=== PATIENT | female | born 1960 | race Two or more races ===

== ENCOUNTER 2021-04-27 10:39 | Outpatient (REF) | payer OTHER, SELFPAY ==
[2021-04-27 13:55] LABS: Hematocrit 42.3 % (37-47); Mean Corpuscular HGB Conc 33.1 g/dl (31.0-35.0); Mean Corpuscular Hemoglobin 29.6 pg (27.0-33.0); Mean Corpuscular Volume 89.4 fL (80-98); Mean Platelet Volume 11.3 fL (9.4-12.3); Platelet Count 246 X10*3/uL (160-400); Red Blood Count 4.73 X10*6/uL (4.20-5.50); Red Cell Distribution Width 12.2 % (11.0-16.0); White Blood Count 6.4 X10*3/uL (4.8-10.8)
[2021-04-27 14:07] LABS: Appearance Urine CLEAR; Color Urine YELLOW; Glucose Urine UA NEG (NEG); Leukocyte Esterase Urine TRACE (NEG); Nitrite Urine NEG (NEG); Urine Blood NEG (NEG); Urine Ketones NEG (NEG); Urine Protein NEG (NEG-TRACE)
[2021-04-27 14:49] LABS: TSH reflex Free T4 1.35 uIU/mL (0.32-4.0); Vitamin D 25-OH Total 77.5 ng/mL (>30)
[2021-04-27 14:53] LABS: RBC Urine 0 /HPF (0); Squamous Epithelial Cell Urine 1+ /LPF; WBC Urine 0-2 /HPF (0-4)
[2021-04-27 14:55] LABS: Alanine Aminotransferase 32 U/L (0-31); Albumin Level 4.2 g/dL (3.5-5.0); Alkaline Phosphatase 61 U/L (39-117); Anion Gap 14 (12-20); Aspartate Amino Transferase 29 U/L (5-31); Bilirubin Total 0.6 mg/dL (0.0-1.0); Blood Urea Nitrogen 11 mg/dL (9-16); Calcium 9.2 mg/dL (8.4-10.2); Carbon Dioxide 25 mmol/L (22-29); Chloride 107 mmol/L (96-108); Cholesterol 223 mg/dL; Estimated Glomerular Filt Rate > 60; Glucose Fasting 88 mg/dL (60-99); HDL Cholesterol 63 mg/dL; LDL Cholesterol Calculated 136 mg/dl; Potassium 4.6 mmol/L (3.3-5.1); Sodium 141 mmol/L (135-145); Total Protein 6.7 g/dL (6.5-8.0); Triglycerides 122 mg/dL
== END 2021-04-27 10:40 | disposition home or self-care (01) ==
LOC: HO.HMGCLDS 10:39
PROVIDERS: PCP Internal Medicine; Visit Provider Internal Medicine
DX: Z00.00 Encounter for general adult medical examination without abnormal findings (principal)
CPT/HCPCS: 36415; 80053; 80061; 81001; 82306; 84443; 85027

== ENCOUNTER 2022-04-19 09:09 | Outpatient (REF) | payer OTHER, SELFPAY ==
[2022-04-19 11:11] LABS: MANUAL DIFF FLAG NO
[2022-04-19 11:33] LABS: Basophils Absolute Auto 0.1 X10*3/uL (0.0-0.2); Basophils Percent Auto 1.2 % (0-2); Eosinophils Absolute Auto 0.3 X10*3/uL (0.0-0.4); Eosinophils Percent Auto 5.1 % (0-4); Hemoglobin 13.8 g/dl (12.0-16.0); Imm Gran Abs Auto 0.01 X10*3/uL (0.00-0.03); Imm Gran Pct Auto 0.2 % (0.0-0.4); Lymphocytes Absolute Auto 1.9 X10*3/uL (1.2-4.9); Lymphocytes Percent Auto 33.5 % (20-40); Mean Corpuscular HGB Conc 32.9 g/dl (31.0-35.0); Mean Corpuscular Hemoglobin 29.4 pg (27.0-33.0); Mean Corpuscular Volume 89.6 fL (80.0-98.0); Mean Platelet Volume 11.1 fL (9.4-12.3); Monocytes Absolute Auto 0.6 X10*3/uL (0.1-1.2); Monocytes Percent Auto 9.9 % (2-11); Neutrophils Absolute Auto 2.8 x10*3/uL (2.0-8.3); Neutrophils Percent Auto 50.1 % (45-73); Platelet Count 242 X10*3/uL (160-400); Red Blood Count 4.69 X10*6/uL (4.20-5.50); Red Cell Distribution Width 13.2 % (11.0-16.0); White Blood Count 5.7 X10*3/uL (4.8-10.8)
[2022-04-19 11:33] LABS: Appearance Urine Clear; Color Urine Yellow; Glucose Urine UA Negative (Negative); Leukocyte Esterase Urine Moderate (2+) (Negative); Nitrite Urine Negative (Negative); PH 5.5 (5.0-9.0); Urine Blood Negative (Negative); Urine Ketones Negative (Negative); Urine Protein Negative (Neg-Trace)
[2022-04-19 11:41] LABS: Bacteria Urine None Seen (None Seen); Hyaline Casts Urine 0-2 /LPF (0-2); RBC Urine 0-2 /HPF (0-2); Squamous Epithelial Cell Urine 0-2 /HPF (0-2)
[2022-04-19 11:43] LABS: UACC Culture Trigger YES
[2022-04-19 11:52] LABS: Alanine Aminotransferase 20 U/L (0-31); Alkaline Phosphatase 60 U/L (39-117); Anion Gap 12 (12-20); Aspartate Amino Transferase 19 U/L (5-31); Bilirubin Total 0.6 mg/dL (0.0-1.0); Blood Urea Nitrogen 13 mg/dL (9-16); Calcium 8.7 mg/dL (8.4-10.2); Carbon Dioxide 26 mmol/L (22-29); Chloride 105 mmol/L (96-108); Cholesterol 205 mg/dL; Estimated Glomerular Filt Rate > 60; Glucose Fasting 97 mg/dL (60-99); HDL Cholesterol 64 mg/dL; LDL Cholesterol Calculated 123 mg/dl; Sodium 139 mmol/L (135-145); Total Protein 6.8 g/dL (6.5-8.0); Triglycerides 90 mg/dL
[2022-04-19 12:16] LABS: Vitamin D 25-OH Total 43.9 ng/mL (>30)
== END 2022-04-19 09:10 | disposition home or self-care (01) ==
LOC: HO.HMGCLDS 09:09
PROVIDERS: PCP Internal Medicine; Visit Provider Internal Medicine
DX: Z00.00 Encounter for general adult medical examination without abnormal findings (principal); E55.9 Vitamin D deficiency, unspecified
CPT/HCPCS: 36415; 80053; 80061; 81001; 82306; 84443; 85025; 87086

== ENCOUNTER 2022-04-23 09:17 | Outpatient (REF) | payer OTHER, SELFPAY ==
[2022-04-23 11:33] LABS: Appearance Urine Clear; Color Urine Yellow; Glucose Urine UA Negative (Negative); Leukocyte Esterase Urine Small (1+) (Negative); Nitrite Urine Negative (Negative); PH 5.5 (5.0-9.0); UMIC TRIGGER UA YES; Urine Blood Negative (Negative); Urine Ketones Negative (Negative); Urine Protein Negative (Neg-Trace)
[2022-04-23 11:47] LABS: Bacteria Urine None Seen (None Seen); Hyaline Casts Urine 0-2 /LPF (0-2); RBC Urine 0-2 /HPF (0-2); Squamous Epithelial Cell Urine 0-2 /HPF (0-2); WBC Urine 0-5 /HPF (0-5)
== END 2022-04-23 09:18 | disposition home or self-care (01) ==
LOC: HO.HMGCLDS 09:17
PROVIDERS: PCP Internal Medicine; Visit Provider Internal Medicine
DX: Z00.00 Encounter for general adult medical examination without abnormal findings (principal); R82.71 Bacteriuria
CPT/HCPCS: 81001; 87086

== ENCOUNTER 2023-03-25 08:37 | Outpatient (AMB) | payer OTHER, SELFPAY ==
--- NOTE | 2023-03-25 08:59 | A.OFFPC_ITS ---
Vital Signs 03/25/23 09:00 Height 5 ft 7 in Weight 156 lb BMI 24.4 BP 120/74 Blood Pressure Location Lt brachial Position Sitting Pulse 71 Pulse Source Pulse Oximeter Pulse Oximetry (%) 97 Oxygen Delivery Method Room Air Intake Visit Reasons: Right shoulder pain Intake Note: Pt is here today for a sick visit. Pt c/o R shoulder pain down goes down her arm for last 2 months.Pt also c/o pain in her joints and bones. Pt also c/o cramps in her lower legs. Allergies Penicillins Allergy (Severe, Verified 03/25/23 09:03) trouble breathing latex Allergy (Verified 03/25/23 09:03) rash Medication List - Last Reconciled 03/25/23 by Ayla García MD cholecalciferol (vitamin D3) 50 mcg PO DAILY clobetasol 0.05% 1 appl topical BID clotrimazole-betamethasone 1-0.05 % 1 appl topical BID mecobalamin (vitamin B12) 1,000 mcg PO DAILY xhtcdgoo-vqz-ptre-FA-vit K-lut 8 mg iron-400 mcg-50 mcg (Multivitamin Women 50 Plus) 1 tab PO DAILY pyridoxine (vitamin B6) 100 mg PO QID sumatriptan succinate 50 mg PO Q2H Tobacco use date assessed: 03/25/23 Dental Screening Dental Screen Date: 03/25/23 Did you have a dental visit in the last 12 months?: Yes Did you have a dental problem in the last 6 months where you did not have access to dental care?: No Was dental information given to patient?: Patient has dentist HPI Right shoulder pain HPI Details Pt c/o R shoulder pain for 2 months worse when reaching overhead, Pt denies injury. 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 Patient denies weakness or numbness in the right upper extremity [facility] Medical History (Updated 03/25/23 @ 09:27 by Ayla García MD) Annual physical exam Mammogram normal Normal colonoscopy Normal Pap smear Varicose veins of both lower extremities Surgical History History of carpal tunnel surgery of left wrist History of carpal tunnel surgery of right wrist S/P foot surgery, right Status post cervical polyp removal Family History Father Heart problem Mother Hypertension Stroke Social History Housing: House Patient Tobacco Use Status: Never used Tobacco e-Cigarette/Vaping Use: Never Used Current occupational status: employed Cognitive needs: No Hearing needs: No Vision needs: Yes Questionnaire PHQ-9 Over the last 2 weeks, how often have you been bothered by any of the following problems? 1. Little interest or pleasure in doing things: not at all 2. Feeling down, depressed, or hopeless: not at all 3. Trouble falling or staying asleep, or sleeping too much: not at all 4. Feeling tired or having little energy: not at all 5. Poor appetite or overeating: not at all 6. Feeling bad about yourself - or that you are a failure or have let yourself or your family down: not at all 7. Trouble concentrating on things, such as reading the newspaper or watching television: not at all 8. Moving or speaking so slowly that other people could have noticed. Or the opposite - being so fidgety or restless that you have been moving around a lot more than usual: not at all 9. Thoughts that you would be better off or of hurting yourself in some way: not at all Total score: 0 Depression Screening Interpretation: Negative Source: Developed by Drs. Valdemar Cagle, Yanira Lewis, Dav Graham and colleagues, with an educational celina from [employer]. Thrive Questionnaire Date Thrive assessed: 03/25/23 I am a: Patient What is your living situation today?: I have a steady place to live Within the past 12 months, did the food you bought not last and you didn't have the money to get more?: Never true Within the past 12 months, did you worry whether your food would run out before you got money to buy more?: Never true Do you have trouble paying for medicines?: No Do you have trouble getting transportation to medical appointments?: No Do you have trouble paying your heating and electricity bill?: No Do you have trouble taking care of your child, family member or friend?: No Do you have trouble with day-to-day activities such as bathing, preparing meals, shopping, managing finances, etc.?: No Are you currently unemployed and looking for a job?: No Are you interested in more education?: No Please select the resources that you would like help with: None Currently or been in a relationship where the following occur: no concerns reported AUDIT C Alcohol Use Questionnaire (AUDIT-C) 1. How often do you have a drink containing alcohol?: Never 3. How often do you have six or more drinks on one occasion?: Never Total Score: 0 HINA-7 AMB Questionnaire HINA-7 Date HINA - 7 assessed: 03/25/23 Feeling nervous, anxious, or on edge: 0 = Not at all Not being able to stop or control worryin = Not at all Worrying too much about different things: 0 = Not at all Trouble relaxin = Not at all Being so restless that it is hard to sit still: 0 = Not at all Becoming easily annoyed or irritable: 0 = Not at all Feeling afraid as if something awful might happen: 0 = Not at all Total HINA-7 score (0-4 normal; 5-9 mild; 10-14 moderate; 15-21 severe): 0 Source: Developed by Drs. Valdemar Cagle, Yanira Lewis, Dav Graham and colleagues, with an educational celina from [employer]. Review of Systems Const All systems reviewed & are unremarkable except as noted in HPI and below Reports no additional complaints Eyes Reports no additional complaints ENT Reports no additional complaints Card Reports no additional complaints Resp Reports no additional complaints GI Reports no additional complaints Reports no additional complaints Physical exam (Primary Care) Vital Signs: Last Vital Signs Pulse 71 03/25/23 09:00 BP 120/74 03/25/23 09:00 Pulse Ox 97 03/25/23 09:00 Oxygen Delivery Method Room Air 03/25/23 09:00 BMI result Body Mass Index 24.4 Tobacco/Smoking Status: Tobacco use Status Tobacco use date assessed 03/25/23 03/25/23 09:06 Patient Tobacco Use Status Never used Tobacco 03/25/23 09:06 e-Cigarette/Vaping Use Never Used 03/25/23 09:06 PHQ-9: PHQ-9 Score PHQ-9: Total score 0 03/25/23 09:22 Depression Screening Interpretation: Negative Thrive Assessment: Date of Thrive Assessment Date Thrive assessed 03/25/23 03/25/23 09:06 Currently or been in a relationship where the following occur: no concerns reported Const General: no acute distress HENMT Head: Yes normal to inspection Resp Effort & Inspection: normal respiratory effort Auscultation: clear to auscultation bilaterally Cardio Rhythm: regular rhythm Heart sounds: S1 normal heart sound present and S2 normal heart sound present Extrem Other: There is anterior aspect of the right shoulder and supraspinatus reproducible tenderness and significantly decreased range of motion Assessment and Plan Assessment & Plan (1) Shoulder pain, right: Code(s): M25.511 - Pain in right shoulder Plan: Check x-ray ,treat with meloxicam for 10 days and refer for physical therapy (2) Annual physical exam: Code(s): Z00.00 - Encounter for general adult medical examination without abnormal findings Plan: For general arthralgia and joint stiffness rheumatoid factor will be checked (3) Vitamin D deficiency: Code(s): E55.9 - Vitamin D deficiency, unspecified Plan: Continue vitamin-D supplement Orders: Orders XR shoulder RT min 2V Today M25.511 - Pain in right shoulder Comprehensive [place]. Panel Fast Today E55.9 - Vitamin D deficiency, unspecified, Z00.00 - Encounter for general adult medical examination without abnormal findings Complete Blood Count Auto Diff Today E55.9 - Vitamin D deficiency, unspecified, Z00.00 - Encounter for general adult medical examination without abnormal findings Lipid Panel Today E55.9 - Vitamin D deficiency, unspecified, Z00.00 - Encounter for general adult medical examination without abnormal findings TSH reflex Free T4 Today E55.9 - Vitamin D deficiency, unspecified, Z00.00 - Encounter for general adult medical examination without abnormal findings Vitamin D 25-OH Total Today E55.9 - Vitamin D deficiency, unspecified, Z00.00 - Encounter for general adult medical examination without abnormal findings Erythrocyte Sedimentation Rate Today E55.9 - Vitamin D deficiency, unspecified, Z00.00 - Encounter for general adult medical examination without abnormal find ings Rheumatoid Factor Today E55.9 - Vitamin D deficiency, unspecified, Z00.00 - Encounter for general adult medical examination without abnormal findings Cyclic Citrullinated Peptide Today E55.9 - Vitamin D deficiency, unspecified, Z00.00 - Encounter for general adult medical examination without abnormal findings PT Evaluation and Treatment Today M25.511 - Pain in right shoulder Medications: New meloxicam 15 mg PO DAILY 10 tabs 0RF Coding Level of Care Code Est Pt Level 3 (41056) Diagnoses Shoulder pain, right M25.511 Annual physical exam Z00.00 Vitamin D deficiency E55.9
[2023-03-25 09:00] VITALS: BP 120/74; PULSE 71; O2SAT 97; BMI 24.4
== END 2023-03-25 15:27 | disposition home or self-care (01) ==
PROVIDERS: PCP Internal Medicine; Visit Provider Internal Medicine
DX: M25.511 Pain in right shoulder (principal); Z00.00 Encounter for general adult medical examination without abnormal findings; E55.9 Vitamin D deficiency, unspecified
CPT/HCPCS: 99213

== ENCOUNTER 2023-03-25 09:36 | Outpatient (REF) | payer OTHER, SELFPAY ==
[2023-03-25 11:14] LABS: MANUAL DIFF FLAG NO
[2023-03-25 11:39] LABS: Basophils Absolute Auto 0.1 X10*3/uL (0.0-0.2); Basophils Percent Auto 1.5 % (0-2); Eosinophils Absolute Auto 0.3 X10*3/uL (0.0-0.4); Eosinophils Percent Auto 4.8 % (0-4); Hematocrit 42.3 % (37.0-47.0); Hemoglobin 14.1 g/dl (12.0-16.0); Imm Gran Abs Auto 0.01 X10*3/uL (0.00-0.03); Imm Gran Pct Auto 0.2 % (0.0-0.4); Lymphocytes Absolute Auto 1.4 X10*3/uL (1.2-4.9); Lymphocytes Percent Auto 26.9 % (20-40); Mean Corpuscular HGB Conc 33.3 g/dl (31.0-35.0); Mean Corpuscular Hemoglobin 30.1 pg (27.0-33.0); Mean Corpuscular Volume 90.4 fL (80.0-98.0); Mean Platelet Volume 11.1 fL (9.4-12.3); Monocytes Absolute Auto 0.5 X10*3/uL (0.1-1.2); Monocytes Percent Auto 9.4 % (2-11); Neutrophils Percent Auto 57.2 % (45-73); Platelet Count 259 X10*3/uL (160-400); Red Blood Count 4.68 X10*6/uL (4.20-5.50); Red Cell Distribution Width 12.5 % (11.0-16.0); White Blood Count 5.2 X10*3/uL (4.8-10.8)
[2023-03-25 12:19] LABS: Rheumatoid Factor < 13.0 IU/mL (<15.0)
[2023-03-25 12:26] LABS: Alanine Aminotransferase 19 U/L (0-31); Albumin Level 4.2 g/dL (3.5-5.0); Alkaline Phosphatase 57 U/L (39-117); Anion Gap 12 (12-20); Aspartate Amino Transferase 20 U/L (5-31); Bilirubin Total 0.7 mg/dL (0.0-1.0); Blood Urea Nitrogen 15 mg/dL (9-16); Calcium 9.4 mg/dL (8.4-10.2); Carbon Dioxide 28 mmol/L (22-29); Chloride 106 mmol/L (96-108); Cholesterol 201 mg/dL; Estimated Glomerular Filt Rate > 60; Glucose Fasting 89 mg/dL (60-99); HDL Cholesterol 65 mg/dL; LDL Cholesterol Calculated 117 mg/dl; Potassium 4.3 mmol/L (3.3-5.1); Sodium 142 mmol/L (135-145); TSH reflex Free T4 1.51 uIU/mL (0.32-4.0); Total Protein 7.2 g/dL (6.5-8.0); Triglycerides 96 mg/dL; Vitamin D 25-OH Total 53.6 ng/mL (>30)
[2023-03-25 15:48] LABS: Erythrocyte Sedimentation Rate 5 MM/HR (0-20)
[2023-03-28 16:59] LABS: Cyclic Citrullinated Peptide <16 UNITS
== END 2023-03-25 09:37 | disposition home or self-care (01) ==
LOC: HO.HMGCLDS 09:36
PROVIDERS: PCP Internal Medicine; Visit Provider Internal Medicine
DX: Z00.00 Encounter for general adult medical examination without abnormal findings (principal); E55.9 Vitamin D deficiency, unspecified
CPT/HCPCS: 36415; 80053; 80061; 82306; 84443; 85025; 85652; 86200; 86431

== ENCOUNTER 2023-03-31 11:28 | Outpatient (REF) | payer OTHER, SELFPAY ==
--- NOTE | ~2023-03-31 | XR_ITS ---
EXAMINATION: XR SHOULDER, RIGHT CLINICAL INFORMATION: Right shoulder pain COMPARISON: None available. TECHNIQUE: AP external rotation, Grashey, scapular Y, and axillary views of the right shoulder. FINDINGS: Advanced degenerative changes with hypertrophic change and joint space narrowing in the acromioclavicular joint. Glenohumeral alignment is preserved. No abnormal soft tissue calcifications identified adjacent to the humeral head. Focal exostosis along the lateral midportion of the scapula not well characterized. XR/XR shoulder RT min 2V IMPRESSION: 1. Advanced degenerative changes in the acromioclavicular joint. 2. Focal exostosis versus periosteal reaction along the lateral midportion of the scapula not well characterized. CT scan or MRI recommended for further evaluation.
== END 2023-03-31 11:29 | disposition home or self-care (01) ==
LOC: HO.HMGCX 11:28
PROVIDERS: PCP Internal Medicine; Visit Provider Internal Medicine
DX: M25.511 Pain in right shoulder (principal)
CPT/HCPCS: 73030

== ENCOUNTER 2023-05-02 09:12 | Outpatient (REF) | payer OTHER, SELFPAY ==
--- NOTE | ~2023-05-02 | MR_ITS ---
EXAMINATION: MR SHOULDER WITHOUT CONTRAST, RIGHT CLINICAL INFORMATION: Shoulder pain COMPARISON: X-ray 03/31/2023 TECHNIQUE: MRI of the shoulder without contrast was performed on a high-field scanner. FINDINGS: Motion artifact degrading images, limiting evaluation. ROTATOR CUFF: Mild supraspinatus tendinosis. Supraspinatus tear anteriorly measuring 1.5 x 1.5 cm (AP x ML), with the tear having high-grade and possible full-thickness components. This appears to involve both the bursal and articular aspect of the tendon. Infraspinatus, teres minor is intact. Mild subscapularis tendinosis, mild articular surface fraying. No muscle atrophy or fatty infiltration. BICEPS: Question mild biceps tendinosis. Tendon appears intact. CORACOACROMIAL ARCH: The undersurface of the acromion is mildly curved with no subacromial spur. Moderate acromioclavicular arthritis. Small fluid in the subacromial subdeltoid space. LABRUM/CAPSULE: Evaluation limited by motion artifact. Superior labral degeneration with possible fraying/tear. No displaced labral tears otherwise seen. Intact inferior capsule. GLENOHUMERAL JOINT/MARROW: Greater tuberosity degenerative/reactive edema. No fracture. Small effusion. MR/MR shoulder RT wo con IMPRESSION: Motion artifact degrading images, limiting evaluation. 1. Mild supraspinatus tendinosis. 1.5 x 1.5 cm tear anteriorly, with high-grade and possible full-thickness components. 2. Mild subscapularis tendinosis, mild articular surface fraying. 3. Question mild biceps tendinosis. 4. Superior labral degeneration with possible fraying/tear. 5. Moderate acromioclavicular arthritis. Mild subacromial subdeltoid bursitis. 6. Small glenohumeral joint effusion.
== END 2023-05-02 09:13 | disposition home or self-care (01) ==
LOC: HO.MRI 09:12
PROVIDERS: PCP Internal Medicine; Visit Provider Internal Medicine
DX: M25.511 Pain in right shoulder (principal); M12.811 Other specific arthropathies, not elsewhere classified, right shoulder
CPT/HCPCS: 73221

== ENCOUNTER 2023-06-16 10:57 | Outpatient (AMB) | payer OTHER, SELFPAY ==
--- NOTE | 2023-06-16 11:18 | A.OFFVIS_ITS ---
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 Patient reports constant pain that has been present for about 7 months. Denies injury. States pain radiates into her bicep area. Limited ROM. No strength with lifting items. Patient was seen by PCP who ordered MRI and referred to orthopedics. Finds little to no relief with ibuprofen and Tylenol. 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 She states he has constant pain and limited ROM in her shoulder which radiates into her bicep region. She c/o no strength with lifting items and she is unable to reach back or raise her hand above her chest. She was seen by her PCP who ordered MRI and was referred to our office. She finds minimal relief with Tylenol and ibuprofen. [facility] Medical History (Updated 04/13/23 @ 15:06 by Ayla García MD) Normal colonoscopy Mammogram normal Normal Pap smear Annual physical exam Varicose veins of both lower extremities Surgical History Status post cervical polyp removal S/P foot surgery, right History of carpal tunnel surgery of right wrist History of carpal tunnel surgery of left wrist Family History Father Heart problem Mother Hypertension Stroke Social History Housing: House Patient Tobacco Use Status: Never used Tobacco e-Cigarette/Vaping Use: Never Used Current occupational status: employed Cognitive needs: No Hearing needs: No Vision needs: Yes Review of Systems Const All systems reviewed & are unremarkable except as noted in HPI and below Physical Exam Vital Signs: BMI result Body Mass Index 24.4 Const General: cooperative, healthy appearing, comfortable, no acute distress, well developed and alert Orientation/consciousness: patient oriented x3 HEENT Head: Yes normal to inspection, Yes normocephalic and Yes atraumatic Eyes General: appearance normal, both eyes and all related structures Resp Effort & Inspection: normal respiratory effort and able to speak in complete sen tences Cardio Rate: regular rate Peripheral pulses: Peripheral pulses 2+ throughout GI Palpation (GI): Soft to palpation Skin Lesions: no lesions Rashes: no rashes Neuro General: patient oriented x3 Extrem Other: Right shoulder normal to inspection. Tenderness over the bicipital groove and along the deltoid region of the shoulder. Forward flexion to 175, external rotation to 90, internal rotation to S1. 5/5 RTC strength. Negative Matt and cross body abduction. NVI. Results Reviewed Results Reviewed: MRI 05/02/23 IMPRESSION: Motion artifact degrading images, limiting evaluation. 1. Mild supraspinatus tendinosis. 1.5 x 1.5 cm tear anteriorly, with high-grade and possible full-thickness components. 2. Mild subscapularis tendinosis, mild articular surface fraying. 3. Question mild biceps tendinosis. 4. Superior labral degeneration with possible fraying/tear. 5. Moderate acromioclavicular arthritis. Mild subacromial subdeltoid bursitis. 6. Small glenohumeral joint effusion. Assessment & Plan Assessment & Plan (1) Rotator cuff arthropathy of right shoulder: Code(s): M12.811 - Other specific arthropathies, not elsewhere classified, right shoulder Plan We discussed options which include PT, NSAIDs and injections. The patient will defer on the injection today and proceed with PT and NSAIDs. I recommend no lifting overhead and no pushing, pulling or carrying more than 10 lbs at work. She will return in [address] Patterson to discuss further treatment options if she continues to have pain and limitations. Orders: Orders PT Evaluation and Treatment Today M12.811 - Other specific arthropathies, not elsewhere classified, right shoulder Patient Instructions: Scribed for Canelo Mcmahon PA-C, by Ryan Dawkins medical assistant dermatology, on 06/16/2023 at 11:00 AM EST. ICanelo PA-C, have personally reviewed and agree with the information entered by the scribe. Coding Level of Care Code New Pt Level 3 (48686) Diagnoses Rotator cuff arthropathy of right shoulder M12.811
[2023-06-16 11:24] VITALS: BMI 24.4
== END 2023-06-16 12:02 | disposition home or self-care (01) ==
PROVIDERS: PCP Internal Medicine; Visit Provider Physician Assistant
DX: M12.811 Other specific arthropathies, not elsewhere classified, right shoulder (principal)
CPT/HCPCS: 99203

== ENCOUNTER → 2023-06-16 10:57 | Outpatient (BNVA) | payer OTHER, SELFPAY | PROVIDERS: PCP Internal Medicine; Visit Provider Physician Assistant ==

== ENCOUNTER 2023-07-27 11:00 | Outpatient (RCR) | payer OTHER, SELFPAY ==
--- NOTE | 2023-06-24 11:54 | MHC.PT.EP ---
[facility] [place] Office [place] Office [place] Office [address] Pari Jung [address] [facility] [phone] F: [phone] F: [phone] F: [phone] F: [phone] Physical Therapy Plan of Care Date of Evaluation: 06/24/23 Date of Surgery: Diagnosis: This is a 62 yo female presenting to skilled PT with a script for rotator cuff arthropathy of R shoulder. Assessment: This is a 62 yo female presenting to skilled PT with a script for rotator cuff arthropathy of R shoulder. Patient reports constant pain that has been present for about 7 months. Denies injury but does report that some time ago she had attempted to start exercising (Pilates at home) and pain did start to get worse. She reports limited ROM and strength since then. States pain is located at the anterior and superior shoulder joint, UT and radiates into her bicep. Patient was seen by PCP who ordered MRI and referred to orthopedics. She finds little relief with ibuprofen and Tylenol. Per ortho note she will return in [address] Patterson to discuss further treatment options if she continues to have pain and limitations. Return visit booked for 07/28/23. Assessment reveals pain that ranges from up to a 7/10 at the worst. Patient demos decreased R shoulder and cervical ROM, strength of B shoulder's, TTP at bicep insertion and ACJ and impaired posture with forward head and rounded shoulders with compensatory posture holding arm adducted and IR'd. Based on functional limitations, impaired QOL and pain tolerance patient is a good candidate for skilled PT 2x/wk for 4wks. 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 Manual therapy to restore motion and function. Therapeutic exercise to improve strength and flexibility. Neuromuscular re-education for posture and balance. Therapeutic activities to return to functional activities of daily living. Electronically signed by: Мария Denney PT Please sign and return to therapist. Thank you for your referral.
--- NOTE | 2023-08-04 08:49 | MHC.PT.DC ---
[facility] [place] Office [place] Office [place] Office [address] Pari Jung [address] [phone] F: [phone] F: [phone] F: [phone] F: [phone] Physical Therapy Discharge Report Diagnosis: This is a 62 yo female presenting to skilled PT with a script for rotator cuff arthropathy of R shoulder. Date of Surgery: Date of Evaluation: 06/24/23 Date of Discharge: 08/04/23 Treatments to Date: 10 Cancellations to Date: 0 No Shows to Date: 0 Discharge Status: Improved Function Independent with HEP Recommend MD Follow-up Discharge Summary: Patient has plateaued in progress. She will be seeing ortho to discuss her options for injection vs surgery. Her ROM is better but her pain is still consistent. Educated her on HEP and DC as well as POC following this. She has improved since eval but not enough to continue PT and would benefit from follow up with referring MD. DC to HEP and recommend MD follow-up. Electronically signed by: Мария Denney PT Please sign and return to therapist. Thank you for your referral.
== END 2023-08-04 08:49 | disposition home or self-care (01) ==
LOC: HO.PTCHIC 11:00
PROVIDERS: PCP Internal Medicine; Visit Provider Physician Assistant
DX: M12.811 Other specific arthropathies, not elsewhere classified, right shoulder (principal)
CPT/HCPCS: 97110; 97140; 97162

== ENCOUNTER 2023-07-28 09:35 | Outpatient (AMB) | payer OTHER, SELFPAY ==
--- NOTE | 2023-07-28 09:37 | A.OFFVIS_ITS ---
Intake Vital Signs 07/28/23 09:50 Height 5 ft 7 in Weight 156 lb BMI 24.4 Intake Visit Reasons: OV-Rt shldr s/p PT Intake Note: Alexandrea Castaneda a 62 year old South Sudanese speaking female presents today for a follow up of right shoulder. Patient reports PT helped improve her ROM however she continues to have pain that is now wq\radiating into her neck. She would like to discuss surgery vs cortisone injection. Allergies Penicillins Allergy (Severe, Verified 07/28/23 09:49) trouble breathing latex Allergy (Verified 07/28/23 09:49) rash HPI OV-Rt shldr s/p PT HPI Details Alexandrea is a 62 year old South Sudanese speaking woman who presents for an MRI review of her right shoulder pain. She continues to complain of pain with daily activity, worse with overhead activity and at night. She says PT helped improve her ROM, but she says her pain is now worsening and radiating into her neck. She denies any prior injections and would like to discuss treatment options. She finds some relief from NSAIDs. [facility] Medical History (Updated 07/28/23 @ 11:07 by Emanuel Patterson MD) Normal colonoscopy Mammogram normal Normal Pap smear Annual physical exam Varicose veins of both lower extremities Surgical History Status post cervical polyp removal S/P foot surgery, right History of carpal tunnel surgery of right wrist History of carpal tunnel surgery of left wrist Family History Father Heart problem Mother Hypertension Stroke Social History Housing: House Patient Tobacco Use Status: Never used Tobacco e-Cigarette/Vaping Use: Never Used Current occupational status: employed Cognitive needs: No Hearing needs: No Vision needs: Yes Review of Systems Const All systems reviewed & are unremarkable except as noted in HPI and below Physical Exam Vital Signs: BMI result Body Mass Index 24.4 Const General: no acute distress, alert and awake Orientation/consciousness: patient oriented x3 HEENT Head: Yes normocephalic and Yes atraumatic Eyes EOM: EOMs intact bilaterally Resp Effort & Inspection: normal respiratory effort and able to speak in complete sentences Cardio Jugular venous distension: no JVD Skin General skin exam: turgor normal Rashes: no rashes Neuro General: patient oriented x3 Extrem Other: 30/90/130-/L5 4+5 EC neg lad neg hb mild pain with H/N neg lift off Psych Appearance: grossly normal Affect: normal affect Attitude: cooperative Results Reviewed Results Reviewed: I personally reviewed relevant MR images IMPRESSION: Motion artifact degrading images, limiting evaluation. 1. Mild supraspinatus tendinosis. 1.5 x 1.5 cm tear anteriorly, with high-grade and possible full-thickness components. 2. Mild subscapularis tendinosis, mild articular surface fraying. 3. Question mild biceps tendinosis. 4. Superior labral degeneration with possible fraying/tear. 5. Moderate acromioclavicular arthritis. Mild subacromial subdeltoid bursitis. 6. Small glenohumeral joint effusion. Assessment & Plan Assessment & Plan (1) Rotator cuff tear, right: Code(s): M75.101 - Unspecified rotator cuff tear or rupture of right shoulder, not specified as traumatic Plan: High grade partial tear right supraspiantus PT helpful with ROM but not with pain Weakn on testing MRI reviewed and I recommend surgical fixation. She is active and healthy. She would prefer to wait until Spring. I will see her back in 3 months. I discussed the risks benefits and alternatives of rotator cuff repair. Plan Scribed for Emanuel Patterson MD by Sonido Hernandez, medical donation professional, on [ ] at [ ], EST. Coding Level of Care Code Est Pt Level 4 (76229) Diagnoses Rotator cuff tear, right M75.101
[2023-07-28 09:50] VITALS: BMI 24.4
== END 2023-07-28 10:39 | disposition home or self-care (01) ==
PROVIDERS: PCP Internal Medicine; Visit Provider Orthopaedic Surgery
DX: M75.101 Unspecified rotator cuff tear or rupture of right shoulder, not specified as traumatic (principal)
CPT/HCPCS: 99214

== ENCOUNTER → 2023-07-28 09:35 | Outpatient (BNVA) | payer OTHER, SELFPAY | PROVIDERS: PCP Internal Medicine; Visit Provider Physician Assistant ==

== ENCOUNTER 2023-08-19 11:49 | Outpatient (AMB) | payer OTHER, SELFPAY ==
[2023-08-19 12:16] VITALS: BP 120/74; PULSE 74; O2SAT 97; BMI 24.1
--- NOTE | 2023-08-19 12:16 | A.OFFPC_ITS ---
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 Recreation Required: No Accompanied by: Self / Same As Patient Allergies Penicillins Allergy (Severe, Verified 08/19/23 12:16) trouble breathing latex Allergy (Verified 08/19/23 12:16) rash Medication List - Last Reconciled 08/19/23 by Ayla García MD cholecalciferol (vitamin D3) 50 mcg PO DAILY clobetasol 0.05% 1 appl topical BID clotrimazole-betamethasone 1-0.05 % 1 appl topical BID mecobalamin (vitamin B12) 1,000 mcg PO DAILY mqqlhxdb-bud-dvat-FA-vit K-lut 8 mg iron-400 mcg-50 mcg (Multivitamin Women 50 Plus) 1 tab PO DAILY pyridoxine (vitamin B6) 100 mg PO QID sumatriptan succinate 50 mg PO Q2H Tobacco use date assessed: 08/19/23 Dental Screening Dental Screen Date: 08/19/23 Did you have a dental visit in the last 12 months?: Yes Did you have a dental problem in the last 6 months where you did not have access to dental care?: No Was dental information given to patient?: Patient has dentist HPI Annual PE HPI Details Pt presents for PE. Patient complains of chronic postnasal drip and intermittent cough worse at night after laying down. Patient denies sputum production pleurisy PND orthopnea fever chills or night sweats, She would like to have a referral to vascular surgeon to discuss her venous insufficiency. Patient complains of bilateral leg heaviness worse at the end of the day. She had multiple interventions in the past without significant improvement. Patient will have right shoulder supraspinatus tear surgery in the spring. [facility] Medical History (Updated 08/19/23 @ 15:18 by Ayla García MD) Normal colonoscopy Mammogram normal Normal Pap smear Annual physical exam Varicose veins of both lower extremities Surgical History Status post cervical polyp removal S/P foot surgery, right History of carpal tunnel surgery of right wrist History of carpal tunnel surgery of left wrist Family History Father Heart problem Mother Hypertension Stroke Social History Housing: House Patient Tobacco Use Status: Never used Tobacco e-Cigarette/Vaping Use: Never Used Current occupational status: employed Cognitive needs: No Hearing needs: No Vision needs: Yes Questionnaire PHQ-9 Over the last 2 weeks, how often have you been bothered by any of the following problems? 1. Little interest or pleasure in doing things: not at all 2. Feeling down, depressed, or hopeless: not at all 3. Trouble falling or staying asleep, or sleeping too much: not at all 4. Feeling tired or having little energy: not at all 5. Poor appetite or overeating: not at all 6. Feeling bad about yourself - or that you are a failure or have let yourself or your family down: not at all 7. Trouble concentrating on things, such as reading the newspaper or watching television: not at all 8. Moving or speaking so slowly that other people could have noticed. Or the opp osite - being so fidgety or restless that you have been moving around a lot more than usual: not at all 9. Thoughts that you would be better off or of hurting yourself in some way: not at all Total score: 0 Depression Screening Interpretation: Negative Depression Screening Done: Yes 15710 - PHQ-9 Billing: Yes Source: Developed by Drs. Valdemar Cagle, Yanira Lewis, Dav Graham and colleagues, with an educational celina from [employer]. Thrive Questionnaire Date Thrive assessed: 08/19/23 I am a: Patient What is your living situation today?: I have a steady place to live Within the past 12 months, did the food you bought not last and you didn't have the money to get more?: Never true Within the past 12 months, did you worry whether your food would run out before you got money to buy more?: Never true Do you have trouble paying for medicines?: No Do you have trouble getting transportation to medical appointments?: No Do you have trouble paying your heating and electricity bill?: No Do you have trouble taking care of your child, family member or friend?: No Do you have trouble with day-to-day activities such as bathing, preparing meals, shopping, managing finances, etc.?: No Are you currently unemployed and looking for a job?: No Are you interested in more education?: No Please select the resources that you would like help with: None Currently or been in a relationship where the following occur: no concerns reported AUDIT C Alcohol Use Questionnaire (AUDIT-C) 1. How often do you have a drink containing alcohol?: Never 3. How often do you have six or more drinks on one occasion?: Never Total Score: 0 Score Reviewed/Action Taken: Yes HINA-7 AMB Questionnaire HINA-7 Date HINA - 7 assessed: 08/19/23 Feeling nervous, anxious, or on edge: 0 = Not at all Not being able to stop or control worryin = Not at all Worrying too much about different things: 0 = Not at all Trouble relaxin = Not at all Being so restless that it is hard to sit still: 0 = Not at all Becoming easily annoyed or irritable: 0 = Not at all Feeling afraid as if something awful might happen: 0 = Not at all Total HINA-7 score (0-4 normal; 5-9 mild; 10-14 moderate; 15-21 severe): 0 Source: Developed by Drs. Valdemar Cagle, Yanira Lewis, Dav Graham and colleagues, with an educational celina from [employer]. HINA-7 Assessment Billing HINA-7 Assessment Tool: HINA-7 Assessment 67255 Review of Systems Const All systems reviewed & are unremarkable except as noted in HPI and below Reports no additional complaints Eyes Reports no additional complaints ENT Reports no additional complaints Card Reports no additional complaints Resp Reports no additional complaints GI Reports no additional complaints Physical exam (Primary Care) Vital Signs: Last Vital Signs Pulse 74 08/19/23 12:16 BP 120/74 08/19/23 12:16 Pulse Ox 97 08/19/23 12:16 Oxygen Delivery Method Room Air 08/19/23 12:16 BMI result Body Mass Index 24.1 Tobacco/Smoking Status: Tobacco use Status Tobacco use date assessed 08/19/23 08/19/23 12:17 Patient Tobacco Use Status Never used Tobacco 08/19/23 12:17 e-Cigarette/Vaping Use Never Used 08/19/23 12:17 PHQ-9: PHQ-9 Score PHQ-9: Total score 0 08/19/23 13:03 Depression Screening Interpretation: Negative Thrive Assessment: Date of Thrive Assessment Date Thrive assessed 08/19/23 08/19/23 12:21 Currently or been in a relationship where the following occur: no concerns reported Const General: no acute distress HENMT Head: Yes normal to inspection Ears: hearing grossly normal bilaterally General nose exam: Normal external nose present Face and sinus: Yes normal facial exam Mouth: Normal oral and palatal mucosa present Throat: Yes posterior oropharynx normal Eyes General: appearance normal, both eyes and all related structures Neck Neck: Yes no lymphadenopathy and Yes supple Resp Effort & Inspection: normal respiratory effort Auscultation: clear to auscultation bilaterally Cardio Rhythm: regular rhythm Heart sounds: S1 normal heart sound present and S2 normal heart sound present GI Inspection: Yes normal to inspection Palpation (GI): Soft to palpation Percussion: Yes normal to percussion Auscultation: normal bowel sounds Assessment and Plan Assessment & Plan (1) Chronic cough: Code(s): R05.3 - Chronic cough Plan: Patient was advised to use Flonase nasal spray and PFTs will be obtained to rule out asthma (2) Mammogram normal: Comment: 2020 (3) Varicose veins of both lower extremities: Comment: [facility]icose [facility] Vascular Code(s): I83.93 - Asymptomatic varicose veins of bilateral lower extremities Plan: Referred to vascular surgeon (4) Annual physical exam: Code(s): Z00.00 - Encounter for general adult medical examination without abnormal findings Plan: Well-balanced diet regular physical activity discussed with the patient (5) Normal colonoscopy: Comment: at 52, Cologuard sent 04/29 (6) Tear of supraspinatus tendon: Comment: MR 04/30, f/u [facility] ortho Dr. Patterson Code(s): M75.100 - Unspecified rotator cuff tear or rupture of unspecified shoulder, not specified as traumatic Orders: Orders PFT pulmonary function test Today R05.3 - Chronic cough Referrals Vascular Surgery Referral I83.93 - Asymptomatic varicose veins of bilateral lower extremities Medications: Refilled clobetasol 0.05% 1 appl topical BID 30 grams 2RF clotrimazole-betamethasone 1-0.05 % 1 appl topical BID 45 grams 1RF sumatriptan succinate 50 mg PO Q2H 9 tabs 6RF for migraine Coding Level of Care Code Est Pt Prev Care 40-64y(40032) Diagnoses Chronic cough R05.3 Mammogram normal Varicose veins of both lower extremities I83.93 Annual physical exam Z00.00 Normal colonoscopy Tear of supraspinatus tendon M75.100 Additional Codes HINA-7 Assessment Billing - HINA-7 Assessment Tool: HINA-7 Assessment [id number] ([id number])
== END 2023-08-19 13:22 | disposition home or self-care (01) ==
PROVIDERS: PCP Internal Medicine; Visit Provider Internal Medicine
DX: R05.3 Chronic cough (principal); I83.93 Asymptomatic varicose veins of bilateral lower extremities; Z00.00 Encounter for general adult medical examination without abnormal findings; M75.100 Unspecified rotator cuff tear or rupture of unspecified shoulder, not specified as traumatic
CPT/HCPCS: 99396

== ENCOUNTER 2023-10-04 11:09 | Outpatient (AMB) | payer OTHER, SELFPAY ==
[2023-10-04 11:16] VITALS: BMI 24.1
--- NOTE | 2023-10-04 11:16 | A.OFFVIS_ITS ---
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 Had microphlebectomy Left LE and Right LE ?Ablation and 24+ yrs ago in [place]. Pt had has issues w/ VV for over 25 yrs. Has itching, burning, aching, swelling, worse at night. Issues have been chronic, even with previous venous interventions, has not gotten better. 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 Complaints include pain over varicosities, swelling of lower extremities, cramping, fatigue, and heaviness of the lower extremities. 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 It is noted more so in right leg. Patient notes prior bilateral venous ablation is by Dr. Granados nearly 10-12 years ago. In addition had microphlebectomy by Dr. Brian Callejas at [facility] 4-5 years ago. Patient denies any history of DVT/ PE. Patient denies any history of phlebitis. Trial of compression includes - [id number] They now present for vascular evaluation regarding their varicose veins. [facility] Medical History Normal colonoscopy Mammogram normal Normal Pap smear Annual physical exam Varicose veins of both lower extremities Surgical History Status post cervical polyp removal S/P foot surgery, right History of carpal tunnel surgery of right wrist History of carpal tunnel surgery of left wrist Family History Father Heart problem Mother Hypertension Stroke Social History Housing: House Patient Tobacco Use Status: Never used Tobacco e-Cigarette/Vaping Use: Never Used Current occupational status: employed Cognitive needs: No Hearing needs: No Vision needs: Yes Review of Systems Const Reports as per HPI ENT Reports no additional complaints Card Denies chest pain, Denies chest pain at rest and Denies chest pain with activity Resp Denies chest congestion and Denies cough GI Reports no additional complaints Musc Details: pain over varicosities, aching of lower extremities, swelling, cramping, heaviness and tiredness, itching Denies abnormal gait Skin/Breast Reports pruritus and Denies wounds Neuro Reports no additional complaints and Denies abnormal gait Psych Denies no additional complaints Physical Exam Vital Signs: BMI result Body Mass Index 24.1 Const General: cooperative, healthy appearing and comfortable Orientation/consciousness: oriented to person, oriented to place and oriented to time Neck Carotids: no bruits Chest Chest palpation & inspection: normal inspection of the chest and normal palpation of entire chest wall Resp Effort & Inspection: normal respiratory effort and able to speak in complete sentences Cardio Rate: regular rate Heart sounds: S1 normal heart sound present and S2 normal heart sound present Peripheral pulses: Peripheral pulses 2+ throughout GI Inspection: Yes normal to inspection Skin Other: +2 edema, large rope-like varicosities greater than 4 mm CEAP Classification C4 - skin color changes Ep - Etiology Primary As - superficial veins P - reflux General skin exam: dry skin Neuro General: oriented to person, oriented to place and oriented to time Extrem Right lower extremity: full ROM, normal capillary refill and edema Left lower extremity: full ROM, normal capillary refill and edema Psych Mental Status: mental status grossly normal Assessment & Plan Assessment & Plan (1) Varicose veins of left lower extremity with inflammation: Code(s): I83.12 - Varicose veins of left lower extremity with inflammation Plan: In short, the patient has evidence of venous insufficiency. I have discussed the pathophysiology with the patient. In addition I have provided informational material regarding venous disease to the patient. We have discussed conservative measures including compression, elevation, and exercise. I have also provided a handout regarding appropriate use of compression stockings and where to purchase good compression stockings as well. I have taken the liberty of ordering venous insufficiency testing with the patient. They will follow up with me after testing. The patient had an opportunity to ask questions regarding the treatment plan. All questions were answered. Imaging studies, laboratory studies and physical exam results were discussed and reviewed in detail. No major barriers to understanding were identified. The patient expressed understanding and agreement with the above treatment plan. The patient is aware they should contact our office by phone for worsening of the current condition or the appearance of new symptoms. Thank you for allowing me to participate in the vascular care of this patient. If you have any questions or concerns regarding the treatment for the above condition please do not hesitate to contact me. The office telephone contact is [phone]. This note is constructed using voice recognition software. While every effort has been made to ensure accuracy, nut and bolt assembler errors may have been included. Thank you for allowing me to participate in the care of your patient. Yours sincerely, Jose Meza MD, FACS, R.P.V.I. Orders: Orders US venous insuf bilat 1 Week I83.12 - Varicose veins of left lower extremity with inflammation Coding Level of Care Code New Pt Level 4 (40268) Diagnoses Varicose veins of left lower extremity with inflammation I83.12
== END 2023-10-04 11:42 | disposition home or self-care (01) ==
PROVIDERS: PCP Internal Medicine; Visit Provider Surgery Vascular Surgery
DX: I83.12 Varicose veins of left lower extremity with inflammation (principal)
CPT/HCPCS: 99203

== ENCOUNTER → 2023-10-04 11:09 | Outpatient (BNVA) | payer OTHER, SELFPAY | PROVIDERS: PCP Internal Medicine; Visit Provider Surgery Vascular Surgery ==

== ENCOUNTER 2023-10-20 10:08 | Outpatient (REF) | payer OTHER, SELFPAY ==
--- NOTE | ~2023-10-20 | US_ITS ---
EXAMINATION: US LOWER EXTREMITY VENOUS (REFLUX EXAM), BILATERAL CLINICAL INFORMATION: Chronic venous insufficiency with lower extremity varicose veins with inflammation. History of left lower extremity venous stripping/phlebectomy. A questionable right lower extremity ablation COMPARISON: None. TECHNIQUE: Color flow triplex imaging and compression Doppler was performed to evaluate both the deep and the superficial systems bilaterally. To evaluate the superficial system, the examination was performed in the upright position. Color-flow Doppler ultrasound and compression ultrasound were utilized. In addition, maneuvers were utilized to demonstrate reflux. FINDINGS: 1. DEEP VENOUS ULTRASOUND OF THE RIGHT LOWER EXTREMITY: Common Femoral Vein: Compressible, normal respiratory variation and augmented flow. Femoral Vein: Compressible, normal color flow and augmentation. Popliteal Vein: Compressible, normal augmentation. Deep Reflux: There is no evidence of reflux in the deep system in either the common femoral vein, superficial femoral or the popliteal vein. There is no evidence of a Penn's cyst. 2. SUPERFICIAL ULTRASOUND WITH DOPPLER OF RIGHT LOWER EXTREMITY: GREAT SAPHENOUS VEIN: Saphenofemoral Junction: 0.6 cm; Reflux: 0 ms Proximal Thigh: 0.3 cm; Reflux: 0 ms Mid Thigh: Not visualized cm; Reflux: 0 ms Distal Thigh: 0.3 cm; Reflux: 0 ms At Knee: 0.2 cm; Reflux: 2160 ms Proximal Calf: 0.2 cm; Reflux: 2204 ms Mid Calf: 0.2 cm; Reflux: 2940 ms Distal Calf: 0.2 cm; Reflux: 0 ms DUPLICATED MEDIAL GREAT SAPHENOUS VEIN: Diameter: None imaged Reflux: NA DUPLICATED LATERAL GREAT SAPHENOUS VEIN: Diameter: 0.4 cm Reflux: 2740 ms SMALL SAPHENOUS VEIN: Saphenopopliteal Junction: 0.3 cm; Reflux: 0 ms Mid: 0.1 cm; Reflux: 0 ms Distal: Not visualized VEIN OF GIACOMINI: Size: NA Reflux: NA PERFORATORS: Location: None imaged Size: NA Reflux: NA VARICOSITIES: Location: Proximal right thigh off the lateral duplicated great saphenous vein and proximal/mid calf off the residual great saphenous vein Size: Ranging from 0.3 to 0.7 cm Reflux: 2544 ms 3. DEEP VENOUS ULTRASOUND OF THE LEFT LOWER EXTREMITY: Common Femoral Vein: Compressible, normal respiratory variation and augmented flow. Femoral Vein: Compressible, normal color flow and augmentation. Popliteal Vein: Compressible, normal augmentation. Deep Reflux: There is no evidence of reflux in the deep system in either the common femoral vein, superficial femoral or the popliteal vein. There is no evidence of a Penn's cyst. 4. SUPERFICIAL ULTRASOUND WITH DOPPLER OF LEFT LOWER EXTREMITY: GREAT SAPHENOUS VEIN: Saphenofemoral Junction: 0.7 cm; Reflux: 0 ms Proximal Thigh: Not visualized cm; Reflux: 0 ms Mid Thigh: Not visualized cm; Reflux: 0 ms Distal Thigh: Not visualized cm; Reflux: 0 ms At Knee: Not visualized cm; Reflux: 0 ms Proximal Calf: 0.1 cm; Reflux: 0 ms Mid Calf: 0.2 cm; Reflux: 0 ms Distal Calf: 0.2 cm; Reflux: 0 ms DUPLICATED MEDIAL GREAT SAPHENOUS VEIN: Diameter: None imaged Reflux: NA DUPLICATED LATERAL GREAT SAPHENOUS VEIN: Diameter: None imaged. Reflux: NA SMALL SAPHENOUS VEIN: Saphenopopliteal Junction: Not visualized Proximal: Not visualized Distal: Not visualized VEIN OF GIACOMINI: Size: NA Reflux: NA PERFORATORS: Location: None imaged Size: NA Reflux: NA VARICOSITIES: Location: None Imaged Size: NA Reflux: NA US/US venous insuf bilat IMPRESSION: Right: Segments of the right great saphenous and small saphenous vein are not visualized. There is a segmental reflux in the residual great saphenous vein in the right calf as described above. 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 No significant varicose veins.
== END 2023-10-20 10:09 | disposition home or self-care (01) ==
LOC: HO.US 10:08
PROVIDERS: PCP Internal Medicine; Visit Provider Surgery Vascular Surgery
DX: I83.12 Varicose veins of left lower extremity with inflammation (principal)
CPT/HCPCS: 93970

== ENCOUNTER 2023-10-27 09:54 | Outpatient (AMB) | payer OTHER, SELFPAY ==
--- NOTE | 2023-10-27 10:23 | MHC.OFFVIS ---
Intake Vital Signs 10/27/23 10:39 Height 5 ft 7 in Weight 154 lb BMI 24.1 Intake Visit Reasons: OV - Right RTC Tear - Discuss Surgery Intake Note: Alexandrea Castaneda a 62 year old Guyanese speaking female presents today for a follow up of right RTC Tear (High grade partial tear right supraspinatus). Patient complains of pain, she has done PT which has improved her ROM but has not helped her pain. She was last seen with Canelo Mcmahon who recommended surgical intervention. 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 She has pain with reaching and lifting and cannot comfortably do her job. She was seen several months ago and surgery was discussed but she did not have sufficient time off or work for adequate recovery. She continues to have difficulty with activity and pain. [facility] Medical History Normal colonoscopy Mammogram normal Normal Pap smear Annual physical exam Varicose veins of both lower extremities Surgical History Status post cervical polyp removal S/P foot surgery, right History of carpal tunnel surgery of right wrist History of carpal tunnel surgery of left wrist Family History Father Heart problem Mother Hypertension Stroke Social History Housing: House Patient Tobacco Use Status: Never used Tobacco e-Cigarette/Vaping Use: Never Used Current occupational status: employed Cognitive needs: No Hearing needs: No Vision needs: Yes Physical Exam Vital Signs: BMI result Body Mass Index 24.1 Const General: cooperative, healthy appearing, no acute distress and well groomed Orientation/consciousness: oriented to person and oriented to place HEENT Head: Yes normal to inspection, Yes normocephalic and Yes atraumatic Eyes General: appearance normal, both eyes and all related structures Alignment and Position: alignment normal Conjunctivae: conjunctivae normal EOM: EOMs intact bilaterally Neck Neck: Yes normal visual inspection and Yes trachea midline Resp Other: No rerpiratory distress Effort & Inspection: normal respiratory effort and able to speak in complete sentences GI Other: No abdominal distension Back/Spine/Pelvis Cervical Spine: normal cervical lordosis and cervical ROM normal Skin General skin exam: no rashes or lesions noted Neuro General: oriented to person, oriented to place and gait normal Extrem Other: 4/5 empty can + hawkin's and Neer 45/90/130/L1 Results Reviewed Results Reviewed: I personally reviewed the MR images. 1.5 x 1.5 cm tear anteriorly, with high-grade and possible full-thickness components. 2. Mild subscapularis tendinosis, mild articular surface fraying. 3. Question mild biceps tendinosis. 4. Superior labral degeneration with possible fraying/tear. 5. Moderate acromioclavicular arthritis. Mild subacromial subdeltoid bursitis. 6. Small glenohumeral joint effusion. Assessment & Plan Assessment & Plan (1) Tear of supraspinatus tendon: Comment: MR 04/30, f/[place] [facility] [place]. [place] Code(s): M75.100 - Unspecified rotator cuff tear or rupture of unspecified shoulder, not specified as traumatic Plan: This is A active 62-year-old woman with a full-thickness rotator cuff tear on the right. I discussed the treatment options with her and I recommend surgery. I explained the surgery to her. I reviewed the risks, benefits and alternatives including, but not limited to, stiffness, infection, pain, delayed recovery, incomplete symptom resolution, medical complications associated with surgery. She expressed understanding and we will proceed forward accordingly. Coding Level of Care Code Est Pt Level 4 (08504) Diagnoses Tear of supraspinatus tendon M75.100
[2023-10-27 10:39] VITALS: BMI 24.1
== END 2023-10-27 11:11 | disposition home or self-care (01) ==
PROVIDERS: PCP Internal Medicine; Visit Provider Orthopaedic Surgery
DX: M75.101 Unspecified rotator cuff tear or rupture of right shoulder, not specified as traumatic (principal)
CPT/HCPCS: 99214

== ENCOUNTER → 2023-10-27 09:54 | Outpatient (BNVA) | payer OTHER, SELFPAY | PROVIDERS: PCP Internal Medicine; Visit Provider Orthopaedic Surgery ==

== ENCOUNTER 2023-11-29 09:02 | Outpatient (AMB) | payer OTHER, SELFPAY ==
--- NOTE | 2023-11-29 09:05 | A.OFFVIS_ITS ---
Vital Signs 11/29/23 09:09 Height 5 ft 7 in Weight 153 lb BMI 24.0 Intake Visit Reasons: follow up 10/20/2023 Intake Note: Patient presents for follow up. done on 10/20/23. Patient states she is experiencing itching and pain in both legs but it is worse in her right leg. Accompanied by: Self / Same As Patient Allergies Penicillins Allergy (Severe, Verified 11/29/23 09:08) trouble breathing latex Allergy (Verified 11/29/23 09:08) rash HPI HPI follow up 10/20/2023: Details: Very pleasant 62-year-old female presents for evaluation regarding right lower extremity swelling and discomfort. She has had previous left lower extremity ablation and treatment in [place] many years prior. She now presents to us for follow-up with noninvasive venous testing. Her veins do continue to be a source of pain and discomfort for her. She had did have a trial of compression which did provide her minimal relief PFS Medical History Normal colonoscopy Mammogram normal Normal Pap smear Annual physical exam Varicose veins of both lower extremities Surgical History Status post cervical polyp removal S/P foot surgery, right History of carpal tunnel surgery of right wrist History of carpal tunnel surgery of left wrist Family History Father Heart problem Mother Hypertension Stroke Social History Housing: House Patient Tobacco Use Status: Never used Tobacco e-Cigarette/Vaping Use: Never Used Current occupational status: employed Cognitive needs: No Hearing needs: No Vision needs: Yes Review of Systems Const Reports as per HPI ENT Reports no additional complaints Card Denies chest pain, Denies chest pain at rest and Denies chest pain with activity Resp Denies chest congestion and Denies cough GI Reports no additional complaints Musc Details: pain over varicosities, aching of lower extremities, swelling, cramping, heaviness and tiredness, itching Denies abnormal gait Skin/Breast Reports pruritus and Denies wounds Neuro Reports no additional complaints and Denies abnormal gait Psych Denies no additional complaints Physical Exam Vital Signs: BMI result Body Mass Index 24.0 Const General: cooperative, healthy appearing and comfortable Orientation/consciousness: oriented to person, oriented to place and oriented to time Neck Carotids: no bruits Chest Chest palpation & inspection: normal inspection of the chest and normal palpation of entire chest wall Resp Effort & Inspection: normal respiratory effort and able to speak in complete sentences Cardio Rate: regular rate Heart sounds: S1 normal heart sound present and S2 normal heart sound present Peripheral pulses: Peripheral pulses 2+ throughout GI Inspection: Yes normal to inspection Skin Other: +2 edema, large rope-like varicosities greater than 4 mm right calf CEAP Classification C4 - skin color changes Ep - Etiology Primary As - superficial veins P - reflux General skin exam: dry skin Neuro General: oriented to person, oriented to place and oriented to time Extrem Right lower extremity: full ROM, normal capillary refill and edema Left lower extremity: full ROM, normal capillary refill and edema Psych Mental Status: mental status grossly normal Results Reviewed Results Reviewed: Brief summary of venous insufficiency testing is as follows: right great saphenous vein: Positive right small saphenous vein: negative right accessory vein: none present left great saphenous vein: Ablated left small saphenous vein: negative left accessory vein: none present Please note there is no evidence of any venous aneurysms or significant tortuosity Assessment & Plan Assessment & Plan (1) Varicose veins of right lower extremity with inflammation: Code(s): I83.11 - Varicose veins of right lower extremity with inflammation Category: Medical Plan: This patient has varicose veins with inflammation. They continue to be a source of discomfort for the patient. The patient has tried conservative treatment with compression, leg elevation and exercise program for over 3 months time. They have been compliant with all treatment. This has provided minimal relief for the patient. I do not anticipate this course of treatment will alter the underlying etiology. The patient has been scheduled for lower extremity venous treatment inclusive of --- right great saphenous vein Cyanoacralate ablation. Risks, benefits, and complications of this procedure has been discussed in detail with the patient including but not limited to bleeding, inf ection, and the development of a DVT. The patient has demonstrated a clear understanding and has consented. We will schedule the patient as soon as possible. Thank you for allowing us to participate in this patient's care. If there are any questions or concerns please do not hesitate to contact us.
[2023-11-29 09:09] VITALS: BMI 24.0
== END 2023-11-29 09:55 | disposition home or self-care (01) ==
PROVIDERS: PCP Internal Medicine; Visit Provider Surgery Vascular Surgery
DX: I83.11 Varicose veins of right lower extremity with inflammation (principal)
CPT/HCPCS: 99214

== ENCOUNTER → 2023-11-29 09:02 | Outpatient (BNVA) | payer OTHER, SELFPAY | PROVIDERS: PCP Internal Medicine; Visit Provider Surgery Vascular Surgery ==

== ENCOUNTER 2023-12-08 10:27 | Outpatient (AMB) | payer OTHER, SELFPAY ==
--- NOTE | 2023-12-08 10:31 | A.OFFVIS_ITS ---
Vital Signs 12/08/23 10:32 Height 5 ft 7 in Weight 153 lb BMI 24.0 Handedness Right Intake Visit Reasons: Preop RT RTC repair 12/14/23 [place] Intake Note: Alexandrea Castaneda is a 62 year old female who presents today for her pre op appointment for her right RTC repair 12/14/23 [place]. Allergies Penicillins Allergy (Severe, Verified 12/08/23 10:33) trouble breathing latex Allergy (Verified 12/08/23 10:33) rash HPI HPI Preop RT RTC repair 12/14/23 NE: Details: 62-year-old female who presents in the office today for her preoperative history and physical exam prior to a right shoulder rotator cuff repair to be performed on 12/14/[address] Emanuel Patterson. Patient has an allergy history, as follows: -Penicillin; trouble breathing -Latex; rash Patient is currently taking, as follows: -Cholecalciferol 50 mcg PO daily -Clobetasol 0.05% topical BID -Clotrimazole-betamethasone 1-0.05% topical BID -Mecobalamin 1,000 mcg PO daily -Ubqqzsce-tmu-qmwd-FA-vit K-lut 8 mg iron-400 mcg-50 mcg 1 tab PO daily -Sumatriptan succinate 50 mg PO Q2H Patient has a medical history, as follows: - Varicose veins of bilateral lower extremity with inflammation -Bacteriuria -Vitamin D deficiency Patient has a surgical history, as follows: -Hx of cervical polyp removal -Hx of foot surgery, right 08/2016 -Hx of carpal tunnel surgery of right wrist, 04/2020 -Hx of carpal tunnel surgery of left wrist, 11/26/20 [facility] Medical History Normal colonoscopy Mammogram normal Normal Pap smear Annual physical exam Varicose veins of both lower extremities Surgical History Status post cervical polyp removal S/P foot surgery, right History of carpal tunnel surgery of right wrist History of carpal tunnel surgery of left wrist Family History Father Heart problem Mother Hypertension Stroke Social History (Updated 12/08/23 @ 10:35 by Jodie Lan) Housing: House Patient Tobacco Use Status: Never used Tobacco e-Cigarette/Vaping Use: Never Used Current occupational status: employed 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 Cognitive needs: No Hearing needs: No Vision needs: Yes Review of Systems Const All systems reviewed & are unremarkable except as noted in HPI and below Physical Exam Vital Signs: BMI result Body Mass Index 24.0 Const General: cooperative, healthy appearing, comfortable, no acute distress, well developed, alert and awake Orientation/consciousness: patient oriented x3 HEENT Head: Yes normal to inspection, Yes normocephalic and Yes atraumatic Eyes General: appearance normal, both eyes and all related structures Alignment and Position: alignment normal Conjunctivae: conjunctivae normal EOM: EOMs intact bilaterally Neck Neck: Yes normal visual inspection and Yes no lymphadenopathy Resp Other: No rerpiratory distress Effort & Inspection: normal respiratory effort and able to speak in complete sentences Cardio Rate: regular rate Peripheral pulses: Peripheral pulses 2+ throughout GI Other: No abdominal distension Inspection: Yes normal to inspection Palpation (GI): Soft to palpation Back/Spine/Pelvis Cervical Spine: normal cervical lordosis and cervical ROM normal Skin General skin exam: no rashes or lesions noted Neuro General: patient oriented x3 Extrem Other: 4/5 empty can + hawkin's and Neer 45/90/130/L1 Psych Mental Status: mental status grossly normal Assessment & Plan Assessment & Plan (1) Tear of supraspinatus tendon: Comment: MR 04/30, f/u [facility] orth[place] Dr. Patterson Code(s): M75.100 - Unspecified rotator cuff tear or rupture of unspecified shoulder, not specified as traumatic Category: Medical Qualifiers: Laterality: right Qualified Code(s): M75.101 - Unspecified rotator cuff tear or rupture of right shoulder, not specified as traumatic Plan Ms. Brasher is a 62-year-old female who presents in the office today for her preoperative history and physical exam prior to a right shoulder rotator cuff repair to be performed on 12/14/[address] Emanuel Patterson. Patient has an allergy history, as follows: -Penicillin; trouble breathing -Latex; rash Patient is currently taking, as follows: -Cholecalciferol 50 mcg PO daily -Clobetasol 0.05% topical BID -Clotrimazole-betamethasone 1-0.05% topical BID -Mecobalamin 1,000 mcg PO daily -Szylhqlp-ngy-stxi-FA-vit K-lut 8 mg iron-400 mcg-50 mcg 1 tab PO daily -Sumatriptan succinate 50 mg PO Q2H Patient has a medical history, as follows: - Varicose veins of bilateral lower extremity with inflammation -Bacteriuria -Vitamin D deficiency Patient has a surgical history, as follows: -Hx of cervical polyp removal -Hx of foot surgery, right 08/2016 -Hx of carpal tunnel surgery of right wrist, 04/2020 -Hx of carpal tunnel surgery of left wrist, 11/26/20 I discussed in detail the procedure and what to expect pre and post operatively. We discussed the risks, benefits and alternatives to the surgery and the rehabilitation course. The risks include infection, bleeding, nerve injury, ongoing pain, swelling, and stiffness, perioperative risk of injury to bones and soft tissues, and blood clots. I have answered all questions and with their understanding they have consented to move forward with a right shoulder rotator cuff repair to be performed on 12/14/[address] Emanuel Patterson. Post operative medications were sent to the pharmacy, Oxycodone-acetaminophen 5- 325 mg (Percocet) PO Q4-6H PRN, quantity 42 tabs for 7 days and Morphine ER 15 mg (MS Contin) PO Q12H PRN, quantity 6 tabs for 3 days, while in the office today. The patient was instructed that she should obtain the prescription prior to surgery but should not consume until after the procedure; as these should only be taken for post operative pain management. Should the patient take these medications before surgery, a refill will not be sent to the pharmacy until their scheduled refill date. Follow-up will be at the post operative appointment on 12/22/2023, or sooner if needed. Patient was fitted for a sling in the office today. Medications: New oxycodone-acetaminophen 5-325 mg (Percocet) Partial Fill upon patient request. 1 tab PO Q4-6H PRN 42 tabs 0RF pain 7 days morphine ER (MS Contin) Partial Fill upon patient request. 15 mg PO Q12H 6 tabs 0RF severe pain 3 days Patient Instructions: Scribed by Ada Zaldivar medical referral coordinator, for Lucia Brown PA-C on 12/08/2023 at 10:40 am, EST. Coding Level of Care Code Global (20107) Diagnoses Tear of right supraspinatus tendon M75.101 Laterality: right
[2023-12-08 10:32] VITALS: BMI 24.0
== END 2023-12-08 11:15 | disposition home or self-care (01) ==
PROVIDERS: PCP Internal Medicine; Visit Provider Physician Assistant
DX: M75.101 Unspecified rotator cuff tear or rupture of right shoulder, not specified as traumatic (principal)
CPT/HCPCS: 99024

== ENCOUNTER → 2023-12-08 10:27 | Outpatient (BNVA) | payer OTHER, SELFPAY | PROVIDERS: PCP Internal Medicine; Visit Provider Physician Assistant ==

== ENCOUNTER 2023-12-14 12:16 | Day surgery (SDC) | payer OTHER, SELFPAY ==
[2023-12-12 07:57] VITALS: BMI 24.0
--- NOTE | 2023-12-12 14:21 | P.CONAN_ITS ---
Documented by User: Calista Carrera NP 12/12/23 14:25 HPI - Anesthesia Eval Consult details Narrative: 62yo F for Right Shoulder Rotator Cuff Repair PMFSH Active Problems Active Problems: All Active Problems Varicose veins of right lower extremity with inflammation (Acute) Varicose veins of left lower extremity with inflammation (Acute) Tear of supraspinatus tendon (Acute) Chronic cough (Acute) Shoulder pain, right (Acute) Bacteriuria (Acute) Vitamin D deficiency (Acute) Normal colonoscopy (Acute) Mammogram normal (Acute) Normal Pap smear (Acute) Annual physical exam (Acute) Varicose veins of both lower extremities (Acute) Past Medical History Medical History Normal colonoscopy Mammogram normal Normal Pap smear Annual physical exam Varicose veins of both lower extremities Family History Family History Father Heart problem Mother Hypertension Stroke Surgical History Surgical History Status post cervical polyp removal S/P foot surgery, right History of carpal tunnel surgery of right wrist History of carpal tunnel surgery of left wrist Social History Social History (Updated 12/08/23 @ 10:35 by Jodie Lan) Housing: House Patient Tobacco Use Status: Never used Tobacco e-Cigarette/Vaping Use: Never Used Use of substances other than those prescribed or required for medical reasons: No Are you DNR?: No Advance Directives: No Advance Directives Information Provided: Yes Current occupational status: employed 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 Cognitive needs: No Hearing needs: No Vision needs: Yes Meds Allergies Allergy/AdvReac Type Severity Reaction Status Date / Time Penicillins Allergy Severe trouble Verified 12/08/23 10:33 breathing latex Allergy rash Verified 12/08/23 10:33 Home Medications ?Medication ?Instructions ?Recorded ?Confirmed ?Last Taken ?Type [id number]-koav-rqgw 8 mg-folic 400 1 tab PO DAILY 04/27/21 08/19/23 Unknown History mcg-K 50 mcg-lutein 300 mcg tablet (Multivitamin Women 50 Plus) cholecalciferol (vitamin D3) 125 50 mcg PO DAILY 04/29/22 08/19/23 Unknown History mcg (5,000 unit) capsule mecobalamin (vitamin B12) 1,000 1,000 mcg PO DAILY 04/29/22 08/19/23 Unknown History mcg lozenges Exam Height,Weight and Vital Signs: Height 5 ft 7 in Weight 69.4 kg Assessment and Plan Assessment Anesthesia Assessment: Chart Reviewed Documented by User: Alanis Coombs MD 12/14/23 13:08 [facility] Past Medical History Medical History Normal colonoscopy Mammogram normal Normal Pap smear Annual physical exam Varicose veins of both lower extremities Family History Family History Father Heart problem Mother Hypertension Stroke Family history of problems with anesthesia: No Surgical History Surgical History Status post cervical polyp removal S/P foot surgery, right History of carpal tunnel surgery of right wrist History of carpal tunnel surgery of left wrist History of Problems with Anesthesia: No Social History Social History (Updated 12/08/23 @ 10:35 by Jodie Lan) Housing: House Patient Tobacco Use Status: Never used Tobacco e-Cigarette/Vaping Use: Never Used Use of substances other than those prescribed or required for medical reasons: No Are you DNR?: No Advance Directives: No Advance Directives Information Provided: Yes Current occupational status: employed 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 Cognitive needs: No Hearing needs: No Vision needs: Yes Meds Allergies Allergy/AdvReac Type Severity Reaction Status Date / Time Penicillins Allergy Severe trouble Verified 12/08/23 10:33 breathing latex Allergy rash Verified 12/08/23 10:33 Home Medications ?Medication ?Instructions ?Recorded ?Confirmed ?Last Taken ?Type sqsznzpn-sgsm-dhyd 8 mg-folic 400 1 tab PO DAILY 04/27/21 08/19/23 Unknown History mcg-K 50 mcg-lutein 300 mcg tablet (Multivitamin Women 50 Plus) cholecalciferol (vitamin D3) 125 50 mcg PO DAILY 04/29/22 08/19/23 Unknown History mcg (5,000 unit) capsule mecobalamin (vitamin B12) 1,000 1,000 mcg PO DAILY 04/29/22 08/19/23 Unknown History mcg lozenges Exam Airway Mallampati Class: II TM Dist: >3cm Neck ROM: Full Partial: Upper Heart: rrr Lungs: cta Assessment and Plan Assessment Anesthesia Assessment: Anesthesia Plan Discussed Final Anesthetic Review Family History of Problems with Anesthesia: No History of Problems with Anesthesia: No NPO: Yes ASA Class: II Final Preanesthetic Review: No Changes in Pt Med Stat, Meds/Allgs Chart Reviewed and Consent Obtained/Reviewed Patient Risk: Low Procedure Risk: Intermediate Anesthetic Plan Anesthetic Plan: GA Disposition: Standard PACU
[2023-12-14] VITALS (7 sets, daily range): BP systolic 141–150; BP diastolic 74–86; PULSE 57–75; RESP 14–18; TEMP 36.2–36.8; O2SAT 96–100; BMI 24.2
--- NOTE | 2023-12-14 12:49 | MHC.SHP ---
Pre-Procedural Eval Section A - 24 Hr Update-Section A only Date of Service: 12/14/23 The patient is an INPATIENT: No Changes since office visit: No Cold of Flu in the past 2 weeks, No New Medical Problems, No Changes in Medication and No Patient answered all questions The patient has been examined within 24 hours of the surgical procedure. The History & Physical has been completed within 30 days and I have reviewed it.: Yes Section B - Complete if H&P > 30 days Chief Complaint: Strain of muscle(s) and tendon(s) of the rotator c Allergies: Allergies Allergy/AdvReac Type Severity Reaction Status Date / Time Penicillins Allergy Severe trouble Verified 12/08/23 10:33 breathing latex Allergy rash Verified 12/08/23 10:33 Plan I have reviewed the history and physical and performed a pertinent physical examination on my patient. No changes have occurred unless specified. Time Spent With Patient Time: Total time managing care of this patient today ____ minutes.
[2023-12-14] MEDS: Lactated Ringers 1,000 ML 100 ML IVCONT (13:26)
--- NOTE | 2023-12-14 15:10 | P.BOP_ITS ---
Brief Operative Note Date of Service: 12/14/23 Pre-op diagnosis: Right RTC tear Post-op diagnosis: other (right RTC tear and SLAP tear) Procedure: Repair subscapularis Repair supraspinatus Biceps tenotomy Circumferential labral debridement Implants: Abdi and Nephew knotless Helacoil 5.0 x 3 Abdi and Nephew double loaded Helcoil x 2 Surgeon: Emanuel Patterson MD Anesthesia: GETA and regional Was an Machinist First Class used for this Procedure?: Yes Machinist First Class: Lucia Brown Estimated blood loss (mL): 25 IV fluids (mL): 1,000 Pathology: none sent Condition: stable Disposition: PACU
--- NOTE | 2023-12-22 07:28 | P.OP_ITS ---
Operative Note Operative Note Date of Service: 12/14/23 Narrative: Date of Service: 12/14/23 Pre-op diagnosis: Right RTC tear Post-op diagnosis: other (right RTC tear and SLAP tear) Procedure: Repair subscapularis Repair supraspinatus Biceps tenotomy Circumferential labral debridement Implants: Abdi and Nephew knotless Helacoil 5.0 x 3 Abdi and Nephew double loaded Helacoil x 2 Surgeon: Emanuel Patterson MD Anesthesia: GETA and regional Was an Netbackup Engineer used for this Procedure?: Yes Netbackup Engineer: Lucia Brown Estimated blood loss (mL): 25 IV fluids (mL): 1,000 Pathology: none sent Condition: stable Disposition: PACU Procedure in detail: Patient was brought to the operating room and placed the the beach chair position. All bony prominences were well padded and the limb was prepped and draped in standard sterile fashion. A time out was called to identify proper site, proper procedure and proper surgeon. IV antibiotics per weight were administered. I began by making a posterolateral stab incision with a 15 blade. A blunt trochar was placed into the glenohumeral joint and I insufflated the joint with saline and a 30 degree arthroscope was placed. I established an outside- in anterior portal just distal to the biceps tendon. I then began my inspection of the glenohumeral joint. There was a large degenerative SLAP tear at the biceps anchor ( Type 2). There were minimal cartilage changes at the inferior glenoid without humeral head changes. The biceps was tenotomized. There was a full thickness undersurface RTC tear. The subscapularis had a high grade tear of the superior 50% of the tendon. intact. I released the subscapularis superiorly and posteriorly and it was mobile. A looped suture and a suture tape were placed through the leading edge and the insertion site was debrided down to bleeding bone. A knotless Helacoil was inserted and the subscapularis repaired anatomically. I debrided the loose cartilage of the glenoid and the degenerative labral tearing. I then removed the trochar and entered the subacromial space. A direct lateral portal was then established and I performed a bursectomy. The cuff was then examined. There was a full thickness tear of the supra and infraspinatus with mild retraction. The tear was mobile. I placed two medial row double loaded anchors after using a tap just adjacent to the articular cartilage and then brought the suture limbs ( 8) through the medial cuff. I then debrided the bare area down to bleeding bone and, using a cross bridge configuration, brought 4 limbs to each of two lateral 5.0 anchors. This re-approximated the cuff anatomy anatomically. A 5mm subacromial decompression was performed with an oval ha. Once I was satisfied with the repair final images were captured and I removed all instrumentation. Portals were closed with nylon. Patient was placed in an abduction sling, extubated and brought to the recovery room in stable condition. There were no known complications.
== END 2023-12-14 16:59 | disposition home or self-care (01) ==
LOC: HO.SSS 12:17
PROVIDERS: PCP Internal Medicine; Visit Provider Orthopaedic Surgery
PROC: (CPT 29827; principal; 2023-12-14 14:00)
DX: M75.101 Unspecified rotator cuff tear or rupture of right shoulder, not specified as traumatic (principal); S43.431A Superior glenoid labrum lesion of right shoulder, initial encounter; X58.XXXA Exposure to other specified factors, initial encounter; Y93.9 Activity, unspecified; Y92.9 Unspecified place or not applicable; Y99.8 Other external cause status; E55.9 Vitamin D deficiency, unspecified; Z79.899 Other long term (current) drug therapy; Z88.0 Allergy status to penicillin; Z91.041 Radiographic dye allergy status; Z98.890 Other specified postprocedural states
CPT/HCPCS: 29827; 29826; 29822; C1713; J0131; J0171; J0736; J2250; J2371; J2704; J2795; J3010

== ENCOUNTER → 2023-12-14 12:16 | Outpatient (BNV) | payer OTHER, SELFPAY | PROVIDERS: PCP Internal Medicine; Visit Provider Orthopaedic Surgery | DX: S43.431A Superior glenoid labrum lesion of right shoulder, initial encounter (principal); M75.121 Complete rotator cuff tear or rupture of right shoulder, not specified as traumatic | CPT/HCPCS: 29823; 29827 ==

== ENCOUNTER 2023-12-22 13:16 | Outpatient (AMB) | payer OTHER, SELFPAY ==
--- NOTE | 2023-12-22 13:17 | A.OFFVIS_ITS ---
Intake Visit Reasons: PO RT RTC repair 12/14/23 NE Intake Note: Alexandrea Castaneda is a 62 year old right hand female who presents today for a post op appointment s/p RT RTC repair 12/14/23 NE. Patient reports she is doing well, however she feels some discomfort on the lateral aspect of the shoulder. She finds the exercises help for her shoulder. Allergies Penicillins Allergy (Severe, Verified 12/22/23 13:17) trouble breathing latex Allergy (Verified 12/22/23 13:17) rash HPI HPI PO RT RTC repair 12/14/23 NE: Details: 62-year-old right hand dominant female who presents in the office today 8 days status post right rotator cuff repair with subscapularis repair, supraspinatus repair, biceps tenotomy, and circumferential labral debridement, which was performed on 12/14/[address] Patterson. While in the office today the patient reports she is doing well. However, she reports some discomfort along the lateral aspect of the right shoulder. She also reports she is doing the home exercises. 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 Cognitive needs: No Hearing needs: No Vision needs: Yes Review of Systems Const All systems reviewed & are unremarkable except as noted in HPI and below Physical Exam Const General: cooperative and no acute distress Orientation/consciousness: patient oriented x3 and Other orientation findings (oriented) Resp Effort & Inspection: normal respiratory effort and able to speak in complete sentences Cardio Rate: regular rate Peripheral pulses: Peripheral pulses 2+ throughout GI Palpation (GI): Soft to palpation Skin General skin exam: no rashes or lesions noted Lesions: no lesions Rashes: no rashes Neuro General: patient oriented x3 Extrem Other: Right shoulder: Incision site is clean, dry, and intact. Sutures intact. No surrounding erythema or drainage. No signs of infection. Forward flexion and abduction to 45 degrees. External rotation to neutral. NVI. Assessment & Plan Assessment & Plan (1) Status post right rotator cuff repair: Code(s): Z98.890 - Other specified postprocedural states Category: Surgical Plan Ms. Brasher is a 62-year-old right hand dominant female who presents in the office today 8 days status post right rotator cuff repair with subscapularis repair, supraspinatus repair, biceps tenotomy, and circumferential labral debridement, which was performed on 12/14/[address] Patterson. While in the office today the patient reports she is doing well. However, she reports some discomfort along the lateral aspect of the right shoulder. She also reports she is doing her home exercises. She is no longer taking any narcotic medication. Using Tylenol and ibu profen for pain. Sutures were removed and steri-stripes were applied. Patient will be referred to outpatient physical therapy. She will remain in the sling for 6 weeks post op. Follow up will be in [address] Patterson, or sooner if needed. Orders: Orders PT Evaluation and Treatment 12/22/23 Z98.890 - Other specified postprocedural states Patient Instructions: Scribed by mehdi Pedroza Rai scribe, for Lucia Brown PA-C on 12/22/2023 at 01:30 p.m. EST. Correction made by mehdi Patiño, on 12/22/23 at 4:56 pm. Coding Level of Care Code Global (25333) Diagnoses Status post right rotator cuff repair Z98.890
== END 2023-12-22 14:02 | disposition home or self-care (01) ==
PROVIDERS: PCP Internal Medicine; Visit Provider Physician Assistant
DX: Z98.890 Other specified postprocedural states (principal)
CPT/HCPCS: 99024

== ENCOUNTER → 2023-12-22 13:16 | Outpatient (BNVA) | payer OTHER, SELFPAY | PROVIDERS: PCP Internal Medicine; Visit Provider Physician Assistant ==

== ENCOUNTER 2024-01-04 11:14 | Outpatient (AMB) | payer OTHER, SELFPAY ==
--- NOTE | 2024-01-04 11:48 | A.OFFVIS_ITS ---
Intake Visit Reasons: Same day visit- rule out infection Intake Note: Alexandrea Castaneda is a 62 year old right hand female who presents today for a post operative wound check s/p RT RTC repair 12/14/23 NE. Patient reports a red lump that has a yellow discharge. Allergies Penicillins Allergy (Severe, Verified 01/04/24 11:49) trouble breathing latex Allergy (Verified 01/04/24 11:49) rash HPI HPI Same day visit- rule out infection: Details: 63-year-old right hand dominant female who returns to the office today for post- op wound check s/p right RTC repair, 12/14/[address] Patterson. She reports she has a red lump on her shoulder that has a yellow discharge. She has no other concerns. 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 No active pus or drainage. Assessment & Plan Assessment & Plan (1) Status post right rotator cuff repair: Code(s): Z98.890 - Other specified postprocedural states Category: Surgical Plan I did prescribe her a course of antibiotics which was sent to her pharmacy. I did clean and dry the area by 2x2 gauze and cloth to keep it covered. I would like to see her back in 1 week, sooner if needed. Medications: New sulfamethoxazole-trimethoprim 800-160 mg (Bactrim DS) 1 tab PO BID 20 tabs 0RF suture abscess 10 days Patient Instructions: Scribed for Canelo Mcmahon PA-C, by Ryan Dawkins medical office coordinator, on 01/04/2024 at 11:30 AM EST.? I, Canelo Mcmahon PA-C, have personally reviewed and agree with the information entered by the scribe. Coding Level of Care Code Global (61071) Diagnoses Status post right rotator cuff repair Z98.890
== END 2024-01-04 11:53 | disposition home or self-care (01) ==
PROVIDERS: PCP Internal Medicine; Visit Provider Physician Assistant
DX: Z98.890 Other specified postprocedural states (principal)
CPT/HCPCS: 99024

== ENCOUNTER → 2024-01-04 11:14 | Outpatient (BNVA) | payer OTHER, SELFPAY | PROVIDERS: PCP Internal Medicine; Visit Provider Physician Assistant ==

== ENCOUNTER 2024-01-13 13:25 | Outpatient (AMB) | payer OTHER, SELFPAY ==
--- NOTE | 2024-01-13 13:15 | MHC.OFFVIS ---
Intake Visit Reasons: P/O wound check s/p RT RTC repair 12/14/23 NE. Intake Note: Alexandrea Castaneda is a 62 year old right hand female who presents today for a post operative wound check s/p RT RTC repair 12/14/23 NE. Pt states she is still taking her antibiotics and states the discharge from her wound is less than it was in the beginning. Allergies Penicillins Allergy (Severe, Verified 01/13/24 13:27) trouble breathing latex Allergy (Verified 01/13/24 13:27) rash HPI HPI P/O wound check s/p RT RTC repair 12/14/23 NE.: Details: 63-year-old right hand dominant female who returns to the office today for post-op wound check s/p right RTC repair, 12/14/[address] Patterson. She states she has improvement in her wound discharge and is doing well overall. She continues to take antibiotics as instructed with benefits. She has no other concerns today. 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 There is some serous drainage. No purulence. No significant erythema. NVI. Assessment & Plan Assessment & Plan (1) Status post right rotator cuff repair: Code(s): Z98.890 - Other specified postprocedural states Category: Surgical Plan I used a suture kit to superficially debride the portal site. There was a piece of adipose tissue that was in portal site which was expressed. The area was cleaned and dressed with a bandage. She will finish with her course of antibiotics tomorrow and continue monitoring symptoms till she sees me back next week for a wound check, sooner if needed. Patient Instructions: Scribed for Canelo Mcmahon PA-C, by Ryan Dawkins medical billing representative, on 01/13/2024 at 1:30 PM EST.? I, Canelo Mcmahon PA-C, have personally reviewed and agree with the information entered by the scribe. Coding Level of Care Code Global (75495) Diagnoses Status post right rotator cuff repair Z98.890
== END 2024-01-13 13:51 | disposition home or self-care (01) ==
PROVIDERS: PCP Internal Medicine; Visit Provider Physician Assistant
DX: Z98.890 Other specified postprocedural states (principal)
CPT/HCPCS: 99024

== ENCOUNTER → 2024-01-13 13:25 | Outpatient (BNVA) | payer OTHER, SELFPAY | PROVIDERS: PCP Internal Medicine; Visit Provider Physician Assistant ==

== ENCOUNTER 2024-01-19 10:32 | Outpatient (AMB) | payer OTHER, SELFPAY ==
--- NOTE | 2024-01-19 10:39 | A.OFFVIS_ITS ---
Intake Visit Reasons: PO RT RTC repair 12/14/23 NE Intake Note: Alexandrea Stallings a 63 year old female who presents today for a post operative visit of right RTC repair 12/14/23 NE. Patient reports that she continues to have a lot of yellow discharge. She has completed antibiotics as prescribed. States soreness with working with PT. She would like to discuss her work status, possible extension as she does not feel she is going to be ready to return by the end of February. Allergies Penicillins Allergy (Severe, Verified 01/20/24 12:28) trouble breathing latex Allergy (Verified 01/20/24 12:28) rash HPI HPI PO RT RTC repair 12/14/23 NE: Details: 63-year-old female who returns to the office today for post-op right RTC repair, 12/14/[address] Patterson. She continues to have a lot of yellow discharge from her incision. She has completed her antibiotics regimen as instructed. She also experiences soreness with working on physical therapy. 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 There is some serous drainage. No purulence. No significant erythema. NVI. Assessment & Plan Assessment & Plan (1) Status post right rotator cuff repair: Code(s): Z98.890 - Other specified postprocedural states Category: Surgical Plan Dr. Patterson was available to see the patient with me today. We performed wet to dry dressing on her right shoulder. She will see me back tomorrow morning and I will change the dressing and perform another wet to dry dressing and instruct on how to do so to her family over the weekend. She is content with this plan and will see me back tomorrow. Patient Instructions: Scribed for Canelo Mcmahon PA-C, by Ryan Dawkins medical administrative assistant, on 01/19/2024 at 10:45 AM EST.? I, Canelo Mcmahon PA-C, have personally reviewed and agree with the information entered by the scribe. Coding Level of Care Code Global (86366) Diagnoses Status post right rotator cuff repair Z98.890
== END 2024-01-19 16:15 | disposition home or self-care (01) ==
PROVIDERS: PCP Internal Medicine; Visit Provider Physician Assistant
DX: Z98.890 Other specified postprocedural states (principal)
CPT/HCPCS: 99024

== ENCOUNTER → 2024-01-19 10:32 | Outpatient (BNVA) | payer OTHER, SELFPAY | PROVIDERS: PCP Internal Medicine; Visit Provider Physician Assistant ==

== ENCOUNTER 2024-01-20 08:19 | Outpatient (AMB) | payer OTHER, SELFPAY ==
--- NOTE | 2024-01-20 08:26 | A.OFFVIS_ITS ---
Intake Visit Reasons: PO- wound check RT RTC repair, 12/14/23 NE Intake Note: Alexandrea is a 63 year old right hand dominant female who presents today for a post operative wound check and dressing change visit s/p Right RTC repair, 12/14/23 NE. Patient reports her wound continued to drain during the night causing her pillow to become wet and her dressings to fall. Allergies Penicillins Allergy (Severe, Verified 01/20/24 08:28) trouble breathing latex Allergy (Verified 01/20/24 08:28) rash Medication List - Last Reconciled 01/20/24 by Canelo Mcmahon PA-C cholecalciferol (vitamin D3) 50 mcg PO DAILY clobetasol 0.05% 1 appl topical BID clotrimazole-betamethasone 1-0.05 % 1 appl topical BID mecobalamin (vitamin B12) 1,000 mcg PO DAILY cattryfw-dkx-zpsm-FA-vit K-lut 8 mg iron-400 mcg-50 mcg (Multivitamin Women 50 Plus) 1 tab PO DAILY sumatriptan succinate 50 mg PO Q2H HPI HPI PO- wound check RT RTC repair, 12/14/23 NE: Details: 63-year-old right hand dominant female who returns to the office today for post- op wound check s/p right RTC repair, 12/14/[address] Patterson. She continues to have drainage from the wound at night causing her pillow to become wet and dressing to fall. 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 There is some serous drainage. No purulence. No significant erythema. NVI. Assessment & Plan Assessment & Plan (1) Status post right rotator cuff repair: Code(s): Z98.890 - Other specified postprocedural states Category: Surgical Plan I did teach her how to perform wet to dry dressing changes and she will do this twice a day as she has significant amount of drainage. I would like to see her back on Tuesday for another wound check. Patient Instructions: Scribed for Canelo Mcmahon PA-C, by Ryan Dawkins medical records specialist, on 01/20/2024 at 8:30 AM EST.? I, Canelo Mcmahon PA-C, have personally reviewed and agree with the information entered by the scribe. Coding Level of Care Code Global (65565) Diagnoses Status post right rotator cuff repair Z98.890
== END 2024-01-20 08:40 | disposition home or self-care (01) ==
PROVIDERS: PCP Internal Medicine; Visit Provider Physician Assistant
DX: Z98.890 Other specified postprocedural states (principal)
CPT/HCPCS: 99024

== ENCOUNTER → 2024-01-20 08:19 | Outpatient (BNVA) | payer OTHER, SELFPAY | PROVIDERS: PCP Internal Medicine; Visit Provider Physician Assistant | DX: I83.11 Varicose veins of right lower extremity with inflammation (principal); Z47.89 Encounter for other orthopedic aftercare | CPT/HCPCS: 36475 ==

== ENCOUNTER 2024-01-20 09:22 | Outpatient (AMB) | payer OTHER, SELFPAY ==
--- NOTE | 2024-01-20 12:27 | A.OFFVIS_ITS ---
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 Accompanied by: Self / Same As Patient Allergies Penicillins Allergy (Severe, Verified 01/20/24 12:28) trouble breathing latex Allergy (Verified 01/20/24 12:) rash [facility] Medical History Normal colonoscopy Mammogram normal Normal Pap smear Annual physical exam Varicose veins of both lower extremities Surgical History Status post cervical polyp removal S/P foot surgery, right History of carpal tunnel surgery of right wrist History of carpal tunnel surgery of left wrist Family History Father Heart problem Mother Hypertension Stroke Social History Housing: House Patient Tobacco Use Status: Never used Tobacco e-Cigarette/Vaping Use: Never Used Current occupational status: employed 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 Anesthesia: Local infiltration 5 cc, Tumescent 200 cc. Estimated Blood Loss: Minimal Specimen: Varicose veins The patient was transferred to the procedure suite and the insufficient saphenous vein was mapped by ultrasound and diagrammed on the overlying skin. The depth and diameter of the vein(s) to be treated was documented. The varicose tributary veins and suitable access sites were identified and mapped as well. The patient was then positioned supine on the procedure table. The affected limb was prepped and draped in the usual sterile fashion. The RF catheter was placed on the sterile field, flushed and wiped down, prepared, and connected by a sterile cable. The patient was placed in reverse- Trendelenburg position and local anesthesia was instilled in the skin overlying the access site. A skin incision was made overlying the identified and mapped great saphenous vein entry site. The vein was accessed using ultrasound guidance and the Seldinger technique, a guide wire was introduced through the needle, which was then exchanged over the guide wire for a 7F sheath, which was secured in place. The guide wire was removed and the sheath was flushed. The RF catheter was placed into the vein through the sheath and preferentially, imaging was used to place the catheter tip as far proximal as it would go. This was a treatment of the below-knee great saphenous vein which had excessive reflux. After the RF catheter position was verified by ultrasound, tumescent anesthesia was infiltrated, under ultrasound guidance, precisely into the perivenous compartment along the entire length of vein until a halo of fluid was noted around the vein. After RF catheter position was again confirmed with ultrasound imaging, and under direct external compression along the length of the heating element, RF energy was applied. The vein was segmentally ablated by heating a 3 cm segment and then indexing the catheter forward by 2.5 cm until the treatment length is completed. Device temperature was maintained at 120 plus or minus 5 degrees C with an initial power level of 40W dropping to below 20W for each treatment. Total vein length treated 6 cm Total cycles of RF 4. Repeat ultrasound of the saphenous vein was performed, confirming successful treatment. The catheter and sheath were withdrawn and hemostasis established with direct pressure. After assuring hemostasis, the skin incision over the saphenous vein was closed with a bandage and a compression wrap, and/ or graduated compression stocking was applied from the level of the foot to the most proximal level of the thigh. 53147 - Endovenous RF, 1st Vein All charges added?: Procedure code (CPT) selection complete Assessment & Plan Assessment & Plan (1) Varicose veins of right lower extremity with inflammation: Comment: 01/20/2024 - right great Radiofrequency ablation Code(s): I83.11 - Varicose veins of right lower extremity with inflammation Category: Medical Plan: See op note Coding Level of Care Code Procedure Only Diagnoses Varicose veins of right lower extremity with inflammation I83.11 CPT Codes Details - Vascular 1: 89829 - Endovenous RF, 1st Vein ([id number])
== END 2024-01-20 12:23 | disposition home or self-care (01) ==
PROVIDERS: PCP Internal Medicine; Visit Provider Surgery Vascular Surgery
DX: I83.11 Varicose veins of right lower extremity with inflammation (principal)
CPT/HCPCS: 36475

== ENCOUNTER 2024-01-23 09:15 | Outpatient (AMB) | payer OTHER, SELFPAY ==
--- NOTE | 2024-01-23 09:17 | MHC.OFFVIS ---
Intake Visit Reasons: PO- wound check RT RTC repair, 12/14/23 NE Intake Note: Alexandrea is a 63 year old right hand dominant female who presents today with her spouse for a post operative wound check and dressing change visit s/p Right RTC repair, 12/14/23 NE. Patient reports she continues to have drainage from her wound. States instructed to do dressing changes twice a day however due to the amount of drainage she has been having more dressing changes are needed. Allergies Penicillins Allergy (Severe, Verified 01/23/24 09:25) trouble breathing latex Allergy (Verified 01/23/24 09:25) rash Medication List - Last Reconciled 01/23/24 by Canelo Mcmahon PA-C cholecalciferol (vitamin D3) 50 mcg PO DAILY clobetasol 0.05% 1 appl topical BID clotrimazole-betamethasone 1-0.05 % 1 appl topical BID mecobalamin (vitamin B12) 1,000 mcg PO DAILY yshnzmuj-jex-etem-FA-vit K-lut 8 mg iron-400 mcg-50 mcg (Multivitamin Women 50 Plus) 1 tab PO DAILY sumatriptan succinate 50 mg PO Q2H HPI HPI PO- wound check RT RTC repair, 12/14/23 NE: Details: 63-year-old right hand dominant female who returns to the office today with her spouse for post-op wound check s/p right RTC repair, 12/14/[address] Patterson. She continues to have drainage from her wound. She reports she has been doing more dressing changes as instructed due to the amount of drainage she is having from the wound. She is doing well otherwise and has no other concerns today. 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 There is some serous drainage. No purulence. No significant erythema. NVI. Assessment & Plan Assessment & Plan (1) Status post right rotator cuff repair: Code(s): Z98.890 - Other specified postprocedural states Category: Surgical Plan Wet to dry dressing changes were performed in the office today. The portal site is improved as compared to the last visit. I reassured the patient that this is a normal part of the healing and she should continue with the wet to dry dressing changes. She will see me back on Tuesday morning for another wound check, sooner if needed. Patient Instructions: Scribed for Canelo Mcmahon PA-C, by Ryan Dawkins medical superintendent, on 01/23/2024 at 9:30 AM EST.? I, Canelo Mcmahon PA-C, have personally reviewed and agree with the information entered by the scribe. Coding Level of Care Code Global (73190) Diagnoses Status post right rotator cuff repair Z98.890
== END 2024-01-23 10:39 | disposition home or self-care (01) ==
PROVIDERS: PCP Internal Medicine; Visit Provider Physician Assistant
DX: Z98.890 Other specified postprocedural states (principal)
CPT/HCPCS: 99024

== ENCOUNTER 2024-01-23 14:18 | Outpatient (REF) | payer OTHER, SELFPAY ==
--- NOTE | ~2024-01-23 | US_ITS ---
EXAMINATION: US VENOUS ULTRASOUND WITH DOPPLER LOWER EXTREMITY, RIGHT CLINICAL INFORMATION: Pain in right leg Right lower extremity status post right greater saphenous vein RFA 01/20/2024 COMPARISON: Ultrasound lower extremity venous (reflux exam), bilateral 10/24/2023 TECHNIQUE: Ultrasound of the deep veins is performed from the hip to the calf with compression sonography and color and pulse Doppler assessment. Spectral analysis with color-flow imaging is performed. FINDINGS: There is normal venous compression and respiratory variation and augmented flow. The visualized common femoral vein, superficial femoral vein, profunda femoral vein, popliteal vein, and posterior tibial and peroneal veins no evidence of deep venous thrombosis. The contralateral common femoral vein demonstrates normal respiratory variation. There has been prior RF ablation of the greater saphenous vein. The greater saphenous vein is seen for 2.3 cm from the SFJ and then is closed. There is no extension into the SFJ/SPJ. US/US venous duplex LE RT IMPRESSION: No DVT demonstrated in the right lower extremity. The greater saphenous vein is seen for 2.3 cm from the SFJ and then is closed.
== END 2024-01-23 14:19 | disposition home or self-care (01) ==
LOC: HO.HMGCX 14:18
PROVIDERS: PCP Internal Medicine; Visit Provider Surgery Vascular Surgery
DX: M79.604 Pain in right leg (principal)
CPT/HCPCS: 93971

== ENCOUNTER 2024-01-26 10:00 | Outpatient (RCR) | payer OTHER, SELFPAY ==
--- NOTE | 2024-01-04 10:54 | MHC.PT.EP ---
[facility] [place] [facility] [place] Office [place] Office [address] Pari Jnug [address] [phone] F: [phone] F: [phone] F: [phone] F: [phone] Physical Therapy Plan of Care Date of Evaluation: 01/04/24 Date of Surgery: 12/14/2023 Diagnosis: This is a 63 yo female presenting s/p R RTC repair. Assessment: This is a 63 yo female presenting s/p R RTC repair. Patient is status post right rotator cuff repair with subscapularis repair, supraspinatus repair, biceps tenotomy, and circumferential labral debridement, which was performed on 12/14/[address] Patterson. She was last seen on 12/22/23 and note states Sutures were removed and steri-stripes were applied. Patient will be referred to outpatient physical therapy. She will remain in the sling for 6 weeks post op. Follow up will be in [address] Patterson, or sooner if needed. She is here today reporting open sore where suture was. She is concerned about this but otherwise doing well. Pain is located ACJ and is sharp in nature. She has no pain at rest but has occasional numbness and tingling in the fingers at night. She is wearing the sling but without the abduction pillow due to skin irritation in the axillary region. This patient had PT at this facility prior to the surgery that relieved some symptoms but ultimately she underwent surgery due to functional limitations and ongoing pain. Assessment reveals pain that ranges from up to a 8/10 at the worst. Patient demos decreased R shoulder and cervical ROM, strength of B shoulder's, TTP at bicep insertion, ACJ and incisions and impaired posture with forward head and rounded shoulders all expected s/p RTC repair. Based on functional limitations, impaired QOL and pain tolerance patient is a good candidate for skilled PT 2x/wk for 8wks. I tiger texted Dahiana Cote [place] [facility] [place] about my concerns for infection and patient went to see them after this evaluation for assessment. Frequency and Duration: The patient will be seen 2x/wk for 8wks Short Term Goals: (In 2 weeks) Demo I with HEP Improve shoulder PROM by at least 20 degs Progress per protocol in chart Demo proper scapular recruitment with appropriate shoulder strengthening exercises Long-Term Goals: (in 8 wks) Improve shoulder nonpainful AROM to almost near equal B Demo at least 4/5 grade improvement in MMT for shoulder Improve SPADI by at least 10 points Improve overall functional QOL by at least 75% Treatment Plan: Modalities to reduce pain, spasms and effusion. Manual therapy to restore motion and function. Therapeutic exercise to improve strength and flexibility. Neuromuscular re-education for posture and balance. Therapeutic activities to return to functional activities of daily living. Electronically signed by: Мария Denney PT Please sign and return to therapist. Thank you for your referral.
--- NOTE | 2024-02-06 08:58 | MHC.PT.DC ---
[facility] [place] [facility] [place] [facility] [place] [facility] [address] Pari Jung [address] [phone] F: [phone] F: [phone] F: [phone] F: [phone] Physical Therapy Discharge Report Diagnosis: This is a 63 yo female presenting s/p R RTC repair. Date of Surgery: 12/14/2023 Date of Evaluation: 01/04/24 Date of Discharge: 02/06/24 Treatments to Date: 7 Cancellations to Date: 0 No Shows to Date: 0 Discharge Status: Physician Discontinued Tx Discharge Summary: Patient undergoing new surgery for her shoulder. Due to this change in status patient's chart was closed and we will re-eval when medically ready. Electronically signed by: Мария Denney PT Please sign and return to therapist. Thank you for your referral.
== END 2024-02-06 08:58 | disposition home or self-care (01) ==
LOC: HO.PTCHIC 10:00
PROVIDERS: PCP Internal Medicine; Visit Provider Physician Assistant
DX: Z47.89 Encounter for other orthopedic aftercare (principal)
CPT/HCPCS: 97110; 97140; 97162

== ENCOUNTER 2024-01-27 08:31 | Outpatient (AMB) | payer OTHER, SELFPAY ==
[2024-01-27 09:07] VITALS: BMI 23.5
--- NOTE | 2024-01-27 09:07 | A.OFFVIS_ITS ---
Vital Signs 01/27/24 09:07 Height 5 ft 7 in Weight 150 lb BMI 23.5 Intake Visit Reasons: PO-wound check RT RTC repair, 12/14/23 NE Intake Note: Alexandrea is a 63 year old female who presents today for a post operative wound check Right RTC repair, 12/14/23 NE. Patient reports she has continued to do dressing changes at home. Allergies Penicillins Allergy (Severe, Verified 02/02/24 09:58) trouble breathing latex Allergy (Verified 02/02/24 09:58) rash HPI HPI PO-wound check RT RTC repair, 12/14/23 NE: Details: 63-year-old female who returns to the office today for post-op right RTC repair, 12/14/[address] Patterson. She continues to perform dressing changes at home as instructed. 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 There is some serous drainage. No purulence. No significant erythema. NVI. Assessment & Plan Assessment & Plan (1) Status post right rotator cuff repair: Code(s): Z98.890 - Other specified postprocedural states Category: Surgical Plan I discussed the extent of the injury to the patient and options available which include surgical intervention. I explained the procedure in detail along with the length of recovery and rehab course. I explained the risk, benefits and alternatives. Risk including, but not limited to infection, blood clots, bleeding, ongoing pain and stiffness. I answered all their questions and with their understanding they have consented to move forward with right shoulder arthroscopic lavage with Dr. Patterson. The patient will be booked accordingly. Patient Instructions: Scribed for Canelo Mcmahon PA-C, by Ryan Dawkins medical donation professional, on 01/27/2024 at 8:45 AM EST.? I, Canelo Mcmahon PA-C, have personally reviewed and agree with the information entered by the scribe. Coding Level of Care Code Global (57731) Diagnoses Status post right rotator cuff repair Z98.890
== END 2024-01-27 10:43 | disposition home or self-care (01) ==
PROVIDERS: PCP Internal Medicine; Visit Provider Physician Assistant
DX: Z98.890 Other specified postprocedural states (principal)
CPT/HCPCS: 99024

== ENCOUNTER → 2024-01-27 08:31 | Outpatient (BNVA) | payer OTHER, SELFPAY | PROVIDERS: PCP Internal Medicine; Visit Provider Physician Assistant ==

== ENCOUNTER 2024-02-01 06:58 | Day surgery (SDC) | payer OTHER, SELFPAY ==
--- NOTE | 2024-01-30 14:56 | P.CONAN_ITS ---
Documented by User: Calista Carrera NP 01/30/24 14:58 HPI - Anesthesia Eval Consult details Narrative: 63yo F for Right Shoulder Arthroscopic Lavage s/p rotator cuff 12/2023 with GA-ETT 7 PMFSH Active Problems Active Problems: All Active Problems Status post right rotator cuff repair (Acute) Varicose veins of right lower extremity with inflammation (Acute) Varicose veins of left lower extremity with inflammation (Acute) Tear of supraspinatus tendon (Acute) Chronic cough (Acute) Shoulder pain, right (Acute) Bacteriuria (Acute) Vitamin D deficiency (Acute) Normal colonoscopy (Acute) Mammogram normal (Acute) Normal Pap smear (Acute) Annual physical exam (Acute) Varicose veins of both lower extremities (Acute) Past Medical History Medical History Normal colonoscopy Mammogram normal Normal Pap smear Annual physical exam Varicose veins of both lower extremities Family History Family History Father Heart problem Mother Hypertension Stroke Family history of problems with anesthesia: No Surgical History Surgical History Status post cervical polyp removal S/P foot surgery, right History of carpal tunnel surgery of right wrist History of carpal tunnel surgery of left wrist History of Problems with Anesthesia: No Social History Social History Housing: House Patient Tobacco Use Status: Never used Tobacco e-Cigarette/Vaping Use: Never Used Have you been hit, kicked, punched, or otherwise hurt by someone within the past year? 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 Cognitive needs: No Hearing needs: No Vision needs: Yes Meds Allergies Allergy/AdvReac Type Severity Reaction Status Date / Time Penicillins Allergy Severe trouble Verified 01/27/24 09:08 breathing latex Allergy rash Verified 01/27/24 09:08 Home Medications ?Medication ?Instructions ?Recorded ?Confirmed ?Last Taken ?Type cfwktfgt-hjdp-tiye 8 mg-folic 400 1 tab PO DAILY 04/27/21 01/23/24 Unknown History mcg-K 50 mcg-lutein 300 mcg tablet (Multivitamin Women 50 Plus) cholecalciferol (vitamin D3) 125 50 mcg PO DAILY 04/29/22 01/23/24 Unknown History mcg (5,000 unit) capsule mecobalamin (vitamin B12) 1,000 1,000 mcg PO DAILY 04/29/22 01/23/24 Unknown History mcg lozenges Assessment and Plan Assessment Anesthesia Assessment: Chart Reviewed Final Anesthetic Review Family History of Problems with Anesthesia: No History of Problems with Anesthesia: No Documented by User: Scarlett De Leon MD 02/01/24 08:26 [facility] Past Medical History Medical History Normal colonoscopy Mammogram normal Normal Pap smear Annual physical exam Varicose veins of both lower extremities Family History Family History Father Heart problem Mother Hypertension Stroke Surgical History Surgical History Status post cervical polyp removal S/P foot surgery, right History of carpal tunnel surgery of right wrist History of carpal tunnel surgery of left wrist Social History Social History Housing: House Patient Tobacco Use Status: Never used Tobacco e-Cigarette/Vaping Use: Never Used Have you been hit, kicked, punched, or otherwise hurt by someone within the past year? 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 Cognitive needs: No Hearing needs: No Vision needs: Yes Meds Allergies Allergy/AdvReac Type Severity Reaction Status Date / Time Penicillins Allergy Severe trouble Verified 01/27/24 09:08 breathing latex Allergy rash Verified 01/27/24 09:08 Home Medications ?Medication ?Instructions ?Recorded ?Confirmed ?Last Taken ?Type aqboofqf-hyhn-fabz 8 mg-folic 400 1 tab PO DAILY 04/27/21 01/23/24 Unknown History mcg-K 50 mcg-lutein 300 mcg tablet (Multivitamin Women 50 Plus) cholecalciferol (vitamin D3) 125 50 mcg PO DAILY 04/29/22 01/23/24 Unknown History mcg (5,000 unit) capsule mecobalamin (vitamin B12) 1,000 1,000 mcg PO DAILY 04/29/22 01/23/24 Unknown History mcg lozenges Exam Airway Mallampati Class: II TM Dist: >3cm Neck ROM: Full Heart: rrr Lungs: cta Assessment and Plan Assessment Anesthesia Assessment: Anesthesia Plan Discussed Final Anesthetic Review NPO: Yes ASA Class: II Final Preanesthetic Review: No Changes in Pt Med Stat, Meds/Allgs Chart Reviewed, Consent Obtained/Reviewed and Anes Risks/Benef Reviewed Patient Risk: Low Procedure Risk: Intermediate Anesthetic Plan Anesthetic Plan: GA and Regional Block Disposition: Standard PACU
[2024-02-01] VITALS (7 sets, daily range): BP systolic 112–145; BP diastolic 69–79; PULSE 82–88; RESP 16–18; TEMP 36.4–37.4; O2SAT 91–94; BMI 23.5
--- NOTE | 2024-02-01 07:20 | MHC.SHP ---
Pre-Procedural Eval Section A - 24 Hr Update-Section A only Date of Service: 02/01/24 The patient is an INPATIENT: No Changes since office visit: No Cold of Flu in the past 2 weeks, No New Medical Problems, No Changes in Medication and No Patient answered all questions The patient has been examined within 24 hours of the surgical procedure. The History & Physical has been completed within 30 days and I have reviewed it.: Yes Section B - Complete if H&P > 30 days Chief Complaint: Other specified postprocedural states Allergies: Allergies Allergy/AdvReac Type Severity Reaction Status Date / Time Penicillins Allergy Severe trouble Verified 01/27/24 09:08 breathing latex Allergy rash Verified 01/27/24 09:08 Plan I have reviewed the history and physical and performed a pertinent physical examination on my patient. No changes have occurred unless specified. Time Spent With Patient Time: Total time managing care of this patient today ____ minutes.
[2024-02-01] MEDS: Lactated Ringers 1,000 ML 100 ML IVCONT (07:44)
--- NOTE | 2024-02-01 11:11 | PM.OP ---
Brief Operative Note Date of Service: 02/01/24 Pre-op diagnosis: right shoulder wound dehiscence Post-op diagnosis: other (Infected RTC) Procedure: Arthroscopic debridement right shoulder infection Implants: none Surgeon: Emanuel Patterson MD Anesthesia: GETA and regional Was an Technical Solution Architect used for this Procedure?: No Estimated blood loss (mL): 50 IV fluids (mL): 100 Pathology: other Condition: stable Disposition: PACU
--- NOTE | 2024-02-28 11:34 | W.PM.OPN ---
Operative Note Operative Note Date of Service: 02/01/24 Narrative: Date of Service: 02/01/24 Pre-op diagnosis: right shoulder wound dehiscence Post-op diagnosis: other (Infected RTC) Procedure: Arthroscopic debridement right shoulder infection Implants: none Surgeon: Emanuel Patterson MD Anesthesia: GETA and regional Was an Customer Solutions Architect used for this Procedure?: No Estimated blood loss (mL): 50 IV fluids (mL): 100 Pathology: other Condition: stable Disposition: PACU Procedure in detail: Patient was brought to the operating room and placed the the beach chair position. All bony prominences were well padded and the limb was prepped and draped in standard sterile fashion. A time out was called to identify proper site, proper procedure and proper surgeon. IV antibiotics per weight were administered. I began by examining the lateral portal. There was fatty tissue with clear discharge. I removed this tissue and there was a sinus tract ( or at least incvoluted tissue that had invaginatyed into the wound) and a sample was sent to micro. I then made a posterolateral stab incision with a 15 blade. A blunt trochar was placed into the subacromial space. I insufflated the joint with saline and a 30 degree arthroscope was placed via the lateral portal. There was fibrous and irregualr appearing tissue in continuity with the lateral portal. I removed this with a shaver. The orthopaedic anchors were intact but there was one suture that was loose and the tendon had cut out. I removed all excess foreign material. There was a partial thickness RTC tear present. I irrigated copiously and then removed all instrumentation. The portals were closed with nylon. Patient was placed in an abduction sling, extubated and brought to the recovery room in stable condition. There were no known complications.
== END 2024-02-01 12:55 | disposition home or self-care (01) ==
LOC: HO.SSS 06:59
PROVIDERS: PCP Internal Medicine; Visit Provider Orthopaedic Surgery
PROC: (CPT 29805; principal; 2024-02-01 09:30)
DX: T81.30XA Disruption of wound, unspecified, initial encounter (principal); T81.49XA Infection following a procedure, other surgical site, initial encounter; M00.011 Staphylococcal arthritis, right shoulder; B95.61 Methicillin susceptible Staphylococcus aureus infection as the cause of diseases classified elsewhere; M96.89 Other intraoperative and postprocedural complications and disorders of the musculoskeletal system; Y83.8 Other surgical procedures as the cause of abnormal reaction of the patient, or of later complication, without mention of misadventure at the time of the procedure; Y79.3 Surgical instruments, materials and orthopedic devices (including sutures) associated with adverse incidents; Y92.9 Unspecified place or not applicable; Z98.890 Other specified postprocedural states; Z79.899 Other long term (current) drug therapy; Z88.0 Allergy status to penicillin; Z91.040 Latex allergy status
CPT/HCPCS: 29822; 87070; 87073; 87077; 87186; 87205; J0131; J0171; J0665; J0736; J1100; J2250; J2405; J2704; J3010

== ENCOUNTER → 2024-02-01 06:58 | Outpatient (BNV) | payer OTHER, SELFPAY | PROVIDERS: PCP Internal Medicine; Visit Provider Orthopaedic Surgery | DX: M71.111 Other infective bursitis, right shoulder (principal) | CPT/HCPCS: 29822 ==

== ENCOUNTER 2024-02-02 09:50 | Outpatient (AMB) | payer OTHER, SELFPAY ==
--- NOTE | 2024-02-02 09:53 | MHC.OFFVIS ---
Intake Visit Reasons: 2 week follow up Right GSV Venaseal 01/20/24 Intake Note: 2 week follow up Right GSV Venaseal 01/20/24, pt states leg feels great. Also of note, pt had Right shoulder surgery revision yesterday for infected rotator cuff surgery 7 weeks. Pt states Left LE was previously done in [place] and did not have as good of results on Left LE, still has large VV on Left LE and spider veins Accompanied by: Self / Same As Patient Allergies Penicillins Allergy (Severe, Verified 02/02/24 09:58) trouble breathing latex Allergy (Verified 02/02/24 09:58) rash HPI HPI 2 week follow up Right GSV Venaseal 01/20/24: Details: Very pleasant 63-year-old female presents for follow-up regarding evaluation right lower extremity swelling. She had previous history of leg ablation is in [place] many years prior. She now presents for follow-up after right great saphenous vein Cyanoacralate ablation. She does feel improvement after the procedure.. Of note she has been using compression and has felt relief with that. 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 Cognitive needs: No Hearing needs: No Vision needs: Yes Review of Systems Const All systems reviewed & are unremarkable except as noted in HPI and below Reports no additional complaints ENT Reports Normal hearing present Card Denies chest pain, Denies chest pain at rest, Denies chest pain with activity and Denies pedal edema Resp Denies cough GI Denies abdominal pain Musc Denies abnormal gait, Denies muscle cramps and Denies radiating pain into limb Skin/Breast Denies skin ulcer and Denies wounds Neuro Reports Normal hearing present and Denies abnormal gait Psych Reports no additional complaints Physical Exam Const General: cooperative, healthy appearing and comfortable Orientation/consciousness: oriented to person, oriented to place and oriented to time HEENT Head: Yes normal to inspection Neck Neck: Yes normal visual inspection Carotids: no bruits Chest Chest palpation & inspection: normal inspection of the chest Resp Effort & Inspection: normal respiratory effort and able to speak in complete sentences Auscultation: clear to auscultation bilaterally, no crackles, no rales, no rhonchi and no wheezes Cardio Rate: regular rate Rhythm: regular rhythm Heart sounds: S1 normal heart sound present and S2 normal heart sound present Bruits: no carotid bruits Peripheral pulses: Peripheral pulses 2+ throughout GI Inspection: Yes normal to inspection Skin Wounds: no wounds Hair: normal Neuro General: oriented to person, oriented to place and oriented to time Cranial nerves: Yes CN's II-XII intact bilaterally and Yes Normal hearing present Cognition (Neuro): normal cognition Motor exam (neuro): 5/5 motor strength present throughout Extrem Other: venous exam: No significant superficial varicosities or spider telangiectasias, minimal edema General: No clubbing, No cyanosis and No edema Psych Appearance: grossly normal Mental Status: mental status grossly normal Speech and movement: Normal speech and movement present Results Reviewed Results Reviewed: Brief summary of venous insufficiency testing is as follows: right great saphenous vein: negative right small saphenous vein: negative right accessory vein: none present left great saphenous vein: negative left small saphenous vein: Ablated left accessory vein: none present Please note there is no evidence of any venous aneurysms or significant tortuosity Assessment & Plan Assessment & Plan (1) Varicose veins of right lower extremity with inflammation: Comment: 01/20/2024 - right great Radiofrequency ablation Code(s): I83.11 - Varicose veins of right lower extremity with inflammation Category: Medical Plan: The patient has done extremely well with all venous treatments. Patient's may often experience postprocedure phlebitic episodes and I have discussed with the patient use of warm compresses and NSAIDS if tolerated for pain discomfort. In addition, I have discussed continued conservative measures including use of compression, leg elevation, and exercise. The patient was also given an information sheet regarding appropriate use of compression stockings and future purchases. Thank you for allowing us to care for your patient with venous disease. Coding Level of Care Code Est Pt Level 3 (37811) Diagnoses Varicose veins of right lower extremity with inflammation I83.11
== END 2024-02-02 10:15 | disposition home or self-care (01) ==
PROVIDERS: PCP Internal Medicine; Visit Provider Surgery Vascular Surgery
DX: I83.11 Varicose veins of right lower extremity with inflammation (principal)
CPT/HCPCS: 99213

== ENCOUNTER → 2024-02-02 09:50 | Outpatient (BNVA) | payer OTHER, SELFPAY | PROVIDERS: PCP Internal Medicine; Visit Provider Surgery Vascular Surgery ==

== ENCOUNTER 2024-02-08 10:18 | Outpatient (AMB) | payer OTHER, SELFPAY ==
--- NOTE | 2024-02-08 10:32 | A.OFFVIS_ITS ---
Intake Visit Reasons: PO-Rt Shld Lavage 02/01/24 NE Intake Note: Alexandrea is a 63 year old female who presents today for a post operative right RTC repair on 12/14/23 s/p arthroscopic debridement right shoulder infection on 02/01/24 with NE. Patient reports that she finished her antibiotics on Tuesday and removed her bandage on Tuesday. Allergies Penicillins Allergy (Severe, Verified 02/02/24 09:58) trouble breathing latex Allergy (Verified 02/02/24 09:58) rash Medication List - Last Reconciled 02/08/24 by Canelo Mcmahon PA-C cholecalciferol (vitamin D3) 50 mcg PO DAILY clobetasol 0.05% 1 appl topical BID clotrimazole-betamethasone 1-0.05 % 1 appl topical BID doxycycline hyclate 100 mg PO BID 10 days hydrocodone-acetaminophen 5-325 mg 1 tab PO Q8H PRN 5 days mecobalamin (vitamin B12) 1,000 mcg PO DAILY mpovpyyo-qyl-bmkj-FA-vit K-lut 8 mg iron-400 mcg-50 mcg (Multivitamin Women 50 Plus) 1 tab PO DAILY sumatriptan succinate 50 mg PO Q2H HPI HPI PO-Rt Shld Lavage 02/01/24 NE: Details: 63-year-old female who returns to the office today for post-op right RTC repair on 12/14/23 s/p arthroscopic debridement right shoulder infection, 02/01/[address] Patterson. She reports she finished her antibiotics on Tuesday and removed her bandage on Tuesday. She has no concerns today. 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 No redness or drainage. Assessment & Plan Assessment & Plan (1) Status post right rotator cuff repair: Code(s): Z98.890 - Other specified postprocedural states Category: Surgical (2) Seroma of skin or subcutaneous tissue after non-dermatologic procedure: Code(s): L76.34 - Postprocedural seroma of skin and subcutaneous tissue following other procedure Category: Medical Plan Posterior portal site suture was removed and lateral suture site suture will remain intact. She will see me back on Tuesday to ensure proper healing given her history of wound breakdown with previous surgery. 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 She is content with this plan and will see me back as planned. Patient Instructions: Scribed for Canelo Mcmahon PA-C, by Ryan Dawkins medical advisor, on 02/08/2024 at 10:30 AM EST.? I, Canelo Mcmahon PA-C, have personally reviewed and agree with the information entered by the scribe. Coding Level of Care Code Global (51269) Diagnoses Status post right rotator cuff repair Z98.890 Seroma of skin or subcutaneous tissue after non-dermatologic procedure L76.34
== END 2024-02-08 13:13 | disposition home or self-care (01) ==
PROVIDERS: PCP Internal Medicine; Visit Provider Physician Assistant
DX: Z98.890 Other specified postprocedural states (principal); L76.34 Postprocedural seroma of skin and subcutaneous tissue following other procedure
CPT/HCPCS: 99024

== ENCOUNTER → 2024-02-08 10:18 | Outpatient (BNVA) | payer OTHER, SELFPAY | PROVIDERS: PCP Internal Medicine; Visit Provider Physician Assistant ==

== ENCOUNTER 2024-02-13 10:00 | Outpatient (AMB) | payer OTHER, SELFPAY ==
--- NOTE | 2024-02-13 10:21 | A.OFFVIS_ITS ---
Intake Visit Reasons: PO-Rt Shld Lavage 02/01/24 NE Intake Note: Alexandrea Castaneda is a 63 year old female who presents to the office today for a post op right shoulder lavage 02/01/24. Pt states she is feeling well and states the pain isnt as bad. Allergies Penicillins Allergy (Severe, Verified 02/13/24 10:22) trouble breathing latex Allergy (Verified 02/13/24 10:22) rash Medication List - Last Reconciled 02/13/24 by Canelo Mcmahon PA-C cholecalciferol (vitamin D3) 50 mcg PO DAILY clobetasol 0.05% 1 appl topical BID clotrimazole-betamethasone 1-0.05 % 1 appl topical BID mecobalamin (vitamin B12) 1,000 mcg PO DAILY stiwnhqw-fsj-whzi-FA-vit K-lut 8 mg iron-400 mcg-50 mcg (Multivitamin Women 50 Plus) 1 tab PO DAILY sumatriptan succinate 50 mg PO Q2H HPI HPI PO-Rt Shld Lavage 02/01/24 NE: Details: 63-year-old female who returns to the office today for post-op right shoulder lavage, 02/01/[address] Patterson. She states she has improvement in her pain and is doing well overall. She has no concerns today. 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 No redness or significant tenderness. Assessment & Plan Assessment & Plan (1) Status post right rotator cuff repair: Code(s): Z98.890 - Other specified postprocedural states Category: Surgical (2) Seroma of skin or subcutaneous tissue after non-dermatologic procedure: Code(s): L76.34 - Postprocedural seroma of skin and subcutaneous tissue following other procedure Category: Medical Plan Sutures removed today, steri strips applied. She will continue working on physical therapy and remain out of work until her next routine postop appointment in [address] Patterson, sooner if needed. Patient Instructions: Scribed for Canelo Mcmahon PA-C, by Ryan Dawkins biomedical photographer, on 02/13/2024 at 10:15 AM EST.? I, Canelo Mcmahon PA-C, have personally reviewed and agree with the information entered by the scribe. Coding Level of Care Code Global (74773) Diagnoses Status post right rotator cuff repair Z98.890 Seroma of skin or subcutaneous tissue after non-dermatologic procedure L76.34
== END 2024-02-13 10:52 | disposition home or self-care (01) ==
PROVIDERS: PCP Internal Medicine; Visit Provider Physician Assistant
DX: Z98.890 Other specified postprocedural states (principal); L76.34 Postprocedural seroma of skin and subcutaneous tissue following other procedure
CPT/HCPCS: 99024

== ENCOUNTER → 2024-02-13 10:00 | Outpatient (BNVA) | payer OTHER, SELFPAY | PROVIDERS: PCP Internal Medicine; Visit Provider Physician Assistant ==

== ENCOUNTER 2024-03-05 08:16 | Outpatient (AMB) | payer OTHER, SELFPAY ==
--- NOTE | 2024-03-05 08:28 | MHC.OFFVIS ---
Vital Signs 03/05/24 08:37 Height 5 ft 7 in Weight 150 lb BMI 23.5 Intake Visit Reasons: PO-3wk f/u Rt rtc repair 12/11 NE Intake Note: Tonya is a 63 year old female who presents post operatively S/P Right RTC repair 12/14/23 & Arthroscopic debridement of right shoulder 01/30/24. Patient reports that she is having continued pain, she was comfortable while she was in her sling but once the sling was discontinued she had some increased pain with ROM. She is working with physical therapy. Continues to be out of work. Allergies Penicillins Allergy (Severe, Verified 03/05/24 08:38) trouble breathing latex Allergy (Verified 03/05/24 08:38) rash HPI HPI PO-3wk f/u Rt rtc repair 12/11 NE: Details: Tonya is a 63 year old female who presents post operatively S/P Right RTC repair 12/14/23 & Arthroscopic debridement of right shoulder 01/30/24. Patient reports that she is having continued pain, she was comfortable while she was in her sling but once the sling was discontinued she had some increased pain with ROM. She is working with physical therapy. Continues to be out of work. 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 PT and no work. Avoid lifting.f/u 1 month Orders: Orders PT Evaluation and Treatment Today Z98.890 - Other specified postprocedural states Coding Level of Care Code Global (54989) Diagnoses Status post right rotator cuff repair Z98.890
[2024-03-05 08:37] VITALS: BMI 23.5
== END 2024-03-05 09:00 | disposition home or self-care (01) ==
PROVIDERS: PCP Internal Medicine; Visit Provider Orthopaedic Surgery
DX: Z98.890 Other specified postprocedural states (principal)
CPT/HCPCS: 99024

== ENCOUNTER → 2024-03-05 08:16 | Outpatient (BNVA) | payer OTHER, SELFPAY | PROVIDERS: PCP Internal Medicine; Visit Provider Orthopaedic Surgery ==

== ENCOUNTER 2024-03-12 10:10 | Outpatient (AMB) | payer OTHER, SELFPAY ==
--- NOTE | 2024-03-12 10:13 | A.OFFVIS_ITS ---
Intake Visit Reasons: PO-Rt Shld Lavage 02/01/24 NE Intake Note: Tonya is a 63 year old female who presents post operatively S/P Right RTC repair 12/14/23 & Arthroscopic debridement of right shoulder 01/30/24. Patient reports just about 2 days ago she started to have a fever and she noticed some redness/warmth on her shoulder and a lump near her neck. She mentioned that she went to PT they wanted her to get her shoulder looked. Allergies Penicillins Allergy (Severe, Verified 03/12/24 10:27) trouble breathing latex Allergy (Verified 03/12/24 10:27) rash Medication List - Last Reconciled 03/12/24 by Canelo Mcmahon PA-C cholecalciferol (vitamin D3) 50 mcg PO DAILY clobetasol 0.05% 1 appl topical BID clotrimazole-betamethasone 1-0.05 % 1 appl topical BID mecobalamin (vitamin B12) 1,000 mcg PO DAILY sivndwsq-yju-wglf-FA-vit K-lut 8 mg iron-400 mcg-50 mcg (Multivitamin Women 50 Plus) 1 tab PO DAILY sumatriptan succinate 50 mg PO Q2H HPI HPI PO-Rt Shld Lavage 02/01/24 NE: Details: 63-year-old female who returns to the office today for post-op right RTC repair, 12/14/23 and right shoulder lavage, 01/30/[address] Patterson. She reports just about 2 days ago she started to have fever as well as redness and warmth on her shoulder and lump near her neck. She was seen at physical therapy who suggested she returns to our office for reevaluation. She states she has pain and swelling in her shoulder. She is travelling to [place] in a few days and her daughter would like to know if she is fit for the travel. 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 She has diffused erythema with tenderness over the proximal humerus and swelling which extends into the subclavian area with palpable lymph node. NVI. Assessment & Plan Assessment & Plan (1) Status post right rotator cuff repair: Code(s): Z98.890 - Other specified postprocedural states Category: Surgical (2) Seroma of skin or subcutaneous tissue after non-dermatologic procedure: Code(s): L76.34 - Postprocedural seroma of skin and subcutaneous tissue following other procedure Category: Medical Plan Case was discussed with Dr. Patterson. We will proceed with right shoulder arthroscopic irrigation and debridement under general anesthesia right shoulder, followed by placment of a picc line by interventional radiology. She is on the schedule to get a picc line placed following surgery which she is content with and would sign prior to the surgery in the short stay unit. I discussed all of this with the patient and her daughter Nancy at length today about her right shoulder. We discussed risks, benefits, and alternatives, risks including but not limited to ongoing infection, pain, or tissue damage. I explained that antibiotics would likely continue for 6 weeks depending on the symptoms. She does have an upcoming trip to [place] which she will postpone. I also provided a letter today restricting travelling under further notice. She will see us back for her routine post-op appointment. All questions were answe red today. Patient Instructions: Scribed for Canelo Mcmahon PA-C, by Ryan Dawkins chief medical technologist, on 03/12/2024 at 10:30 AM EST.? I, Canelo Mcmahon PA-C, have personally reviewed and agree with the information entered by the scribe. Coding Level of Care Code Est Pt Level 4 (34336) Diagnoses Status post right rotator cuff repair Z98.890 Seroma of skin or subcutaneous tissue after non-dermatologic procedure L76.34
== END 2024-03-12 10:52 | disposition home or self-care (01) ==
LOC: HO.HOS 10:10
PROVIDERS: PCP Internal Medicine; Visit Provider Physician Assistant
DX: L76.34 Postprocedural seroma of skin and subcutaneous tissue following other procedure (principal); M71.111 Other infective bursitis, right shoulder
CPT/HCPCS: 99214

== ENCOUNTER → 2024-03-12 10:10 | Outpatient (BNVA) | payer OTHER, SELFPAY | PROVIDERS: PCP Internal Medicine; Visit Provider Physician Assistant ==

== ENCOUNTER 2024-03-14 06:30 | Day surgery (SDC) | payer OTHER, SELFPAY ==
--- NOTE | 2024-03-13 10:14 | HO.ANESPROP2 ---
HPI - Anesthesia Eval Consult details Narrative: 63yo F for Right I&D of Shoulder s/p Right Shoulder Arthroscopic Lavage 01/2024 with GA-ETT 7 s/p Right rotator cuff 12/2023 PMFSH Active Problems Active Problems: All Active Problems Seroma of skin or subcutaneous tissue after non-dermatologic procedure (Acute) Status post right rotator cuff repair (Acute) Varicose veins of right lower extremity with inflammation (Acute) Varicose veins of left lower extremity with inflammation (Acute) Tear of supraspinatus tendon (Acute) Chronic cough (Acute) Shoulder pain, right (Acute) Bacteriuria (Acute) Vitamin D deficiency (Acute) Normal colonoscopy (Acute) Mammogram normal (Acute) Normal Pap smear (Acute) Annual physical exam (Acute) Varicose veins of both lower extremities (Acute) Past Medical History Medical History Normal colonoscopy Mammogram normal Normal Pap smear Annual physical exam Varicose veins of both lower extremities Family History Family History Father Heart problem Mother Hypertension Stroke Family history of problems with anesthesia: No Surgical History Surgical History Status post cervical polyp removal S/P foot surgery, right History of carpal tunnel surgery of right wrist History of carpal tunnel surgery of left wrist History of Problems with Anesthesia: No Social History Social History Housing: House Patient Tobacco Use Status: Never used Tobacco e-Cigarette/Vaping Use: Never Used Current occupational status: employed 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 Cognitive needs: No Hearing needs: No Vision needs: Yes Meds Allergies Allergy/AdvReac Type Severity Reaction Status Date / Time Penicillins Allergy Severe trouble Verified 03/16/24 12:35 breathing latex Allergy rash Verified 03/16/24 12:35 Home Medications ?Medication ?Instructions ?Recorded ?Confirmed ?Last Taken ?Type myvgwfph-fygo-wjrv 8 mg-folic 400 1 tab PO DAILY 04/27/21 03/14/24 Unknown History mcg-K 50 mcg-lutein 300 mcg tablet (Multivitamin Women 50 Plus) cholecalciferol (vitamin D3) 125 50 mcg PO DAILY 04/29/22 03/14/24 Unknown History mcg (5,000 unit) capsule mecobalamin (vitamin B12) 1,000 1,000 mcg PO DAILY 04/29/22 03/14/24 Unknown History mcg lozenges ibuprofen 600 mg tablet 600 mg 03/14/24 Unknown History Assessment and Plan Assessment Anesthesia Assessment: Chart Reviewed Final Anesthetic Review Family History of Problems with Anesthesia: No History of Problems with Anesthesia: No
[2024-03-14] VITALS (8 sets, daily range): BP systolic 113–147; BP diastolic 67–88; PULSE 71–76; RESP 16–23; TEMP 36.5–37.2; O2SAT 93–97; BMI 23.5
[2024-03-14] MEDS: Lactated Ringers 1,000 ML 100 ML IVCONT (07:04)
[2024-03-14] MEDS: vancomycin HCL 1,000 MG in 0.9 % Sodium Chloride 250 ML 270 MG IV (07:16)
--- NOTE | 2024-03-14 07:34 | MHC.SHP ---
Pre-Procedural Eval Section A - 24 Hr Update-Section A only Date of Service: 03/14/24 The patient is an INPATIENT: No Changes since office visit: No Cold of Flu in the past 2 weeks, No New Medical Problems, No Changes in Medication and No Patient answered all questions The patient has been examined within 24 hours of the surgical procedure. The History & Physical has been completed within 30 days and I have reviewed it.: Yes Section B - Complete if H&P > 30 days Chief Complaint: Other specified postprocedural states Allergies: Allergies Allergy/AdvReac Type Severity Reaction Status Date / Time Penicillins Allergy Severe trouble Verified 03/12/24 10:27 breathing latex Allergy rash Verified 03/12/24 10:27 Plan I have reviewed the history and physical and performed a pertinent physical examination on my patient. No changes have occurred unless specified. Time Spent With Patient Time: Total time managing care of this patient today ____ minutes.
--- NOTE | 2024-03-14 08:17 | PC.NURSE ---
At 815am time out completed prior to block. Pt tolerated block well/at rest.
--- NOTE | 2024-03-14 10:29 | P.BOP_ITS ---
Brief Operative Note Date of Service: 03/14/24 Pre-op diagnosis: Post operative infection s/p RTC repair, right shoulder Post-op diagnosis: same Procedure: Arthroscopic lavage and synovectomy right shoulder Implants: none Surgeon: Emanuel Patterson MD Anesthesia: GETA and regional Was an Air Moving Technician used for this Procedure?: No Air Moving Technician: Lucia Brown Estimated blood loss (mL): 20 IV fluids (mL): 750 Pathology: other Condition: stable Disposition: PACU Assessment and Plan (No Qualifiers) Assessment and Plan (1) Seroma of skin or subcutaneous tissue after non-dermatologic procedure: Status: Acute (2) Status post right rotator cuff repair: Status: Acute Plan: IV abx for 6 weeks Labs today and Qweek
--- NOTE | 2024-03-14 10:49 | P.OP_ITS ---
Operative Note Operative Note Date of Service: 03/14/24 Narrative: Date of Service: 03/14/24 Pre-op diagnosis: Post operative infection s/p RTC repair, right shoulder Post-op diagnosis: same Procedure: Arthroscopic lavage and synovectomy right shoulder Implants: none Surgeon: Emanuel Patterson MD Anesthesia: GETA and regional Was an Diesel Mechanic Construction used for this Procedure?: No Diesel Mechanic Construction: Lucia Brown Estimated blood loss (mL): 20 IV fluids (mL): 750 Pathology: other Condition: stable Disposition: PACU Procedure in detail: Patient was brought to the operating room and placed the the beach chair position. All bony prominences were well padded and the limb was prepped and draped in standard sterile fashion. A time out was called to identify proper site, proper procedure and proper surgeon. IV antibiotics per weight were administered. I began by making a stab incision with a 15 blade through the lateral portal. There was immediate expression of necrotic tissue without obvious purulence. This was cultured. I then made a stab incision through the posterolateral portal and. A blunt trochar was placed into the subacromial space I insufflated with saline and a 30 degree arthroscope was placed. There was fibrous bleeding tissue. I debrided all excess tissue with both a shaver and the cautery wand. The cuff was examined. I had previously removed all foreign materials associated with prior RTC repair. There was no retraction and there was a layer of fibrous tissue overlying the tear of the anterior portion of the supraspinatus. I lavaged and once I was satisfied with the debridement I removed the trochar and entered the glenohumeral space. The cartilage surfaces were nl and there was no evidence of infection. I did debride the posterior and anterior synovium which was irritated. I lavaged extensively. I then removed all instrumentation and closed the posterolateral and lateral portal. Once I was satisfied with the repair final images were captured and I removed all instrumentation. Portals were closed with nylon. I did make a small modified lateral portal and placed a SHANIQUA drain in the subacromial space. This was sutured in. Patient was placed in an abduction sling, extubated and brought to the recovery room in stable condition. There were no known complications. SHANIQUA drain to be removed in clinic in 48 hours.
[2024-03-14 11:11] LABS: MANUAL DIFF FLAG NO
[2024-03-14 11:17] LABS: Basophils Percent Auto 0.7 % (0-2); Eosinophils Absolute Auto 0.1 X10*3/uL (0.0-0.4); Hematocrit 35.4 % (37.0-47.0); Hemoglobin 11.7 g/dl (12.0-16.0); Imm Gran Abs Auto 0.02 X10*3/uL (0.00-0.03); Imm Gran Pct Auto 0.4 % (0.0-0.4); Lymphocytes Absolute Auto 0.9 X10*3/uL (1.2-4.9); Mean Corpuscular HGB Conc 33.1 g/dl (31.0-35.0); Mean Corpuscular Hemoglobin 29.5 pg (27.0-33.0); Mean Corpuscular Volume 89.4 fL (80.0-98.0); Mean Platelet Volume 9.7 fL (9.4-12.3); Monocytes Absolute Auto 0.6 X10*3/uL (0.1-1.2); Monocytes Percent Auto 11.4 % (2-11); Neutrophils Absolute Auto 3.8 x10*3/uL (2.0-8.3); Neutrophils Percent Auto 69.5 % (45-73); Platelet Count 245 X10*3/uL (160-400); Red Blood Count 3.96 X10*6/uL (4.20-5.50); Red Cell Distribution Width 13.3 % (11.0-16.0); White Blood Count 5.4 X10*3/uL (4.8-10.8)
[2024-03-14 11:28] LABS: Alanine Aminotransferase 52 U/L (0-31); Albumin Level 3.4 g/dL (3.5-5.0); Alkaline Phosphatase 128 U/L (39-117); Anion Gap 10 (12-20); Aspartate Amino Transferase 28 U/L (5-31); Bilirubin Total 0.4 mg/dL (0.0-1.0); Blood Urea Nitrogen 9 mg/dL (9-16); Calcium 8.8 mg/dL (8.4-10.2); Carbon Dioxide 25 mmol/L (22-29); Chloride 108 mmol/L (96-108); Creatinine Clr Calc Pharmacy 84.8; Estimated Glomerular Filt Rate > 60; Glucose Random 108 mg/dL (60-115); Potassium 4.2 mmol/L (3.3-5.1); Sodium 139 mmol/L (135-145); Total Protein 6.2 g/dL (6.5-8.0)
--- NOTE | 2024-03-14 14:53 | P.PICC_ITS ---
PICC Line Insertion NPICC Diagnosis: R shoulder infection Indication: 6wks ABT Pertinent Labs: reviewed Technique: Following informed consent including risks, benefits and alternatives and using sterile technique including cap and mask, sterile gown, glove and drape, the left arm was prepped and draped in the usual sterile fashion of full barrier technique with [facility]. Following completion of [place] Protocol the skin and soft tissues were anesthetized with 1% Lidocaine plain. Using ultrasound guidance, left brachial vein access was obtained. Over an 0.018 wire through peel-away sheath, a 4FR single lumen PASV PICC line was positioned. Catheter length is 40cm internal length, 0cm external length, for a total trimmed length of 40cm. The procedure was performed in rm 272. Tip verification was performed by Aashish Abdi with Suman 3CG. Tip located in SVC. Ultrasound was used to document vein patency and for needle entry. A formal ultrasound picture and cardiac rhythm strip was recorded. [employer]ascular [employer] Parts Clerk has released the line for use and it is currently dressed with a StatLock, Tegaderm, and CHG disc. Verification has been performed for blood return and line patency. Arm Circumference: 30cm Equipment: [id number] SOLO Catheter Type: 4 fr single lumen PASV catheter Lot #: [id number]
== END 2024-03-14 13:31 | disposition home or self-care (01) ==
PROVIDERS: Physician Assistant; PCP Internal Medicine; Visit Provider Orthopaedic Surgery
PROC: (CPT 29826; principal; 2024-03-14 08:40)
DX: L76.34 Postprocedural seroma of skin and subcutaneous tissue following other procedure (principal); M00.011 Staphylococcal arthritis, right shoulder; B95.61 Methicillin susceptible Staphylococcus aureus infection as the cause of diseases classified elsewhere; Z98.890 Other specified postprocedural states; Z88.0 Allergy status to penicillin; Z91.040 Latex allergy status
CPT/HCPCS: 29822; 36415; 36573; 80053; 85025; 87070; 87073; 87077; 87186; 87205; C1751; J0131; J0171; J0665; J1100; J2250; J2405; J2704; J2795; J3010; J3370

== ENCOUNTER → 2024-03-14 06:30 | Outpatient (BNV) | payer OTHER, SELFPAY | PROVIDERS: PCP Internal Medicine; Visit Provider Orthopaedic Surgery | DX: M67.811 Other specified disorders of synovium, right shoulder (principal) | CPT/HCPCS: 29821 ==

== ENCOUNTER 2024-03-16 12:22 | Outpatient (AMB) | payer OTHER, SELFPAY ==
--- NOTE | 2024-03-16 12:31 | MHC.OFFVIS ---
Intake Visit Reasons: PO RT shoulder acromioplasty 03/14/24 NE Intake Note: Alexandrea is 63 year old right hand dominant female who presents today for a post op appointment s/p RT shoulder acromioplasty 03/14/24 NE. Patient reports she is doing okay but she has some discomfort. Allergies Penicillins Allergy (Severe, Verified 03/16/24 12:35) trouble breathing latex Allergy (Verified 03/16/24 12:35) rash HPI HPI PO RT shoulder acromioplasty 03/14/24 NE: Details: 63-year-old right hand dominant female who presents in the office today 2 days status post right shoulder arthroscopic lavage and synovectomy, which was performed on 03/14/[address] Patterson. Post operatively the patient had a PICC line placed. ? While in the office today, the patient reports she is doing okay with mild discomfort. ? 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 SHANIQUA drain is intact.?Sutures are intact. SHANIQUA drain has a small amount of serosanguineous fluid. No purulent discharge was collected in the bulb. NVI.? Assessment & Plan Assessment & Plan (1) Status post right rotator cuff repair: Code(s): Z98.890 - Other specified postprocedural states Category: Surgical (2) Seroma of skin or subcutaneous tissue after non-dermatologic procedure: Code(s): L76.34 - Postprocedural seroma of skin and subcutaneous tissue following other procedure Category: Medical Plan Ms. Brasher is a 63-year-old right hand dominant female who presents in the office today 2 days status post right shoulder arthroscopic lavage and synovectomy, which was performed on 03/14/[address] Patterson. Post operatively the patient had a PICC line placed. ? While in the office today, the patient reports she is doing okay with mild discomfort.? ? The SHANIQUA drain was removed while in the office today. She has her PICC line in place and she will be going to the infusion center after today's appointment for her antibiotics. She will then begin home infusions. The cultures of the left shoulder came back as staphylococcus aureus. A refill of hydrocodone-acetaminophen 5-325 mg PO Q4-6H PRN for pain was sent to the pharmacy. She was taking oxycodone but feels the Vicodin works better for her pain.?She will follow-up at her next scheduled appointment with anticipation of suture removal. Follow-up will be on 03/22/24, or sooner if needed. Medications: New hydrocodone-acetaminophen 5-325 mg Partial Fill upon patient request. 1 tab PO Q4-6H PRN 42 tabs 0RF pain 7 days Patient Instructions: Scribed by Ada Zaldivar medical administrative assistant, for Lucia Brown PA-C on 03/16/2024 at 12:38 pm, EST.? Coding Level of Care Code Global (97440) Diagnoses Status post right rotator cuff repair Z98.890 Seroma of skin or subcutaneous tissue after non-dermatologic procedure L76.34
== END 2024-03-16 13:07 | disposition home or self-care (01) ==
PROVIDERS: PCP Internal Medicine; Visit Provider Physician Assistant
DX: Z98.890 Other specified postprocedural states (principal); L76.34 Postprocedural seroma of skin and subcutaneous tissue following other procedure
CPT/HCPCS: 99024

== ENCOUNTER → 2024-03-16 12:22 | Outpatient (BNVA) | payer OTHER, SELFPAY | PROVIDERS: PCP Internal Medicine; Visit Provider Physician Assistant ==

== ENCOUNTER 2024-03-22 14:42 | Outpatient (AMB) | payer OTHER, SELFPAY ==
--- NOTE | 2024-03-22 14:44 | MHC.OFFVIS ---
Intake Visit Reasons: PO RT shoulder acromioplasty 03/14/24 NE Intake Note: Alexandrea is a 63 year old right hand dominant male who presents today with her daughter in law for a post op appointment s/p RT shoulder acromioplasty 03/14/24 NE. Patient reports she is still having pain in her shoulder. Her pain is a 6/7 out of 10 on the pain scale from last night and today. Patient mentions having a lot of pain in her underarm, she noticed a lump when she was trying to locate where was her pain from today. Allergies Penicillins Allergy (Severe, Verified 03/16/24 12:35) trouble breathing latex Allergy (Verified 03/16/24 12:35) rash HPI HPI PO RT shoulder acromioplasty 03/14/24 NE: Details: 63-year-old right hand dominant female who presents in the office today 8 days status post right shoulder arthroscopic lavage and synovectomy, which was performed on 03/14/[address] Patterson.? ? While in the office today, the patient reports she is still having pain in the right shoulder, and she rates her pain a 6-7/10. She states is has maintained this rate of pain since last night. He also reports increased pain in her underarm and has noticed a lump when she pinpoints her pain today. ? 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 Sutures are intact. No active drainage. FF and ABD 45 degrees. NVI. Assessment & Plan Assessment & Plan (1) Status post right rotator cuff repair: Code(s): Z98.890 - Other specified postprocedural states Category: Surgical (2) Seroma of skin or subcutaneous tissue after non-dermatologic procedure: Code(s): L76.34 - Postprocedural seroma of skin and subcutaneous tissue following other procedure Category: Medical Plan Ms. Brasher is a 63-year-old right hand dominant female who presents in the office today 8 days status post right shoulder arthroscopic lavage and synovectomy, which was performed on 03/14/[address] Patterson.? ? While in the office today, the patient reports she is still having pain in the right shoulder, and she rates her pain a 6-7/10. She states is has maintained this rate of pain since last night. He also reports increased pain in her underarm and has noticed a lump when she pinpoints her pain today.? ? Dr. Patterson was available to review the case with me but unable to see the patient; and a collaborative treatment plan was made. Sutures were removed and steri-stripes were applied. The patient will continue IV antibiotics via a picc line. We discussed that she should refrain from physical therapy until the infection is cleared. The patient asked about intermittent leave for her to bring her to her appointments. I have instructed her to bring the paperwork to the office and we can aid in helping her to fill this out. She will follow-up at her regularly scheduled appointment with Dr. Patterson on 04/02, or sooner if needed. ? ? Patient Instructions: Scribed by Ada Zaldivar clinical medical transcriptionist, for Lucia Brown PA-C on 03/22/2024 at 2:47 pm, EST.? Coding Level of Care Code Global (23063) Diagnoses Status post right rotator cuff repair Z98.890 Seroma of skin or subcutaneous tissue after non-dermatologic procedure L76.34
== END 2024-03-22 15:12 | disposition home or self-care (01) ==
PROVIDERS: PCP Internal Medicine; Visit Provider Physician Assistant
DX: Z98.890 Other specified postprocedural states (principal); L76.34 Postprocedural seroma of skin and subcutaneous tissue following other procedure
CPT/HCPCS: 99024

== ENCOUNTER → 2024-03-23 10:25 | Outpatient (BNV) | payer OTHER, SELFPAY | PROVIDERS: PCP Internal Medicine; Visit Provider Physician Assistant Surgical | DX: M00.011 Staphylococcal arthritis, right shoulder (principal); B95.61 Methicillin susceptible Staphylococcus aureus infection as the cause of diseases classified elsewhere | CPT/HCPCS: 36573 ==

== ENCOUNTER 2024-03-23 10:26 | Outpatient (REF) | payer OTHER, SELFPAY ==
--- NOTE | ~2024-03-23 | IR_ITS ---
CLINICAL HISTORY: Right shoulder infection. Recently placed left arm PICC has retracted back to the left innominate vein. Patient is also experiencing paresthesias in her left arm. Patient presents for placement of a new PICC for IV antibiotics. PROCEDURES: 1. Real-time ultrasound-guided access into the left basilic vein after documentation of selected vessel patency, and permanent imaging storing in the patient record. 2. Placement of a 5 fr 41 cm, single lumen power PICC CLINICIANS: Galdino Izaguirre PA-C MEDICATIONS: -Lidocaine 1% 10 mL SQ. -Antibiotics: None. Complications: None. Estimated blood loss: <5 ml Specimens: None. Contrast: None. Fluoroscopy time: 1.2 minutes Procedure note: The procedure, risks, benefits, and alternatives were carefully explained to the patient and written informed consent was obtained. The patient was placed supine on the fluoroscopy table. A timeout was performed. The left arm was prepped and draped in usual sterile fashion. Using ultrasound and fluoroscopic guidance, venous access was achieved into the basilic vein with a micropuncture set. A peel-away sheath was advanced over the wire. The 0.018 inch wire was advanced into the right atrium. A 5 fr, 41 cm, single lumen power PICC was advanced over the wire, with its tip in the right atrium. The wire was removed. The catheter was tested and secured with a 3-0 nylon suture. A permanent ultrasound image and chest fluoroscopic image was saved to PACS. The previously placed left brachial vein PICC was removed. Dry structures was applied to the left arm. There were no immediate complications. FINDINGS: 1. Patent left basilic vein 2. Placement of a 5 fr 41 cm, single lumen power PICC IR/IR cvc insert peripheral IMPRESSION: Placement of a 5 fr 41 cm, single lumen power PICC left basilic vein. Removal of the existing left brachial vein PICC PLAN: -The catheter may be used immediately. This procedure was performed by Galdino Izaguirre PA-C, and directly supervised by Dr. Flores
== END 2024-03-23 10:27 | disposition home or self-care (01) ==
LOC: HO.RADIR 10:26
PROVIDERS: PCP Internal Medicine; Visit Provider Physician Assistant
DX: L76.34 Postprocedural seroma of skin and subcutaneous tissue following other procedure (principal); Y83.9 Surgical procedure, unspecified as the cause of abnormal reaction of the patient, or of later complication, without mention of misadventure at the time of the procedure; Y92.9 Unspecified place or not applicable
CPT/HCPCS: 36573; C1751

== ENCOUNTER 2024-04-02 08:16 | Outpatient (AMB) | payer OTHER, SELFPAY ==
--- NOTE | 2024-04-02 08:17 | A.OFFVIS_ITS ---
Vital Signs 04/02/24 08:19 Height 5 ft 7 in Weight 149 lb BMI 23.3 Intake Visit Reasons: OV-4WK f/u Rt rtc repair 12/11 NE Intake Note: Alexandrea is a 63 year old right hand dominant female who presents today with her daughter in law for a post op appointment s/p RT shoulder acromioplasty 03/14/24 NE. Patient reports that she is having pain all the time, which she is managing with Hydrocodone. She has some numbness and tingling from the elbow to the shoulder. She does have continued redness at the anterior incision site, which is itchy and warm to the touch. She continues with the IV ABX Allergies Penicillins Allergy (Severe, Verified 04/09/24 10:15) trouble breathing latex Allergy (Verified 04/09/24 10:15) rash HPI HPI OV-4WK f/u Rt rtc repair 12/11 NE: Details: on iv abx. She is concerned about warmth and erythema. 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 mild underlying erythema. Moderate swelling. no pain with passive ROM Assessment & Plan Assessment & Plan (1) Seroma of skin or subcutaneous tissue after non-dermatologic procedure: Code(s): L76.34 - Postprocedural seroma of skin and subcutaneous tissue following other procedure Category: Medical Plan: Continue IV antibiotics. Follow up 1 week Coding Level of Care Code Global (37926) Diagnoses Seroma of skin or subcutaneous tissue after non-dermatologic procedure L76.34
[2024-04-02 08:19] VITALS: BMI 23.3
== END 2024-04-02 08:49 | disposition home or self-care (01) ==
PROVIDERS: PCP Internal Medicine; Visit Provider Orthopaedic Surgery
DX: L76.34 Postprocedural seroma of skin and subcutaneous tissue following other procedure (principal)
CPT/HCPCS: 99024

== ENCOUNTER → 2024-04-02 08:16 | Outpatient (BNVA) | payer OTHER, SELFPAY | PROVIDERS: PCP Internal Medicine; Visit Provider Orthopaedic Surgery ==

== ENCOUNTER 2024-04-13 11:22 | Outpatient (AMB) | payer OTHER, SELFPAY ==
--- NOTE | 2024-04-13 11:25 | MHC.OFFVIS ---
Intake Visit Reasons: OV-1WK f/u Rt rtc repair 12/11 NE Intake Note: Alexandrea is a 63 year old right hand dominant female who presents today with her daughter in law for a post op appointment s/p RT shoulder acromioplasty 03/14/24 NE. 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 She is worried about returning to work in her pain. She is on IV daptomycin. Her cultures grew out staph aureus. She has been having shoulder pain not at rest but with overhead activity and some swelling. She has a rotator cuff tear and has had several surgeries to debride the wound. 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 There is mild erythema and swelling of the right shoulder but the only pain is with active abduction. Assessment & Plan Assessment & Plan (1) Seroma of skin or subcutaneous tissue after non-dermatologic procedure: Code(s): L76.34 - Postprocedural seroma of skin and subcutaneous tissue following other procedure Category: Medical Plan: This is a 63-year-old woman who at infected rotator cuff repair requiring subsequent arthroscopic debridement. The latest cultures demonstrated staph aureus and she was started on IV antibiotics for 6 weeks. She has been doing okay on the IV antibiotics but does have some persistent swelling and pain. She does not have pain at rest and on exam there is mild swelling only. We had a long discussion regarding the details of her treatment. I do think she should finish her IV pain medication and we will be able to get a better sense of if it has been helpful. All 3 are so arthroscopic surgeries were unimpressive and there was no evidence of joint involvement. I ordered some labs for her and would like to see her back in 1 week. I also think she should resume physical therapy with a focus on scapular stabilization. (2) Status post right rotator cuff repair: Code(s): Z98.890 - Other specified postprocedural states Category: Surgical Plan: PT Orders: Orders Comprehensive Met. Panel Today L76.34 - Postprocedural seroma of skin and subcutaneous tissue following other procedure Complete Blood Count Auto Diff Today L76.34 - Postprocedural seroma of skin and subcutaneous tissue following other procedure PT Evaluation and Treatment Today L76.34 - Postprocedural seroma of skin and subcutaneous tissue following other procedure, Z98.890 - Other specified postprocedural states Coding Level of Care Code Global (53844) Diagnoses Seroma of skin or subcutaneous tissue after non-dermatologic procedure L76.34 Status post right rotator cuff repair Z98.890
== END 2024-04-13 12:35 | disposition home or self-care (01) ==
PROVIDERS: PCP Internal Medicine; Visit Provider Orthopaedic Surgery
DX: L76.34 Postprocedural seroma of skin and subcutaneous tissue following other procedure (principal); Z98.890 Other specified postprocedural states
CPT/HCPCS: 99024

== ENCOUNTER → 2024-04-13 11:22 | Outpatient (BNVA) | payer OTHER, SELFPAY | PROVIDERS: PCP Internal Medicine; Visit Provider Orthopaedic Surgery ==

== ENCOUNTER 2024-04-18 11:03 | Outpatient (REF) | payer OTHER, SELFPAY ==
[2024-04-18 11:26] LABS: MANUAL DIFF FLAG NO
[2024-04-18 11:57] LABS: Basophils Absolute Auto 0.1 X10*3/uL (0.0-0.2); Basophils Percent Auto 0.8 % (0-2); Eosinophils Absolute Auto 0.2 X10*3/uL (0.0-0.4); Eosinophils Percent Auto 2.7 % (0-4); Hematocrit 40.5 % (37.0-47.0); Hemoglobin 13.4 g/dl (12.0-16.0); Imm Gran Abs Auto 0.02 X10*3/uL (0.00-0.03); Imm Gran Pct Auto 0.2 % (0.0-0.4); Lymphocytes Absolute Auto 1.5 X10*3/uL (1.2-4.9); Lymphocytes Percent Auto 18.1 % (20-40); Mean Corpuscular HGB Conc 33.1 g/dl (31.0-35.0); Mean Corpuscular Hemoglobin 29.1 pg (27.0-33.0); Mean Corpuscular Volume 87.9 fL (80.0-98.0); Mean Platelet Volume 10.5 fL (9.4-12.3); Monocytes Absolute Auto 0.6 X10*3/uL (0.1-1.2); Monocytes Percent Auto 7.5 % (2-11); Neutrophils Absolute Auto 5.9 x10*3/uL (2.0-8.3); Neutrophils Percent Auto 70.7 % (45-73); Platelet Count 266 X10*3/uL (160-400); Red Blood Count 4.61 X10*6/uL (4.20-5.50); Red Cell Distribution Width 13.2 % (11.0-16.0); White Blood Count 8.4 X10*3/uL (4.8-10.8)
[2024-04-18 12:38] LABS: Alanine Aminotransferase 38 U/L (0-31); Alkaline Phosphatase 111 U/L (39-117); Anion Gap 12 (12-20); Aspartate Amino Transferase 30 U/L (5-31); Bilirubin Total 0.3 mg/dL (0.0-1.0); Blood Urea Nitrogen 11 mg/dL (9-16); Calcium 9.6 mg/dL (8.4-10.2); Carbon Dioxide 26 mmol/L (22-29); Chloride 107 mmol/L (96-108); Estimated Glomerular Filt Rate > 60; Glucose Random 87 mg/dL (60-115); Sodium 140 mmol/L (135-145); Total Protein 7.5 g/dL (6.5-8.0)
== END 2024-04-18 11:04 | disposition home or self-care (01) ==
LOC: HO.LAB 11:03
PROVIDERS: PCP Internal Medicine; Visit Provider Orthopaedic Surgery
DX: L76.34 Postprocedural seroma of skin and subcutaneous tissue following other procedure (principal)
CPT/HCPCS: 36415; 80053; 85025

== ENCOUNTER 2024-04-19 08:41 | Outpatient (AMB) | payer OTHER, SELFPAY ==
--- NOTE | 2024-04-19 08:43 | MHC.OFFVIS ---
Intake Visit Reasons: OV-1WK f/u Rt rtc repair 12/11 NE Intake Note: Alexandrea is a 63 year old right hand dominant female who presents today with her daughter in law for a post op appointment s/p RT shoulder acromioplasty 03/14/24 NE. Today is to review labs that were drawn. Batter Out Required: Yes Batter Out Name: [id number] Allergies Penicillins Allergy (Severe, Verified 04/19/24 08:49) trouble breathing latex Allergy (Verified 04/19/24 08:49) rash HPI HPI OV-1WK f/u Rt rtc repair 12/11 NE: Details: Alexandrea is a 63 year old right hand dominant female who presents today with her daughter in law for a post op appointment s/p RT shoulder acromioplasty 03/14/24 NE. Today is to review labs that were drawn. 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 Portals are closed and there is no drainage. She has full motion with mild discomfort in the mid arc of abduction. Results Reviewed Results Reviewed: Labs appear normal with liver enzymes resolving. Assessment & Plan Assessment & Plan (1) Seroma of skin or subcutaneous tissue after non-dermatologic procedure: Code(s): L76.34 - Postprocedural seroma of skin and subcutaneous tissue following other procedure Category: Medical Plan: Continue antibiotics and will follow up in 1 wk Coding Level of Care Code Global (53864) Diagnoses Seroma of skin or subcutaneous tissue after non-dermatologic procedure L76.34
== END 2024-04-19 09:02 | disposition home or self-care (01) ==
PROVIDERS: PCP Internal Medicine; Visit Provider Orthopaedic Surgery
DX: L76.34 Postprocedural seroma of skin and subcutaneous tissue following other procedure (principal)
CPT/HCPCS: 99024

== ENCOUNTER → 2024-04-19 08:41 | Outpatient (BNVA) | payer OTHER, SELFPAY | PROVIDERS: PCP Internal Medicine; Visit Provider Orthopaedic Surgery ==

== ENCOUNTER 2024-04-25 13:00 | Outpatient (RCR) | payer OTHER, SELFPAY ==
[2024-03-15 11:14] VITALS: BP 122/68; PULSE 72; RESP 14; TEMP 37.2; O2SAT 96
[2024-03-15] MEDS: 0.9 % Sodium Chloride Flush 10 ML SYRINGE 5 ML IVFLUSH ×2 (12:02→12:35)
[2024-03-16 13:54] VITALS: BP 150/88; PULSE 76; RESP 18; TEMP 37.1; O2SAT 98
[2024-03-16] MEDS: 0.9 % Sodium Chloride Flush 10 ML SYRINGE 5 ML IVFLUSH ×2 (14:05→14:42)
--- NOTE | 2024-03-16 14:35 | HO.INF ---
MARCELINAA IN TO TEACH PATIENT AT HOME INFUSION. PATIENT DECLINED TO LEARN INFUSION. STATED SHE AGREED YESTERDAY BUT HAS CHANGED HER MIND TODAY. SHE HAS NO ONE TO HELP HER AT HOME AND WANTS TO CONTINUE TREATMENT HERE AT [facility]. DR. LERMA OFFICE CALLED MESSAGE LEFT. CALL PLACED TO - SPOKE WITH HIM REGARDING SITUATION. INFORMED HIM KRISHNA WILL GO TO HER HOME TUESDAY AND TUESDAY. SHE WILL NEED NEW ORDERS FOR TUESDAY TO INCLUDE PICC LINE ORDERS. MD STATES HE WILL WRITE ALL ORDERS ON TUESDAY MORNING. [facility]NA AWARE, PATIENT AWARE.
[2024-03-19 14:15] VITALS: BP 139/83; PULSE 69; RESP 14; TEMP 36.7; O2SAT 94
[2024-03-19] MEDS: 0.9 % Sodium Chloride Flush 10 ML SYRINGE 5 ML IVFLUSH (16:10)
[2024-03-20 09:05] VITALS: BP 126/75; PULSE 86; RESP 16; TEMP 36.5; O2SAT 94
[2024-03-20] MEDS: 0.9 % Sodium Chloride Flush 10 ML SYRINGE 5 ML IVFLUSH (10:40)
[2024-03-21 09:00] VITALS: BP 126/79; PULSE 81; RESP 16; TEMP 36.7; O2SAT 95
[2024-03-21] MEDS: 0.9 % Sodium Chloride Flush 10 ML SYRINGE 5 ML IVFLUSH ×2 (09:14→09:52)
--- NOTE | 2024-03-21 10:43 | HO.INF ---
during patients PICC line dressisng change the PICC line slipped out to 32cm. IR RN notified and assessed. PICc line sstill flushes without difficulty and blood return noted. IR Rn to notify MD to confirm we can now use site as a Midline
[2024-03-22 13:54] VITALS: BP 153/87; PULSE 73; RESP 16; TEMP 37.3; O2SAT 98
[2024-03-22] MEDS: 0.9 % Sodium Chloride Flush 10 ML SYRINGE 5 ML IVFLUSH (14:33)
[2024-03-23 12:15] VITALS: BP 125/77; PULSE 65; RESP 18; TEMP 36.4
[2024-03-23] MEDS: 0.9 % Sodium Chloride Flush 10 ML SYRINGE 5 ML IVFLUSH (12:55)
[2024-03-24 10:08] VITALS: BP 118/72; PULSE 88; RESP 18; TEMP 37.4; O2SAT 95
[2024-03-24] MEDS: 0.9 % Sodium Chloride Flush 10 ML SYRINGE 5 ML IVFLUSH ×2 (10:31→11:14)
[2024-03-25 09:55] VITALS: BP 129/83; PULSE 80; RESP 18; TEMP 37.2; O2SAT 97
[2024-03-26 10:19] VITALS: BP 142/80; PULSE 79; RESP 14; O2SAT 95
[2024-03-26] MEDS: 0.9 % Sodium Chloride Flush 10 ML SYRINGE 5 ML IVFLUSH (11:33)
[2024-03-27 09:00] VITALS: BP 147/87; PULSE 82; RESP 18; TEMP 36.7; O2SAT 96
[2024-03-27] MEDS: 0.9 % Sodium Chloride Flush 10 ML SYRINGE 5 ML IVFLUSH ×2 (09:22→09:44)
[2024-03-28 10:25] VITALS: BP 130/79; PULSE 90; RESP 14; TEMP 37.2; O2SAT 96
[2024-03-28] MEDS: 0.9 % Sodium Chloride Flush 10 ML SYRINGE 5 ML IVFLUSH (11:05)
[2024-03-29 09:57] VITALS: BP 112/73; PULSE 83; RESP 18; TEMP 36.6; O2SAT 96
[2024-03-29] MEDS: 0.9 % Sodium Chloride Flush 10 ML SYRINGE 5 ML IVFLUSH ×2 (10:13→10:51)
[2024-03-30 11:44] VITALS: BP 112/67; PULSE 84; RESP 18; TEMP 36.6; O2SAT 96
[2024-03-30] MEDS: 0.9 % Sodium Chloride Flush 10 ML SYRINGE 5 ML IVFLUSH ×2 (11:55→12:30)
[2024-03-31 10:01] VITALS: BP 123/74; PULSE 74; RESP 15; TEMP 36.5; O2SAT 93
[2024-03-31 10:46] VITALS: BMI 23.5
[2024-04-01 10:00] VITALS: BP 128/71; PULSE 90; RESP 16; TEMP 36.2; O2SAT 95; BMI 23.3
[2024-04-01] MEDS: 0.9 % Sodium Chloride Flush 10 ML SYRINGE 5 ML IVFLUSH ×2 (10:00→10:44)
[2024-04-01 10:42] VITALS: BP 123/73; PULSE 73; RESP 16; O2SAT 95
[2024-04-02 09:29] VITALS: BP 137/91; PULSE 71; RESP 18; TEMP 36.7; O2SAT 94
[2024-04-02] MEDS: 0.9 % Sodium Chloride Flush 10 ML SYRINGE 5 ML IVFLUSH ×2 (09:38→10:08)
[2024-04-03 09:56] VITALS: BP 139/70; PULSE 71; RESP 16; TEMP 36.9; O2SAT 97
[2024-04-03] MEDS: 0.9 % Sodium Chloride Flush 10 ML SYRINGE 5 ML IVFLUSH (10:39)
[2024-04-04 09:54] VITALS: BP 119/71; PULSE 72; RESP 18; TEMP 36.7; O2SAT 96
[2024-04-04] MEDS: 0.9 % Sodium Chloride Flush 10 ML SYRINGE 5 ML IVFLUSH ×2 (10:02→10:39)
[2024-04-05 10:03] VITALS: BP 123/68; PULSE 81; RESP 18; TEMP 37.1; O2SAT 97
[2024-04-05] MEDS: 0.9 % Sodium Chloride Flush 10 ML SYRINGE 5 ML IVFLUSH ×2 (10:11→10:49)
[2024-04-06 09:02] VITALS: BP 128/79; PULSE 78; RESP 18; TEMP 36.2
[2024-04-07 10:05] VITALS: BP 115/67; PULSE 70; RESP 20; TEMP 36.4; O2SAT 97
[2024-04-07] MEDS: 0.9 % Sodium Chloride Flush 10 ML SYRINGE 5 ML IVFLUSH (10:40)
--- NOTE | 2024-04-07 10:41 | PC.NURSE ---
Pt discharged p infusion completed
[2024-04-08 09:59] VITALS: BP 120/72; PULSE 92; RESP 16; TEMP 36.3; O2SAT 97
[2024-04-09 10:01] VITALS: BP 118/77; PULSE 76; RESP 16; TEMP 36.4; O2SAT 98
[2024-04-09 10:37] VITALS: BP 118/77; PULSE 77; RESP 16; O2SAT 97
[2024-04-10 09:48] VITALS: BP 113/71; PULSE 78; RESP 16; TEMP 36.9; O2SAT 95
[2024-04-10] MEDS: 0.9 % Sodium Chloride Flush 10 ML SYRINGE 5 ML IVFLUSH (10:27)
[2024-04-11 12:28] VITALS: BP 108/76; PULSE 67; RESP 18; TEMP 36.9; O2SAT 98
[2024-04-11] MEDS: 0.9 % Sodium Chloride Flush 10 ML SYRINGE 5 ML IVFLUSH (12:33)
[2024-04-12 10:02] VITALS: BP 134/71; PULSE 65; RESP 16; TEMP 36.6; O2SAT 98
[2024-04-13 13:02] VITALS: BP 145/83; PULSE 71; RESP 16; TEMP 36.6; O2SAT 96
--- NOTE | 2024-04-13 13:56 | HO.INF ---
lue picc dressing change in sterile fashion. no noted redness/bruising/etc. around insertion site. picc patent and flushing easily. blood rtn visualized. new clave applied with curos cap.
[2024-04-14 10:00] VITALS: BP 129/71; PULSE 77; RESP 16; TEMP 36.6; O2SAT 97
[2024-04-14] MEDS: 0.9 % Sodium Chloride Flush 10 ML SYRINGE 5 ML IVFLUSH (10:47)
[2024-04-15 10:09] VITALS: BMI 23.2
[2024-04-15 10:10] VITALS: BP 140/76; PULSE 77; RESP 16; TEMP 36.2; O2SAT 95
[2024-04-15] MEDS: 0.9 % Sodium Chloride Flush 10 ML SYRINGE 5 ML IVFLUSH (10:32)
[2024-04-16 09:01] VITALS: BP 134/73; PULSE 77; RESP 16; TEMP 36.8; O2SAT 97
[2024-04-16] MEDS: 0.9 % Sodium Chloride Flush 10 ML SYRINGE 5 ML IVFLUSH ×2 (09:06→09:43)
[2024-04-17 10:10] VITALS: BP 109/65; PULSE 78; RESP 14; TEMP 36.6; O2SAT 95
[2024-04-17] MEDS: 0.9 % Sodium Chloride Flush 10 ML SYRINGE 5 ML IVFLUSH (10:51)
[2024-04-18 11:51] VITALS: BP 115/73; PULSE 67; RESP 16; TEMP 37; O2SAT 96
[2024-04-18] MEDS: 0.9 % Sodium Chloride Flush 10 ML SYRINGE 5 ML IVFLUSH ×2 (11:55→12:29)
[2024-04-19 07:37] VITALS: BP 127/75; PULSE 75; RESP 16; TEMP 36.9; O2SAT 97
[2024-04-19] MEDS: 0.9 % Sodium Chloride Flush 10 ML SYRINGE 5 ML IVFLUSH (07:41)
[2024-04-20 09:02] VITALS: BP 108/68; PULSE 91; RESP 16; TEMP 36.8; O2SAT 97
[2024-04-20] MEDS: 0.9 % Sodium Chloride Flush 10 ML SYRINGE 5 ML IVFLUSH (09:06)
--- NOTE | 2024-04-20 09:50 | HO.INF ---
lue picc line dressing done in sterile fashion w/ biopatch and tegaderm. picc line patent, easily flushes and blood rtn visualized. no noted problem around insertion site. pt denies complaints. clave changed and capped w/ curos cap.
[2024-04-21 09:59] VITALS: BP 128/78; PULSE 92; RESP 15; TEMP 36.6; O2SAT 96; BMI 23.2
[2024-04-21] MEDS: 0.9 % Sodium Chloride Flush 10 ML SYRINGE 5 ML IVFLUSH ×2 (10:10→10:42)
[2024-04-22 09:57] VITALS: BP 140/75; PULSE 87; RESP 16; TEMP 36.5; O2SAT 98
[2024-04-22] MEDS: 0.9 % Sodium Chloride Flush 10 ML SYRINGE 5 ML IVFLUSH ×2 (09:57→10:29)
[2024-04-22 10:00] VITALS: BMI 23.1
[2024-04-22 10:30] VITALS: BP 124/73; PULSE 74; RESP 16; TEMP 36; O2SAT 97
[2024-04-23 08:31] VITALS: BP 119/73; PULSE 84; RESP 18; TEMP 37.1; O2SAT 96
[2024-04-23] MEDS: 0.9 % Sodium Chloride Flush 10 ML SYRINGE 5 ML IVFLUSH (08:34)
[2024-04-23 09:15] VITALS: RESP 20
[2024-04-24 12:52] VITALS: BP 109/64; PULSE 79; RESP 16; TEMP 37.1; O2SAT 95
[2024-04-24] MEDS: 0.9 % Sodium Chloride Flush 10 ML SYRINGE 5 ML IVFLUSH ×2 (12:57→13:40)
--- NOTE | ~2024-04-25 | XR_ITS ---
EXAMINATION: XR CHEST CLINICAL INFORMATION: Check PICC placement. COMPARISON: None available. TECHNIQUE: Frontal view of the chest was obtained. FINDINGS: The lungs are well-inflated. There is no gross pneumothorax. Surgical anchors overlie the right humeral head. Heart size is normal. S-shaped thoracolumbar scoliosis. No pleural effusion. PICC line overlies the left subclavian region with tip terminating at the level of the left brachiocephalic/SVC junction. XR/XR chest 1V IMPRESSION: PICC line overlies the left subclavian region with tip terminating at the level of the left brachiocephalic/SVC junction. Electronically signed by: Michelle Viera MD 04/18/2024 01:40 PM EDT
[2024-04-25 13:02] VITALS: BP 109/64; PULSE 86; RESP 16; TEMP 36.9; O2SAT 95
[2024-04-25] MEDS: 0.9 % Sodium Chloride Flush 10 ML SYRINGE 5 ML IVFLUSH (13:06)
== END 2024-04-25 15:00 | disposition home or self-care (01) ==
LOC: HO.INF 13:00
PROVIDERS: Visit Provider Orthopaedic Surgery
DX: L08.9 Local infection of the skin and subcutaneous tissue, unspecified (principal)
CPT/HCPCS: 71045; 96365; 96523; J0878

== ENCOUNTER 2024-04-26 09:40 | Outpatient (AMB) | payer OTHER, SELFPAY ==
--- NOTE | 2024-04-26 09:51 | MHC.OFFVIS ---
Vital Signs 04/26/24 09:53 Height 5 ft 7 in Weight 148 lb BMI 23.2 Intake Visit Reasons: PO - f/u Rt rtc repair 12/11 NE Intake Note: Alexandrea is a 63 year old right hand dominant female who presents today for a post op appointment s/p RT shoulder acromioplasty 03/14/24 NE Patient reports that she recieved her last dose of anx yesterday but she still has picc line intact as they did not have orders to remove. She reports her pain is a 4 out of 10. She comes with a list of questions for the provider today in regards to travel to [place] as well as COVID vaccine. Imcu Specialist Required: Yes Imcu Specialist Language: Malay Imcu Specialist Name: [phone] [phone] Allergies Penicillins Allergy (Severe, Verified 04/19/24 08:49) trouble breathing latex Allergy (Verified 04/19/24 08:49) rash HPI HPI PO - f/u Rt rtc repair 12/11 NE: Details: Alexandrea is a 63 year old right hand dominant female who presents today for a post op appointment s/p RT shoulder acromioplasty 03/14/24 NE Patient reports that she recieved her last dose of abx yesterday but she still has picc line intact as they did not have orders to remove. She reports her pain is a 4 out of 10. She comes with a list of questions for the provider today. She actually states that she is doing better over the last 2 weeks. She is modifying her lifting activities and has been doing physical therapy. 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 There is mild erythema and swelling of the right shoulder but the only pain is with active abduction. Assessment & Plan Assessment & Plan (1) Seroma of skin or subcutaneous tissue after non-dermatologic procedure: Code(s): L76.34 - Postprocedural seroma of skin and subcutaneous tissue following other procedure Category: Medical Plan: This is a 63-year-old woman who had a infection after rotator cuff repair this required removal of hardware as well as debridement and IV antibiotics. She has been improving. There is still some atypical erythema over the right shoulder with mild swelling and no pain. The wounds are clean and healed. She has finished her IV antibiotic course and I recommend p.o. Bactrim. I did discuss this with our infectious disease doctor and think this is reasonable for 1 month. She will see me back in 2 weeks. Orders: Orders IR cvc remove any age Today L76.34 - Postprocedural seroma of skin and subcutaneous tissue following other procedure Medications: New sulfamethoxazole-trimethoprim 800-160 mg (Bactrim DS) 1 tab PO BID 56 tabs 0RF 4 weeks Coding Level of Care Code Global (64882) Diagnoses Seroma of skin or subcutaneous tissue after non-dermatologic procedure L76.34
[2024-04-26 09:53] VITALS: BMI 23.2
== END 2024-04-26 10:24 | disposition home or self-care (01) ==
PROVIDERS: PCP Internal Medicine; Visit Provider Orthopaedic Surgery
DX: L76.34 Postprocedural seroma of skin and subcutaneous tissue following other procedure (principal)
CPT/HCPCS: 99024

== ENCOUNTER → 2024-04-26 09:40 | Outpatient (BNVA) | payer OTHER, SELFPAY | PROVIDERS: PCP Internal Medicine; Visit Provider Orthopaedic Surgery ==

== ENCOUNTER 2024-04-26 10:52 | Outpatient (REF) | payer OTHER, SELFPAY | END 2024-04-26 10:53 | disposition home or self-care (01) | LOC: HO.RADIR 10:52 | PROVIDERS: PCP Internal Medicine; Visit Provider Orthopaedic Surgery | DX: Z13.89 Encounter for screening for other disorder (principal) ==

== ENCOUNTER 2024-05-11 12:01 | Outpatient (AMB) | payer OTHER, SELFPAY ==
--- NOTE | 2024-05-11 12:17 | A.OFFVIS_ITS ---
Vital Signs 05/11/24 12:18 Height 5 ft 7 in Weight 158 lb BMI 24.7 Intake Visit Reasons: PO - 2 WK f/u Rt rtc repair 12/11 NE Intake Note: Alexandrea is a 63 year old right hand dominant female who presents today for a post operative appointment s/p Right shoulder acromioplasty 03/14/24. She is done with IV ABx, At her last visit she was given a 1 months rx of Bactrim. Medical Laboratory Manager Name: [id number] Allergies Penicillins Allergy (Severe, Verified 04/19/24 08:49) trouble breathing latex Allergy (Verified 04/19/24 08:49) rash HPI HPI PO - 2 WK f/u Rt rtc repair 12/11 NE: Details: Here today for follow up. She feels well she doing her physical therapy she has no complaints. She does have some mild swelling over the right shoulder. She has been taking antibiotics and is going to pull and for some dental work. 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 Swelling has been improving. She has good motion up to 90 degrees of abduction. At that point she has weakness with combined overhead abduction. Full forward flexion. External rotation 45 degrees. Assessment & Plan Assessment & Plan (1) Seroma of skin or subcutaneous tissue after non-dermatologic procedure: Code(s): L76.34 - Postprocedural seroma of skin and subcutaneous tissue following other procedure Category: Medical Plan: Status post infected rotator cuff repair in which foreign material was removed and she has been on IV and p.o. antibiotics. Everything seems to be healing but she has not stopped p.o. antibiotics yet. I recommend she continue to take these for 1 more week. That will be a month of p.o. antibiotics after 6 weeks of IV antibiotics. She will see me in approximately 3 weeks. (2) Status post right rotator cuff repair: Code(s): Z98.890 - Other specified postprocedural states Category: Surgical Plan: She is doing physical therapy. I recommend range of motion without lifting and abduction. Coding Level of Care Code Global (39970) Diagnoses Seroma of skin or subcutaneous tissue after non-dermatologic procedure L76.34 Status post right rotator cuff repair Z98.890
[2024-05-11 12:18] VITALS: BMI 24.7
== END 2024-05-11 12:53 | disposition home or self-care (01) ==
PROVIDERS: PCP Internal Medicine; Visit Provider Orthopaedic Surgery
DX: L76.34 Postprocedural seroma of skin and subcutaneous tissue following other procedure (principal); Z98.890 Other specified postprocedural states
CPT/HCPCS: 99024

== ENCOUNTER → 2024-05-11 12:01 | Outpatient (BNVA) | payer OTHER, SELFPAY | PROVIDERS: PCP Internal Medicine; Visit Provider Orthopaedic Surgery ==

== ENCOUNTER 2024-05-18 10:00 | Outpatient (RCR) | payer OTHER, SELFPAY ==
--- NOTE | 2024-03-12 09:51 | MHC.PT.EP ---
[facility] [place] Office [place] Office [place] Office [address] Pari Jung [address] [phone] F: [phone] F: [phone] F: [phone] F: [phone] Physical Therapy Plan of Care Date of Evaluation: 03/12/24 Date of Surgery: 12/22/23 and 02/01/24 Diagnosis: This is a 63 yo female presenting s/p R RTC repair 12/22/23 and then an arthroscopic debridement of the right shoulder infection on 02/01/24. Assessment: This is a 63 yo female presenting s/p R RTC repair 12/22/23 and then an arthroscopic debridement of the right shoulder infection on 02/01/24. Patient is status post right rotator cuff repair with subscapularis repair, supraspinatus repair, biceps tenotomy, and circumferential labral debridement, which was performed on 12/14/[address] Patterson. Patient came to 8 visits of PT however her initial suture wound from surgery never improved. She had to undergo an arthroscopic debridement of the right shoulder infection on 02/01/24. Post op note: I began by examining the lateral portal. There was fatty tissue with clear discharge. I removed this tissue and there was a sinus tract ( or at least incvoluted tissue that had invaginatyed into the wound) and a sample was sent to micro. I then made a posterolateral stab incision with a 15 blade. A blunt trochar was placed into the subacromial space. I insufflated the joint with saline and a 30 degree arthroscope was placed via the lateral portal. There was fibrous and irregualr appearing tissue in continuity with the lateral portal. I removed this with a shaver. The orthopaedic anchors were intact but there was one suture that was loose and the tendon had cut out. I removed all excess foreign material. There was a partial thickness RTC tear present. I irrigated copiously and then removed all instrumentation. The portals were closed with nylon. Patient was placed in an abduction sling, extubated and brought to the recovery room in stable condition. There were no known complications. She is returning to PT now and reports that she continues to have pain. She is concerned about the redness, warmth and new neck pain. She also reports that she had a fever 2 days ago and had to stay in bed yesterday as well as she did not feel well. She feels like her fever may have been from her shoulder. She continues to have pain (sharp and achy) at the GHJ in general and now in the upper trap as well (sharp, tender and pulling). She has increased pain when she attempts to move the arm. She wants to return to work however is unsure as she needs to be able to lift overhead and work a machine. Assessment reveals pain that ranges from up to a 8/10 at the worst. Patient demos decreased R shoulder and cervical ROM, strength of R shoulder and scapular stabilizers, TTP at GHJ, ACJ and UT as well as anterior incisions and impaired posture with forward head and rounded shoulders. Based on functional limitations, impaired QOL and pain tolerance patient is a good candidate for skilled PT 2x/wk for 6 wks. Frequency and Duration: The patient will be seen 2x/wk for 6wks Short Term Goals: (In 2 weeks) Demo I with HEP Improve shoulder AROM by at least 20 degs in all directions Demo proper scapular recruitment with appropriate shoulder strengthening exercises [facility] Goals: (in 6 wks) Improve shoulder nonpainful AROM to WFL Demo at least 4/5 grade improvement in MMT for shoulder Improve SPADI by at least 10 points Improve overall functional QOL by at least 75% Patient will return to work when medically ready Treatment Plan: Modalities to reduce pain, spasms and effusion. Manual therapy to restore motion and function. Therapeutic exercise to improve strength and flexibility. Neuromuscular re-education for posture and balance. Therapeutic activities to return to functional activities of daily living. Electronically signed by: Мария Denney PT Please sign and return to therapist. Thank you for your referral.
--- NOTE | 2024-06-19 08:40 | MHC.PT.DC ---
[facility] [place] Office [place] Office [place] [facility] [address] Pari Jung [address] [phone] F: [phone] F: [phone] F: [phone] F: [phone] Physical Therapy Discharge Report Diagnosis: This is a 63 yo female presenting s/p R RTC repair 12/22/23 and then an arthroscopic debridement of the right shoulder infection on 02/01/24. Date of Surgery: 12/22/23, 02/01/24, 03/14/24 Date of Evaluation: 03/12/24 Date of Discharge: 06/19/24 Treatments to Date: 9 Cancellations to Date: 0 No Shows to Date: 0 Discharge Status: Achieved Goals Improved Function Independent with HEP Patient Elected to Stop Discharge Summary: 05/18: Pt has come to 9 visits of PT. She has improved her pain, ROM and strength. She continues to get soreness but attributes this to how bad her infection was. She is going to [place] for vacation and will check back in the ortho when she gets back. I will put her on a PT hold and if she needs to return she may. She has a good HEP to continue on her own while away. Chart was DC'd after 30 days. Electronically signed by: Мария Denney PT Please sign and return to therapist. Thank you for your referral.
== END 2024-06-19 08:48 | disposition home or self-care (01) ==
LOC: HO.PTCHIC 10:00
PROVIDERS: PCP Internal Medicine; Visit Provider Physician Assistant
DX: Z98.890 Other specified postprocedural states (principal)
CPT/HCPCS: 97110; 97162; 97164

== ENCOUNTER 2024-06-11 09:02 | Outpatient (AMB) | payer OTHER, SELFPAY ==
[2024-06-11 09:04] VITALS: BMI 24.7
--- NOTE | 2024-06-11 09:04 | MHC.OFFVIS ---
Vital Signs 06/11/24 09:04 Height 5 ft 7 in Weight 158 lb BMI 24.7 Intake Visit Reasons: OV - Right RTC Repair 12/12/2023 NE Intake Note: Alexandrea is a 63 year old right hand dominant female who presents today for a post operative appointment s/p Right shoulder acromioplasty 03/14/24. Patient reports that she is doing better, but still not 100%. She has some sharp pain that is felt with lateral raising. 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 Allergies Penicillins Allergy (Severe, Verified 06/11/24 09:11) trouble breathing latex Allergy (Verified 06/11/24 09:11) rash HPI HPI OV - Right RTC Repair 12/12/2023 NE: Details: Alexandrea is a 63 year old right hand dominant female who presents today for a post operative appointment s/p Right shoulder acromioplasty 03/14/24. Patient reports that she is doing better, but still not 100%. She has some sharp pain that is felt with lateral raising. 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 [facility] Medical History Normal colonoscopy Mammogram normal Normal Pap smear Annual physical exam Varicose veins of both lower extremities Surgical History (Updated 06/11/24 @ 09:12 by Dana Arora CMA) Status post left rotator cuff repair (03/21/24) Status post cervical polyp removal S/P foot surgery, right History of carpal tunnel surgery of right wrist History of carpal tunnel surgery of left wrist Family History Father Heart problem Mother Hypertension Stroke Social History Housing: House Patient Tobacco Use Status: Never used Tobacco e-Cigarette/Vaping Use: Never Used Current occupational status: employed 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 There is some mild scapular recruitment with terminal abduction and 4/5 empty can. Assessment & Plan Assessment & Plan (1) Status post right rotator cuff repair: Code(s): Z98.890 - Other specified postprocedural states Category: Surgical Plan: Status post rotator cuff repair that was complicated by infection with dysfunctional rotator cuff now. She may return to work however without restrictions for a maximum of 6 hours per day. Continue her home exercise strengthening. We reviewed the pathophysiology of her condition and I will see her back in 3 months' time. Plan Return to work on regular duty, maximum of 6 hours a day. Follow up 3 months Coding Level of Care Code Est Pt Level 3 (20475) Diagnoses Status post right rotator cuff repair Z98.890
== END 2024-06-11 09:19 | disposition home or self-care (01) ==
LOC: HO.HOS 09:03
PROVIDERS: PCP Internal Medicine; Visit Provider Orthopaedic Surgery
DX: M67.811 Other specified disorders of synovium, right shoulder (principal)
CPT/HCPCS: 99024

== ENCOUNTER → 2024-06-11 09:02 | Outpatient (BNVA) | payer OTHER, SELFPAY | PROVIDERS: PCP Internal Medicine; Visit Provider Orthopaedic Surgery ==

== ENCOUNTER 2024-07-26 10:16 | Outpatient (AMB) | payer OTHER, SELFPAY ==
--- NOTE | 2024-07-26 10:47 | A.OFFVIS_ITS ---
Intake Visit Reasons: OV- Right shoulder acromioplasty 03/14/24 Intake Note: Alexandrea is a 63 year old right hand dominant female who presents today for a post operative appointment s/p Right shoulder acromioplasty 03/14/24. At her last visit she was given a note to return to work: 6 hours max a day. Patient reports that she has had increased redness of swelling and redness of the right Shoulder. Geography Head Required: Yes Geography Head Name: [id number] Allergies Penicillins Allergy (Severe, Verified 06/11/24 09:11) trouble breathing latex Allergy (Verified 06/11/24 09:11) rash HPI HPI OV- Right shoulder acromioplasty 03/14/24: Details: Alexandrea Stallings returns today with persistent right shoulder pain. She stopped antibiotics several months ago and was doing well until last week when she started having pain and swelling again. She does not feel that she is able to comfortably work. She is concerned about the redness over her right shoulder. [facility] Medical History Normal colonoscopy Mammogram normal Normal Pap smear Annual physical exam Varicose veins of both lower extremities Surgical History (Updated 06/11/24 @ 09:12 by Dana Arora CMA) Status post left rotator cuff repair (03/21/24) Status post cervical polyp removal S/P foot surgery, right History of carpal tunnel surgery of right wrist History of carpal tunnel surgery of left wrist Family History Father Heart problem Mother Hypertension Stroke Social History Housing: House Patient Tobacco Use Status: Never used Tobacco e-Cigarette/Vaping Use: Never Used Current occupational status: employed 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 Skin clean dry and intact. No pain with passive range of motion but active abduction she has 4- out of 5 strength. Office Procedures Joint Inj/Aspir; Non-Pain Clin Joint Injection/Drain Details: Aspirated right shoulder subacromial space. Site was prepped using aseptic technique. Patient tolerated the procedure well. Approach Used: posterolateral Shoulders, Hips, Knees, Shoulder Injection Large joint : Right Shoulder Coding Procedure code (CPT) selection complete Assessment & Plan Assessment & Plan (1) Seroma of skin or subcutaneous tissue after non-dermatologic procedure: Code(s): L76.34 - Postprocedural seroma of skin and subcutaneous tissue following other procedure Category: Medical Plan: Alexandrea Castaneda is a 63-year-old woman who had a rotator cuff repair approximately 6 months ago which was complicated by infection. She underwent subsequent arthroscopic lavage and removal of foreign material and IV antibiotics and she was doing well until last week when she started having pain again. I aspirated approximately 10 mL of normal-appearing serosanguinous . This was sent to a lab. I will contact her when the results are in. Orders: Orders Synovial Fld Cult + Gram stain 07/26/24 L76.34 - Postprocedural seroma of skin and subcutaneous tissue following other procedure Medications: New ibuprofen 800 mg PO TID PRN 90 tabs 1RF pain Coding Level of Care Code Est Pt Level 3 (76678) Diagnoses Seroma of skin or subcutaneous tissue after non-dermatologic procedure L76.34 CPT Codes Shoulders, Hips, Knees, - Shoulder Injection Large joint : Right Shoulder ([id number])
== END 2024-07-26 11:26 | disposition home or self-care (01) ==
PROVIDERS: PCP Internal Medicine; Visit Provider Orthopaedic Surgery
DX: M25.461 Effusion, right knee (principal)
CPT/HCPCS: 20610; 99213

== ENCOUNTER 2024-07-26 10:16 | Outpatient (REF) | payer OTHER, SELFPAY | END 2024-07-26 10:17 | disposition home or self-care (01) | LOC: HO.LNP 10:16 | PROVIDERS: PCP Internal Medicine; Visit Provider Orthopaedic Surgery | DX: L76.34 Postprocedural seroma of skin and subcutaneous tissue following other procedure (principal); M25.511 Pain in right shoulder | CPT/HCPCS: 20610; 87070; 87073; 87077; 87186; 87205; J0665; J2003 ==

== ENCOUNTER 2024-07-30 10:19 | Outpatient (AMB) | payer OTHER, SELFPAY ==
--- NOTE | 2024-07-30 10:24 | A.OFFVIS_ITS ---
Intake Visit Reasons: OV - Right shoulder 03/14/24 - Results Intake Note: Alexandrea is a 63 year old right hand dominant female who presents today for a follow up of her Right Shoulder /Acromioplasty 03/14/24. On 07/26/24 the right shoulder was aspirated and joint fluid was sent to the lab. Specimen tested positive for Staph. Building Services Technician Required: Yes Building Services Technician Name: [id number] Allergies Penicillins Allergy (Severe, Verified 06/11/24 09:11) trouble breathing latex Allergy (Verified 06/11/24 09:11) rash HPI HPI OV - Right shoulder 03/14/24 - Results: Details: Alexandrea is a 63 year old right hand dominant female who presents today for a follow up of her Right Shoulder /Acromioplasty 03/14/24. On 07/26/24 the right shoulder was aspirated and joint fluid was sent to the lab. Specimen tested positive for Staph. PFSH Medical History Normal colonoscopy Mammogram normal Normal Pap smear Annual physical exam Varicose veins of both lower extremities Surgical History (Updated 06/11/24 @ 09:12 by Dana Arora CMA) Status post left rotator cuff repair (03/21/24) Status post cervical polyp removal S/P foot surgery, right History of carpal tunnel surgery of right wrist History of carpal tunnel surgery of left wrist Family History Father Heart problem Mother Hypertension Stroke Social History Housing: House Patient Tobacco Use Status: Never used Tobacco e-Cigarette/Vaping Use: Never Used Current occupational status: employed 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 Results Reviewed Results Reviewed: Organism 1 Staphylococcus aureus Quantity 1+ 07/29/24 STAPH AUREUS REPORTED TO JASSI TOUSSAINT VIA SECURE MESSAGE AT 0842 BY RANDOLPH. S aureus M.I.C. RX --------- --- Clindamycin <=0.25 S Erythromycin <=0.25 S Levofloxacin 0.25 S Oxacillin 0.5 S Penicillin-G >=0.5 R Tetracycline >=16 R Trimethoprim/Sulfamethoxazole <=10 S Assessment & Plan Assessment & Plan (1) Seroma of skin or subcutaneous tissue after non-dermatologic procedure: Code(s): L76.34 - Postprocedural seroma of skin and subcutaneous tissue following other procedure Category: Medical Plan: Persistent infection refractory to treatment. I recommend repeat arhtroscopi lavage for possibility of retained foreign material. She does NOT want to do this prior to holiday. A note was written for work and I prescribed Linezolid as per my conversation with ID. I will see her in 7-10 days and try to get her into OR as soon as she allows (2) Status post right rotator cuff repair: Code(s): Z98.890 - Other specified postprocedural states Category: Surgical Plan: Medications: New linezolid 600 mg PO BID 14 days 28 tabs 0RF Discontinued sumatriptan succinate Discontinued Reason: Doctor's Order 50 mg PO Q2H 9 tabs 6RF for migraine Coding Level of Care Code Est Pt Level 4 (97554) Diagnoses Seroma of skin or subcutaneous tissue after non-dermatologic procedure L76.34 Status post right rotator cuff repair Z98.890
== END 2024-07-30 12:41 | disposition home or self-care (01) ==
PROVIDERS: PCP Internal Medicine; Visit Provider Orthopaedic Surgery
DX: L76.34 Postprocedural seroma of skin and subcutaneous tissue following other procedure (principal); Z98.890 Other specified postprocedural states
CPT/HCPCS: 99214

== ENCOUNTER 2024-08-16 10:50 | Outpatient (AMB) | payer BC, SELFPAY ==
--- NOTE | 2024-08-16 10:52 | MHC.OFFVIS ---
Intake Visit Reasons: OV- Right RTC Repair 12/12/2023 NE Intake Note: Alexandrea is a 63 year old right hand dominant female who presents today for a follow up of her Right Shoulder /Acromioplasty 03/14/24. On 07/26/24 the right shoulder was aspirated and joint fluid was sent to the lab. Specimen tested positive for Staph. At her last visit arthroscopy was previously discussed with patient but she did not want to proceed with Surgical intervention prior to holidays. She was given a prescription for Linezolid that was refilled and put in contact with Infectious Disease- booked with ID for 08/20/24. Since last appointment patient has called office with frustration that she does not know the plan going forward. Life Sciences Manager Required: Yes Life Sciences Manager Name: Melissa Lott [id number] Allergies Penicillins Allergy (Severe, Verified 06/11/24 09:11) trouble breathing latex Allergy (Verified 06/11/24 09:11) rash HPI HPI OV- Right RTC Repair 12/12/2023 NE: Details: Alexandrea is a 63 year old right hand dominant female who presents today for a follow up of her Right Shoulder /Acromioplasty 03/14/24. On 07/26/24 the right shoulder was aspirated and joint fluid was sent to the lab. Specimen tested positive for Staph. At her last visit arthroscopy was previously discussed with patient but she did not want to proceed with Surgical intervention prior to holidays. She was given a prescription for Linezolid that was refilled and put in contact with Infectious Disease- booked with ID for 08/20/24. She has stopped working. [facility] Medical History Normal colonoscopy Mammogram normal Normal Pap smear Annual physical exam Varicose veins of both lower extremities Surgical History (Updated 06/11/24 @ 09:12 by Dana Arora CMA) Status post left rotator cuff repair (03/21/24) Status post cervical polyp removal S/P foot surgery, right History of carpal tunnel surgery of right wrist History of carpal tunnel surgery of left wrist Family History Father Heart problem Mother Hypertension Stroke Social History (Reviewed 06/11/24 @ 09:11 by Dana Arora [facility] House Patient Tobacco Use Status: Never used Tobacco e-Cigarette/Vaping Use: Never Used Current occupational status: employed 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 There is no pain. Assessment & Plan Assessment & Plan (1) Seroma of skin or subcutaneous tissue after non-dermatologic procedure: Code(s): L76.34 - Postprocedural seroma of skin and subcutaneous tissue following other procedure Category: Medical Plan: This is a 63-year-old woman who has a chronic infection status post rotator cuff repair. I have debrided this and tried to remove all foreign material from the shoulder and we thought we had eradicated the infection but it re-occurred. She is back on p.o. antibiotics (linezolid). I recommend arthroscopic debridement and hopefully we will be able to find any residual debris from the prior rotator cuff repair. She also has a rotator cuff tear which was not repairable. I have discussed with her the surgery. I discussed the risks, benefits and alternatives including to, but not limited to, the risk of persistent infection, worsening weakness and pain. I do believe that she will be unable to return to her prior work type in that she was doing overhead lifting. A note was written to that effect for her. Coding Level of Care Code Est Pt Level 4 (95365) Diagnoses Seroma of skin or subcutaneous tissue after non-dermatologic procedure L76.34
== END 2024-08-16 11:36 | disposition home or self-care (01) ==
PROVIDERS: PCP Internal Medicine; Visit Provider Orthopaedic Surgery
DX: L76.34 Postprocedural seroma of skin and subcutaneous tissue following other procedure (principal)
CPT/HCPCS: 99214

== ENCOUNTER 2024-08-20 14:02 | Outpatient (AMB) | payer OTHER, SELFPAY ==
--- NOTE | 2024-08-20 14:21 | MHC.OFFVIS ---
Vital Signs 08/20/24 14:29 Height 5 ft 7 in Weight 155 lb BMI 24.3 Pulse 88 Pulse Oximetry (%) 97 Oxygen Delivery Method Room Air Intake Visit Reasons: reff Yesenia/Postprocedural seroma of skin Allergies Penicillins Allergy (Severe, Verified 08/20/24 14:30) trouble breathing latex Allergy (Verified 08/20/24 14:30) rash HPI HPI reff Yesenia/Postprocedural seroma of skin: Details: She has right rotator cuff injury and repair. She has MSSA growing 07/26. She still has pain to area. SHe has been on Bactrim. 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 [facility] History Normal colonoscopy Mammogram normal Normal Pap smear Annual physical exam Varicose veins of both lower extremities Surgical History Status post left rotator cuff repair (03/21/24) Status post cervical polyp removal S/P foot surgery, right History of carpal tunnel surgery of right wrist History of carpal tunnel surgery of left wrist Family History Father Heart problem Mother Hypertension Stroke Social History Housing: House Patient Tobacco Use Status: Never used Tobacco e-Cigarette/Vaping Use: Never Used Current occupational status: employed 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 Cognitive needs: No Hearing needs: No Vision needs: Yes Review of Systems Const All systems reviewed & are unremarkable except as noted in HPI and below Physical Exam Vital Signs: Last Vital Signs Pulse 88 08/20/24 14:29 Pulse Ox 97 08/20/24 14:29 Oxygen Delivery Method Room Air 08/20/24 14:29 BMI result Body Mass Index 24.3 Const General: cooperative HEENT Head: Yes normal to inspection Face and sinus: Yes normal facial exam Mouth: Normal oral and palatal mucosa present Teeth and gingiva: dentition normal Eyes General: appearance normal, both eyes and all related structures Pupils: Equal, round and reactive pupils present Resp Effort & Inspection: normal respiratory effort Cardio Rate: regular rate Rhythm: regular rhythm GI Palpation (GI): Soft to palpation and nontender General: Yes no CVA tenderness Back/Spine/Pelvis Back: no CVA tenderness Skin General skin exam: no rashes or lesions noted Neuro General: moves all extremities Cranial nerves: Yes Equal, round and reactive pupils present Extrem General: Yes normal to inspection Psych Appearance: grossly normal Assessment & Plan Assessment & Plan (1) Seroma of skin or subcutaneous tissue after non-dermatologic procedure: Code(s): L76.34 - Postprocedural seroma of skin and subcutaneous tissue following other procedure Category: Medical (2) Status post right rotator cuff repair: Comment: MSSA Code(s): Z98.890 - Other specified postprocedural states Category: Surgical Plan Further washout area per Orthopedics. Possible IV treatment after this for 3-6 weeks if purulence Coding Level of Care Code New Pt Level 3 (57100) Diagnoses Seroma of skin or subcutaneous tissue after non-dermatologic procedure L76.34 Status post right rotator cuff repair Z98.890
[2024-08-20 14:29] VITALS: PULSE 88; O2SAT 97; BMI 24.3
== END 2024-08-20 15:09 | disposition home or self-care (01) ==
PROVIDERS: PCP Internal Medicine; Visit Provider Internal Medicine
DX: L76.34 Postprocedural seroma of skin and subcutaneous tissue following other procedure (principal); Z98.890 Other specified postprocedural states
CPT/HCPCS: 99203

== ENCOUNTER → 2024-08-27 12:51 | Day surgery (SDC) | payer BC, SELFPAY ==
--- NOTE | 2024-08-23 10:14 | P.CONAN_ITS ---
HPI - Anesthesia Eval Consult details Narrative: 63yo F for Right Shoulder Arthroscopy Debridement s/p Right I&D of Shoulder 03/2024 with ETT 7 s/p Right Shoulder Arthroscopic Lavage 01/2024 with GA-ETT 7 s/p Right rotator cuff 12/2023 PMFSH Active Problems Active Problems: All Active Problems Seroma of skin or subcutaneous tissue after non-dermatologic procedure (Acute) Status post right rotator cuff repair (Acute) Varicose veins of right lower extremity with inflammation (Acute) Varicose veins of left lower extremity with inflammation (Acute) Tear of supraspinatus tendon (Acute) Chronic cough (Acute) Shoulder pain, right (Acute) Bacteriuria (Acute) Vitamin D deficiency (Acute) Normal colonoscopy (Acute) Mammogram normal (Acute) Normal Pap smear (Acute) Annual physical exam (Acute) Varicose veins of both lower extremities (Acute) Past Medical History Medical History Normal colonoscopy Mammogram normal Normal Pap smear Annual physical exam Varicose veins of both lower extremities Family History Family History Father Heart problem Mother Hypertension Stroke Family history of problems with anesthesia: No Surgical History Surgical History (Updated 06/11/24 @ 09:12 by Dana Arora CMA) Status post left rotator cuff repair (03/21/24) Status post cervical polyp removal S/P foot surgery, right History of carpal tunnel surgery of right wrist History of carpal tunnel surgery of left wrist History of Problems with Anesthesia: No Social History Social History Housing: House Patient Tobacco Use Status: Never used Tobacco e-Cigarette/Vaping Use: Never Used Current occupational status: employed 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 Cognitive needs: No Hearing needs: No Vision needs: Yes Meds Allergies Allergy/AdvReac Type Severity Reaction Status Date / Time Penicillins Allergy Severe trouble Verified 08/20/24 14:30 breathing latex Allergy rash Verified 08/20/24 14:30 Home Medications ?Medication ?Instructions ?Recorded ?Confirmed ?Last Taken ?Type szhrnkte-vxfq-cjod 8 mg-folic 400 1 tab PO DAILY 04/27/21 03/14/24 Unknown History mcg-K 50 mcg-lutein 300 mcg tablet (Multivitamin Women 50 Plus) cholecalciferol (vitamin D3) 125 50 mcg PO DAILY 04/29/22 03/14/24 Unknown History mcg (5,000 unit) capsule mecobalamin (vitamin B12) 1,000 1,000 mcg PO DAILY 04/29/22 03/14/24 Unknown History mcg lozenges ibuprofen 600 mg tablet 600 mg 03/14/24 Unknown History Exam Pertinent Lab Results Pertinent Lab Results: Laboratory Tests 04/18/24 11:20 WBC 8.4 Hgb 13.4 Hct 40.5 Plt Count 266 Sodium 140 Potassium 5.0 Chloride 107 Carbon Dioxide 26 BUN 11 Creatinine 0.72 Assessment and Plan Assessment Anesthesia Assessment: Chart Reviewed Final Anesthetic Review Family History of Problems with Anesthesia: No History of Problems with Anesthesia: No
== END ==
LOC: HO.SSS 12:52
PROVIDERS: PCP Internal Medicine; Visit Provider Orthopaedic Surgery
DX: L76.34 Postprocedural seroma of skin and subcutaneous tissue following other procedure (principal); Z53.9 Procedure and treatment not carried out, unspecified reason
CPT/HCPCS: J1100; J2003; J2250; J2405; J2704; J3010

== ENCOUNTER 2024-08-29 13:49 | Day surgery (SDC) | payer OTHER, SELFPAY ==
[2024-08-29] VITALS (7 sets, daily range): BP systolic 131–156; BP diastolic 68–89; PULSE 64–81; RESP 15–16; TEMP 36.3–36.8; O2SAT 95–98; BMI 23.9
[2024-08-29] MEDS: Lactated Ringers 1,000 ML 100 ML IVCONT (14:28)
--- NOTE | 2024-08-29 15:03 | MHC.SHP ---
Pre-Procedural Eval Section A - 24 Hr Update-Section A only Date of Service: 08/29/24 The patient is an INPATIENT: No Changes since office visit: No Cold of Flu in the past 2 weeks, No New Medical Problems, No Changes in Medication and No Patient answered all questions The patient has been examined within 24 hours of the surgical procedure. The History & Physical has been completed within 30 days and I have reviewed it.: Yes Section B - Complete if H&P > 30 days Chief Complaint: Postprocedural seroma of skin and subcutaneous Allergies: Allergies Allergy/AdvReac Type Severity Reaction Status Date / Time Penicillins Allergy Severe trouble Verified 08/29/24 14:06 breathing latex Allergy rash Verified 08/29/24 14:06 Plan I have reviewed the history and physical and performed a pertinent physical examination on my patient. No changes have occurred unless specified. Time Spent With Patient Time: Total time managing care of this patient today ____ minutes.
--- NOTE | 2024-08-29 15:18 | P.CONAN_ITS ---
PMFSH Active Problems Active Problems: All Active Problems Seroma of skin or subcutaneous tissue after non-dermatologic procedure (Acute) Status post right rotator cuff repair (Acute) Varicose veins of right lower extremity with inflammation (Acute) Varicose veins of left lower extremity with inflammation (Acute) Tear of supraspinatus tendon (Acute) Chronic cough (Acute) Shoulder pain, right (Acute) Bacteriuria (Acute) Vitamin D deficiency (Acute) Normal colonoscopy (Acute) Mammogram normal (Acute) Normal Pap smear (Acute) Annual physical exam (Acute) Varicose veins of both lower extremities (Acute) Past Medical History Medical History Normal colonoscopy Mammogram normal Normal Pap smear Annual physical exam Varicose veins of both lower extremities Family History Family History Father Heart problem Mother Hypertension Stroke Family history of problems with anesthesia: No Surgical History Surgical History Status post left rotator cuff repair (03/21/24) Status post cervical polyp removal S/P foot surgery, right History of carpal tunnel surgery of right wrist History of carpal tunnel surgery of left wrist History of Problems with Anesthesia: No Social History Social History Housing: House Patient Tobacco Use Status: Never used Tobacco e-Cigarette/Vaping Use: Never Used Use of substances other than those prescribed or required for medical reasons: No Are you DNR?: No Advance Directives: No Advance Directives Information Provided: Yes Current occupational status: employed 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 Cognitive needs: No Hearing needs: No Vision needs: Yes Meds Allergies Allergy/AdvReac Type Severity Reaction Status Date / Time Penicillins Allergy Severe trouble Verified 08/29/24 14:06 breathing latex Allergy rash Verified 08/29/24 14:06 Active Medications: Current Medications Lactated Ringer's (Lr) 1,000 mls @ 100 mls/hr IVCONT .Q10H GINI Last Admin: 08/29/24 14:28 Dose: 100 mls/hr Home Medications ?Medication ?Instructions ?Recorded ?Confirmed ?Last Taken ?Type huvvmpck-elqj-qbux 8 mg-folic 400 1 tab PO DAILY 04/27/21 03/14/24 Unknown History mcg-K 50 mcg-lutein 300 mcg tablet (Multivitamin Women 50 Plus) cholecalciferol (vitamin D3) 125 50 mcg PO DAILY 04/29/22 03/14/24 Unknown History mcg (5,000 unit) capsule mecobalamin (vitamin B12) 1,000 1,000 mcg PO DAILY 04/29/22 03/14/24 Unknown History mcg lozenges ibuprofen 600 mg tablet 600 mg 03/14/24 Unknown History Exam Height,Weight and Vital Signs: Height 5 ft 6 in Weight 67.132 kg Last Vital Signs Temp 97.6 F 08/29/24 14:13 Pulse 70 08/29/24 14:13 Resp 15 08/29/24 14:13 BP 131/68 08/29/24 14:13 Pulse Ox 95 08/29/24 14:13 O2 Del Method Room Air 08/29/24 14:13 Airway Mallampati Class: II TM Dist: >3cm Neck ROM: Full Heart: rrr Lungs: cta Assessment and Plan Assessment Anesthesia Assessment: Anesthesia Plan Discussed and Chart Reviewed Final Anesthetic Review Family History of Problems with Anesthesia: No History of Problems with Anesthesia: No NPO: Yes ASA Class: II Final Preanesthetic Review: No Changes in Pt Med Stat, Meds/Allgs Chart Reviewed and Consent Obtained/Reviewed Patient Risk: Intermediate Procedure Risk: Intermediate Anesthetic Plan Anesthetic Plan: GA Disposition: Standard PACU
--- OUTSIDE RECORDS SUMMARY | 2024-08-29 15:59 | XMS_ITS | Clinical Summary ---
Author Organization [facility] [address] [place] [address] Address [address] [place], [place] Phone Care Team Providers Care Bankruptcy Attorney Name Role Phone Ayla García MD Primary Care Provider [phone] Encounters Date Type Department Care Team Description 08/07/2024 11:01 AM EST - 08/07/2024 11:59 PM EST Hospital Encounter Radiology Department - [address] [phone] Encounter for screening mammogram for breast cancer Discharge Disposition: Home or Self Care from Last 3 Months Surgical History Surgery Date Site/Laterality Comments TONSILLECTOMY PROCEDURE: HISTORICAL TONSILLECTOMY OVARIAN CYST REMOVAL PROCEDURE: KS OVARIAN CYSTECTOMY UNI/BI; COMMENT: 15 yrs ago, ruptured ovarian cyst OTHER SURGICAL HISTORY 05/07/2009 Bilateral PROCEDURE: ---- OTHER ----; COMMENT: endovenous laser ablation legs COLPOSCOPY 08/20/2011 PROCEDURE: KS COLPOSCOPY ENTIRE VAGINA W/CERVIX IF PRESENT COLONOSCOPY 09/04/2012 PROCEDURE: HISTORICAL COLONOSCOPY OTHER SURGICAL HISTORY 06/09/2013 PROCEDURE: MAMMOGRAM OTHER SURGICAL HISTORY 08/12/2016 Right PROCEDURE: KS OSTEOT W/WO LNGTH SHRT/CORRJ METAR XCP 1ST EA; COMMENT: Dr Nina, 2nd 3rd toes FOOT SURGERY 08/12/2016 PROCEDURE: HISTORICAL FOOT SURGERY BREAST BIOPSY PROCEDURE: BX BREAST; PERC NEEDLE CORE W/IMAG GUID; COMMENT: PT DOESN'T REMEMBER WHICH BREAST..MANY YRS AGO-BENIGN Medical History Medical History Date Comments Thumb pain DX:Thumb pain Abnormal Pap smear of cervix 12/26/2014 DX: Abnormal Pap smear of cervix; COMMENT: ASC-US / HPV 2011 Vitamin D deficiency 12/26/2014 DX:Vitamin D deficiency Ovarian cyst DX:Ovarian cyst Migraine DX:Migraine History of other specified c onditions presenting hazards to health DX:History of other speci fied conditions presenting hazards to health History of hepatitis as a child DX:History of hepatitis as a child CTS (carpal tunnel syndrome) 2017 DX: CTS (carpal tunnel syndrome) Family History Medical History Relation Name Comments Coronary artery disease Father smok ing and alcohol Hypertension Mother Strabismus Other son - corrected by surgery Blindness Neg Hx Breast cancer Neg Hx Cataracts Neg Hx Colon cancer Neg Hx Glaucoma Neg Hx Macular degeneration Neg Hx Ovarian cancer Neg Hx Uterine cancer Neg Hx Relation Name Status Comments Father Mother Other Social History Tobacco Use Types Packs/Day Years Used Date Smoking Tobacco: Never Smokeless Tobacco: Never Alcohol Use Standard Drinks/Week Comments No 0 (1 standard drink = 0.6 oz pur e alcohol) Sex and Gender Information Value Date Recorded Sex Assigned at Not on file Gender Identity Not on file Sexual Orientation Not on file Job Start Date Occupation Industry Not on file Not on file Not on file Obstetrics History Para Term AB IAB SAB Ectopic Multiple Livin g Live Births 2 2 2 2 Date Outcome GA Total Labor Labor/2nd/3rd Weight Sex Type Anes PTL Christine A1 A5 Name Clin Term Term Last Filed Vital Signs Vital Sign Reading Time Taken Comments Blood Pressure 112/78 09/20/2022 10:56 AM EST L Arm Pulse 80 09/20/2022 10:56 AM EST Temperature - - Respiratory Rate - - Oxygen Saturation - - Inhaled Oxygen Concentration - - Weight 68.9 kg (152 lb) 09/20/2022 10:56 AM EST Height 170.2 cm (5' 7 ) 09/20/2022 10:56 AM EST Body Mass Index 23.81 09/20/2022 10:56 AM EST Plan of Treatment Upcoming Encounters Date Type Department Care Team (Late st Contact Info) Description 09/26/2024 10:55 AM EST Appointment Radiology Department [address] [phone] Health Maintenance Due Date Last Done Comments Cervical Cancer Screening: Pap Smear 02/15/2022 02/15/2019 Colorectal Cancer Screening: Colonoscopy 07/17/2022 Depression Screening 07/17/2022 HIV Screening 07/17/2022 Hepatitis C Screening 07/17/2022 Social Influencers of Health Screening 07/17/2022 DTaP,Tdap,and Td Vaccines (2 - Td or Tdap) 07/12/2026 07/12/2016 Breast Cancer Screening 08/07/2026 08/07/20 24, 03/24/2023, 03/19/2022, Additional history exists RSV Immunization Patients 60+ Years Old (1 - 1-dose 75+ series) 12/31/2035 Pneumococcal Vaccine: Pediatrics (0 to 5 Years) and At-Risk Patients (6 to 64 Years) Aged Out 05/03/2020 No longer eligible based on patient's age to complete this topic Zoster Vaccines Completed 12/15/2020, 05/03/2020 COVID-19 Vaccine Completed 04/28/2024, , 05/15/2022, Additional history exists Influenza Vaccine Completed 05/12/2024, , 04/29/2022, Additional history exists HIB Vaccines Aged Out No longer eligi ble based on patient's age to complete this topic HPV Vaccines Aged Out No longer eligi ble based on patient's age to complete this topic Hepatitis A Vaccines Aged Out No long er eligible based on patient's age to complete this topic Hepatitis B Vaccines Aged Out No long er eligible based on patient's age to complete this topic IPV Vaccines Aged Out No longer eligi ble based on patient's age to complete this topic MMR Vaccines Aged Out No longer eligi ble based on patient's age to complete this topic Meningococcal ACWY Vaccine Aged Out N o longer eligible based on patient's age to complete this topic RSV Immunization Patients Under 20 months Aged Out No longer eligible based on patient's age to complete this topic Varicella Vaccines Aged Out No longer eligible based on patient's age to complete this topic Procedures Procedure Name Priority Date/Time Associated Diagnosis Comments MG MAMMO DIGITAL SCREENING W MITUL BILAT Routine 08/07/2024 11:14 AM EST Encounter for screening mammogram for breast cancer PAP SMEAR Routine 02/15/2019 from Last 3 Months or Most Recently Relevant to Health Maintenance Results * (ABNORMAL) MG Mammo Digital Screening w Mitul bilat (08/07/2024 11:14 AM EST) Anatomical Region Laterality Modality Breast Bilateral Mammography 08/09/2024 8:51 AM EST Impressions 08/09/2024 8:56 AM EST Enlarging right axillary lymph nodes. ??Further evaluation with ultrasound is suggested. ??The patient will be contacted by the radiology department to arrange for the additional imaging. BI-RADS CATEGORY: 0 - INCOMPLETE - NEED ADDITIONAL IMAGING EVALUATION RECOMMENDATION: Ultrasound is recommended for the Right Breast. Mammo Location: [facility], [address] [place] [address], [id number], . -------- FINAL REPORT -------- Dictated By: Gladis Queen Dictated Date: 08/09/2024 08:51 ET Assigned Physician: Gladis Queen Reviewed and Electronically Signed By: Gladis Queen Signed Date: 08/09/2024 08:56 ET Workstation ID: [id number] Transcribed By: Self Edit Transcribed Date: 08/09/2024 08:51 ET Narrative 08/09/2024 8:56 AM EST CLINICAL: 63 years old, Female, routine annual exam. COMPARISON: Mammograms dating back to 03/10/2020 with most recent of 03/24/2023. ?? TECHNIQUE: Bilateral MLO and CC views were obtained digitally with 3-D mammogram (digital breast tomosynthesis). Computer-aided detection was utilized in evaluation of this exam (CAD). FINDINGS: There is no evidence of suspicious mass or architectural distortion. ??There are benign microcystic calcifications scattered in both breasts, unchanged. ??No worrisome calcifications are evident. ??There are prominent right axillary lymph nodes, and these have increased in size since the previous study. BREAST DENSITY: B - There are scattered areas of fibroglandular density. Procedure Note Gladis Queen MD - 08/09/2024 CLINICAL: 63 years old, Female, routine annual exam. COMPARISON: Mammograms dating back to 03/10/2020 with most recent of03/24/2023. TECHNIQUE: Bilateral MLO and CC views were obtained digitally with 3-Dmammogram (digital breast tomosynthesis). Computer-aided detection wasutilized in evaluation of this exam (CAD). FINDINGS: There is no evidence of suspicious mass or architectural distortion.There are benign microcystic calcifications scattered in both breasts,unchanged. No worrisome calcifications are evident. There are prominentright axillary lymph nodes, and these have increased in size since theprevious study. BREAST DENSITY: B - There are scattered areas of fibroglandular density. IMPRESSION: Enlarging right axillary lymph nodes. Further evaluation with ultrasoundis suggested. The patient will be contacted by the radiology departmentto arrange for the additional imaging. BI-RADS CATEGORY: 0 - INCOMPLETE - NEED ADDITIONAL IMAGING EVALUATION RECOMMENDATION: Ultrasound is recommended for the Right Breast. Mammo Location: [facility], [address] [place] [address], [address], . -------- FINAL REPORT -------- Dictated By: Gladis Queen Dictated Date: 08/09/2024 08:51 ET Assigned Physician: Gladis Queen Reviewed and Electronically Signed By: Gladis Queen Signed Date: 08/09/2024 08:56 ET Workstation ID: [id number] Transcribed By: Self Edit Transcribed Date: 08/09/2024 08:51 ET Ayla García MD IMG BI PROCEDURES * Pap smear (02/15/2019) 02/15/2019 Narrative HISTORICAL TESTING LAB RESULTING AGENCY - 02/21/2019 9:00 AM EDT [id number] THINPREP PAP, IMAGED: NEGATIVE FOR SQUAMOUS INTRAEPITHELIAL LESION AND MALIGNANCY . ATROPHY. KAYLAN HERRERA , DINA(ASCP) (CASE ELECTRONICALLY SIGNED 02 19 2019) RESULT OF APTIMA HIGH RISK HPV ASSAY: HIGH RISK HPV: ??NEGATIVE (SEROTYPES 16,18,31,33,35,39,45,51,52,56,58,59,66,68) COMPLETED ON 2019-02-19 ADEQUACY: SATISFACTORY ENDOCERVICAL/TRANSFORMATION ZONE COMPONENT PRESENT. SOURCE: THINPREP PAP HPV ANY DX: ??REFLEX 16 AND 18, CERVICAL, IMAGED CLINICAL INFORMATION: HPV ANY DIAGNOSIS. MENOPAUSE, PAP HX NEG, LP 01/04/14 NEG [Z12.4, Z01.419] Alanis Mata DO LAB CYTOLOGY [facility] HISTORICAL TESTING LAB RESULTING AGENCY from Last 3 Months or Most Recently Relevant to Health Maintenance Care Teams Bankruptcy Attorney Relationship Specialty Start Date End Date Ayla García MD [address] [place] [phone] PCP - General Internal Medicine 09/19/12
--- OUTSIDE RECORDS SUMMARY | 2024-08-29 15:59 | XMS_ITS | Encounter Summary ---
Author Organization [facility] Address [address] [place] [address] Care Team Providers Care Communications Tower Technician Name Role Phone Ayla García MD Primary Care Provider Reason for Visit * Imaging (Routine) - Closed Specialty Diagnoses / Procedures Referred By Vladimir t Referred To Contact Radiology Diagnoses Encounter for screening mammogram for breast cancer Procedures MG Mammo Digital Screening w Mitul bilat MG Mammo Digital Screening w Mitul bilat Ayla García MD [address] [facility] [place] [phone] [facility] Referral ID Status Reason Start Date Expiration Date Visits Re quested Visits Authorized [id number] Closed 05/24/2024 05/24/2025 1 1 Encounter Details Date Type Department Care Team (Latest Contact Info) Description 08/07/2024 11:01 AM EST - 08/07/2024 11:59 PM EST Hospital Encounter Radiology Department - [address] [phone] Encounter for screening mammogram for breast cancer Discharge Disposition: Home or Self Care Social History Tobacco Use Types Packs/Day Years [...] file Not on file Not on file documented as of this encounter Discharge Disposition Disposition Code Departure Means Destination Home or Self Care documented in this encounter Plan of Treatment Upcoming Encounters Date Type Department Care Team ([facility] st Contact Info) Description 09/26/2024 10:55 AM EST Appointment Radiology Department - [address] [phone] documented as of this encounter Procedures Procedure Name Priority Date/Time Associated Diagnosis Comments MG MAMMO DIGITAL SCREENING W MITUL BILAT Routine 08/07/2024 11:14 AM EST Encounter for screening mammogram for breast cancer documented in this encounter Results * (ABNORMAL) MG Mammo Digital Screening [...] recommended for the Right Breast. Mammo Location: [facility], [address] [place] [address], [address], . -------- FINAL REPORT -------- Dictated By: Gladis Queen Dictated Date: 08/09/2024 08:51 ET Assigned Physician: Gladis Queen Reviewed and Electronically Signed By: Gladis Queen Signed Date: 08/09/2024 08:56 ET Workstation ID: [id number] Transcribed By: Self Edit Transcribed Date: 08/09/2024 [...] recommended for the Right Breast. Mammo Location: [facility], [address] [place] [address], [address], . -------- FINAL REPORT -------- Dictated By: Gladis Queen Dictated Date: 08/09/2024 08:51 ET Assigned Physician: Gladis Queen Reviewed and Electronically Signed By: Gladis Queen Signed Date: 08/09/2024 08:56 ET Workstation ID: [id number] Transcribed By: Self Edit Transcribed Date: 08/09/2024 08:51 ET Ayla García MD IMG BI PROCEDURES documented in this encounter Visit Diagnoses Diagnosis Encounter for screening mammogram for breast cancer documented in this encounter Care Teams Communications Tower Technician Relationship Specialty Start Date End Date Ayla García MD [address] [place] [address] PCP - General Internal Medicine 09/19/12 documented as of this encounter
--- NOTE | 2024-08-29 16:49 | P.BOP_ITS ---
Brief Operative Note Date of Service: 08/29/24 Pre-op diagnosis: Right shoulder chronic subacromial bursal infection Post-op diagnosis: same Procedure: Right shoulder arthroscopic lavage and debridement with removal of foreign body Implants: none Surgeon: Emanuel Patterson MD Anesthesia: GETA and local Was an Mechanical Field Engineer used for this Procedure?: Yes Mechanical Field Engineer: Lucia Brown Estimated blood loss (mL): 25 IV fluids (mL): 750 Pathology: none sent Condition: stable Disposition: PACU
--- NOTE | 2024-09-07 17:08 | W.PM.OPN ---
Operative Note Operative Note Date of Service: 08/29/24 Narrative: Date of Service: 08/29/24 Pre-op diagnosis: Right shoulder chronic subacromial bursal infection Post-op diagnosis: same Procedure: Right shoulder arthroscopic lavage and debridement with removal of foreign body Implants: none Surgeon: Emanuel Patterson MD Anesthesia: GETA and local Was an Spaghetti Press Helper used for this Procedure?: Yes Spaghetti Press Helper: Lucia Brown Estimated blood loss (mL): 25 IV fluids (mL): 750 Pathology: none sent Condition: stable Disposition: PACU Procedure in detail: Patient was brought to the operating room and placed the the beach chair position. All bony prominences were well padded and the limb was prepped and draped in standard sterile fashion. A time out was called to identify proper site, proper procedure and proper surgeon. IV antibiotics per weight were administered. I began by making a posterolateral stab incision with a 15 blade. A blunt trochar was placed into the glenohumeral joint and I insufflated the joint with saline and a 30 degree arthroscope was placed. I established an outside- in anterior portal just distal to the biceps tendon. I then began my inspection of the glenohumeral joint. The cartilage surfaces were pristine. There was no evidence of purulence or robust synovial reaction. There was small amount of free suture in the anterior undersurface of the rotator cuff that was removed. I irrigated copiously and took pictures but there was no abnormal appearance of the glenohumeral joint cartilage, cartilage surfaces, undersurface of the rotator cuff.. I then removed the trochar and entered the subacromial space. A direct lateral portal was then established and I performed a bursectomy. There was no evidence of active infection here and the subacromial space was notable for mild bursitis. As I extended my bursectomy more posterolaterally there was fibrous tissue and I did encounter another piece of old suture from the rotator cuff repair. This was removed. I subsequently irrigated and lavaged extensively as well as used a shaver and an ablation/cautery Wand to remove any bursal and/or synovial tissue. Again no infection was encountered. The only mild abnormality was fibrotic dense bursal tissue by the posterolateral portal that had been notable for being the focus of the prior infection. The rotator cuff was examined and while I suspect there was some fibrous tissue over the anterior supraspinatus there was a clear delineation between the subacromial space in the glenohumeral joint and the rotator cuff seemed to be, for the most part, intact. I did not aggressively probed this is I would worry that it would not hold up under shaving but I was surprised that it was as normal-appearing as it was. I then removed all instrumentation. Closed the portals with nylon. Patient was placed in a sterile dressing and extubated. She was brought to recovery room in stable condition. There were no known complications.
== END 2024-08-29 18:12 | disposition home or self-care (01) ==
PROVIDERS: PCP Internal Medicine; Visit Provider Orthopaedic Surgery
PROC: (CPT 29805; principal; 2024-08-29 16:50)
DX: M75.51 Bursitis of right shoulder (principal); L76.34 Postprocedural seroma of skin and subcutaneous tissue following other procedure; I83.93 Asymptomatic varicose veins of bilateral lower extremities; Z88.0 Allergy status to penicillin; Z91.040 Latex allergy status; Z98.890 Other specified postprocedural states; Z79.899 Other long term (current) drug therapy
CPT/HCPCS: 29819; 29822; J0131; J0171; J0736; J2795

== ENCOUNTER → 2024-08-29 13:49 | Outpatient (BNV) | payer OTHER, SELFPAY | PROVIDERS: PCP Internal Medicine; Visit Provider Orthopaedic Surgery | DX: M75.51 Bursitis of right shoulder (principal) | CPT/HCPCS: 29819 ==

== ENCOUNTER 2024-09-03 14:03 | Outpatient (AMB) | payer OTHER, SELFPAY ==
--- NOTE | 2024-09-03 14:08 | MHC.OFFVIS ---
Intake Visit Reasons: PO RT shoulder arthroscopic debridement 08/27/24 NE Intake Note: Alexandrea Castaneda 63 yr old female presents today for her p/o visit for her right shoulder arthroscopic debridement from [facility] 08/27/[address] Patterson. States she is managing her pain with Tylenol and pain medication in the night time but is doinbg well over all. States she continues to take her ABX. Allergies Penicillins Allergy (Severe, Verified 09/03/24 14:10) trouble breathing latex Allergy (Verified 09/03/24 14:10) rash Medication List - Last Reconciled 09/03/24 by Canelo Mcmahon PA-C cholecalciferol (vitamin D3) 50 mcg PO DAILY clobetasol 0.05% 1 appl topical BID clotrimazole-betamethasone 1-0.05 % 1 appl topical BID hydrocodone-acetaminophen 5-325 mg 1 tab PO Q6H PRN 7 days linezolid 600 mg PO BID 14 days mecobalamin (vitamin B12) 1,000 mcg PO DAILY iouyljkj-hso-rdkd-FA-vit K-lut 8 mg iron-400 mcg-50 mcg (Multivitamin Women 50 Plus) 1 tab PO DAILY HPI HPI PO RT shoulder arthroscopic debridement 08/27/24 NE: Details: 63-year-old female returns to the office today status post right shoulder arthroscopic debridement 08/[address] Patterson. She states her shoulder overall feels better . She continues to take the antibiotic. 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 Assessment & Plan Assessment & Plan (1) Status post right rotator cuff repair: Comment: MSSA Code(s): Z98.890 - Other specified postprocedural states Category: Surgical Plan: She will continue the antibiotic until evaluated by Infectious Disease. I did place an order for physical therapy to work on range of motion rotator cuff and periscapular stabilization. She will see Dr. Patterson in 8 weeks, sooner if needed. Orders: Orders PT Evaluation and Treatment Today Z98.890 - Other specified postprocedural states Coding Level of Care Code Global (51276) Diagnoses Status post right rotator cuff repair Z98.890
--- OUTSIDE RECORDS SUMMARY | 2024-09-03 18:33 | XMS_ITS | Encounter Summary ---
Author Organization [facility] Address [address] [place] [address] Care Team Providers Care [place] Cutting Machine Operator Name Role Phone Cande Morgan DO Primary Care Pro vider Unavailable Ayla García MD Primary Care Provider Unavaila ble Reason for Visit * Reason Onset Date Comments APPOINTMENT 05/23/2020 Encounter Details Date Type Department Care Team Description 05/23/2020 Telephone Vascular Surgery - [address] [phone] Stephen Mulligan MD [address] [phone] APPOINTMENT Social History Tobacco Use Types Packs/Day Years Used Date Smoking Tobacco: Never Smokeless Tobacco: Never Alcohol Use Standard Drinks/Week Comments No 0 (1 standard drink = 0.6 oz pur e alcohol) Sex Assigned at Date Recorded Not on file Job Start Date Occupation Industry Not on file Not on file Not on file COVID-19 Exposure Response Date Recorded In the last month, have you been in contact with someone who was confirmed or suspected to have Coronavirus / COVID-19? No / Unsure 05/22/2020 12:55 PM EDT documented as of this encounter Miscellaneous Notes * Telephone Encounter - Diana Saldivar - 05/23/2020 1:52 PM EDT Called patient they are aware of U/S appt with PVC on Tuesday the @ 8:45 and 2 wk f/u with Dr. Mulligan 06/06 @ 1:00 documented in this encounter Plan of Treatment Not on file documented as of this encounter Visit Diagnoses Not on filedocumented in this encounter Care Teams [employer] Cutting Machine Operator Relationship Specialty Start Date End Date Cande Morgan DO PCP - General Internal Medicine 07/09/14 08/16/21 Ayla García MD PCP - General Internal Medicine 08/17/21 documented as of this encounter
--- OUTSIDE RECORDS SUMMARY | 2024-09-03 18:33 | XMS_ITS | Encounter Summary ---
Author Organization [facility] Address [address] [place] [address] Care Team Providers Care Tick Inspector Name Role Phone Cande Morgan DO Primary Care Pro vider Unavailable Ayla García MD Primary Care Provider Unavaila ble Encounter Details Date Type Department Care Team Description 08/12/2016 [facility] Medical Records [address] [place] [id number] Shanon Nina DPM Social History Tobacco Use Types Packs/Day Years Used Date Smoking Tobacco: Never Smokeless Tobacco: Never Alcohol Use Standard Drinks/Week Comments No 0 (1 standard drink = 0.6 oz pur e alcohol) Sex Assigned at Date Recorded Not on file Job Start Date Occupation Industry Not on file Not on file Not on file documented as of this encounter Plan of Treatment Not on file documented as of this encounter Visit Diagnoses Not on filedocumented in this encounter Care Teams Tick Inspector Relationship Specialty Start Date End Date Cande Morgan DO PCP - General Internal Medicine 07/09/14 08/16/21 Ayla García MD PCP - General Internal Medicine 08/17/21 documented as of this encounter
--- OUTSIDE RECORDS SUMMARY | 2024-09-03 18:33 | XMS_ITS | Encounter Summary ---
Author Organization [facility] Address [address] [place] [address] Care Team Providers Care General Freight Agent Name Role Phone Cande Morgan DO Primary Care Pro vider Unavailable Ayla García MD Primary Care Provider Unavaila ble Reason for Visit * Reason Onset Date Comments Pelvic Pain 01/30/2019 Encounter Details Date Type Department Care Team Description 01/30/2019 Telephone OBGYN - [place] [address] Kimberly Simpson MD [address] [place] [address] Pelvic Pain Social History Tobacco Use Types Packs/Day Years Used Date Smoking Tobacco: Never Smokeless Tobacco: Never Alcohol Use Standard Drinks/Week Comments No 0 (1 standard drink = 0.6 oz pur e alcohol) Sex Assigned at Date Recorded Not on file Job Start Date Occupation Industry Not on file Not on file Not on file documented as of this encounter Miscellaneous Notes * Telephone Encounter - Malu Maciej Cee - 01/30/2019 1:24 PM EDT Returned pt's call, pt reports she had pelvic pain last night that was relieved with tylenol and ptdenies pain now. Pt has not been seen since 04/28/2016, advised pt make Annual exam appt, offered 02/15/19 at 9:[address] Mata, pt accepts. Instructed pt to call if pain returns, pt verbalized understanding. Pt also requests an edger runner for exam, advised pt note will be made and one can be requested by telephone. * Telephone Encounter - Elo William - 01/30/2019 11:45 AM EDT Chief Complaint/problem: Pt states pelvic pain 6/7 on a scale of 10 per pt. Russian speaking, but speaks Namibian well enough to understand. How long has the patient had this problem? Pt???s BAIT DIGGER provider: Kimberly Sipmson M.D. Last menstrual period (LMP) or EDC (due date): N/A documented in this encounter Plan of Treatment Not on file documented as of this encounter Visit Diagnoses Not on filedocumented in this encounter Care Teams General Freight Agent Relationship Specialty Start Date End Date Cande Morgan DO PCP - General Internal Medicine 07/09/14 08/16/21 Ayla García MD PCP - General Internal Medicine 08/17/21 documented as of this encounter
--- OUTSIDE RECORDS SUMMARY | 2024-09-03 18:33 | XMS_ITS | Encounter Summary ---
Author Organization [facility] Address [address] [place] [address] Care Team Providers Care Gym Instructor Name Role Phone Cande Morgan DO Primary Care Pro vider Unavailable Ayla García MD Primary Care Provider Unavaila ble Encounter Details Date Type Department Care Team Description 02/23/2019 Orders Only Medical Records [address] [place] [id number] Abstract, Provider Pelvic pain Social History Tobacco Use Types Packs/Day Years [...] on file documented as of this encounter Procedures Procedure Name Priority Date/Time Associated Diagnosis Comments SONO PELVIS COMPLETE Routine 02/22/2019 Pelvic pain documented in this encounter Results * SONO PELVIS COMPLETE (02/22/2019) Alanis Mata DO ULTRASOUND documented in this encounter Visit Diagnoses Diagnosis Pelvic pain documented in this encounter Care Teams Gym Instructor Relationship Specialty Start Date End Date Cande Morgan DO PCP - General Internal Medicine 07/09/14 08/16/21 Ayla García MD PCP - General Internal Medicine 08/17/21 documented as of this encounter
--- OUTSIDE RECORDS SUMMARY | 2024-09-03 18:33 | XMS_ITS | Encounter Summary ---
Author Organization [facility] Address [address] [place] [address] Care Team Providers Care Account Executive Healthcare Name Role Phone Cande Morgan DO Primary Care Pro vider Unavailable Ayla García MD Primary Care Provider Unavaila ble Reason for Visit * Reason Onset Date Comments Testing 07/11/2019 sono abdomen com plete Encounter Details Date Type Department Care Team Description 07/11/2019 Telephone Adult Medicine [address] [address] Rosio Vicente PA-C Testing (sono abdomen complete) Social History Tobacco Use Types Packs/Day Years [...] encounter Miscellaneous Notes * Telephone Encounter - Wilda Mendoza M.A. - 07/11/2019 12:50 PM EST Order was cancel. * Telephone Encounter - Rosio Vicente PA-C - 07/11/2019 12:31 PM EST Ok to cancel * Telephone Encounter - Wilda Mendoza M.A. - 07/11/2019 12:15 PM EST sono abdomen complete was ordered on 05/08/19, do you want to complete the order or cancel it? Please route message back to me. documented in this encounter Plan of Treatment Not on file documented as of this encounter Visit Diagnoses Not on filedocumented in this encounter Care Teams Account Executive Healthcare Relationship Specialty Start Date End Date Cande Morgan DO PCP - General Internal Medicine 07/09/14 08/16/21 Ayla García MD PCP - General Internal Medicine 08/17/21 documented as of this encounter
--- OUTSIDE RECORDS SUMMARY | 2024-09-03 18:33 | XMS_ITS | Encounter Summary ---
Author Organization [facility] Address [address] [place] [address] Care Team Providers Care Steel Molder Name Role Phone Cande Morgan DO Primary Care Pro vider Unavailable Ayla García MD Primary Care Provider Unavaila ble Reason for Visit * Reason Onset Date Comments medication problems 11/21/2014 Encounter Details Date Type Department Care Team Description 11/21/2014 Telephone Adult Medicine [address] [address] Cande Morgan DO medication problems Social History Tobacco Use Types Packs/Day Years Used Date Smoking Tobacco: Never Sex Assigned at Date Recorded Not on file Job Start Date Occupation Industry Not on file Not on file Not on file documented as of this encounter Miscellaneous Notes * Telephone Encounter - Cande Lawson DO - 11/21/2014 3:25 PM EDT Resent w/ comments * Telephone Encounter - Latonya Brito - 11/21/2014 1:03 PM EDT Who is calling? A pharmacist: Pharmacy: [facility] Pharmacist Name: N/A Pharmacy Phone # [phone] Name of the medication Imitrex 50 mg What is the specific problem or interaction? Insurance will only pay for 9 tablets/also in the comment section it must state how many headaches patient gets in a month & how long the meds are expected to last If the patient is having a problem with taking the med - how long has the problem been going on? N/A documented in this encounter Plan of Treatment Not on file documented as of this encounter Visit Diagnoses Not on filedocumented in this encounter Care Teams Steel Molder Relationship Specialty Start Date End Date Cande Morgan DO PCP - General Internal Medicine 07/09/14 08/16/21 Ayla García MD PCP - General Internal Medicine 08/17/21 documented as of this encounter
--- OUTSIDE RECORDS SUMMARY | 2024-09-03 18:33 | XMS_ITS | Encounter Summary ---
Author Organization [facility] Address [address] [place] [address] Care Team Providers Care Tobacco Classer Name Role Phone Cande Morgan DO Primary Care Pro vider Unavailable Ayla García MD Primary Care Provider Unavaila ble Encounter Details Date Type Department Care Team Description 06/03/2020 Orders Only Medical Records [address] [place] [address] Stephen Mulligan MD FACS [address] [place] [address] Social History Tobacco Use Types Packs/Day Years [...] PM EDT documented as of this encounter Plan of Treatment Not on file documented as of this encounter Procedures Procedure Name Priority Date/Time Associated Diagnosis Comments OUTSIDE VASCULAR STUDY Routine 05/26/2020 documented in this encounter Results * OUTSIDE VASCULAR STUDY (05/26/2020) Stephen Mulligan MD FACS CARDIOLOGY documented in this encounter Visit Diagnoses Not on filedocumented in this encounter Care Teams Tobacco Classer Relationship Specialty Start Date End Date Cande Morgan DO PCP - General Internal Medicine 07/09/14 08/16/21 Ayla García MD PCP - General Internal Medicine 08/17/21 documented as of this encounter
--- OUTSIDE RECORDS SUMMARY | 2024-09-03 18:33 | XMS_ITS | Encounter Summary ---
Author Organization [facility] Address [address] [place] [address] Care Team Providers Care Grain Drier Operator Name Role Phone Ayla García MD Primary Care Provider Unavaila ble Reason for Visit * Reason Onset Date Comments APPOINTMENT 09/16/2021 Encounter Details Date Type Department Care Team Description 09/16/2021 Telephone Vascular Surgery - [place] [address] [place] [address] Angelita Lomas PA-C [address] [address] APPOINTMENT Social History Tobacco Use [...] have Coronavirus / COVID-19? No / Unsure 09/14/2021 9:42 AM EST documented as of this encounter Miscellaneous Notes * Telephone Encounter - Diana Saldivar - 09/16/2021 1:31 PM EST CONFIRMED [facility] APPT W PT ALSO APPT FOR F/U RESCHEDULED * Telephone Encounter - Johanna Fragoso - 09/16/2021 1:26 PM EST Please contact patient to inform them of their [facility] appointment on 11/03/2021@9:45 am Please reschedule patient's follow up appointment in the office 1-2 weeks after images. documented in this encounter Plan of Treatment Not on file documented as of this encounter Visit Diagnoses Not on filedocumented in this encounter Care Teams Grain Drier Operator Relationship Specialty Start Date End Date Ayla García MD PCP - General Internal Medicine 08/17/21 documented as of this encounter
--- OUTSIDE RECORDS SUMMARY | 2024-09-03 18:33 | XMS_ITS | Encounter Summary ---
Author Organization [facility] Address [address] [place] [address] Care Team Providers Care Machine Molder Squeeze Name Role Phone Ayla García MD Primary Care Provider [phone] Reason for Visit * Imaging (Routine) - Closed Specialty Diagnoses / Procedures Referred By Vladimir t Referred To Contact Radiology Diagnoses Encounter for screening mammogram for breast cancer Procedures MG Mammo Digital Screening w Mitul bilat MG Mammo Digital Screening w Mitul bilat Ayla García MD [address] [facility] [place] [place] [address] [facility] Referral ID Status Reason Start Date Expiration Date Visits Re quested Visits Authorized [id number] Closed 05/24/2024 05/24/2025 1 1 Encounter Details Date Type Department Care Team (Latest Contact Info) Description 08/07/2024 11:01 AM EST - 08/07/2024 11:59 PM EST Hospital Encounter Radiology Department - [address] [address] Encounter for screening mammogram for breast cancer [...] Upcoming Encounters Date Type Department Care Team ([facility] st Contact Info) Description 09/26/2024 10:55 AM EST Appointment Radiology Department - [address] [address] documented as of this encounter Procedures Procedure [...] recommended for the Right Breast. Mammo Location: [facility], [address] [place] [address], [address], . -------- FINAL REPORT -------- Dictated By: Gladis Queen Dictated Date: 08/09/2024 08:51 ET Assigned Physician: Gladis Queen Reviewed and Electronically Signed By: Gladis Queen Signed Date: 08/09/2024 08:56 ET Workstation ID: [id number] Transcribed By: Self Edit Transcribed Date: 08/09/2024 [...] recommended for the Right Breast. Mammo Location: [facility], [address] [place] [address], [address], . -------- FINAL REPORT -------- Dictated By: Gladis Queen Dictated Date: 08/09/2024 08:51 ET Assigned Physician: Gladis Queen Reviewed and Electronically Signed By: Gladis Queen Signed Date: 08/09/2024 08:56 ET Workstation ID: [id number] Transcribed By: Self Edit Transcribed Date: 08/09/2024 08:51 ET Ayla García MD IMG BI PROCEDURES documented in this encounter Visit Diagnoses Diagnosis Encounter for screening mammogram for breast cancer documented in this encounter Care Teams Machine Molder Squeeze Relationship Specialty Start Date End Date Ayla García MD [address] [place] [address] PCP - General Internal Medicine 09/19/12 documented as of this encounter
--- OUTSIDE RECORDS SUMMARY | 2024-09-03 18:33 | XMS_ITS | Encounter Summary ---
Author Organization [facility] Address [address] [place] [address] Care Team Providers Care Rejector Name Role Phone Ayla García MD Primary Care Provider Lucia gilmore Encounter Details Date Type Department Care Team Description 10/21/2021 Release of Information Medical Records [address] [place] [id number] [place] [address] Social History Tobacco Use Types Packs/Day Years [...] on filedocumented in this encounter Care Teams Rejector Relationship Specialty Start Date End Date Ayla García MD PCP - General Internal Medicine 08/17/21 documented as of this encounter
--- OUTSIDE RECORDS SUMMARY | 2024-09-03 18:33 | XMS_ITS | Clinical Summary ---
Author Organization [facility] [address] [place] [address] Address [address] [place], [place] Phone Care Team Providers Care Right Of Way Clearer Name Role Phone Ayla García MD Primary Care Provider [phone] Encounters Date Type Department Care Team Description 08/07/2024 11:01 AM EST - 08/07/2024 11:59 PM EST Hospital Encounter Radiology Department - [address] [phone] Encounter for screening mammogram for breast cancer Discharge Disposition: Home or Self Care from Last 3 Months Surgical History Surgery Date Site/Laterality Comments TONSILLECTOMY PROCEDURE: HISTORICAL TONSILLECTOMY OVARIAN CYST REMOVAL PROCEDURE: MD OVARIAN CYSTECTOMY UNI/BI; COMMENT: 15 yrs ago, ruptured ovarian cyst OTHER SURGICAL HISTORY 05/07/2009 Bilateral PROCEDURE: ---- OTHER ----; COMMENT: endovenous laser ablation legs COLPOSCOPY 08/20/2011 PROCEDURE: MD COLPOSCOPY ENTIRE VAGINA W/CERVIX IF PRESENT COLONOSCOPY 09/04/2012 PROCEDURE: HISTORICAL COLONOSCOPY OTHER SURGICAL HISTORY 06/09/2013 PROCEDURE: MAMMOGRAM OTHER SURGICAL HISTORY 08/12/2016 Right PROCEDURE: MD OSTEOT W/WO LNGTH SHRT/CORRJ METAR XCP 1ST [...] 09/26/2024 10:55 AM EST Appointment Radiology Department [address] [phone] Health Maintenance Due Date Last Done Comments [...] recommended for the Right Breast. Mammo Location: [facility], [address] [place] [address], [address], . -------- FINAL REPORT -------- Dictated By: Gladis Queen Dictated Date: 08/09/2024 08:51 ET Assigned Physician: Gladis Queen Reviewed and Electronically Signed By: Gladis Queen Signed Date: 08/09/2024 08:56 ET Workstation ID: [id number] Transcribed By: Self Edit Transcribed Date: 08/09/2024 [...] recommended for the Right Breast. Mammo Location: [facility], [address] [place] [address], [address], . -------- FINAL REPORT -------- Dictated By: Gladis Queen Dictated Date: 08/09/2024 08:51 ET Assigned Physician: Gladis Queen Reviewed and Electronically Signed By: Gladis Queen Signed Date: 08/09/2024 08:56 ET Workstation ID: [id number] Transcribed By: Self Edit Transcribed Date: 08/09/2024 08:51 ET Ayla García MD IMG BI PROCEDURES * Pap smear (02/15/2019) 02/15/2019 Narrative HISTORICAL TESTING LAB RESULTING AGENCY - 02/21/2019 9:00 AM EDT [id number] THINPREP PAP, IMAGED: NEGATIVE FOR SQUAMOUS INTRAEPITHELIAL [...] Z01.419] Alanis Mata DO LAB CYTOLOGY [facility] HISTORICAL TESTING LAB RESULTING AGENCY from Last 3 Months or Most Recently Relevant to Health Maintenance Care Teams Right Of Way Clearer Relationship Specialty Start Date End Date Ayla García MD [address] [place] [id number] PCP - General Internal Medicine 09/19/12
--- OUTSIDE RECORDS SUMMARY | 2024-09-03 18:33 | XMS_ITS | Encounter Summary ---
Author Organization [facility] Address [address] [place] [address] Care Team Providers Care Casino Floor Walker Name Role Phone Cande Morgan DO Primary Care Pro vider Unavailable Ayla García MD Primary Care Provider Unavaila ble Encounter Details Date Type Department Care Team Description 07/28/2016 [facility] Medical Records [address] [place] [id number] Abstract, Provider Social History Tobacco Use Types Packs/Day Years Used Date Smoking Tobacco: Never Alcohol Use Standard Drinks/Week Comments [...] on filedocumented in this encounter Care Teams Casino Floor Walker Relationship Specialty Start Date End Date Cande Morgan DO PCP - General Internal Medicine 07/09/14 08/16/21 Ayla García MD PCP - General Internal Medicine 08/17/21 documented as of this encounter
== END 2024-09-03 14:51 | disposition home or self-care (01) ==
PROVIDERS: PCP Internal Medicine; Visit Provider Physician Assistant
DX: Z98.890 Other specified postprocedural states (principal)
CPT/HCPCS: 99024

== ENCOUNTER → 2024-09-03 14:03 | Outpatient (BNVA) | payer OTHER, SELFPAY | PROVIDERS: PCP Internal Medicine; Visit Provider Physician Assistant ==

== ENCOUNTER 2024-09-05 13:10 | Outpatient (AMB) | payer BC, SELFPAY ==
[2024-09-05 13:09] VITALS: PULSE 98; TEMP 37.1; O2SAT 98
--- NOTE | 2024-09-05 13:09 | MHC.OFFVIS ---
Vital Signs 09/05/24 13:09 Weight 156 lb Pulse 98 Pulse Source Pulse Oximeter Temp 98.8 F Temp Source Oral Pulse Oximetry (%) 98 Oxygen Delivery Method Room Air Intake Visit Reasons: follow Antibiotics from elan reff cuff post op Allergies Penicillins Allergy (Severe, Verified 09/06/24 11:42) trouble breathing latex Allergy (Verified 09/06/24 11:42) rash HPI HPI follow Antibiotics from elan reff cuff post op: Details: She has still pain raising right arm. She has had surgery MSSA shoulder. She has no fever or chills. [facility] Medical History Normal colonoscopy Mammogram normal Normal Pap smear Annual physical exam Varicose veins of both lower extremities Surgical History Status post left rotator cuff repair (12/14/23) Status post cervical polyp removal S/P foot surgery, right History of carpal tunnel surgery of right wrist History of carpal tunnel surgery of left wrist Family History Father Heart problem Mother Hypertension Stroke Social History Housing: House Patient Tobacco Use Status: Never used Tobacco e-Cigarette/Vaping Use: Never Used service: No Current occupational status: employed 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 Cognitive needs: No Hearing needs: No Vision needs: Yes Review of Systems Const All systems reviewed & are unremarkable except as noted in HPI and below Physical Exam Vital Signs: Last Vital Signs Temp 98.8 F 09/05/24 13:09 Pulse 98 09/05/24 13:09 Pulse Ox 98 09/05/24 13:09 Oxygen Delivery Method Room Air 09/05/24 13:09 Const General: cooperative Orientation/consciousness: patient oriented x3 HEENT Head: Yes normal to inspection Mouth: Normal oral and palatal mucosa present Eyes General: appearance normal, both eyes and all related structures Pupils: Equal, round and reactive pupils present Neck Other: pain lifting right arm Resp Effort & Inspection: normal respiratory effort Cardio Rate: regular rate Rhythm: regular rhythm GI Palpation (GI): Soft to palpation and nontender General: Yes no CVA tenderness Back/Spine/Pelvis Back: no CVA tenderness Skin General skin exam: no rashes or lesions noted Neuro General: patient oriented x3 Cranial nerves: Yes CN's II-XII intact bilaterally and Yes Equal, round and reactive pupils present Extrem General: Yes normal to inspection Psych Appearance: grossly normal Assessment & Plan Assessment & Plan (1) Status post left rotator cuff repair: Onset Date: 12/14/23 Comment: 12/14/2023 complicated with wound infection MSSA status post debridement 3 times, established with ID for long-term antibiotics treatment Code(s): Z98.890 - Other specified postprocedural states Category: Surgical Plan: Finish linezolid,another week or two. Physical therapy Coding Level of Care Code Est Pt Level 3 (83001) Diagnoses Status post left rotator cuff repair Z98.890
--- OUTSIDE RECORDS SUMMARY | 2024-09-05 15:14 | XMS_ITS | Encounter Summary ---
Author Organization [facility] Address [address] [place] [address] Care Team Providers Care Civil Cadd Technician Name Role Phone Ayla García MD Primary Care Provider [phone] Reason for Visit * Imaging (Routine) - Closed Specialty Diagnoses / Procedures Referred By Vladimir pate Referred To Contact Radiology Diagnoses Encounter for screening mammogram for breast cancer Procedures MG Mammo Digital Screening w Mitul bilat MG Mammo Digital Screening w Mitul bilat Ayla García MD [address] [place] [address] [facility] Referral ID Status Reason Start Date Expiration Date Visits Re quested Visits Authorized [id number] Closed 05/24/2024 05/24/2025 1 1 Encounter Details Date Type Department Care Team (Latest Contact Info) Description 08/07/2024 11:01 AM EST - 08/07/2024 11:59 PM EST Hospital Encounter Radiology Department - [address] [phone] Encounter for screening mammogram for breast cancer [...] Upcoming Encounters Date Type Department Care Team ([facility] st Contact Info) Description 09/26/2024 10:55 AM EST Appointment Radiology Department - [address] [phone] documented as of this encounter Procedures Procedure [...] recommended for the Right Breast. Mammo Location: [facility], [address] [place] [address], [address], . -------- FINAL REPORT -------- Dictated By: Gladis Queen Dictated Date: 08/09/2024 08:51 ET Assigned Physician: Gladis Queen Reviewed and Electronically Signed By: Gladis Queen Signed Date: 08/09/2024 08:56 ET Workstation ID: [id number] Transcribed By: Self Edit Transcribed Date: 08/09/2024 [...] recommended for the Right Breast. Mammo Location: [facility], [address] [place] [address], [address], . -------- FINAL REPORT -------- Dictated By: Gladis Queen Dictated Date: 08/09/2024 08:51 ET Assigned Physician: Gladis Queen Reviewed and Electronically Signed By: Gladis Queen Signed Date: 08/09/2024 08:56 ET Workstation ID: [id number] Transcribed By: Self Edit Transcribed Date: 08/09/2024 08:51 ET Ayla García MD IMG BI PROCEDURES documented in this encounter Visit Diagnoses Diagnosis Encounter for screening mammogram for breast cancer documented in this encounter Care Teams Civil Cadd Technician Relationship Specialty Start Date End Date Ayla García MD PCP - General Internal Medicine 09/19/12 documented as of this encounter
--- OUTSIDE RECORDS SUMMARY | 2024-09-05 15:14 | XMS_ITS | Clinical Summary ---
Author Organization [facility] [address] [place] [address] Address [address] [place], [place] Phone Care Team Providers Care Pillowcase Maker Name Role Phone Ayla García MD Primary Care Provider [phone] Encounters Date Type Department Care Team Description 08/07/2024 11:01 AM EST - 08/07/2024 11:59 PM EST Hospital Encounter Radiology Department - [address] [phone] Encounter for screening mammogram for breast cancer Discharge Disposition: Home or Self Care from Last 3 Months Surgical History Surgery Date Site/Laterality Comments TONSILLECTOMY PROCEDURE: HISTORICAL TONSILLECTOMY OVARIAN CYST REMOVAL PROCEDURE: [place] OVARIAN CYSTECTOMY UNI/BI; COMMENT: 15 yrs ago, ruptured ovarian cyst OTHER SURGICAL HISTORY 05/07/2009 Bilateral PROCEDURE: ---- OTHER ----; COMMENT: endovenous laser ablation legs COLPOSCOPY 08/20/2011 PROCEDURE: [place] COLPOSCOPY ENTIRE VAGINA W/CERVIX IF PRESENT COLONOSCOPY 09/04/2012 PROCEDURE: HISTORICAL COLONOSCOPY OTHER SURGICAL HISTORY 06/09/2013 PROCEDURE: MAMMOGRAM OTHER SURGICAL HISTORY 08/12/2016 Right PROCEDURE: [place] OSTEOT W/WO LNGTH SHRT/CORRJ METAR XCP 1ST [...] 09/26/2024 10:55 AM EST Appointment Radiology Department [address] [phone] Health Maintenance Due Date Last Done Comments [...] recommended for the Right Breast. Mammo Location: [facility], [address] [place] [address], [address], . -------- FINAL REPORT -------- Dictated By: Gladis Queen Dictated Date: 08/09/2024 08:51 ET Assigned Physician: Gladis Queen Reviewed and Electronically Signed By: Gladis Queen Signed Date: 08/09/2024 08:56 ET Workstation ID: [id number] Transcribed By: Self Edit Transcribed Date: 08/09/2024 [...] recommended for the Right Breast. Mammo Location: [facility], [address] [place] [address], [address], . -------- FINAL REPORT -------- Dictated By: Gladis Queen Dictated Date: 08/09/2024 08:51 ET Assigned Physician: Gladis Queen Reviewed and Electronically Signed By: Gladis Queen Signed Date: 08/09/2024 08:56 ET Workstation ID: [id number] Transcribed By: Self Edit Transcribed Date: 08/09/2024 08:51 ET Ayla García MD IMG BI PROCEDURES * Pap smear (02/15/2019) 02/15/2019 Narrative HISTORICAL TESTING LAB RESULTING AGENCY - 02/21/2019 9:00 AM EDT [id number] THINPREP PAP, IMAGED: NEGATIVE FOR SQUAMOUS INTRAEPITHELIAL [...] Z01.419] Alanis Mata DO LAB CYTOLOGY [facility] HISTORICAL TESTING LAB RESULTING AGENCY from Last 3 Months or Most Recently Relevant to Health Maintenance Care Teams Pillowcase Maker Relationship Specialty Start Date End Date Ayla García MD PCP - General Internal Medicine 09/19/12
== END 2024-09-05 14:41 | disposition home or self-care (01) ==
PROVIDERS: PCP Internal Medicine; Visit Provider Internal Medicine
DX: Z98.890 Other specified postprocedural states (principal)
CPT/HCPCS: 99213

== ENCOUNTER 2024-09-06 11:20 | Outpatient (REF) | payer BC, SELFPAY ==
[2024-09-06 16:09] LABS: MANUAL DIFF FLAG NO
[2024-09-06 16:13] LABS: Appearance Urine Clear; Color Urine Yellow; Glucose Urine UA Negative (Negative); Leukocyte Esterase Urine Negative (Negative); Nitrite Urine Negative (Negative); PH 5.5 (5.0-9.0); Specific Gravity - Urine <= 1.005 (1.005-1.025); Urine Blood Negative (Negative); Urine Ketones Negative (Negative); Urine Protein Negative (Neg-Trace)
[2024-09-06 16:15] LABS: Basophils Absolute Auto 0.1 X10*3/uL (0.0-0.2); Basophils Percent Auto 1.3 % (0-2); Eosinophils Absolute Auto 0.2 X10*3/uL (0.0-0.4); Eosinophils Percent Auto 3.8 % (0-4); Hematocrit 32.3 % (37.0-47.0); Hemoglobin 10.8 g/dl (12.0-16.0); Imm Gran Abs Auto 0.01 X10*3/uL (0.00-0.03); Imm Gran Pct Auto 0.2 % (0.0-0.4); Lymphocytes Absolute Auto 1.5 X10*3/uL (1.2-4.9); Lymphocytes Percent Auto 31.1 % (20-40); Mean Corpuscular HGB Conc 33.4 g/dl (31.0-35.0); Mean Corpuscular Hemoglobin 28.6 pg (27.0-33.0); Mean Corpuscular Volume 85.4 fL (80.0-98.0); Mean Platelet Volume 10.1 fL (9.4-12.3); Monocytes Absolute Auto 0.3 X10*3/uL (0.1-1.2); Monocytes Percent Auto 6.6 % (2-11); Neutrophils Absolute Auto 2.7 x10*3/uL (2.0-8.3); Platelet Count 288 X10*3/uL (160-400); Red Blood Count 3.78 X10*6/uL (4.20-5.50); Red Cell Distribution Width 13.9 % (11.0-16.0); White Blood Count 4.7 X10*3/uL (4.8-10.8)
[2024-09-06 16:18] LABS: Bacteria Urine None Seen (None Seen); Hyaline Casts Urine 0-2 /LPF (0-2); RBC Urine 0-2 /HPF (0-2); Squamous Epithelial Cell Urine 0-2 /HPF (0-2); WBC Urine 0-5 /HPF (0-5)
--- OUTSIDE RECORDS SUMMARY | 2024-09-06 17:38 | XMS_ITS | Encounter Summary ---
Author Organization [facility] Address [address] [place] [address] Care Team Providers Care Scroll Shear Operator Name Role Phone Ayla García MD Primary Care Provider Lucia gilmore Encounter Details Date Type Department Care Team Description 10/21/2021 Release of Information Medical Records [address] [place] [id number] [place] [address] Social History Tobacco Use Types Packs/Day Years [...] on filedocumented in this encounter Care Teams Scroll Shear Operator Relationship Specialty Start Date End Date Ayla García MD PCP - General Internal Medicine 08/17/21 documented as of this encounter
--- OUTSIDE RECORDS SUMMARY | 2024-09-06 17:39 | XMS_ITS | Encounter Summary ---
Author Organization [facility] Address [address] [place] [address] Care Team Providers Care Brake Repair Mechanic Name Role Phone Cande Morgan DO Primary Care Pro vider Unavailable Ayla García MD Primary Care Provider Unavaila ble Encounter Details Date Type Department Care Team Description 08/27/2016 Supervisor Hot Dip Tinning Report Medical Records [address] [place] [id number] [address] Chan Social History Tobacco Use Types Packs/Day Years [...] on filedocumented in this encounter Care Teams Brake Repair Mechanic Relationship Specialty Start Date End Date Cande Morgan DO PCP - General Internal Medicine 07/09/14 08/16/21 Ayla García MD PCP - General Internal Medicine 08/17/21 documented as of this encounter
--- OUTSIDE RECORDS SUMMARY | 2024-09-06 17:39 | XMS_ITS | Encounter Summary ---
Author Organization [facility] Address [address] [place] [address] Care Team Providers Care Refining Still Operator Name Role Phone Cande Morgan DO Primary Care Pro vider Unavailable Ayla García MD Primary Care Provider Unavaila ble Encounter Details Date Type Department Care Team Description 08/18/2016 Orders Only Medical Records [address] [place] [id number] Shanon Nina DPM Social History Tobacco Use [...] Name Priority Date/Time Associated Diagnosis Comments OUTSIDE PATHOLOGY Routine 08/12/2016 documented in this encounter Results * OUTSIDE PATHOLOGY (08/12/2016) Shanon Nina DPM OUTSIDE LAB documented in this encounter Visit Diagnoses Not on filedocumented in this encounter Care Teams Refining Still Operator Relationship Specialty Start Date End Date Cande Morgan DO PCP - General Internal Medicine 07/09/14 08/16/21 Ayla García MD PCP - General Internal Medicine 08/17/21 documented as of this encounter
--- OUTSIDE RECORDS SUMMARY | 2024-09-06 17:39 | XMS_ITS | Encounter Summary ---
Author Organization [facility] Address [address] [place] [address] Care Team Providers Care Structural Technician Name Role Phone Cande Morgan DO Primary Care Pro vider Unavailable Ayla García MD Primary Care Provider Unavaila ble Encounter Details Date Type Department Care Team Description 04/22/2020 Orders Only Adult Medicine [address] [address] Cande Morgan DO Elevated LFTs (Primary Dx) Social History Tobacco Use Types Packs/Day Years [...] have Coronavirus / COVID-19? No / Unsure 04/20/2020 10:51 AM EDT documented as of this encounter Plan of Treatment Scheduled Orders Name Type Priority Associated Diagnoses Orde r Schedule HEPATIC FUNCTION (LIVER) PANEL Lab Routine Elevated LFTs Expected: 04/22/2020, Expires: 04/22/2021 documented as of this encounter Visit Diagnoses Diagnosis Elevated LFTs- Primary Other abnormal blood chemistry documented in this encounter Care Teams Structural Technician Relationship Specialty Start Date End Date Cande Morgan DO PCP - General Internal Medicine 07/09/14 08/16/21 Ayla García MD PCP - General Internal Medicine 08/17/21 documented as of this encounter
--- OUTSIDE RECORDS SUMMARY | 2024-09-06 17:39 | XMS_ITS | Encounter Summary ---
Author Organization [facility] Address [address] [place] [address] Care Team Providers Care Best Second Jobs Name Role Phone Ayla García MD Primary Care Provider [phone] Reason for Visit * Imaging (Routine) - Closed Specialty Diagnoses / Procedures Referred By Vladimir pate Referred To Contact Radiology Diagnoses Encounter for screening mammogram for breast cancer Procedures MG Mammo Digital Screening w Mitul bilat MG Mammo Digital Screening w Mitul bilat Ayla García MD [address] [place] [address] [facility] Referral ID Status Reason Start Date Expiration Date Visits Re quested Visits Authorized [id number] Closed 05/24/2024 05/24/2025 1 1 Encounter Details Date Type Department Care Team (Latest Contact Info) Description 08/07/2024 11:01 AM EST - 08/07/2024 11:59 PM EST Hospital Encounter Radiology Department - [address] [phone] Encounter for screening mammogram for breast cancer [...] Upcoming Encounters Date Type Department Care Team ([facility] st Contact Info) Description 09/26/2024 10:55 AM EST Appointment Radiology Department - [address] [phone] documented as of this encounter Procedures Procedure [...] recommended for the Right Breast. Mammo Location: [facility], [address] [place] [address], [address], . -------- FINAL REPORT -------- Dictated By: Gladis Queen Dictated Date: 08/09/2024 08:51 ET Assigned Physician: Gladis Queen Reviewed and Electronically Signed By: Gladis Queen Signed Date: 08/09/2024 08:56 ET Workstation ID: [id number] Transcribed By: Self Edit Transcribed Date: 08/09/2024 [...] recommended for the Right Breast. Mammo Location: [facility], [address] [place] [address], [address], . -------- FINAL REPORT -------- Dictated By: Gladis Queen Dictated Date: 08/09/2024 08:51 ET Assigned Physician: Gladis Queen Reviewed and Electronically Signed By: Gladis Queen Signed Date: 08/09/2024 08:56 ET Workstation ID: [id number] Transcribed By: Self Edit Transcribed Date: 08/09/2024 08:51 ET Ayla García MD IMG BI PROCEDURES documented in this encounter Visit Diagnoses Diagnosis Encounter for screening mammogram for breast cancer documented in this encounter Care Teams Best Second Jobs Relationship Specialty Start Date End Date Ayla García MD PCP - General Internal Medicine 09/19/12 documented as of this encounter
--- OUTSIDE RECORDS SUMMARY | 2024-09-06 17:39 | XMS_ITS | Encounter Summary ---
Author Organization [facility] Address [address] [place] [address] Care Team Providers Care Production Maintenance Mechanic Name Role Phone Cande Morgan DO Primary Care Pro vider Unavailable Ayla García MD Primary Care Provider Unavaila ble Reason for Visit * Reason Onset Date Comments medication problems 11/21/2014 Encounter Details Date Type Department Care Team Description 11/21/2014 Telephone Adult Medicine [address] [address] Cande Morgan DO medication problems Social History [...] KAYLA Pharmacist Name: N/A Pharmacy Phone # [phone] Name of the medication Imitrex 50 mg [...] on filedocumented in this encounter Care Teams Production Maintenance Mechanic Relationship Specialty Start Date End Date Cande Morgan DO PCP - General Internal Medicine 07/09/14 08/16/21 Ayla García MD PCP - General Internal Medicine 08/17/21 documented as of this encounter
--- OUTSIDE RECORDS SUMMARY | 2024-09-06 17:39 | XMS_ITS | Clinical Summary ---
Author Organization [facility] Address [address] [facility] [place] [address] Care Team Providers Care Hat Designer Name Role Phone Ayla García MD Primary Care Provider Unavaila ble Allergies Active Allergy Reactions Severity Noted Date Comments Latex 09/07/2016 Nickel 09/07/2016 Penicillins SOB, Wheezing 02/04/2009 Medications Medication Sig Dispensed Refills Start Date End Date Status Glucosamine-Chondroit- Vit C-Mn (GLUCOSAMINE CHONDR 500 COMPLEX) Cap Take by mouth. 0 Active Cholecalciferol (VITAMIN D3) 5000 UNITS Cap Take by mouth daily. 0 Active cetirizine (ZYRTEC) 10 MG tablet Take 1 Tab by mouth daily as needed for Allergies. One tab daily 30 Tab 2 03/14/2019 Active acetaminophen (TYLENOL) 500 MG tablet Take 500 mg by mouth every 6 hours as needed. 0 Active clotrimazole-betametha sone (LOTRISONE) cream Apply BID x 2-4 weeks 45 g 2 04/07/2020 Active sumatriptan (IMITREX) 50 MG tablet May repeat dose once after 2 hours, if needed. 9 Tab 5 04/07/2020 Active clobetasol (TEMOVATE) 0.05 % ointment Apply BID x 2 weeks 30 g 5 04/07/2020 Active Active Problems Problem Noted Date Dyshidrotic hand dermatitis 02/25/2017 Migraine without status migrainosus, not intractable 11/18/2015 Abnormal Pap smear of cervix 12/26/2014 Overview: ASC-US / HPV 2013 normal 02/15/2019 PAP- Negcytology, neg HPV Vitamin D deficiency 12/26/2014 History of hepatitis as a child Immunizations Name Administration Dates Next Due Tdap 07/12/2016 Family History Medical History Relation Name Comments CAD Father smoking and alc ohol Hypertension Mother Strabismus Other son - corrected by surgery Blindness Negative Hx CA Breast Negative Hx CA Colon Negative Hx CA Ovarian Negative Hx Cataract Negative Hx Glaucoma Negative Hx Macular Degeneration Negative Hx Uterine Cancer Negative Hx Relation Name Status Comments Father Mother Other Social History Tobacco Use Types Packs/Day Years Used Date Smoking Tobacco: Never Smokeless Tobacco: Never Alcohol Use Standard Drinks/Week Comments No 0 (1 standard drink = 0.6 oz pur e alcohol) Sex Assigned at Date Recorded Not on file Job Start Date Occupation Industry Not on file Not on file Not on file Last Filed Vital Signs Vital Sign Reading Time Taken Comments Blood Pressure 112/78 09/20/2022 10:56 AM EST Pulse 80 09/20/2022 10:56 AM EST Temperature 36.6 ??C (97.9 ??F) 09/03/2020 10:[address] Respiratory Rate 16 09/20/2022 10:56 AM EST Oxygen Saturation 98% 11/09/2021 10:03 AM EDT Inhaled Oxygen Concentration - - Weight 68.9 kg (152 lb) 09/20/2022 10:56 AM EST Height 170.2 cm (5' 7 ) 09/20/2022 10:56 AM EST Body Mass Index 23.81 09/20/2022 10:56 AM EST Plan of Treatment Health Maintenance Due Date Last Done Comments Covid-19 Vaccine (#1) 07/02/1961 SHINGLES VACCINE (1 of 2) 2010 CERVICAL CANCER SCREENING 02/15/20222018, 06/08/2017 (External Completion of test per patient (Patient reports normal results)), 01/04/2014, Additional history exists BASELINE HEALTH EXAM 40-64 04/20/202204/20, 04/07/2020, 04/02/2019, Additional history exists COLON CANCER SCREENING 12/31/2023 4 (External Completion), 09/04/2012, 09/04/2012 (External Completion) MAMMOGRAM 03/24/2024 03/24/2023, 03/08, 03/12/2021, Additional history exists INFLUENZA (#1) 2024 05/03/2020, 1002/2017, 05/22/2016 (External Completion of Vaccination per patient) CHOLESTEROL SCREENING 04/20/2025 04/20/2020 , 04/02/2019, 03/19/2018, Additional history exists PNEUMOCOCCAL VACCINE FOR HIG H RISK PATIENTS (#1) 2025 05/03/2020 DTAP/TDAP/TD (2 - Td or Tdap) 07/12/2026 07/12/2016 HEPATITIS C SCREENING Completed 10/01/2014 Care Teams Hat Designer Relationship Specialty Start Date End Date Ayla García MD PCP - General Internal Medicine 08/17/21
--- OUTSIDE RECORDS SUMMARY | 2024-09-06 17:39 | XMS_ITS | Encounter Summary ---
Author Organization [facility] Address [address] [place] [address] Care Team Providers Care Director Of Donor Relations Name Role Phone Cande Morgan DO Primary Care Pro vider Unavailable Ayla García MD Primary Care Provider Unavaila ble Encounter Details Date Type Department Care Team Description 02/23/2019 Orders Only Medical Records [address] [place] [address] Abstract, Provider Pelvic pain Social History Tobacco [...] pain documented in this encounter Care Teams Director Of Donor Relations Relationship Specialty Start Date End Date Cande Morgan DO PCP - General Internal Medicine 07/09/14 08/16/21 Ayla García MD PCP - General Internal Medicine 08/17/21 documented as of this encounter
--- OUTSIDE RECORDS SUMMARY | 2024-09-06 17:39 | XMS_ITS | Encounter Summary ---
Author Organization [facility] Address [address] [place] [address] Care Team Providers Care Reporter Anchor Name Role Phone Cande Moragn DO Primary Care Pro vider Unavailable Ayla García MD Primary Care Provider Unavaila ble Encounter Details Date Type Department Care Team Description 07/28/2016 [facility] Medical Records [address] [place] [address] Abstract, Provider Social History Tobacco Use Types [...] on filedocumented in this encounter Care Teams Reporter Anchor Relationship Specialty Start Date End Date Cande Morgan DO PCP - General Internal Medicine 07/09/14 08/16/21 Ayla García MD PCP - General Internal Medicine 08/17/21 documented as of this encounter
--- OUTSIDE RECORDS SUMMARY | 2024-09-06 17:39 | XMS_ITS | Encounter Summary ---
Author Organization [facility] Address [address] [place] [address] Care Team Providers Care Meat Sales And Storage Manager Name Role Phone Cande Morgan DO Primary Care Pro vider Unavailable Ayla García MD Primary Care Provider Unavaila ble Encounter Details Date Type Department Care Team Description 08/21/2015 Transfer Records Medical Records [address] [place] [address] Abstract, Provider Social History Tobacco Use Types [...] on filedocumented in this encounter Care Teams Meat Sales And Storage Manager Relationship Specialty Start Date End Date Cande Morgan DO PCP - General Internal Medicine 07/09/14 08/16/21 Ayla García MD PCP - General Internal Medicine 08/17/21 documented as of this encounter
--- OUTSIDE RECORDS SUMMARY | 2024-09-06 17:39 | XMS_ITS | Encounter Summary ---
Author Organization [facility] Address [address] [place] [address] Care Team Providers Care Still Runner Name Role Phone Cande Morgan DO Primary Care Pro vider Unavailable Ayla García MD Primary Care Provider Unavaila ble Reason for Visit * Reason Onset Date Comments Pelvic Pain 01/30/2019 Encounter Details Date Type Department Care Team Description 01/30/2019 Telephone OBGYN - [place] [address] Kimberly Simpson MD [address] [place] [address] Pelvic Pain Social History Tobacco Use Types [...] pt verbalized understanding. Pt also requests an ship scaler for exam, advised pt note will be made and one can be requested by telephone. * Telephone Encounter - Elo William - 01/30/2019 11:45 AM EDT Chief Complaint/problem: Pt states pelvic pain 6/7 on a scale of 10 per pt. Estonian speaking, but speaks Kuwaiti well enough to understand. How long has the patient had this problem? Pt???s BAKERY MACHINE MECHANIC provider: Kimberly Simpson M.D. Last menstrual period (LMP) or EDC (due date): N/A documented in this encounter Plan of Treatment Not on file documented as of this encounter Visit Diagnoses Not on filedocumented in this encounter Care Teams Still Runner Relationship Specialty Start Date End Date Cande Morgan DO PCP - General Internal Medicine 07/09/14 08/16/21 Ayla García MD PCP - General Internal Medicine 08/17/21 documented as of this encounter
--- OUTSIDE RECORDS SUMMARY | 2024-09-06 17:39 | XMS_ITS | Clinical Summary ---
Author Organization [facility] [address] [place] [address] Address [address] [place], [place] Phone Care Team Providers Care Glass Forming Crew Member Name Role Phone Ayla García MD Primary Care Provider [phone] Encounters Date Type Department Care Team Description 08/07/2024 11:01 AM EST - 08/07/2024 11:59 PM EST Hospital Encounter Radiology Department - [address] [phone] Encounter for screening mammogram for breast cancer Discharge Disposition: Home or Self Care from Last 3 Months Surgical History Surgery Date Site/Laterality Comments TONSILLECTOMY PROCEDURE: HISTORICAL TONSILLECTOMY OVARIAN CYST REMOVAL PROCEDURE: RI OVARIAN CYSTECTOMY UNI/BI; COMMENT: 15 yrs ago, ruptured ovarian cyst OTHER SURGICAL HISTORY 05/07/2009 Bilateral PROCEDURE: ---- OTHER ----; COMMENT: endovenous laser ablation legs COLPOSCOPY 08/20/2011 PROCEDURE: RI COLPOSCOPY ENTIRE VAGINA W/CERVIX IF PRESENT COLONOSCOPY 09/04/2012 PROCEDURE: HISTORICAL COLONOSCOPY OTHER SURGICAL HISTORY 06/09/2013 PROCEDURE: MAMMOGRAM OTHER SURGICAL HISTORY 08/12/2016 Right PROCEDURE: RI OSTEOT W/WO LNGTH SHRT/CORRJ METAR XCP 1ST [...] 10:55 AM EST Appointment Radiology Department [address] [phone] Health Maintenance Due Date Last Done Comments [...] recommended for the Right Breast. Mammo Location: [facility], [address] [place] [address], [address], . -------- FINAL REPORT -------- Dictated By: Gladis Queen Dictated Date: 08/09/2024 08:51 ET Assigned Physician: Gladis Queen Reviewed and Electronically Signed By: Gladis Queen Signed Date: 08/09/2024 08:56 ET Workstation ID: [id number] Transcribed By: Self Edit Transcribed Date: 08/09/2024 [...] recommended for the Right Breast. Mammo Location: [facility], [address] [place] [address], [address], . -------- FINAL REPORT -------- Dictated By: Gladis Queen Dictated Date: 08/09/2024 08:51 ET Assigned Physician: Gladis Queen Reviewed and Electronically Signed By: Gladis Queen Signed Date: 08/09/2024 08:56 ET Workstation ID: [id number] Transcribed By: Self Edit Transcribed Date: 08/09/2024 08:51 ET Ayla García MD IMG BI PROCEDURES * Pap smear (02/15/2019) 02/15/2019 Narrative HISTORICAL TESTING LAB RESULTING AGENCY - 02/21/2019 9:00 AM EDT [id number] THINPREP PAP, IMAGED: NEGATIVE FOR SQUAMOUS INTRAEPITHELIAL LESION AND MALIGNANCY . ATROPHY. KALYAN HERRERA , DINA(ASCP) (CASE ELECTRONICALLY SIGNED 02 19 2019) RESULT OF APTIMA HIGH RISK HPV ASSAY: HIGH RISK HPV: ??NEGATIVE (SEROTYPES 16,18,31,33,35,39,45,51,52,56,58,59,66,68) COMPLETED ON 2019-02-19 ADEQUACY: SATISFACTORY ENDOCERVICAL/TRANSFORMATION ZONE COMPONENT PRESENT. SOURCE: THINPREP PAP HPV ANY DX: ??REFLEX 16 AND 18, CERVICAL, IMAGED CLINICAL INFORMATION: HPV ANY DIAGNOSIS. MENOPAUSE, PAP HX NEG, LP 01/04/14 NEG [Z12.4, Z01.419] Alanis Mata DO LAB CYTOLOGY [facility] HISTORICAL TESTING LAB RESULTING AGENCY from Last 3 Months or Most Recently Relevant to Health Maintenance Care Teams Glass Forming Crew Member Relationship Specialty Start Date End Date Ayla García MD PCP - General Internal Medicine 09/19/12
--- OUTSIDE RECORDS SUMMARY | 2024-09-06 17:39 | XMS_ITS | Encounter Summary ---
Author Organization [facility] Address [address] [place] [address] Care Team Providers Care Customer Equipment Engineer Name Role Phone Cande Morgan DO Primary Care Pro vider Unavailable Ayla García MD Primary Care Provider Unavaila ble Reason for Visit * Reason Onset Date Comments Testing 07/11/2019 sono abdomen com plete Encounter Details Date Type Department Care Team Description 07/11/2019 Telephone Adult Medicine [address] [address] Rosio Vicente PA-C Testing (sono abdomen complete) [...] on filedocumented in this encounter Care Teams Customer Equipment Engineer Relationship Specialty Start Date End Date Cande Morgan DO PCP - General Internal Medicine 07/09/14 08/16/21 Ayla García MD PCP - General Internal Medicine 08/17/21 documented as of this encounter
--- OUTSIDE RECORDS SUMMARY | 2024-09-06 17:39 | XMS_ITS | Encounter Summary ---
Author Organization [facility] Address [address] [place] [address] Care Team Providers Care Diesel Locomotive Engineer Name Role Phone Cande Morgan DO Primary Care Pro vider Unavailable Ayla García MD Primary Care Provider Unavaila ble Encounter Details Date Type Department Care Team Description 11/21/2014 Orders Only Adult Medicine [address] [address] Cande Morgan DO Social History Tobacco Use Types Packs/Day Years Used Date Smoking Tobacco: Never Sex Assigned at Date Recorded Not on file Job Start Date Occupation Industry Not on file Not on file Not on file documented as of this encounter Plan of Treatment Not on file documented as of this encounter Visit Diagnoses Not on filedocumented in this encounter Care Teams Diesel Locomotive Engineer Relationship Specialty Start Date End Date Cande Morgan DO PCP - General Internal Medicine 07/09/14 08/16/21 Ayla García MD PCP - General Internal Medicine 08/17/21 documented as of this encounter
[2024-09-06 18:47] LABS: Alanine Aminotransferase 21 U/L (0-31); Anion Gap 13 (12-20); Aspartate Amino Transferase 23 U/L (5-31); Bilirubin Total 0.8 mg/dL (0.0-1.0); Blood Urea Nitrogen 10 mg/dL (9-16); Carbon Dioxide 21 mmol/L (22-29); Chloride 108 mmol/L (96-108); Cholesterol 150 mg/dL (<200); Estimated Glomerular Filt Rate > 60; Glucose Fasting 81 mg/dL (60-99); HDL Cholesterol 56 mg/dL (>40); LDL Cholesterol Calculated 82 mg/dL (<100); Potassium 3.7 mmol/L (3.3-5.1); Sodium 138 mmol/L (135-145); Total Protein 7.2 g/dL (6.5-8.0); Triglycerides 63 mg/dL (<150)
[2024-09-06 18:54] LABS: Alkaline Phosphatase 64 U/L (39-117); TSH reflex Free T4 1.29 uIU/mL (0.32-4.0); Vitamin D 25-OH Total 34.9 ng/mL (>30)
== END 2024-09-06 11:21 | disposition home or self-care (01) ==
LOC: HO.HMGCLDS 11:20
PROVIDERS: PCP Internal Medicine; Visit Provider Internal Medicine
DX: Z00.00 Encounter for general adult medical examination without abnormal findings (principal); E55.9 Vitamin D deficiency, unspecified; N83.202 Unspecified ovarian cyst, left side
CPT/HCPCS: 36415; 80053; 80061; 81001; 82306; 84443; 85025; 96127

== ENCOUNTER 2024-09-06 11:20 | Outpatient (AMB) | payer BC, SELFPAY ==
--- NOTE | 2024-09-06 11:30 | MHC.PC.OV ---
Vital Signs 09/06/24 11:41 Height 5 ft 7 in Weight 153 lb BMI 24.0 BP 130/80 Blood Pressure Location Lt brachial Position Sitting Respiration 20 Pulse 84 Pulse Source Pulse Oximeter Temp 98.5 F Temp Source Oral Pulse Oximetry (%) 97 Oxygen Delivery Method Room Air Intake Visit Reasons: Annual PE - see comments Intake Note: Pt is here today for PE. Allergies Penicillins Allergy (Severe, Verified 09/06/24 11:42) trouble breathing latex Allergy (Verified 09/06/24 11:42) rash Medication List - Last Reconciled 09/06/24 by Ayla García MD cholecalciferol (vitamin D3) 50 mcg PO DAILY clobetasol 0.05% 1 appl topical BID clotrimazole-betamethasone 1-0.05 % 1 appl topical BID hydrocodone-acetaminophen 5-325 mg 1 tab PO Q6H PRN 7 days linezolid 600 mg PO BID 30 days mecobalamin (vitamin B12) 1,000 mcg PO DAILY kwgljmvg-avd-mhtz-FA-vit K-lut 8 mg iron-400 mcg-50 mcg (Multivitamin Women 50 Plus) 1 tab PO DAILY Tobacco use date assessed: 09/06/24 Dental Screening Dental Screen Date: 09/06/24 Did you have a dental visit in the last 12 months?: Yes Did you have a dental problem in the last 6 months where you did not have access to dental care?: No Was dental information given to patient?: Patient has dentist HPI Annual PE - see comments HPI Details Pt presents for PE. Pt had R shoulder rotator cuff surgery in December complicated with Staph infection, status post debridement 3 times, the most recent 2 weeks. Patient is established with Infectious Disease and was treated IV with 4 months IV antibiotic now on po Linezolid for 1 month. Patient reports significantly decreased range of motion of the right shoulder but pain getting slightly better. She has been taking ibuprofen 800 mg as needed. Patient has been out of work since the surgery. She was referred for physical therapy by [facility]. [facility] Medical History (Updated 09/06/24 @ 12:44 by Ayla García MD) Normal colonoscopy Mammogram normal Normal Pap smear Annual physical exam Varicose veins of both lower extremities Surgical History (Updated 09/06/24 @ 12:41 by Ayla García MD) Status post left rotator cuff repair (12/14/23) Status post cervical polyp removal S/P foot surgery, right History of carpal tunnel surgery of right wrist History of carpal tunnel surgery of left wrist Family History Father Heart problem Mother Hypertension Stroke Social History Housing: House Patient Tobacco Use Status: Never used Tobacco e-Cigarette/Vaping Use: Never Used service: No Current occupational status: employed 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 1. Little interest or pleasure in doing things: not at all 2. Feeling down, depressed, or hopeless: not at all 3. Trouble falling or staying asleep, or sleeping too much: not at all 4. Feeling tired or having little energy: not at all 5. Poor appetite or overeating: not at all 6. Feeling bad about yourself - or that you are a failure or have let yourself or your family down: not at all 7. Trouble concentrating on things, such as reading the newspaper or watching television: not at all 8. Moving or speaking so slowly that other people could have noticed. Or the opposite - being so fidgety or restless that you have been moving around a lot more than usual: not at all 9. Thoughts that you would be better off or of hurting yourself in some way: not at all Total score: 0 Depression Screening Interpretation: Negative Depression Screening Done: Yes 14832 - PHQ-9 Billing: Yes Source: Developed by Drs. Valdemar Cagle, Yanira Lewis, Dav Graham and colleagues, with an educational celina from [employer]. Thrive Questionnaire Date Thrive assessed: 09/06/24 I am a: Patient What is your living situation today?: I have a steady place to live Within the past 12 months, did the food you bought not last and you didn't have the money to get more?: Never true Within the past 12 months, did you worry whether your food would run out before you got money to buy more?: Never true Do you have trouble paying for medicines?: No Do you have trouble getting transportation to medical appointments?: No Do you have trouble paying your heating and electricity bill?: No Do you have trouble taking care of your child, family member or friend?: No Do you have trouble with day-to-day activities such as bathing, preparing meals, shopping, managing finances, etc.?: No Are you currently unemployed and looking for a job?: No Are you interested in more education?: Yes Please select the resources that you would like help with: Education Currently or been in a relationship where the following occur: No concerns reported THRIVE Score: 0 AUDIT C Alcohol Use Questionnaire (AUDIT-C) 1. How often do you have a drink containing alcohol?: Never 3. How often do you have six or more drinks on one occasion?: Never Total Score: 0 HINA-7 AMB Questionnaire HINA-7 Date HINA - 7 assessed: 09/06/24 Feeling nervous, anxious, or on edge: 0 = Not at all Not being able to stop or control worryin = Not at all Worrying too much about different things: 0 = Not at all Trouble relaxin = Not at all Being so restless that it is hard to sit still: 0 = Not at all Becoming easily annoyed or irritable: 0 = Not at all Feeling afraid as if something awful might happen: 0 = Not at all Total HINA-7 score (0-4 normal; 5-9 mild; 10-14 moderate; 15-21 severe): 0 Source: Developed by Drs. Valdemar Cagle, Yanira Lewis, Dav Graham and colleagues, with an educational celina from [employer]. HINA-7 Assessment Billing HINA-7 Assessment Tool: HINA-7 Assessment 02867 Review of Systems Const All systems reviewed & are unremarkable except as noted in HPI and below Eyes Reports no additional complaints ENT Reports no additional complaints Card Reports no additional complaints Resp Reports no additional complaints GI Reports no additional complaints Reports no additional complaints Physical exam (Primary Care) Vital Signs: Last Vital Signs Temp 98.5 F 09/06/24 11:41 Pulse 84 09/06/24 11:41 Resp 20 09/06/24 11:41 BP 130/80 09/06/24 11:41 Pulse Ox 97 09/06/24 11:41 Oxygen Delivery Method Room Air 09/06/24 11:41 BMI result Body Mass Index 24.0 Tobacco/Smoking Status: Tobacco use Status Tobacco use date assessed 09/06/24 09/06/24 11:38 Patient Tobacco Use Status Never used Tobacco 09/06/24 11:38 e-Cigarette/Vaping Use Never Used 09/06/24 11:30 PHQ-9: PHQ-9 Score PHQ-9: Total score 0 09/06/24 11:38 Depression Screening Interpretation: Negative Thrive Assessment: Date of Thrive Assessment Date Thrive assessed 09/06/24 09/06/24 11:38 Currently or been in a relationship where the following occur: No concerns reported Const General: no acute distress HENMT Head: Yes normal to inspection Ears: hearing grossly normal bilaterally Eyes General: appearance normal, both eyes and all related structures Neck Other: Palpable enlarged lymph nodes in the right lower neck and supraclavicular region Neck: Yes supple Resp Effort & Inspection: normal respiratory effort Auscultation: clear to auscultation bilaterally Cardio Rhythm: regular rhythm Heart sounds: S1 normal heart sound present and S2 normal heart sound present GI Inspection: Yes normal to inspection Palpation (GI): Soft to palpation Percussion: Yes normal to percussion Auscultation: normal bowel sounds Extrem Other: Right shoulder soft tissue swelling no erythema warmth postsurgical scars, significantly decreased range of motion Coding Level of Care Code Est Pt Prev Care 40-64y(19172) Diagnoses Left ovarian cyst N83.202 Annual physical exam Z00.00 Vitamin D deficiency E55.9 Normal colonoscopy Status post left rotator cuff repair Z98.890 Additional Codes HINA-7 Assessment Billing - HINA-7 Assessment Tool: HINA-7 Assessment 69238 ([id number]) PHQ-9 - 97733 - PHQ-9 Billing: Yes ([id number]) Assessment & Plan Assessment & Plan (1) Left ovarian cyst: Comment: on US 05/2024, repeat 6 months Code(s): N83.202 - Unspecified ovarian cyst, left side Category: Medical Plan: Repeat ultrasound in November (2) Annual physical exam: Code(s): Z00.00 - Encounter for general adult medical examination without abnormal findings Category: Medical Plan: Well-balanced diet regular physical activity discussed with the patient she will have a fasting blood work today. Patient is established with [facility] for mammogram, abnormal because of reactive lymphadenopathy right axillary and cervical region (3) Vitamin D deficiency: Code(s): E55.9 - Vitamin D deficiency, unspecified Category: Medical Plan: Continue vitamin-D supplement (4) Normal colonoscopy: Comment: at 52, Cologuard sent 04/29 Category: Medical Plan: Negative Cologuard 2021 (5) Status post left rotator cuff repair: Onset Date: 12/14/23 Comment: 12/14/2023 complicated with wound infection MSSA status post debridement 3 times, established with ID for long-term antibiotics treatment Code(s): Z98.890 - Other specified postprocedural states Category: Surgical Plan: Follow-up with ortho and ID Orders: Orders Complete Blood Count Auto Diff Today E55.9 - Vitamin D deficiency, unspecified, Z00.00 - Encounter for general adult medical examination without abnormal findings Lipid Panel Today E55.9 - Vitamin D deficiency, unspecified, Z00.00 - Encounter for general adult medical examination without abnormal findings US pelvic and transvaginal 4 Months N83.202 - Unspecified ovarian cyst, left side Comprehensive [place]. Panel Fast Today E55.9 - Vitamin D deficiency, unspecified, Z00.00 - Encounter for general adult medical examination without abnormal findings TSH reflex Free T4 Today E55.9 - Vitamin D deficiency, unspecified, Z00.00 - Encounter for general adult medical examination without abnormal findings Vitamin D 25-OH Total Today E55.9 - Vitamin D deficiency, unspecified, Z00.00 - Encounter for general adult medical examination without abnormal findings UA w Microscopic Today Z00.00 - Encounter for general adult medical examination without abnormal findings
[2024-09-06 11:41] VITALS: BP 130/80; PULSE 84; RESP 20; TEMP 36.9; O2SAT 97; BMI 24.0
--- OUTSIDE RECORDS SUMMARY | 2024-09-06 15:12 | XMS_ITS | Clinical Summary ---
Author Organization [facility] [address] [place] [address] Address [address] [place], [place] Phone Care Team Providers Care Manager Cash Name Role Phone Ayla García MD Primary Care Provider [phone] Encounters Date Type Department Care Team Description 08/07/2024 11:01 AM EST - 08/07/2024 11:59 PM EST Hospital Encounter Radiology Department - [address] [phone] Encounter for screening mammogram for breast cancer Discharge Disposition: Home or Self Care from Last 3 Months Surgical History Surgery Date Site/Laterality Comments TONSILLECTOMY PROCEDURE: HISTORICAL TONSILLECTOMY OVARIAN CYST REMOVAL PROCEDURE: [place] OVARIAN CYSTECTOMY UNI/BI; COMMENT: 15 yrs ago, ruptured ovarian cyst OTHER SURGICAL HISTORY 05/07/2009 Bilateral PROCEDURE: ---- OTHER ----; COMMENT: endovenous laser ablation legs COLPOSCOPY 08/20/2011 PROCEDURE: [place] COLPOSCOPY ENTIRE VAGINA W/CERVIX IF PRESENT COLONOSCOPY 09/04/2012 PROCEDURE: HISTORICAL COLONOSCOPY OTHER SURGICAL HISTORY 06/09/2013 PROCEDURE: MAMMOGRAM OTHER SURGICAL HISTORY 08/12/2016 Right PROCEDURE: [place] OSTEOT W/WO LNGTH SHRT/CORRJ METAR XCP 1ST [...] 09/26/2024 10:55 AM EST Appointment Radiology Department [address] [phone] Health Maintenance Due Date Last Done Comments [...] recommended for the Right Breast. Mammo Location: [facility], [address] [place] [address], [address], . -------- FINAL REPORT -------- Dictated By: Gladis Queen Dictated Date: 08/09/2024 08:51 ET Assigned Physician: Gladis Queen Reviewed and Electronically Signed By: Gladis Queen Signed Date: 08/09/2024 08:56 ET Workstation ID: [id number] Transcribed By: Self Edit Transcribed Date: 08/09/2024 [...] recommended for the Right Breast. Mammo Location: [facility], [address] [place] [address], [address], . -------- FINAL REPORT -------- Dictated By: Gladis Queen Dictated Date: 08/09/2024 08:51 ET Assigned Physician: Gladis Queen Reviewed and Electronically Signed By: Gladis Queen Signed Date: 08/09/2024 08:56 ET Workstation ID: [id number] Transcribed By: Self Edit Transcribed Date: 08/09/2024 08:51 ET Ayla García MD IMG BI PROCEDURES * Pap smear (02/15/2019) 02/15/2019 Narrative HISTORICAL TESTING LAB RESULTING AGENCY - 02/21/2019 9:00 AM EDT [id number] THINPREP PAP, IMAGED: NEGATIVE FOR SQUAMOUS INTRAEPITHELIAL [...] Z01.419] Alanis Mata DO LAB CYTOLOGY [facility] HISTORICAL TESTING LAB RESULTING AGENCY from Last 3 Months or Most Recently Relevant to Health Maintenance Care Teams Manager Cash Relationship Specialty Start Date End Date Ayla García MD PCP - General Internal Medicine 09/19/12
--- OUTSIDE RECORDS SUMMARY | 2024-09-06 15:13 | XMS_ITS | Encounter Summary ---
Author Organization [facility] Address [address] [place] [address] Care Team Providers Care Unhairer Name Role Phone Ayla García MD Primary Care Provider [phone] Reason for Visit * Imaging (Routine) - Closed Specialty Diagnoses / Procedures Referred By Vladimir pate Referred To Contact Radiology Diagnoses Encounter for screening mammogram for breast cancer Procedures MG Mammo Digital Screening w Mitul bilat MG Mammo Digital Screening w Mitul bilat Ayla García MD [address] [place] [address] [facility] Referral ID Status Reason Start Date Expiration Date Visits Re quested Visits Authorized [id number] Closed 05/24/2024 05/24/2025 1 1 Encounter Details Date Type Department Care Team (Latest Contact Info) Description 08/07/2024 11:01 AM EST - 08/07/2024 11:59 PM EST Hospital Encounter Radiology Department - [address] [phone] Encounter for screening mammogram for breast cancer [...] Upcoming Encounters Date Type Department Care Team ([facility] st Contact Info) Description 09/26/2024 10:55 AM EST Appointment Radiology Department - [address] [phone] documented as of this encounter Procedures Procedure [...] recommended for the Right Breast. Mammo Location: [facility], [address] [place] [address], [address], . -------- FINAL REPORT -------- Dictated By: Gladis Queen Dictated Date: 08/09/2024 08:51 ET Assigned Physician: Gladis Queen Reviewed and Electronically Signed By: Gladis Queen Signed Date: 08/09/2024 08:56 ET Workstation ID: [id number] Transcribed By: Self Edit Transcribed Date: 08/09/2024 [...] recommended for the Right Breast. Mammo Location: [facility], [address] [place] [address], [address], . -------- FINAL REPORT -------- Dictated By: Gladis Queen Dictated Date: 08/09/2024 08:51 ET Assigned Physician: Gladis Queen Reviewed and Electronically Signed By: Gladis Queen Signed Date: 08/09/2024 08:56 ET Workstation ID: [id number] Transcribed By: Self Edit Transcribed Date: 08/09/2024 08:51 ET Ayla García MD IMG BI PROCEDURES documented in this encounter Visit Diagnoses Diagnosis Encounter for screening mammogram for breast cancer documented in this encounter Care Teams Unhairer Relationship Specialty Start Date End Date Ayla García MD PCP - General Internal Medicine 09/19/12 documented as of this encounter
== END 2024-09-06 12:44 | disposition home or self-care (01) ==
PROVIDERS: PCP Internal Medicine; Visit Provider Internal Medicine
DX: N83.202 Unspecified ovarian cyst, left side (principal); Z00.00 Encounter for general adult medical examination without abnormal findings; E55.9 Vitamin D deficiency, unspecified; Z98.890 Other specified postprocedural states

== ENCOUNTER 2024-09-13 09:21 | Outpatient (REF) | payer BC, SELFPAY ==
--- OUTSIDE RECORDS SUMMARY | 2024-09-13 09:25 | XMS_ITS | Clinical Summary ---
Author Organization [facility] [address] [place] [address] Address [address] [place], [place] Phone Care Team Providers Care Heel Dipper Name Role Phone Ayla García MD Primary Care Provider [phone] Encounters Date Type Department Care Team Description 08/07/2024 11:01 AM EST - 08/07/2024 11:59 PM EST Hospital Encounter Radiology Department - [address] [phone] Encounter for screening mammogram for breast cancer Discharge Disposition: Home or Self Care from Last 3 Months Surgical History Surgery Date Site/Laterality Comments TONSILLECTOMY PROCEDURE: HISTORICAL TONSILLECTOMY OVARIAN CYST REMOVAL PROCEDURE: [place] OVARIAN CYSTECTOMY UNI/BI; COMMENT: 15 yrs ago, ruptured ovarian cyst OTHER SURGICAL HISTORY 05/07/2009 Bilateral PROCEDURE: ---- OTHER ----; COMMENT: endovenous laser ablation legs COLPOSCOPY 08/20/2011 PROCEDURE: MO COLPOSCOPY ENTIRE VAGINA W/CERVIX IF PRESENT COLONOSCOPY 09/04/2012 PROCEDURE: HISTORICAL COLONOSCOPY OTHER SURGICAL HISTORY 06/09/2013 PROCEDURE: MAMMOGRAM OTHER SURGICAL HISTORY 08/12/2016 Right PROCEDURE: MO OSTEOT W/WO LNGTH SHRT/CORRJ METAR XCP 1ST [...] 09/26/2024 10:55 AM EST Appointment Radiology Department [address] [phone] Health Maintenance Due Date Last Done Comments [...] recommended for the Right Breast. Mammo Location: [facility], [address] [place] [address], [address], . -------- FINAL REPORT -------- Dictated By: Gladis Queen Dictated Date: 08/09/2024 08:51 ET Assigned Physician: Gladis Queen Reviewed and Electronically Signed By: Gladis Queen Signed Date: 08/09/2024 08:56 ET Workstation ID: [id number] Transcribed By: Self Edit Transcribed Date: 08/09/2024 [...] recommended for the Right Breast. Mammo Location: [facility], [address] [place] [address], [address], . -------- FINAL REPORT -------- Dictated By: Gladis Queen Dictated Date: 08/09/2024 08:51 ET Assigned Physician: Gladis Queen Reviewed and Electronically Signed By: Gladis Queen Signed Date: 08/09/2024 08:56 ET Workstation ID: [id number] Transcribed By: Self Edit Transcribed Date: 08/09/2024 08:51 ET Ayla García MD IMG BI PROCEDURES * Pap smear (02/15/2019) 02/15/2019 Narrative HISTORICAL TESTING LAB RESULTING AGENCY - 02/21/2019 9:00 AM EDT [id number] THINPREP PAP, IMAGED: NEGATIVE FOR SQUAMOUS INTRAEPITHELIAL [...] Z01.419] Alanis Mata DO LAB CYTOLOGY [facility] HISTORICAL TESTING LAB RESULTING AGENCY from Last 3 Months or Most Recently Relevant to Health Maintenance Care Teams Heel Dipper Relationship Specialty Start Date End Date Ayla García MD PCP - General Internal Medicine 09/19/12
[2024-09-13 12:58] LABS: MANUAL DIFF FLAG NO
[2024-09-13 13:00] LABS: Basophils Percent Auto 0.8 % (0-2); Eosinophils Absolute Auto 0.2 X10*3/uL (0.0-0.4); Hematocrit 31.8 % (37.0-47.0); Hemoglobin 10.6 g/dl (12.0-16.0); Imm Gran Abs Auto 0.01 X10*3/uL (0.00-0.03); Imm Gran Pct Auto 0.2 % (0.0-0.4); Lymphocytes Absolute Auto 1.2 X10*3/uL (1.2-4.9); Mean Corpuscular HGB Conc 33.3 g/dl (31.0-35.0); Mean Corpuscular Hemoglobin 28.9 pg (27.0-33.0); Mean Corpuscular Volume 86.6 fL (80.0-98.0); Mean Platelet Volume 10.5 fL (9.4-12.3); Monocytes Absolute Auto 0.4 X10*3/uL (0.1-1.2); Monocytes Percent Auto 8.4 % (2-11); Neutrophils Absolute Auto 3.1 x10*3/uL (2.0-8.3); Neutrophils Percent Auto 62.6 % (45-73); Platelet Count 200 X10*3/uL (160-400); Red Blood Count 3.67 X10*6/uL (4.20-5.50)
[2024-09-13 13:23] LABS: Alanine Aminotransferase 26 U/L (0-31); Alkaline Phosphatase 67 U/L (39-117); Anion Gap 9 (12-20); Aspartate Amino Transferase 25 U/L (5-31); Bilirubin Total 0.9 mg/dL (0.0-1.0); Blood Urea Nitrogen 16 mg/dL (9-16); Calcium 8.8 mg/dL (8.4-10.2); Carbon Dioxide 22 mmol/L (22-29); Chloride 109 mmol/L (96-108); Cholesterol 122 mg/dL (<200); Estimated Glomerular Filt Rate > 60; Glucose Fasting 84 mg/dL (60-99); HDL Cholesterol 60 mg/dL (>40); Iron 259 mcg/dL (30-160); LDL Cholesterol Calculated 55 mg/dL (<100); Percent Iron Saturation 91 % (15-50); Potassium 4.3 mmol/L (3.3-5.1); Sodium 136 mmol/L (135-145); Total Iron Binding Capacity 284 mcg/dL (228-428); Total Protein 7.1 g/dL (6.5-8.0); Triglycerides 38 mg/dL (<150); Unsaturated Iron Binding < 25 ug/dL
[2024-09-13 13:38] LABS: TSH reflex Free T4 1.38 uIU/mL (0.32-4.0); Vitamin D 25-OH Total 38.3 ng/mL (>30)
[2024-09-13 13:50] LABS: Folate 7.2 ng/mL (> or = 4.0); Vitamin B12 318 pg/mL (200-900)
== END 2024-09-13 09:22 | disposition home or self-care (01) ==
LOC: HO.HMGCLDS 09:21
PROVIDERS: PCP Internal Medicine; Visit Provider Internal Medicine
DX: Z00.00 Encounter for general adult medical examination without abnormal findings (principal); E55.9 Vitamin D deficiency, unspecified; D64.9 Anemia, unspecified
CPT/HCPCS: 36415; 80053; 80061; 82306; 82607; 82746; 83540; 84443; 85025

== ENCOUNTER 2024-09-17 09:33 | Outpatient (REF) | payer BC, SELFPAY ==
--- OUTSIDE RECORDS SUMMARY | 2024-09-17 10:15 | XMS_ITS | Clinical Summary ---
Author Organization [facility] [address] [place] [address] Address [address] [place], [place] Phone Care Team Providers Care Improvement Analyst Name Role Phone Ayla García MD Primary Care Provider [phone] Encounters Date Type Department Care Team Description 08/07/2024 11:01 AM EST - 08/07/2024 11:59 PM EST Hospital Encounter Radiology Department - [address] [phone] Encounter for screening mammogram for breast cancer Discharge Disposition: Home or Self Care from Last 3 Months Surgical History Surgery Date Site/Laterality Comments TONSILLECTOMY PROCEDURE: HISTORICAL TONSILLECTOMY OVARIAN CYST REMOVAL PROCEDURE: MS OVARIAN CYSTECTOMY UNI/BI; COMMENT: 15 yrs ago, ruptured ovarian cyst OTHER SURGICAL HISTORY 05/07/2009 Bilateral PROCEDURE: ---- OTHER ----; COMMENT: endovenous laser ablation legs COLPOSCOPY 08/20/2011 PROCEDURE: MS COLPOSCOPY ENTIRE VAGINA W/CERVIX IF PRESENT COLONOSCOPY 09/04/2012 PROCEDURE: HISTORICAL COLONOSCOPY OTHER SURGICAL HISTORY 06/09/2013 PROCEDURE: MAMMOGRAM OTHER SURGICAL HISTORY 08/12/2016 Right PROCEDURE: MS OSTEOT W/WO LNGTH SHRT/CORRJ METAR XCP 1ST [...] drink = 0.6 oz pur e alcohol) Comments Unknown Sex and Gender Information Value Date Recorded Sex Assigned at Not on file Legal Sex Female 8:26 PM EST Gender Identity Not on file Sexual Orientation Not on file Obstetrics History Para Term [...] 09/26/2024 10:55 AM EST Appointment Radiology Department [address] [phone] Health Maintenance Due Date Last Done Comments DTaP,Tdap,and Td Vaccines (2 - Td or Tdap) 08/09/2016 07/12/2016 Pneumococcal Vaccine: 50+ Years (2 of 2 - PCV) 05/03/2021 05/03/2020 Cervical Cancer Screening: Pap Smear 02/15/2022 02/15/2019 Colorectal Cancer Screening: Colonoscopy 07/17/2022 Depression Screening 07/17/2022 HIV Screening 07/17/2022 Hepatitis C Screening 07/17/2022 Social Influencers of Health Screening 07/17/2022 Breast Cancer Screening 08/07/2026 08/07/20 24, 03/24/2023, [...] patient's age to complete this topic Meningococcal B Vacine Aged Out No lo nger eligible based on patient's age to complete [...] recommended for the Right Breast. Mammo Location: [facility], [address] [place] [address], [address], . -------- FINAL REPORT -------- Dictated By: Gladis Queen Dictated Date: 08/09/2024 08:51 ET Assigned Physician: Gladis Queen Reviewed and Electronically Signed By: Gladis Queen Signed Date: 08/09/2024 08:56 ET Workstation ID: [id number] Transcribed By: Self Edit Transcribed Date: 08/09/2024 [...] recommended for the Right Breast. Mammo Location: [facility], [address] [place] [address], [address], . -------- FINAL REPORT -------- Dictated By: Gladis Queen Dictated Date: 08/09/2024 08:51 ET Assigned Physician: Gladis Queen Reviewed and Electronically Signed By: Gladis Queen Signed Date: 08/09/2024 08:56 ET Workstation ID: [id number] Transcribed By: Self Edit Transcribed Date: 08/09/2024 08:51 ET us Ayla García MD IMG BI PROCEDURES Final Result * Pap smear (02/15/2019) 02/15/2019 Narrative HISTORICAL TESTING LAB RESULTING AGENCY - 02/21/2019 9:00 AM EDT [id number] THINPREP PAP, IMAGED: NEGATIVE FOR SQUAMOUS INTRAEPITHELIAL LESION AND MALIGNANCY . ATROPHY. KAYLAN HERRERA , CT(ASCP) (CASE ELECTRONICALLY SIGNED 02 19 2019) RESULT OF APTIMA HIGH RISK HPV ASSAY: HIGH RISK HPV: ??NEGATIVE (SEROTYPES 16,18,31,33,35,39,45,51,52,56,58,59,66,68) COMPLETED ON 2019-02-19 ADEQUACY: SATISFACTORY ENDOCERVICAL/TRANSFORMATION ZONE COMPONENT PRESENT. SOURCE: THINPREP PAP HPV ANY DX: ??REFLEX 16 AND 18, CERVICAL, IMAGED CLINICAL INFORMATION: HPV ANY DIAGNOSIS. MENOPAUSE, PAP HX NEG, LP 01/04/14 NEG [Z12.4, Z01.419] us Alanis Mata DO LAB CYTOLOGY ORDERABLES Fin al Result HISTORICAL TESTING LAB RESULTING AGENCY from Last 3 Months or Most Recently Relevant to Health Maintenance Insurance [facility] [address] [place] [address] Care Teams Improvement Analyst Relationship Specialty Start Date End Date Ayla García MD PCP - General Internal Medicine 09/19/12
[2024-09-19 10:33] LABS: Prot Elec - Albumin 4.1 g/dL (3.8-4.8); Prot Elec - Alpha1 0.3 g/dL (0.2-0.3); Prot Elec - Alpha2 0.6 g/dL (0.5-0.9); Prot Elec - Beta 1 0.4 g/dL (0.4-0.6); Prot Elec - Beta 2 0.3 g/dL (0.2-0.5); Prot Elec - Gamma 1.1 g/dL (0.8-1.7); Prot Elec - Total Protein 6.6 g/dL (6.1-8.1)
[2024-09-19 15:18] LABS: IgA 167 mg/dL (70-320); IgG 1267 mg/dL (600-1540); IgM 74 mg/dL (50-300)
== END 2024-09-17 09:34 | disposition home or self-care (01) ==
LOC: HO.HMGCLDS 09:33
PROVIDERS: PCP Internal Medicine; Visit Provider Internal Medicine
DX: D64.9 Anemia, unspecified (principal)
CPT/HCPCS: 36415; 82784; 84165; 86334

== ENCOUNTER 2024-10-18 10:00 | Outpatient (RCR) | payer BC, SELFPAY ==
--- NOTE | 2024-11-21 14:25 | MHC.PT.DC ---
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 Date of Surgery: 12/14/23, 02/01/24, 03/14/24, 08/29/24 Date of Evaluation: 09/17/24 Date of Discharge: 11/21/24 Treatments to Date: 8 Cancellations to Date: 0 No Shows to Date: 0 Discharge Status: Achieved Goals Improved Function Independent with HEP Patient Elected to Stop Recommend MD Follow-up Discharge Summary: From the last note on 10/22: Patient is here with increased redness, skin is hot to the touch, pain of 9/10 that is burning, increased swelling at the shoulder and lateral aspect of the neck. This has been ongoing for 4 days. I am concerned of infection so I tiger texted Pepe-Lucia to see if the patient should be seen today. PA stated for patient to call to get an appointment with Dr. Patterson this week and symptoms get worse to go to ED. Patient did not return for further tx. DC to [facility]. Electronically signed by: Мария Denney PT Please sign and return to therapist. Thank you for your referral.
== END 2024-11-21 14:25 | disposition home or self-care (01) ==
LOC: HO.PTCHIC 10:00
PROVIDERS: PCP Internal Medicine; Visit Provider Physician Assistant
DX: Z98.890 Other specified postprocedural states (principal)
CPT/HCPCS: 97110; 97162

== ENCOUNTER 2024-10-29 09:27 | Outpatient (AMB) | payer BC, SELFPAY ==
--- NOTE | 2024-10-29 09:35 | A.OFFVIS_ITS ---
Intake Visit Reasons: PO - Right Shoulder Debridement 08/27/24 Intake Note: Caron is a 63 year old right hand dominant female who presents today for a post operative appointment about 2 months s/p Right Shoulder Arthroscopic Debridement 08/27/24. Right Shoulder surgical hx: -Right Shoulder /Acromioplasty 03/14/24 -Arthroscopic debridement of right shoulder 01/30/24 -Right RTC repair 12/14/23 Allergies Penicillins Allergy (Severe, Verified 10/29/24 09:35) trouble breathing latex Allergy (Verified 10/29/24 09:35) rash HPI HPI PO - Right Shoulder Debridement 08/27/24: Details: Caron is a 63 year old right hand dominant female who presents today for a post operative appointment about 2 months s/p Right Shoulder Arthroscopic Debridement 08/27/24. Right Shoulder surgical hx: -Right Shoulder /Acromioplasty 03/14/24 -Arthroscopic debridement of right shoulder 01/30/24 -Right RTC repair 12/14/23 She has been doing okay. She recently stopped antibiotics and has been more act [place] and has had some intermittent pain in her right shoulder. [facility] Medical History Normal colonoscopy Mammogram normal Normal Pap smear Annual physical exam Varicose veins of both lower extremities Surgical History Status post left rotator cuff repair (12/14/23) Status post cervical polyp removal S/P foot surgery, right History of carpal tunnel surgery of right wrist History of carpal tunnel surgery of left wrist Family History Father Heart problem Mother Hypertension Stroke Social History Housing: House Patient Tobacco Use Status: Never used Tobacco e-Cigarette/Vaping Use: Never Used service: No Current occupational status: employed 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 There is mild erythema over the prior incisions but minimal swelling. Assessment & Plan Assessment & Plan (1) Seroma of skin or subcutaneous tissue after non-dermatologic procedure: Code(s): L76.34 - Postprocedural seroma of skin and subcutaneous tissue following other procedure Category: Medical Plan: Patient is status post infection after rotator cuff repair. This is been a long and difficult process for her as her infection seems to be refractory to antibiotics. There is no evidence of ongoing infection however. She has been treated with surgery and antibiotics and I suspect that she has some increased pain from increased activity. However I would like to see her back in 2 weeks. She can return to work on a part-time basis with no overhead lifting. (2) Status post right rotator cuff repair: Comment: MSSA Code(s): Z98.890 - Other specified postprocedural states Category: Surgical Plan: Coding Level of Care Code Est Pt Level 3 (96434) Diagnoses Seroma of skin or subcutaneous tissue after non-dermatologic procedure L76.34 Status post right rotator cuff repair Z98.890
== END 2024-10-29 09:58 | disposition home or self-care (01) ==
LOC: HO.HOS 09:28
PROVIDERS: PCP Internal Medicine; Visit Provider Orthopaedic Surgery
DX: L76.34 Postprocedural seroma of skin and subcutaneous tissue following other procedure (principal); Z98.890 Other specified postprocedural states
CPT/HCPCS: 99024

== ENCOUNTER 2024-11-12 09:15 | Outpatient (REF) | payer BC, SELFPAY ==
--- NOTE | ~2024-11-12 | XR_ITS ---
EXAMINATION: XR SHOULDER 2 OR MORE VIEWS RIGHT HISTORY: M25.519 - Pain in unspecified shoulder COMPARISON: Comparison is made with the prior examination dated 03/31/2023. FINDINGS: Three views of the right shoulder are submitted. Osseous mineralization is normal. There are suture anchors in the humeral head. There is no fracture or dislocation. Glenohumeral joint is maintained. Again seen is moderate to severe osteoarthritis of the AC joint, with joint space narrowing and osteophyte formation. The soft tissues are unremarkable. 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 Electronically signed by: Valdemar Chao MD 11/12/2024 03:31 PM EDT
--- OUTSIDE RECORDS SUMMARY | 2024-11-12 11:00 | XMS_ITS | Encounter Summary ---
Author Organization [facility] Address [address] [place] [address] Care Team Providers Care Surgical Nurse Practitioner Name Role Phone Cande Morgan DO Primary Care Pro vider Unavailable Ayla García MD Primary Care Provider Unavaila ble Encounter Details Date Type Department Care Team Description 08/12/2016 [facility] Medical Records [address] [place] [address] Shanon Nina DPM Social History Tobacco Use [...] on filedocumented in this encounter Care Teams Surgical Nurse Practitioner Relationship Specialty Start Date End Date Cande Morgan DO PCP - General Internal Medicine 07/09/14 08/16/21 Ayla García MD PCP - General Internal Medicine 08/17/21 documented as of this encounter
--- OUTSIDE RECORDS SUMMARY | 2024-11-12 11:00 | XMS_ITS | Encounter Summary ---
Author Organization [facility] Address [address] [place] [address] Care Team Providers Care Steak Tenderizer Machine Name Role Phone Cande Morgan DO Primary Care Pro vider Unavailable Ayla García MD Primary Care Provider Unavaila ble Encounter Details Date Type Department Care Team Description 02/23/2019 Orders Only Medical Records [address] [place] [address] Abstract, Provider Pelvic pain Social History Tobacco [...] pain documented in this encounter Care Teams Steak Tenderizer Machine Relationship Specialty Start Date End Date Cande Morgan DO PCP - General Internal Medicine 07/09/14 08/16/21 Ayla García MD PCP - General Internal Medicine 08/17/21 documented as of this encounter
--- OUTSIDE RECORDS SUMMARY | 2024-11-12 11:00 | XMS_ITS | Clinical Summary ---
Author Organization [facility] [address] [facility] Address [address] [place], [place] Phone Care Team Providers Care Senior Windows Systems Administrator Name Role Phone Ayla García MD Primary Care Provider [phone] Encounters Date Type Department Care Team Description 10/09/2024 Telephone Orthopedics - [address] [phone] Master Jones MD 09/26/2024 10:44 AM EST - 09/26/2024 11:59 PM EST Hospital Encounter Radiology Department - [address] [phone] Abnormal mammogram Discharge Disposition: Home or Self Care from Last 3 Months Surgical History Surgery Date Site/Laterality Comments TONSILLECTOMY PROCEDURE: HISTORICAL TONSILLECTOMY OVARIAN CYST REMOVAL PROCEDURE: UT OVARIAN CYSTECTOMY UNI/BI; COMMENT: 15 yrs ago, ruptured ovarian cyst OTHER SURGICAL HISTORY 05/07/2009 Bilateral PROCEDURE: ---- OTHER ----; COMMENT: endovenous laser ablation legs COLPOSCOPY 08/20/2011 PROCEDURE: UT COLPOSCOPY ENTIRE VAGINA W/CERVIX IF PRESENT COLONOSCOPY 09/04/2012 PROCEDURE: HISTORICAL COLONOSCOPY OTHER SURGICAL HISTORY 06/09/2013 PROCEDURE: MAMMOGRAM OTHER SURGICAL HISTORY 08/12/2016 Right PROCEDURE: UT OSTEOT W/WO LNGTH SHRT/CORRJ METAR XCP 1ST [...] Labor Labor/2nd/3rd Weight Sex Type Anes PTL Christnie A1 A5 Name Clin Term Term Last [...] 10:55 AM EDT Appointment Radiology Department - [address] [address] Health Maintenance Due Date Last Done Comments [...] Signed Date: 09/26/2024 11:07 ET Workstation ID: [id number] Transcribed By: Self Edit Transcribed Date: 09/26/2024 [...] Signed Date: 09/26/2024 11:07 ET Workstation ID: [id number] Transcribed By: Self Edit Transcribed Date: 09/26/2024 [...] recommended for the Right Breast. Mammo Location: [facility], [address] [place] [address], [address], . -------- FINAL REPORT -------- Dictated By: Gladis Queen Dictated Date: 08/09/2024 08:51 ET Assigned Physician: Gladis Queen Reviewed and Electronically Signed By: Gladis Queen Signed Date: 08/09/2024 08:56 ET Workstation ID: [id number] Transcribed By: Self Edit Transcribed Date: 08/09/2024 [...] recommended for the Right Breast. Mammo Location: [facility], [address] [place] [address], [address], . -------- FINAL REPORT -------- Dictated By: Gladis Queen Dictated Date: 08/09/2024 08:51 ET Assigned Physician: Gladis Queen Reviewed and Electronically Signed By: Gladis Queen Signed Date: 08/09/2024 08:56 ET Workstation ID: [id number] Transcribed By: Self Edit Transcribed Date: 08/09/2024 08:51 ET us Ayla García MD IMG BI PROCEDURES Final Result * Pap smear (02/15/2019) 02/15/2019 Narrative HISTORICAL TESTING LAB RESULTING AGENCY - 02/21/2019 9:00 AM EDT [id number] THINPREP PAP, IMAGED: NEGATIVE FOR SQUAMOUS INTRAEPITHELIAL [...] Most Recently Relevant to Health Maintenance Insurance [facility] Care Teams Senior Windows Systems Administrator Relationship Specialty Start Date End Date Ayla García MD [address] [place] [address] PCP - General Internal Medicine 09/19/12
--- OUTSIDE RECORDS SUMMARY | 2024-11-12 11:00 | XMS_ITS | Encounter Summary ---
Author Organization [facility] Address [address] [place] [address] Care Team Providers Care Enrollment Advisor Name Role Phone Cande Morgan DO Primary Care Pro vider Unavailable Ayla García MD Primary Care Provider Unavaila ble Encounter Details Date Type Department Care Team Description 04/27/2021 Building Architectural Designer Report External Ayal García MD Social History Tobacco Use Types Packs/Day Years [...] on filedocumented in this encounter Care Teams Enrollment Advisor Relationship Specialty Start Date End Date Cande Morgan DO PCP - General Internal Medicine 07/09/14 08/16/21 Ayla García MD PCP - General Internal Medicine 08/17/21 documented as of this encounter
--- OUTSIDE RECORDS SUMMARY | 2024-11-12 11:00 | XMS_ITS | Clinical Summary ---
Author Organization [facility] Address [address] [place] [address] Care Team Providers Care Paint Spray Inspector Name Role Phone Ayla García MD Primary [...] HEPATITIS C SCREENING Completed 10/01/2014 Care Teams Paint Spray Inspector Relationship Specialty Start Date End Date Ayla García MD PCP - General Internal Medicine 08/17/21
--- OUTSIDE RECORDS SUMMARY | 2024-11-12 11:00 | XMS_ITS | Encounter Summary ---
Author Organization [facility] Address [address] [place] [address] Care Team Providers Care Application Infrastructure Engineer Name Role Phone Cande Morgan DO Primary Care Pro vider Unavailable Ayla García MD Primary Care Provider Unavaila ble Reason for Visit * Reason Onset Date Comments medication problems 11/21/2014 Encounter Details Date Type Department Care Team Description 11/21/2014 Telephone Adult Medicine [address] [address] Cande Morgan DO medication problems Social History [...] KAYLA Pharmacist Name: N/A Pharmacy Phone # [phone] Name of the medication Imitrex 50 mg [...] on filedocumented in this encounter Care Teams Application Infrastructure Engineer Relationship Specialty Start Date End Date Cande Morgan DO PCP - General Internal Medicine 07/09/14 08/16/21 Ayla García MD PCP - General Internal Medicine 08/17/21 documented as of this encounter
--- OUTSIDE RECORDS SUMMARY | 2024-11-12 11:00 | XMS_ITS | Encounter Summary ---
Author Organization [facility] Address [address] [place] [address] Care Team Providers Care Backwinder Name Role Phone Ayla García MD Primary Care Provider Unavaila ble Reason for Visit * Reason Onset Date Comments APPOINTMENT 09/16/2021 Encounter Details Date Type Department Care Team Description 09/16/2021 Telephone Vascular Surgery - [place] [address] [place] [phone] Angelita Lomas PA-C [address] [address] APPOINTMENT Social History Tobacco Use [...] on filedocumented in this encounter Care Teams Backwinder Relationship Specialty Start Date End Date Ayla García MD PCP - General Internal Medicine 08/17/21 documented as of this encounter
--- OUTSIDE RECORDS SUMMARY | 2024-11-12 11:00 | XMS_ITS | Encounter Summary ---
Author Organization [facility] Address [address] [place] [address] Care Team Providers Care Veterinary Microbiologist Name Role Phone Cande Morgan DO Primary Care Pro vider Unavailable Ayla García MD Primary Care Provider Unavaila ble Encounter Details Date Type Department Care Team Description 04/22/2020 Orders Only Adult Medicine [address] [address] Cande Morgan DO Elevated LFTs (Primary Dx) [...] chemistry documented in this encounter Care Teams Veterinary Microbiologist Relationship Specialty Start Date End Date Cande Morgan DO PCP - General Internal Medicine 07/09/14 08/16/21 Ayla García MD PCP - General Internal Medicine 08/17/21 documented as of this encounter
--- OUTSIDE RECORDS SUMMARY | 2024-11-12 11:00 | XMS_ITS | Encounter Summary ---
Author Organization [facility] Address [address] [place] [address] Care Team Providers Care Applications Support Specialist Name Role Phone Cande Morgan DO Primary Care Pro vider Unavailable Ayla García MD Primary Care Provider Unavaila ble Reason for Visit * Reason Onset Date Comments Error 05/23/2020 Encounter Details Date Type Department Care Team Description 05/23/2020 Telephone Vascular Surgery - [address] [address] Stephen Mulligan MD [address] [address] Error Social History Tobacco Use Types Packs/Day Years [...] on filedocumented in this encounter Care Teams Applications Support Specialist Relationship Specialty Start Date End Date Cande Morgan DO PCP - General Internal Medicine 07/09/14 08/16/21 Ayla García MD PCP - General Internal Medicine 08/17/21 documented as of this encounter
--- OUTSIDE RECORDS SUMMARY | 2024-11-12 11:00 | XMS_ITS | Encounter Summary ---
Author Organization [facility] Address [address] [place] [address] Care Team Providers Care Technical Publications Writer Name Role Phone Cande Morgan DO Primary Care Pro vider Unavailable Ayla García MD Primary Care Provider Unavaila ble Reason for Visit * Reason Onset Date Comments medication problems 04/26/2017 sumatriptan (IMITREX) 50 MG tablet Encounter Details Date Type Department Care Team Description 04/26/2017 Telephone Adult Medicine [address] [address] Cande Morgan DO medication problems (sumatriptan (IMITREX) 50 MG tablet) Social History Tobacco Use Types Packs/Day Years [...] Telephone Encounter - Cande Lawson DO - 04/26/2017 1:44 PM EDT Ordered 5 refills on 02/21 and reordered today * Telephone Encounter - Karly Alva M.A. - 04/26/2017 1:07 PM EDT Lab Results Component Value Date NA 141 03/03/2017 K 4.8 03/03/2017 CO2 26.5 03/03/2017 CL 104 03/03/2017 BUN 14 03/03/2017 CREAT 0.6 03/03/2017 GLU 89 03/03/2017 CA 9.3 03/03/2017 GFR > 60 03/03/2017 Last ov with pcp 02/2017 * Telephone Encounter - Carolina Jin - 04/26/2017 11:20 AM EDT Who is calling? Other: Name of caller: Nancy Relationship to patient: Daughter Name of the medication sumatriptan (IMITREX) 50 MG tablet What is the specific problem or interaction? Patient's daughter states she called Steve and they said there are no refills left on this medication. Requesting a new script be sent to the pharmacy. If the patient is having a problem with taking the med - how long has the problem been going on? N/A documented in this encounter Plan of Treatment Not on file documented as of this encounter Visit Diagnoses Not on filedocumented in this encounter Care Teams Technical Publications Writer Relationship Specialty Start Date End Date Cande Morgan DO PCP - General Internal Medicine 07/09/14 08/16/21 Ayla García MD PCP - General Internal Medicine 08/17/21 documented as of this encounter
--- OUTSIDE RECORDS SUMMARY | 2024-11-12 11:00 | XMS_ITS | Encounter Summary ---
Author Organization [facility] Address [address] [place] [address] Care Team Providers Care Grade School Teacher Name Role Phone Cande Morgan DO Primary Care Pro vider Unavailable Ayla García MD Primary Care Provider Unavaila ble Encounter Details Date Type Department Care Team Description 07/28/2016 [facility] Medical Records [address] [place] [address] Abstract, Provider Social History Tobacco Use Types [...] on filedocumented in this encounter Care Teams Grade School Teacher Relationship Specialty Start Date End Date Cande Morgan DO PCP - General Internal Medicine 07/09/14 08/16/21 Ayla García MD PCP - General Internal Medicine 08/17/21 documented as of this encounter
--- OUTSIDE RECORDS SUMMARY | 2024-11-12 11:00 | XMS_ITS | Encounter Summary ---
Author Organization [facility] Address [address] [place] [address] Care Team Providers Care Unit Secy Name Role Phone Cande Morgan DO Primary Care Pro vider Unavailable Ayla García MD Primary Care Provider Unavaila ble Reason for Visit * Reason Onset Date Comments Pelvic Pain 01/30/2019 Encounter Details Date Type Department Care Team Description 01/30/2019 Telephone OBGYN - [place] [address] Kimberly Simpson MD [address] [place] [address] Pelvic Pain Social History Tobacco Use Types [...] pt verbalized understanding. Pt also requests an science interpreter for exam, advised pt note will be made and one can be requested by telephone. * Telephone Encounter - Elo William - 01/30/2019 11:45 AM EDT Chief Complaint/problem: Pt states pelvic pain 6/7 on a scale of 10 per pt. French speaking, but speaks Danish well enough to understand. How long has the patient had this problem? Pt???s SENIOR QUALITATIVE RESEARCHER provider: Kimberly Simpson M.D. Last menstrual period (LMP) or EDC (due date): N/A documented in this encounter Plan of Treatment Not on file documented as of this encounter Visit Diagnoses Not on filedocumented in this encounter Care Teams Unit Secy Relationship Specialty Start Date End Date Cande Morgan DO PCP - General Internal Medicine 07/09/14 08/16/21 Ayla García MD PCP - General Internal Medicine 08/17/21 documented as of this encounter
--- OUTSIDE RECORDS SUMMARY | 2024-11-12 11:00 | XMS_ITS | Encounter Summary ---
Author Organization [facility] Address [address] [place] [address] Care Team Providers Care Felt Checker Name Role Phone Cande Morgan DO Primary Care Pro vider Unavailable Ayla García MD Primary Care Provider Unavaila ble Encounter Details Date Type Department Care Team Description 06/03/2020 Orders Only Medical Records [address] [place] [address] Stephen Mulligan MD FACS [address] [place] [address] Social History Tobacco Use Types [...] on filedocumented in this encounter Care Teams Felt Checker Relationship Specialty Start Date End Date Cande Morgan DO PCP - General Internal Medicine 07/09/14 08/16/21 Ayla García MD PCP - General Internal Medicine 08/17/21 documented as of this encounter
== END 2024-11-12 09:16 | disposition home or self-care (01) ==
LOC: HO.HOSX 09:15
PROVIDERS: PCP Internal Medicine; Visit Provider Orthopaedic Surgery
DX: M25.511 Pain in right shoulder (principal)
CPT/HCPCS: 73030

== ENCOUNTER 2024-11-12 09:15 | Outpatient (AMB) | payer BC, SELFPAY ==
--- NOTE | 2024-11-12 09:23 | MHC.OFFVIS ---
Vital Signs 11/12/24 09:24 Height 5 ft 7 in Weight 153 lb BMI 24.0 Intake Visit Reasons: OV - Right Shoulder Debridement 08/27/24 Intake Note: Caron is a 63 year old right hand dominant female who presents today for a post operative appointment about 3.5 months s/p Right Shoulder Arthroscopic Debridement 08/27/24. Patient rpeorts that she has been back to work for maximum 6 hour days, this is going well. She has some increased pain at the end of the work day as well as mild tingling at the anterior aspect to the shoulder. She continues to struggle with ROM above shoulder height. Right Shoulder surgical hx: -Right Shoulder /Acromioplasty 03/14/24 -Arthroscopic debridement of right shoulder 01/30/24 -Right RTC repair 12/14/23 Allergies Penicillins Allergy (Severe, Verified 10/29/24 09:35) trouble breathing latex Allergy (Verified 10/29/24 09:35) rash HPI HPI OV - Right Shoulder Debridement 08/27/24: Details: Caron is a 63 year old right hand dominant female who presents today for a post operative appointment about 3.5 months s/p Right Shoulder Arthroscopic Debridement 08/27/24. Patient reports that she has been back to work for maximum 6 hour days, this is going well. She has some increased pain at the end of the work day as well as mild tingling at the anterior aspect to the shoulder. She continues to struggle with ROM above shoulder height. [facility] Medical History Normal colonoscopy Mammogram normal Normal Pap smear Annual physical exam Varicose veins of both lower extremities Surgical History Status post left rotator cuff repair (12/14/23) Status post cervical polyp removal S/P foot surgery, right History of carpal tunnel surgery of right wrist History of carpal tunnel surgery of left wrist Family History Father Heart problem Mother Hypertension Stroke Social History Housing: House Patient Tobacco Use Status: Never used Tobacco e-Cigarette/Vaping Use: Never Used service: No Current occupational status: employed 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 /110/S1 4-/5 empty can Results Reviewed Results Reviewed: I personally reviewed relevant radiographs. RTC anchors in place Assessment & Plan Assessment & Plan (1) Status post right rotator cuff repair: Comment: MSSA Code(s): Z98.890 - Other specified postprocedural states Category: Surgical Plan: S/p r rtc tear c/b infection. At last debridement there was no e/o infection and RTC at least partially intact. She has been off antibiotics for one months and no new changes. Doing ok clinically with weakness but minimal pain. May work as tolerated and f.u 6-8 weeks for re check. Orders: Orders XR shoulder RT min 2V 11/12/24 M25.519 - Pain in unspecified shoulder Coding Level of Care Code Est Pt Level 3 (98708) Diagnoses Status post right rotator cuff repair Z98.890
[2024-11-12 09:24] VITALS: BMI 24.0
--- OUTSIDE RECORDS SUMMARY | 2024-11-12 10:19 | XMS_ITS | Clinical Summary ---
Author Organization [facility] Address [address] [place] [address] Care Team Providers Care Elementary Reading Specialist Name Role Phone Ayla García MD Primary [...] 03/24/2023, 03/08, 03/12/2021, Additional history exists INFLUENZA (Season Ended) 2025 020, 05/14/2017, 05/22/2016 (External Completion of Vaccination per patient) CHOLESTEROL SCREENING 04/20/2025 04/20/2020 , 04/02/2019, 03/19/2018, Additional history exists PNEUMOCOCCAL VACCINE FOR HIG H RISK PATIENTS (#1) 2025 05/03/2020 DTAP/TDAP/TD (2 - Td or Tdap) 07/12/2026 07/12/2016 HEPATITIS C SCREENING Completed 10/01/2014 Care Teams Elementary Reading Specialist Relationship Specialty Start Date End Date Ayla García MD PCP - General Internal Medicine 08/17/21
--- OUTSIDE RECORDS SUMMARY | 2024-11-12 10:19 | XMS_ITS | Encounter Summary ---
Author Organization [facility] Address [address] [place] [address] Care Team Providers Care Casting House Worker Name Role Phone Ayla García MD Primary Care Provider Lucia gilmore Encounter Details Date Type Department Care Team Description 10/21/2021 Release of Information Medical Records [address] [place] [id number] [place] [address] Social History Tobacco Use Types Packs/Day Years [...] on filedocumented in this encounter Care Teams Casting House Worker Relationship Specialty Start Date End Date Ayla García MD PCP - General Internal Medicine 08/17/21 documented as of this encounter
--- OUTSIDE RECORDS SUMMARY | 2024-11-12 10:19 | XMS_ITS | Clinical Summary ---
Author Organization [facility] [address] [facility] Address [address] [place], [place] Phone Care Team Providers Care Commercial Project Manager Name Role Phone Ayla García MD Primary Care Provider [phone] Encounters Date Type Department Care Team Description 10/09/2024 Telephone Orthopedics - [address] [phone] Master Jones MD 09/26/2024 10:44 AM EST - 09/26/2024 11:59 PM EST Hospital Encounter Radiology Department - [address] [phone] Abnormal mammogram Discharge Disposition: Home or Self Care from Last 3 Months Surgical History Surgery Date Site/Laterality Comments TONSILLECTOMY PROCEDURE: HISTORICAL TONSILLECTOMY OVARIAN CYST REMOVAL PROCEDURE: ME OVARIAN CYSTECTOMY UNI/BI; COMMENT: 15 yrs ago, ruptured ovarian cyst OTHER SURGICAL HISTORY 05/07/2009 Bilateral PROCEDURE: ---- OTHER ----; COMMENT: endovenous laser ablation legs COLPOSCOPY 08/20/2011 PROCEDURE: ME COLPOSCOPY ENTIRE VAGINA W/CERVIX IF PRESENT COLONOSCOPY 09/04/2012 PROCEDURE: HISTORICAL COLONOSCOPY OTHER SURGICAL HISTORY 06/09/2013 PROCEDURE: MAMMOGRAM OTHER SURGICAL HISTORY 08/12/2016 Right PROCEDURE: ME OSTEOT W/WO LNGTH SHRT/CORRJ METAR XCP 1ST [...] Care Team (Late st Contact Info) Description 03/26/2025 10:55 AM EDT Appointment Radiology Department - [address] [phone] Health Maintenance Due Date Last Done Comments Pneumococcal Vaccine: 50+ Years (2 of 2 - PCV) 05/03/2021 05/03/2020 Cervical Cancer Screening: Pap Smear 02/15/2022 02/15/2019 Colorectal Cancer Screening: Colonoscopy 07/17/2022 Depression Screening 07/17/2022 HIV Screening 07/17/2022 Hepatitis C Screening 07/17/2022 Social Influencers of Health Screening 07/17/2022 DTaP,Tdap,and Td Vaccines (2 - Td or Tdap) 07/12/2026 07/12/2016 Breast Cancer Screening 08/07/2026 08/07/20 24, 03/24/2023, 03/19/2022, Additional history exists RSV Immunization Adult Patients (1 - 1-dose 75+ series) 12/31/2035 Pneumococcal [...] Procedure Name Priority Date/Time Associated Diagnosis Comments US AXILLA (BREAST) LIMITED RIGHT Routine 09/26/2024 10:55 AM EST Abnormal mammogram MG MAMMO DIGITAL SCREENING W MITUL BILAT Routine 08/07/2024 11:14 AM EST Encounter for screening mammogram for breast cancer PAP SMEAR Routine 02/15/2019 from Last 3 Months or Most Recently Relevant to Health Maintenance Results * US Axilla (Breast) Limited Right (09/26/2024 10:55 AM EST) Anatomical Region Laterality Modality Breast Right Ultrasound 09/26/2024 10:5 7 AM EST Impressions 09/26/2024 11:07 AM EST Probably benign cortical thickening of an axillary node BI-RADS CATEGORY: 3 - PROBABLY BENIGN RECOMMENDATION: Ultrasound of the right breast is recommended in 6 months. ??Targeted right axillary ultrasound in 6 months -------- FINAL REPORT -------- Dictated By: Eliza Isaac Dictated Date: 09/26/2024 10:57 ET Assigned Physician: Eliza Isaac Reviewed and Electronically Signed By: Eliza Isaac Signed Date: 09/26/2024 11:07 ET Workstation ID: [id number] Transcribed By: Self Edit Transcribed Date: 09/26/2024 10:57 ET Narrative 09/26/2024 11:07 AM EST EXAM PERFORMED: RIGHT BREAST TARGETED ULTRASOUND EVALUATION CLINICAL DATA/INDICATIONS: Evaluation for mildly enlarged right axillary nodes. ??Patient states she recently had an infection of the right shoulder COMPARISON: Mammogram from 08/07/2024 TECHNIQUE: Multiple grayscale images of the right axilla were obtained with limited color Doppler flow FINDINGS: Within the right axilla are reniform, ovoid lymph nodes with a fatty central hilum measuring 1.4 x 0.6 x 1.2 cm and 1.5 x 2.2 x 0.7 cm. ??There is borderline cortical thickening measuring 0.4 cm of the 1.5 cm node. ??This is probably benign Procedure Note Eliza Isaac MD - 09/26/2024 EXAM PERFORMED: RIGHT BREAST TARGETED ULTRASOUND EVALUATION CLINICAL DATA/INDICATIONS: Evaluation for mildly enlarged right axillarynodes. Patient states she recently had an infection of the rightshoulder COMPARISON: Mammogram from 08/07/2024 TECHNIQUE: Multiple grayscale images of the right axilla were obtainedwith limited color Doppler flow FINDINGS: Within the right axilla are reniform, ovoid lymph nodes with a fattycentral hilum measuring 1.4 x 0.6 x 1.2 cm and 1.5 x 2.2 x 0.7 cm. Thereis borderline cortical thickening measuring 0.4 cm of the 1.5 cm node.This is probably benign IMPRESSION: Probably benign cortical thickening of an axillary node BI-RADS CATEGORY: 3 - PROBABLY BENIGN RECOMMENDATION: Ultrasound of the right breast is recommended in 6 months. Targeted rightaxillary ultrasound in 6 months -------- FINAL REPORT -------- Dictated By: Eliza Isaac Dictated Date: 09/26/2024 10:57 ET Assigned Physician: Eliza Isaac Reviewed and Electronically Signed By: Eliza Isaac Signed Date: 09/26/2024 11:07 ET Workstation ID: [id number] Transcribed By: Self Edit Transcribed Date: 09/26/2024 10:57 ET us Ayla García MD IMG US PROCEDURES Final Result * (ABNORMAL) MG Mammo Digital Screening w [...] recommended for the Right Breast. Mammo Location: [facility], [address] [place] [address], [address], . -------- FINAL REPORT -------- Dictated By: Gladis Queen Dictated Date: 08/09/2024 08:51 ET Assigned Physician: Gladis Queen Reviewed and Electronically Signed By: Gladis Queen Signed Date: 08/09/2024 08:56 ET Workstation ID: [id number] Transcribed By: Self Edit Transcribed Date: 08/09/2024 [...] recommended for the Right Breast. Mammo Location: [facility], [address] [place] [address], [address], . -------- FINAL REPORT -------- Dictated By: Gladis Queen Dictated Date: 08/09/2024 08:51 ET Assigned Physician: Gladis Queen Reviewed and Electronically Signed By: Gladis Queen Signed Date: 08/09/2024 08:56 ET Workstation ID: [id number] Transcribed By: Self Edit Transcribed Date: 08/09/2024 08:51 ET us Ayla García MD IMG BI PROCEDURES Final Result * Pap smear (02/15/2019) 02/15/2019 Narrative HISTORICAL TESTING LAB RESULTING AGENCY - 02/21/2019 9:00 AM EDT [id number] THINPREP PAP, IMAGED: NEGATIVE FOR SQUAMOUS INTRAEPITHELIAL LESION AND MALIGNANCY . ATROPHY. DINA NELSON(ASCP) (CASE ELECTRONICALLY SIGNED 02 19 2019) RESULT [...] Most Recently Relevant to Health Maintenance Insurance [facility] Care Teams Commercial Project Manager Relationship Specialty Start Date End Date Ayla García MD [address] [place] [address] PCP - General Internal Medicine 09/19/12
--- OUTSIDE RECORDS SUMMARY | 2024-11-12 10:19 | XMS_ITS | Encounter Summary ---
Author Organization [facility] Address [address] [place] [address] Care Team Providers Care Oracle Consultant Name Role Phone Cande Morgan DO Primary Care Pro vider Unavailable Ayla García MD Primary Care Provider Unavaila ble Encounter Details Date Type Department Care Team Description 11/24/2015 Orders Only Adult Medicine [address] [address] Cande Morgan DO Pyuria (Primary Dx) Social History Tobacco Use Types [...] on file documented as of this encounter Results * URINE, CULTURE (12/29/2015 9:55 AM EDT) Urine (Urine) 12/29/2015 9:5 5 AM EDT 12/29/2015 9:55 AM EDT Narrative [facility] - 12/31/2015 7:37 AM EDT 10,000 - 49,000 CFU/mL NORMAL SKIN/UROGENITAL CHRISTINE PRESENT. Cande Lawson DO LAB [facility] documented in this encounter Visit Diagnoses Diagnosis Pyuria- Primary Other nonspecific finding on examination of urine documented in this encounter Care Teams Oracle Consultant Relationship Specialty Start Date End Date Cande Morgan DO PCP - General Internal Medicine 07/09/14 08/16/21 Ayla García MD PCP - General Internal Medicine 08/17/21 documented as of this encounter
--- OUTSIDE RECORDS SUMMARY | 2024-11-12 10:19 | XMS_ITS | Encounter Summary ---
Author Organization [facility] Address [address] [place] [address] Care Team Providers Care Rod Buster Name Role Phone Cande Morgan DO Primary Care Pro vider Unavailable Ayla García MD Primary Care Provider Unavaila ble Encounter Details Date Type Department Care Team Description 08/21/2015 Transfer Records Medical Records [address] [place] [id number] Abstract, Provider Social History Tobacco Use Types [...] on filedocumented in this encounter Care Teams Rod Buster Relationship Specialty Start Date End Date Cande Morgan DO PCP - General Internal Medicine 07/09/14 08/16/21 Ayla García MD PCP - General Internal Medicine 08/17/21 documented as of this encounter
--- OUTSIDE RECORDS SUMMARY | 2024-11-12 10:19 | XMS_ITS | Encounter Summary ---
Author Organization [facility] Address [address] [place] [address] Care Team Providers Care Telephoner Name Role Phone Cande Morgan DO Primary Care Pro vider Unavailable Ayla García MD Primary Care Provider Unavaila ble Encounter Details Date Type Department Care Team Description 04/22/2020 Orders Only Adult Medicine [address] [address] Cande Morgan DO Elevated LFTs (Primary Dx) [...] chemistry documented in this encounter Care Teams Telephoner Relationship Specialty Start Date End Date Cande Morgan DO PCP - General Internal Medicine 07/09/14 08/16/21 Ayla García MD PCP - General Internal Medicine 08/17/21 documented as of this encounter
--- OUTSIDE RECORDS SUMMARY | 2024-11-12 10:19 | XMS_ITS | Encounter Summary ---
Author Organization [facility] Address [address] [place] [address] Care Team Providers Care Industrial Conveyor Belt Repairer Name Role Phone Cande Morgan DO Primary Care Pro vider Unavailable Ayla García MD Primary Care Provider Unavaila ble Reason for Visit * Reason Onset Date Comments APPOINTMENT 08/21/2020 Encounter Details Date Type Department Care Team Description 08/21/2020 Telephone Adult [address] [address] Cande Morgan DO APPOINTMENT Social History Tobacco Use Types Packs/Day [...] encounter Miscellaneous Notes * Telephone Encounter - Melissa Martínez M.A. - 08/21/2020 10:56 AM EST Patient daughter called and appointment scheduled. * Telephone Encounter - Eunice Gross - 08/21/2020 9:44 AM EST Patient's daughter called looking to book her mother an appointment with Dr. Tim for a cortisone injection for her hand. documented in this encounter Plan of Treatment Not on file documented as of this encounter Visit Diagnoses Not on filedocumented in this encounter Care Teams Industrial Conveyor Belt Repairer Relationship Specialty Start Date End Date Cande Morgan DO PCP - General Internal Medicine 07/09/14 08/16/21 Ayla García MD PCP - General Internal Medicine 08/17/21 documented as of this encounter
--- OUTSIDE RECORDS SUMMARY | 2024-11-12 10:19 | XMS_ITS | Encounter Summary ---
Author Organization [facility] Address [address] [place] [address] Care Team Providers Care Unified Communications Engineer Name Role Phone Cande Morgan DO Primary Care Pro vider Unavailable Ayla García MD Primary Care Provider Unavaila ble Encounter Details Date Type Department Care Team Description 08/18/2016 Orders Only Medical Records [address] [place] [id number] Shanon Nina DPM Social History Tobacco Use [...] on filedocumented in this encounter Care Teams Unified Communications Engineer Relationship Specialty Start Date End Date Cande Morgan DO PCP - General Internal Medicine 07/09/14 08/16/21 Ayla García MD PCP - General Internal Medicine 08/17/21 documented as of this encounter
--- OUTSIDE RECORDS SUMMARY | 2024-11-12 10:19 | XMS_ITS | Encounter Summary ---
Author Organization [facility] Address [address] [place] [address] Care Team Providers Care Digital Court Reporter Name Role Phone Ayla García MD Primary Care Provider Unavaila ble Reason for Visit * Reason Onset Date Comments APPOINTMENT 09/16/2021 Encounter Details Date Type Department Care Team Description 09/16/2021 Telephone Vascular Surgery - [place] [address] [place] [phone] Angelita Lomas PA-C [address] [phone] APPOINTMENT Social History Tobacco Use [...] on filedocumented in this encounter Care Teams Digital Court Reporter Relationship Specialty Start Date End Date Ayla García MD PCP - General Internal Medicine 08/17/21 documented as of this encounter
--- OUTSIDE RECORDS SUMMARY | 2024-11-12 10:19 | XMS_ITS | Encounter Summary ---
Author Organization [facility] Address [address] [place] [address] Care Team Providers Care Charter Boat Operator Name Role Phone Cande Morgan DO Primary Care Pro vider Unavailable Ayla García MD Primary Care Provider Unavaila ble Encounter Details Date Type Department Care Team Description 08/12/2016 [facility] Medical Records [address] [place] [address] Shanon Nina DPM Social History Tobacco Use [...] on filedocumented in this encounter Care Teams Charter Boat Operator Relationship Specialty Start Date End Date Cande Morgan DO PCP - General Internal Medicine 07/09/14 08/16/21 Ayla García MD PCP - General Internal Medicine 08/17/21 documented as of this encounter
--- OUTSIDE RECORDS SUMMARY | 2024-11-12 10:19 | XMS_ITS | Encounter Summary ---
Author Organization [facility] Address [address] [place] [address] Care Team Providers Care Television Newscast Director Name Role Phone Cande Morgan DO Primary Care Pro vider Unavailable Ayla García MD Primary Care Provider Unavaila ble Encounter Details Date Type Department Care Team Description 11/21/2014 Orders Only Adult Medicine [address] [address] Cande Morgan DO Social History Tobacco Use Types Packs/Day Years Used Date Smoking Tobacco: Never Sex Assigned at Date Recorded Not on file Job Start Date Occupation Industry Not on file Not on file Not on file documented as of this encounter Plan of Treatment Not on file documented as of this encounter Visit Diagnoses Not on filedocumented in this encounter Care Teams Television Newscast Director Relationship Specialty Start Date End Date Cande Morgan DO PCP - General Internal Medicine 07/09/14 08/16/21 Ayla García MD PCP - General Internal Medicine 08/17/21 documented as of this encounter
--- OUTSIDE RECORDS SUMMARY | 2024-11-12 10:19 | XMS_ITS | Encounter Summary ---
Author Organization [facility] Address [address] [place] [address] Care Team Providers Care Tissue Technologist Name Role Phone Cande Morgan DO Primary Care Pro vider Unavailable Ayla García MD Primary Care Provider Unavaila ble Encounter Details Date Type Department Care Team Description 08/27/2016 Retail Sales Specialist Report Medical Records [address] [place] [address] Genet Chan Social History Tobacco Use Types [...] on filedocumented in this encounter Care Teams Tissue Technologist Relationship Specialty Start Date End Date Cande Morgan DO PCP - General Internal Medicine 07/09/14 08/16/21 Ayla García MD PCP - General Internal Medicine 08/17/21 documented as of this encounter
== END 2024-11-12 10:05 | disposition home or self-care (01) ==
LOC: HO.HOS 09:16
PROVIDERS: PCP Internal Medicine; Visit Provider Orthopaedic Surgery
DX: M75.51 Bursitis of right shoulder (principal)
CPT/HCPCS: 99024

== ENCOUNTER → 2024-11-12 09:44 | Outpatient (BNV) | payer BC, SELFPAY | PROVIDERS: PCP Internal Medicine; Visit Provider Radiology Diagnostic Radiology | DX: M19.011 Primary osteoarthritis, right shoulder (principal) | CPT/HCPCS: 73030 ==

== ENCOUNTER 2024-12-13 08:32 | Outpatient (AMB) | payer BC, SELFPAY ==
[2024-12-13 08:33] VITALS: BMI 24.0
--- NOTE | 2024-12-13 08:33 | MHC.OFFVIS ---
Vital Signs 12/13/24 08:33 Height 5 ft 7 in Weight 153 lb BMI 24.0 Intake Visit Reasons: OV - Right Shoulder Debridement 08/27/24 Intake Note: Caron is a 63 year old right hand dominant female who presents today for a post operative appointment about 4 months s/p Right Shoulder Arthroscopic Debridement 08/27/24. She continues to work maximum of 6 hours a day, which is working well for her. Patient reports that she has had redness at the anterior aspect of the shoulder, this has been going on for about1 week now. Her pain has also increased - she is taking Ibuprofen for her pain Right Shoulder surgical hx: -Right Shoulder /Acromioplasty 03/14/24 -Arthroscopic debridement of right shoulder 01/30/24 -Right RTC repair 12/14/23 Allergies Penicillins Allergy (Severe, Verified 12/13/24 08:35) trouble breathing latex Allergy (Verified 12/13/24 08:35) rash HPI HPI OV - Right Shoulder Debridement 08/27/24: Details: Caron is a 63 year old right hand dominant female who presents today for a post operative appointment about 4 months s/p Right Shoulder Arthroscopic Debridement 08/27/24. She continues to work maximum of 6 hours a day, which is working well for her. Patient reports that she has had redness at the anterior aspect of the shoulder, this has been going on for about1 week now. Her pain has also increased - she is taking Ibuprofen for her pain Right Shoulder surgical hx: -Right Shoulder /Acromioplasty 03/14/24 -Arthroscopic debridement of right shoulder 01/30/24 -Right RTC repair 12/14/23 [facility] Medical History (Updated 12/17/24 @ 09:18 by Emanuel Patterson MD) Septic joint of right shoulder region Normal colonoscopy Mammogram normal Normal Pap smear Annual physical exam Varicose veins of both lower extremities Surgical History Status post left rotator cuff repair (12/14/23) Status post cervical polyp removal S/P foot surgery, right History of carpal tunnel surgery of right wrist History of carpal tunnel surgery of left wrist Family History Father Heart problem Mother Hypertension Stroke Social History Housing: House Patient Tobacco Use Status: Never used Tobacco e-Cigarette/Vaping Use: Never Used service: No Current occupational status: employed 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 No pain with passive internal and external rotation. Pain only with overhead motion. Positive fluctuance. Assessment & Plan Assessment & Plan (1) Status post left rotator cuff repair: Onset Date: 12/14/23 Comment: 12/14/2023 complicated with wound infection MSSA status post debridement 3 times, established with ID for long-term antibiotics treatment Code(s): Z98.890 - Other specified postprocedural states Category: Surgical Plan: Aspirated fluid collection superficial. No evidence of deep involvement. Sent for culture (2) Status post right rotator cuff repair: Comment: MSSA Code(s): Z98.890 - Other specified postprocedural states Category: Surgical Plan: Orders: Orders Routine Culture w Gram Stain 12/13/24 Z98.890 - Other specified postprocedural states Coding Level of Care Code Est Pt Level 3 (55160) Diagnoses Status post left rotator cuff repair Z98.890 Status post right rotator cuff repair Z98.890
--- OUTSIDE RECORDS SUMMARY | 2024-12-13 08:45 | XMS_ITS | Encounter Summary ---
Author Organization [facility] Address [address] [place] [address] Care Team Providers Care Decal Decorator Name Role Phone Cande Morgan DO Primary Care Pro vider Unavailable Ayla García MD Primary Care Provider Unavaila ble Encounter Details Date Type Department Care Team Description 04/27/2021 Plumber Pipe Fitting Report External Ayla García MD Social History Tobacco Use Types [...] on filedocumented in this encounter Care Teams Decal Decorator Relationship Specialty Start Date End Date Cande Morgan DO PCP - General Internal Medicine 07/09/14 08/16/21 Ayla García MD PCP - General Internal Medicine 08/17/21 documented as of this encounter
--- OUTSIDE RECORDS SUMMARY | 2024-12-13 08:45 | XMS_ITS | Encounter Summary ---
Author Organization [facility] Address [address] [place] [address] Care Team Providers Care Marketing Analytics Analyst Name Role Phone Cande Morgan DO Primary Care Pro vider Unavailable Ayla García MD Primary Care Provider Unavaila ble Encounter Details Date Type Department Care Team Description 08/18/2016 Orders Only Medical Records [address] [place] [address] Shaonn Nina DPM Social History Tobacco Use Types [...] on filedocumented in this encounter Care Teams Marketing Analytics Analyst Relationship Specialty Start Date End Date Cande Morgan DO PCP - General Internal Medicine 07/09/14 08/16/21 Ayla García MD PCP - General Internal Medicine 08/17/21 documented as of this encounter
--- OUTSIDE RECORDS SUMMARY | 2024-12-13 08:45 | XMS_ITS | Encounter Summary ---
Author Organization [facility] Address [address] [place] [address] Care Team Providers Care Iuss Master Analyst Name Role Phone Cande Morgan DO Primary Care Pro vider Unavailable Ayla García MD Primary Care Provider Unavaila ble Reason for Visit * Reason Onset Date Comments medication problems 11/21/2014 Encounter Details Date Type Department Care Team Description 11/21/2014 Telephone Adult Medicine [address] [address] Cande Morgan DO medication problems Social History [...] KAYLA Pharmacist Name: N/A Pharmacy Phone # [phone] Name of the medication Imitrex 50 mg [...] on filedocumented in this encounter Care Teams Iuss Master Analyst Relationship Specialty Start Date End Date Cande Morgan DO PCP - General Internal Medicine 07/09/14 08/16/21 Ayla García MD PCP - General Internal Medicine 08/17/21 documented as of this encounter
--- OUTSIDE RECORDS SUMMARY | 2024-12-13 08:45 | XMS_ITS | Encounter Summary ---
Author Organization [facility] Address [address] [place] [address] Care Team Providers Care Environmental Project Manager Name Role Phone Cande Morgan DO Primary Care Pro vider Unavailable Ayla García MD Primary Care Provider Unavaila ble Encounter Details Date Type Department Care Team Description 08/27/2016 Vegetable Grader Report Medical Records [address] [place] [address] Genet Chan Social History Tobacco Use Types [...] on filedocumented in this encounter Care Teams Environmental Project Manager Relationship Specialty Start Date End Date Cande Morgan DO PCP - General Internal Medicine 07/09/14 08/16/21 Ayla García MD PCP - General Internal Medicine 08/17/21 documented as of this encounter
--- OUTSIDE RECORDS SUMMARY | 2024-12-13 08:45 | XMS_ITS | Encounter Summary ---
Author Organization [facility] Address [address] [place] [address] Care Team Providers Care Quality Compliance Coordinator Name Role Phone Cande Morgan DO Primary Care Pro vider Unavailable Ayla García MD Primary Care Provider Unavaila ble Reason for Visit * Reason Onset Date Comments APPOINTMENT 08/21/2020 Encounter Details Date Type Department Care Team Description 08/21/2020 Telephone Adult [address] [address] Cande Morgan DO APPOINTMENT Social History Tobacco [...] on filedocumented in this encounter Care Teams Quality Compliance Coordinator Relationship Specialty Start Date End Date Cande Morgan DO PCP - General Internal Medicine 07/09/14 08/16/21 Ayla García MD PCP - General Internal Medicine 08/17/21 documented as of this encounter
--- OUTSIDE RECORDS SUMMARY | 2024-12-13 08:45 | XMS_ITS | Encounter Summary ---
Author Organization [facility] Address [address] [place] [address] Care Team Providers Care Bar Roller Name Role Phone Cande Morgan DO Primary Care Pro vider Unavailable Ayla García MD Primary Care Provider Unavaila ble Encounter Details Date Type Department Care Team Description 04/22/2020 Orders Only Adult Medicine [address] [address] Cande Morgan DO Elevated LFTs (Primary Dx) [...] chemistry documented in this encounter Care Teams Bar Roller Relationship Specialty Start Date End Date Cande Morgan DO PCP - General Internal Medicine 07/09/14 08/16/21 Ayla García MD PCP - General Internal Medicine 08/17/21 documented as of this encounter
--- OUTSIDE RECORDS SUMMARY | 2024-12-13 08:45 | XMS_ITS | Encounter Summary ---
Author Organization [facility] Address [address] [place] [address] Care Team Providers Care Hot Bread Baker Name Role Phone Cande Morgan DO Primary Care Pro vider Unavailable Ayla García MD Primary Care Provider Unavaila ble Reason for Visit * Reason Onset Date Comments Pelvic Pain 01/30/2019 Encounter Details Date Type Department Care Team Description 01/30/2019 Telephone OBGYN - [place] [address] Kimberly Simpson MD [address] [place] [address] Pelvic Pain Social History Tobacco Use Types [...] pt verbalized understanding. Pt also requests an tube turner for exam, advised pt note will be made and one can be requested by telephone. * Telephone Encounter - Elo William - 01/30/2019 11:45 AM EDT Chief Complaint/problem: Pt states pelvic pain 6/7 on a scale of 10 per pt. Albanian speaking, but speaks Cymraes well enough to understand. How long has the patient had this problem? Pt???s KNEE BOLTER provider: Kimberly Simpson M.D. Last menstrual period (LMP) or EDC (due date): N/A documented in this encounter Plan of Treatment Not on file documented as of this encounter Visit Diagnoses Not on filedocumented in this encounter Care Teams Hot Bread Baker Relationship Specialty Start Date End Date Cande Morgan DO PCP - General Internal Medicine 07/09/14 08/16/21 Ayla García MD PCP - General Internal Medicine 08/17/21 documented as of this encounter
--- OUTSIDE RECORDS SUMMARY | 2024-12-13 08:45 | XMS_ITS | Clinical Summary ---
Author Organization [facility] Address [address] [place], [place] Phone Care Team Providers Care Hosiery Bagger Name Role Phone Ayla García MD Primary Care Provider [phone] Encounters Date Type Department Care Team Description 10/09/2024 Telephone Orthopedics - [address] [phone] Master Jones MD 09/26/2024 10:44 AM EST - 09/26/2024 11:59 PM EST Hospital Encounter Radiology Department - [address] [phone] Abnormal mammogram Discharge Disposition: Home or Self Care from Last 3 Months Surgical History Surgery Date Site/Laterality Comments TONSILLECTOMY PROCEDURE: HISTORICAL TONSILLECTOMY OVARIAN CYST REMOVAL PROCEDURE: [place] OVARIAN CYSTECTOMY UNI/BI; COMMENT: 15 yrs ago, ruptured ovarian cyst OTHER SURGICAL HISTORY 05/07/2009 Bilateral PROCEDURE: ---- OTHER ----; COMMENT: endovenous laser ablation legs COLPOSCOPY 08/20/2011 PROCEDURE: [place] COLPOSCOPY ENTIRE VAGINA W/CERVIX IF PRESENT COLONOSCOPY 09/04/2012 PROCEDURE: HISTORICAL COLONOSCOPY OTHER SURGICAL HISTORY 06/09/2013 PROCEDURE: MAMMOGRAM OTHER SURGICAL HISTORY 08/12/2016 Right PROCEDURE: [place] OSTEOT W/WO LNGTH SHRT/CORRJ METAR XCP 1ST [...] 10:55 AM EDT Appointment Radiology Department - [address] [phone] Health Maintenance Due Date Last Done Comments [...] age to complete this topic Meningococcal B Vaccine Aged Out No l onger eligible based on patient's age to complete [...] Signed Date: 09/26/2024 11:07 ET Workstation ID: [id number] Transcribed By: Self Edit Transcribed Date: 09/26/2024 [...] Signed Date: 09/26/2024 11:07 ET Workstation ID: [id number] Transcribed By: Self Edit Transcribed Date: 09/26/2024 [...] recommended for the Right Breast. Mammo Location: [facility], [address] [place] [address], [address], . -------- FINAL REPORT -------- Dictated By: Gladis Queen Dictated Date: 08/09/2024 08:51 ET Assigned Physician: Gladis Queen Reviewed and Electronically Signed By: Gladis Queen Signed Date: 08/09/2024 08:56 ET Workstation ID: [id number] Transcribed By: Self Edit Transcribed Date: 08/09/2024 [...] recommended for the Right Breast. Mammo Location: [facility], [address] [place] [address], [id number], . -------- FINAL REPORT -------- Dictated By: Gladis Queen Dictated Date: 08/09/2024 08:51 ET Assigned Physician: Gladis Queen Reviewed and Electronically Signed By: Gladis Queen Signed Date: 08/09/2024 08:56 ET Workstation ID: [id number] Transcribed By: Self Edit Transcribed Date: 08/09/2024 08:51 ET us Ayla García MD IMG BI PROCEDURES Final Result * Pap smear (02/15/2019) 02/15/2019 Narrative HISTORICAL TESTING LAB RESULTING AGENCY - 02/21/2019 9:00 AM EDT [id number] THINPREP PAP, IMAGED: NEGATIVE FOR SQUAMOUS INTRAEPITHELIAL [...] Most Recently Relevant to Health Maintenance Insurance [facility] Care Teams Hosiery Bagger Relationship Specialty Start Date End Date Ayla García MD [address] [place] [address] PCP - General Internal Medicine 09/19/12
--- OUTSIDE RECORDS SUMMARY | 2024-12-13 08:45 | XMS_ITS | Encounter Summary ---
Author Organization [facility] Address [address] [place] [address] Care Team Providers Care Senior Program Manager Name Role Phone Cande Morgan DO Primary Care Pro vider Unavailable Ayla García MD Primary Care Provider Unavaila ble Encounter Details Date Type Department Care Team Description 11/24/2015 Orders Only Adult Medicine [address] [address] Cande Morgan DO Pyuria (Primary Dx) Social [...] AM EDT 12/29/2015 9:55 AM EDT [facility]ative [facility] - 12/31/2015 7:37 AM EDT 10,000 - 49,000 CFU/mL NORMAL SKIN/UROGENITAL CHRISTINE PRESENT. Cande Lawson DO LAB [facility] documented in this encounter Visit Diagnoses Diagnosis Pyuria- Primary Other nonspecific finding on examination of urine documented in this encounter Care Teams Senior Program Manager Relationship Specialty Start Date End Date Cande Morgan DO PCP - General Internal Medicine 07/09/14 08/16/21 Ayla García MD PCP - General Internal Medicine 08/17/21 documented as of this encounter
--- OUTSIDE RECORDS SUMMARY | 2024-12-13 08:45 | XMS_ITS | Encounter Summary ---
Author Organization [facility] Address [address] [place] [address] Care Team Providers Care Morgue Attendant Name Role Phone Ayla García MD Primary Care Provider Unavaila ble Reason for Visit * Reason Onset Date Comments APPOINTMENT 09/16/2021 Encounter Details Date Type Department Care Team Description 09/16/2021 Telephone Vascular Surgery - [place] [address] [place] [phone] Angelita Lomas PA-C [address] [address] APPOINTMENT Social History Tobacco Use [...] on filedocumented in this encounter Care Teams Morgue Attendant Relationship Specialty Start Date End Date Ayla García MD PCP - General Internal Medicine 08/17/21 documented as of this encounter
--- OUTSIDE RECORDS SUMMARY | 2024-12-13 08:45 | XMS_ITS | Encounter Summary ---
Author Organization [facility] Address [address] [place] [address] Care Team Providers Care Splitter Hand Name Role Phone Cande Morgan DO Primary Care Pro vider Unavailable Ayla García MD Primary Care Provider Unavaila ble Encounter Details Date Type Department Care Team Description 08/21/2015 Transfer Records Medical Records [address] [place] [address] Abstract, Provider Social History Tobacco Use Types [...] on filedocumented in this encounter Care Teams Splitter Hand Relationship Specialty Start Date End Date Cande Morgan DO PCP - General Internal Medicine 07/09/14 08/16/21 Ayla García MD PCP - General Internal Medicine 08/17/21 documented as of this encounter
--- OUTSIDE RECORDS SUMMARY | 2024-12-13 08:45 | XMS_ITS | Encounter Summary ---
Author Organization [facility] Address [address] [place] [address] Care Team Providers Care Supervisor Loading Name Role Phone Cande Morgan DO Primary Care Pro vider Unavailable Ayla García MD Primary Care Provider Unavaila ble Reason for Visit * Reason Onset Date Comments Error 05/23/2020 Encounter Details Date Type Department Care Team Description 05/23/2020 Telephone Vascular Surgery - [address] [phone] Stephen Mulligan MD [address] [phone] Error Social History Tobacco Use [...] on filedocumented in this encounter Care Teams Supervisor Loading Relationship Specialty Start Date End Date Cande Morgan DO PCP - General Internal Medicine 07/09/14 08/16/21 Ayla García MD PCP - General Internal Medicine 08/17/21 documented as of this encounter
--- OUTSIDE RECORDS SUMMARY | 2024-12-13 08:45 | XMS_ITS | Encounter Summary ---
Author Organization [facility] Address [address] [place] [address] Care Team Providers Care Cigarette And Filter Chief Inspector Name Role Phone Cande Morgan DO Primary Care Pro vider Unavailable Ayla García MD Primary Care Provider Unavaila ble Encounter Details Date Type Department Care Team Description 02/23/2019 Orders Only Medical Records [address] [place] [address] Abstract, Provider Pelvic pain Social History Tobacco [...] pain documented in this encounter Care Teams Cigarette And Filter Chief Inspector Relationship Specialty Start Date End Date Cande Morgan DO PCP - General Internal Medicine 07/09/14 08/16/21 Ayla García MD PCP - General Internal Medicine 08/17/21 documented as of this encounter
== END 2024-12-13 09:34 | disposition home or self-care (01) ==
LOC: HO.HOS 08:32
PROVIDERS: PCP Internal Medicine; Visit Provider Orthopaedic Surgery
DX: Z47.89 Encounter for other orthopedic aftercare (principal); M75.51 Bursitis of right shoulder
CPT/HCPCS: 99213

== ENCOUNTER 2024-12-13 08:32 | Outpatient (REF) | payer BC, SELFPAY ==
--- OUTSIDE RECORDS SUMMARY | 2024-12-13 11:35 | XMS_ITS | Clinical Summary ---
Author Organization [facility] [address] [facility] Address [address] [place], [place] Phone Care Team Providers Care Manager Clinical Research Name Role Phone Ayla García MD Primary Care Provider [phone] Encounters Date Type Department Care Team Description 10/09/2024 Telephone Orthopedics - [address] [phone] Master Jones MD 09/26/2024 10:44 AM EST - 09/26/2024 11:59 PM EST Hospital Encounter Radiology Department - [address] [phone] Abnormal mammogram Discharge Disposition: Home or Self Care from Last 3 Months Surgical History Surgery Date Site/Laterality Comments TONSILLECTOMY PROCEDURE: HISTORICAL TONSILLECTOMY OVARIAN CYST REMOVAL PROCEDURE: [place] OVARIAN CYSTECTOMY UNI/BI; COMMENT: 15 yrs ago, ruptured ovarian cyst OTHER SURGICAL HISTORY 05/07/2009 Bilateral PROCEDURE: ---- OTHER ----; COMMENT: endovenous laser ablation legs COLPOSCOPY 08/20/2011 PROCEDURE: [place] COLPOSCOPY ENTIRE VAGINA W/CERVIX IF PRESENT COLONOSCOPY 09/04/2012 PROCEDURE: HISTORICAL COLONOSCOPY OTHER SURGICAL HISTORY 06/09/2013 PROCEDURE: MAMMOGRAM OTHER SURGICAL HISTORY 08/12/2016 Right PROCEDURE: [place] OSTEOT W/WO LNGTH SHRT/CORRJ METAR XCP 1ST [...] 10:55 AM EDT Appointment Radiology Department - [address] [phone] Health Maintenance Due Date Last Done Comments [...] Signed Date: 09/26/2024 11:07 ET Workstation ID: [id number] Transcribed By: Self Edit Transcribed Date: 09/26/2024 [...] Signed Date: 09/26/2024 11:07 ET Workstation ID: [id number] Transcribed By: Self Edit Transcribed Date: 09/26/2024 [...] recommended for the Right Breast. Mammo Location: [facility], [address] [place] [address], [address], . -------- FINAL REPORT -------- Dictated By: Gladis Queen Dictated Date: 08/09/2024 08:51 ET Assigned Physician: Gladis Queen Reviewed and Electronically Signed By: Gladis Queen Signed Date: 08/09/2024 08:56 ET Workstation ID: [id number] Transcribed By: Self Edit Transcribed Date: 08/09/2024 [...] recommended for the Right Breast. Mammo Location: [facility], [address] [place] [address], [address], . -------- FINAL REPORT -------- Dictated By: Gladis Queen Dictated Date: 08/09/2024 08:51 ET Assigned Physician: Gladis Queen Reviewed and Electronically Signed By: Gladis Queen Signed Date: 08/09/2024 08:56 ET Workstation ID: [id number] Transcribed By: Self Edit Transcribed Date: 08/09/2024 08:51 ET us Ayla García MD IMG BI PROCEDURES Final Result * Pap smear (02/15/2019) 02/15/2019 Narrative HISTORICAL TESTING LAB RESULTING AGENCY - 02/21/2019 9:00 AM EDT [id number] THINPREP PAP, IMAGED: NEGATIVE FOR SQUAMOUS INTRAEPITHELIAL [...] Most Recently Relevant to Health Maintenance Insurance [facility] Care Teams Manager Clinical Research Relationship Specialty Start Date End Date Ayla García MD [address] [place] [address] PCP - General Internal Medicine 09/19/12
== END 2024-12-13 08:33 | disposition home or self-care (01) ==
LOC: HO.LNP 08:32
PROVIDERS: PCP Internal Medicine; Visit Provider Orthopaedic Surgery
DX: Z98.890 Other specified postprocedural states (principal)
CPT/HCPCS: 87070; 87073; 87077; 87186; 87205

== ENCOUNTER 2024-12-17 08:33 | Outpatient (AMB) | payer BC, SELFPAY ==
[2024-12-17 08:35] VITALS: BMI 24.0
--- NOTE | 2024-12-17 08:35 | MHC.OFFVIS ---
Vital Signs 12/17/24 08:35 Height 5 ft 7 in Weight 153 lb BMI 24.0 Intake Visit Reasons: OV - Left Shoulder - Aspiration F/u Intake Note: Caron is a 63 year old right hand dominant female who presents today for a post operative appointment about 3.5 months s/p Right Shoulder Arthroscopic Debridement 08/27/24. At her last visit on 12/13/24 she had redness of the shoulder, an aspiration of the right shoulder was done and the fluid collection was sent to the lab to check for infection. Today patient reports that she has not started antibiotics. She also explains that she was very stressed at the time of her last appointment and because of that she forgot to mention that on Tuesday12/11/24 while at work she dropped a part and when she bent over to get it she hit her right shoulder on the top of the machine. Results returned as positive for Staph Aureus. Right Shoulder surgical hx: -Right Shoulder /Acromioplasty 03/14/24 -Arthroscopic debridement of right shoulder 01/30/24 -Right RTC repair 12/14/23 Allergies Penicillins Allergy (Severe, Verified 12/13/24 08:35) trouble breathing latex Allergy (Verified 12/13/24 08:35) rash HPI HPI OV - Left Shoulder - Aspiration F/u: Details: Caron is a 63 year old right hand dominant female who presents today for a post operative appointment about 3.5 months s/p Right Shoulder Arthroscopic Debridement 08/27/24. At her last visit on 12/13/24 she had redness of the shoulder, an aspiration of the right shoulder was done and the fluid collection was sent to the lab to check for infection. Today patient reports that she has not started antibiotics. She also explains that she was very stressed at the time of her last appointment and because of that she forgot to mention that on Tuesday12/11/24 while at work she dropped a part and when she bent over to get it she hit her right shoulder on the top of the machine. Results returned as positive for Staph Aureus. Right Shoulder surgical hx: -Right Shoulder / 03/14/24 -Arthroscopic debridement of right shoulder 01/30/24 -Right RTC repair 12/14/23 [facility] Medical History (Updated 12/17/24 @ 09:18 by Emanuel Patterson MD) Septic joint of right shoulder region Normal colonoscopy Mammogram normal Normal Pap smear Annual physical exam Varicose veins of both lower extremities Surgical History Status post left rotator cuff repair (12/14/23) Status post cervical polyp removal S/P foot surgery, right History of carpal tunnel surgery of right wrist History of carpal tunnel surgery of left wrist Family History Father Heart problem Mother Hypertension Stroke Social History Housing: House Patient Tobacco Use Status: Never used Tobacco e-Cigarette/Vaping Use: Never Used service: No Current occupational status: employed 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 30/90/110/S1 4-/5 empty can Results Reviewed Results Reviewed: Aspiration positive for staph aureus Assessment & Plan Assessment & Plan (1) Septic joint of right shoulder region: Code(s): M00.9 - Pyogenic arthritis, unspecified Category: Medical Plan: 63-year-old with complicated recalcitrant shoulder infection. Her symptoms seem restricted to the bursal space. At last arthroscopy for a similar situation her intra-articular space was pristine and it was the bursal surface that seemed to have this infection. I recommend resumption of antibiotics and referral to Infectious Disease. She has some deep suture anchors in the bone in the humeral head which may need to be removed but her articular surfaces were pristine at last and I suspect that this is a persistent bursal infection. We will see her back in 1 weeks' time Orders: Referrals Infectious Disease Referral M00.9 - Pyogenic arthritis, unspecified Medications: New levofloxacin 500 mg PO DAILY 30 tabs 0RF 30 days Coding Level of Care Code Est Pt Level 3 (16417) Diagnoses Septic joint of right shoulder region M00.9
--- OUTSIDE RECORDS SUMMARY | 2024-12-17 08:39 | XMS_ITS | Encounter Summary ---
Author Organization [facility] Address [address] [place] [address] Care Team Providers Care Patient Transport Orderly Name Role Phone Cande Morgan DO Primary Care Pro vider Unavailable Ayla García MD Primary Care Provider Unavaila ble Encounter Details Date Type Department Care Team Description 08/18/2016 Orders Only Medical Records [address] [place] [address] Shanon Nina DPM Social History Tobacco Use [...] on filedocumented in this encounter Care Teams Patient Transport Orderly Relationship Specialty Start Date End Date Cande Morgan DO PCP - General Internal Medicine 07/09/14 08/16/21 Ayla García MD PCP - General Internal Medicine 08/17/21 documented as of this encounter
--- OUTSIDE RECORDS SUMMARY | 2024-12-17 08:39 | XMS_ITS | Encounter Summary ---
Author Organization [facility] Address [address] [place] [address] Care Team Providers Care It Support Specialist Name Role Phone Cande Morgan DO Primary Care Pro vider Unavailable Ayla García MD Primary Care Provider Unavaila ble Reason for Visit * Reason Onset Date Comments Pelvic Pain 01/30/2019 Encounter Details Date Type Department Care Team Description 01/30/2019 Telephone OBGYN - [place] [address] Kimberly Simpson MD [address] [place] [address] Pelvic Pain Social History Tobacco Use Types [...] pt verbalized understanding. Pt also requests an transit operator for exam, advised pt note will be made and one can be requested by telephone. * Telephone Encounter - Elo William - 01/30/2019 11:45 AM EDT Chief Complaint/problem: Pt states pelvic pain 6/7 on a scale of 10 per pt. Mongolian speaking, but speaks Kazakh well enough to understand. How long has the patient had this problem? Pt???s ASSIGNMENT DESK ASSISTANT provider: Kimberly Simpson M.D. Last menstrual period (LMP) or EDC (due date): N/A documented in this encounter Plan of Treatment Not on file documented as of this encounter Visit Diagnoses Not on filedocumented in this encounter Care Teams It Support Specialist Relationship Specialty Start Date End Date Cande Morgan DO PCP - General Internal Medicine 07/09/14 08/16/21 Ayla García MD PCP - General Internal Medicine 08/17/21 documented as of this encounter
--- OUTSIDE RECORDS SUMMARY | 2024-12-17 08:39 | XMS_ITS | Encounter Summary ---
Author Organization [facility] Address [address] [place] [address] Care Team Providers Care Medical Billing Assistant Name Role Phone Cande Morgan DO Primary Care Pro vider Unavailable Ayla García MD Primary Care Provider Unavaila ble Encounter Details Date Type Department Care Team Description 08/27/2016 Chair Springer Report Medical Records [address] [place] [address] Genet Chan Social History Tobacco Use Types [...] on filedocumented in this encounter Care Teams Medical Billing Assistant Relationship Specialty Start Date End Date Cande Morgan DO PCP - General Internal Medicine 07/09/14 08/16/21 Ayla García MD PCP - General Internal Medicine 08/17/21 documented as of this encounter
--- OUTSIDE RECORDS SUMMARY | 2024-12-17 08:39 | XMS_ITS | Encounter Summary ---
Author Organization [facility] Address [address] [place] [address] Care Team Providers Care Metal Template Maker Name Role Phone Cande Morgan DO Primary Care Pro vider Unavailable Ayla García MD Primary Care Provider Unavaila ble Reason for Visit * Reason Onset Date Comments APPOINTMENT 05/23/2020 Encounter Details Date Type Department Care Team Description 05/23/2020 Telephone Vascular Surgery - [address] [address] Stephen Mulligan MD [address] [address] APPOINTMENT Social History Tobacco Use [...] on filedocumented in this encounter Care Teams Metal Template Maker Relationship Specialty Start Date End Date Cande Morgan DO PCP - General Internal Medicine 07/09/14 08/16/21 Ayla García MD PCP - General Internal Medicine 08/17/21 documented as of this encounter
--- OUTSIDE RECORDS SUMMARY | 2024-12-17 08:39 | XMS_ITS | Encounter Summary ---
Author Organization [facility] Address [address] [place] [address] Care Team Providers Care Mobile Architect Name Role Phone Cande Morgan DO Primary Care Pro vider Unavailable Ayla García MD Primary Care Provider Unavaila ble Encounter Details Date Type Department Care Team Description 11/24/2015 Orders Only Adult Medicine [address] [address] Cande Morgan DO Pyuria (Primary Dx) Social [...] AM EDT 12/29/2015 9:55 AM EDT [facility]ative [facility] - 12/31/2015 7:37 AM EDT 10,000 - 49,000 CFU/mL NORMAL SKIN/UROGENITAL CHRISTINE PRESENT. Cande Lawson DO LAB [facility] documented in this encounter Visit Diagnoses Diagnosis Pyuria- Primary Other nonspecific finding on examination of urine documented in this encounter Care Teams Mobile Architect Relationship Specialty Start Date End Date Cande Morgan DO PCP - General Internal Medicine 07/09/14 08/16/21 Ayla García MD PCP - General Internal Medicine 08/17/21 documented as of this encounter
--- OUTSIDE RECORDS SUMMARY | 2024-12-17 08:39 | XMS_ITS | Encounter Summary ---
Author Organization [facility] Address [address] [place] [address] Care Team Providers Care Inspector Toys Name Role Phone Cande Morgan DO Primary Care Pro vider Unavailable Ayla García MD Primary Care Provider Unavaila ble Reason for Visit * Reason Onset Date Comments medication problems 11/21/2014 Encounter Details Date Type Department Care Team Description 11/21/2014 Telephone Adult Medicine [address] [address] Cande Morgan DO medication problems Social History [...] KAYLA Pharmacist Name: N/A Pharmacy Phone # [phone] Name of the medication Imitrex 50 mg [...] on filedocumented in this encounter Care Teams Inspector Toys Relationship Specialty Start Date End Date Cande Morgan DO PCP - General Internal Medicine 07/09/14 08/16/21 Ayla García MD PCP - General Internal Medicine 08/17/21 documented as of this encounter
--- OUTSIDE RECORDS SUMMARY | 2024-12-17 08:39 | XMS_ITS | Encounter Summary ---
Author Organization [facility] Address [address] [place] [address] Care Team Providers Care Precision Inspector Name Role Phone Cande Morgan DO Primary Care Pro vider Unavailable Ayla García MD Primary Care Provider Unavaila ble Encounter Details Date Type Department Care Team Description 06/03/2020 Orders Only Medical Records [address] [place] [address] Stephen Mulligan MD FACS [address] [place] [address] Social History Tobacco Use Types [...] on filedocumented in this encounter Care Teams Precision Inspector Relationship Specialty Start Date End Date Cande Morgan DO PCP - General Internal Medicine 07/09/14 08/16/21 Ayla García MD PCP - General Internal Medicine 08/17/21 documented as of this encounter
--- OUTSIDE RECORDS SUMMARY | 2024-12-17 08:39 | XMS_ITS | Encounter Summary ---
Author Organization [facility] Address [address] [place] [address] Care Team Providers Care Deep Submergence Vehicle Operator Name Role Phone Cande Morgan DO Primary Care Pro vider Unavailable Ayla García MD Primary Care Provider Unavaila ble Encounter Details Date Type Department Care Team Description 08/21/2015 Transfer Records Medical Records [address] [place] [address] Abstract, Provider Social History Tobacco Use Types [...] on filedocumented in this encounter Care Teams Deep Submergence Vehicle Operator Relationship Specialty Start Date End Date Cande Morgan DO PCP - General Internal Medicine 07/09/14 08/16/21 Ayla García MD PCP - General Internal Medicine 08/17/21 documented as of this encounter
--- OUTSIDE RECORDS SUMMARY | 2024-12-17 08:39 | XMS_ITS | Clinical Summary ---
Author Organization [facility] [address] [facility] Address [address] [place], [place] Phone Care Team Providers Care Rock Loader Name Role Phone Ayla García MD Primary Care Provider [phone] Encounters Date Type Department Care Team Description 10/09/2024 Telephone Orthopedics - [address] [phone] Master Jones MD 09/26/2024 10:44 AM EST - 09/26/2024 11:59 PM EST Hospital Encounter Radiology Department - [address] [phone] Abnormal mammogram Discharge Disposition: Home or Self Care from Last 3 Months Surgical History Surgery Date Site/Laterality Comments TONSILLECTOMY PROCEDURE: HISTORICAL TONSILLECTOMY OVARIAN CYST REMOVAL PROCEDURE: [place] OVARIAN CYSTECTOMY UNI/BI; COMMENT: 15 yrs ago, ruptured ovarian cyst OTHER SURGICAL HISTORY 05/07/2009 Bilateral PROCEDURE: ---- OTHER ----; COMMENT: endovenous laser ablation legs COLPOSCOPY 08/20/2011 PROCEDURE: [place] COLPOSCOPY ENTIRE VAGINA W/CERVIX IF PRESENT COLONOSCOPY 09/04/2012 PROCEDURE: HISTORICAL COLONOSCOPY OTHER SURGICAL HISTORY 06/09/2013 PROCEDURE: MAMMOGRAM OTHER SURGICAL HISTORY 08/12/2016 Right PROCEDURE: [place] OSTEOT W/WO LNGTH SHRT/CORRJ METAR XCP 1ST [...] 10:55 AM EDT Appointment Radiology Department - [address] [address] Health Maintenance Due Date Last Done Comments [...] Signed Date: 09/26/2024 11:07 ET Workstation ID: [id number] Transcribed By: Self Edit Transcribed Date: 09/26/2024 [...] Signed Date: 09/26/2024 11:07 ET Workstation ID: [id number] Transcribed By: Self Edit Transcribed Date: 09/26/2024 [...] recommended for the Right Breast. Mammo Location: [facility], [address] [place] [address], [address], . -------- FINAL REPORT -------- Dictated By: Gladis Queen Dictated Date: 08/09/2024 08:51 ET Assigned Physician: Gladis Queen Reviewed and Electronically Signed By: Gladis Queen Signed Date: 08/09/2024 08:56 ET Workstation ID: [id number] Transcribed By: Self Edit Transcribed Date: 08/09/2024 [...] recommended for the Right Breast. Mammo Location: [facility], [address] [place] [address], [address], . -------- FINAL REPORT -------- Dictated By: Gladis Queen Dictated Date: 08/09/2024 08:51 ET Assigned Physician: Gladis Queen Reviewed and Electronically Signed By: Gladis Queen Signed Date: 08/09/2024 08:56 ET Workstation ID: [id number] Transcribed By: Self Edit Transcribed Date: 08/09/2024 08:51 ET us Ayla García MD IMG BI PROCEDURES Final Result * Pap smear (02/15/2019) 02/15/2019 Narrative HISTORICAL TESTING LAB RESULTING AGENCY - 02/21/2019 9:00 AM EDT [id number] THINPREP PAP, IMAGED: NEGATIVE FOR SQUAMOUS INTRAEPITHELIAL [...] Most Recently Relevant to Health Maintenance Insurance [facility] Care Teams Rock Loader Relationship Specialty Start Date End Date Ayla García MD [address] [place] [address] PCP - General Internal Medicine 09/19/12
--- OUTSIDE RECORDS SUMMARY | 2024-12-17 08:39 | XMS_ITS | Encounter Summary ---
Author Organization [facility] Address [address] [place] [address] Care Team Providers Care Classifying Machine Operator Name Role Phone Cande Morgan DO Primary Care Pro vider Unavailable Ayla García MD Primary Care Provider Unavaila ble Reason for Visit * Reason Onset Date Comments medication problems 04/26/2017 sumatriptan (IMITREX) 50 MG tablet Encounter Details Date Type Department Care Team Description 04/26/2017 Telephone Adult Medicine [address] [address] Cande Morgan DO medication problems (sumatriptan (IMITREX) [...] Miscellaneous Notes * Telephone Encounter - Cande Lawosn DO - 04/26/2017 1:44 PM EDT Ordered [...] on filedocumented in this encounter Care Teams Classifying Machine Operator Relationship Specialty Start Date End Date Cande Morgan DO PCP - General Internal Medicine 07/09/14 08/16/21 Ayla García MD PCP - General Internal Medicine 08/17/21 documented as of this encounter
--- OUTSIDE RECORDS SUMMARY | 2024-12-17 08:39 | XMS_ITS | Encounter Summary ---
Author Organization [facility] Address [address] [place] [address] Care Team Providers Care Cementer Oil Well Name Role Phone Cande Morgan DO Primary Care Pro vider Unavailable Ayla García MD Primary Care Provider Unavaila ble Encounter Details Date Type Department Care Team Description 02/23/2019 Orders Only Medical Records [address] [place] [address] Abstract, Provider Pelvic pain Social History Tobacco [...] pain documented in this encounter Care Teams Cementer Oil Well Relationship Specialty Start Date End Date Cande Morgan DO PCP - General Internal Medicine 07/09/14 08/16/21 Ayla García MD PCP - General Internal Medicine 08/17/21 documented as of this encounter
--- OUTSIDE RECORDS SUMMARY | 2024-12-17 08:39 | XMS_ITS | Encounter Summary ---
Author Organization [facility] Address [address] [place] [address] Care Team Providers Care Mobile Home Laborer Name Role Phone Cande Morgan DO Primary Care Pro vider Unavailable Ayla García MD Primary Care Provider Unavaila ble Encounter Details Date Type Department Care Team Description 11/21/2014 Orders Only Adult Medicine [address] [address] Cande Morgan DO Social History Tobacco Use Types Packs/Day Years Used Date Smoking Tobacco: Never Sex Assigned at Date Recorded Not on file Job Start Date Occupation Industry Not on file Not on file Not on file documented as of this encounter Plan of Treatment Not on file documented as of this encounter Visit Diagnoses Not on filedocumented in this encounter Care Teams Mobile Home Laborer Relationship Specialty Start Date End Date Cande Morgan DO PCP - General Internal Medicine 07/09/14 08/16/21 Ayla García MD PCP - General Internal Medicine 08/17/21 documented as of this encounter
== END 2024-12-17 09:27 | disposition home or self-care (01) ==
LOC: HO.HOS 08:34
PROVIDERS: PCP Internal Medicine; Visit Provider Orthopaedic Surgery
DX: M00.9 Pyogenic arthritis, unspecified (principal)
CPT/HCPCS: 99213

== ENCOUNTER → 2024-12-17 08:33 | Outpatient (BNVA) | payer BC, SELFPAY | PROVIDERS: PCP Internal Medicine; Visit Provider Orthopaedic Surgery ==

== ENCOUNTER 2024-12-24 09:37 | Outpatient (AMB) | payer BC, SELFPAY ==
--- NOTE | 2024-12-24 09:47 | MHC.OFFVIS ---
Vital Signs 12/24/24 09:49 Height 5 ft 7 in Pulse 75 Pulse Source Pulse Oximeter Temp 97.7 F Temp Source Oral Pulse Oximetry (%) 99 Intake Visit Reasons: Pyogenic arthritis Allergies Penicillins Allergy (Severe, Verified 12/24/24 09:49) trouble breathing latex Allergy (Verified 12/24/24 09:49) rash HPI HPI Pyogenic arthritis: Details: I saw her with [place] internet manager,male did not get number. I had seen her before with MSSA right shoulder infection,now believed to be bursal. She has large area firm with streaking down arm. She has firm swelling area right neck. She has no fever and chills. [facility] Medical History Septic joint of right shoulder region Normal colonoscopy Mammogram normal Normal Pap smear Annual physical exam Varicose veins of both lower extremities Surgical History Status post left rotator cuff repair (12/14/23) Status post cervical polyp removal S/P foot surgery, right History of carpal tunnel surgery of right wrist History of carpal tunnel surgery of left wrist Family History Father Heart problem Mother Hypertension Stroke Social History Housing: House Patient Tobacco Use Status: Never used Tobacco e-Cigarette/Vaping Use: Never Used service: No Current occupational status: employed 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 Cognitive needs: No Hearing needs: No Vision needs: Yes Review of Systems Const All systems reviewed & are unremarkable except as noted in HPI and below Physical Exam Vital Signs: Last Vital Signs Temp 97.7 F 12/24/24 09:49 Pulse 75 12/24/24 09:49 Pulse Ox 99 12/24/24 09:49 Const Other: General: cooperative HEENT Head: Yes normal to inspection Mouth: Normal oral and palatal mucosa present Resp Effort & Inspection: normal respiratory effort Cardio Rate: regular rate Extrem Other: right shoulder reddened, 2 x4 cm right lymph node neck swollen Assessment & Plan Assessment & Plan (1) Septic joint of right shoulder region: Comment: Apparently infection limited to bursa per Orthopedics There is concern over spread to skin and lymph nodes Code(s): M00.9 - Pyogenic arthritis, unspecified Category: Medical Plan: ER check bacteremia and CT chest evaluate for spreading infection to chest wall. Would give po Linezolid 600 mg po bid 14 days and see in two weeks if not admitted Coding Level of Care Code Est Pt Level 3 (13751) Diagnoses Septic joint of right shoulder region M00.9
[2024-12-24 09:49] VITALS: PULSE 75; TEMP 36.5; O2SAT 99
--- OUTSIDE RECORDS SUMMARY | 2024-12-24 09:56 | XMS_ITS | Encounter Summary ---
Author Organization [facility] Address [address] [place] [address] Care Team Providers Care Missile Technician Name Role Phone Cande Morgan DO Primary Care Pro vider Unavailable Ayla García MD Primary Care Provider Unavaila ble Encounter Details Date Type Department Care Team Description 08/21/2015 Transfer Records Medical Records [address] [place] [address] Abstract, Provider Social History Tobacco Use Types [...] on filedocumented in this encounter Care Teams Missile Technician Relationship Specialty Start Date End Date Cande Morgan DO PCP - General Internal Medicine 07/09/14 08/16/21 Ayla García MD PCP - General Internal Medicine 08/17/21 documented as of this encounter
--- OUTSIDE RECORDS SUMMARY | 2024-12-24 09:56 | XMS_ITS | Encounter Summary ---
Author Organization [facility] Address [address] [place] [address] Care Team Providers Care Wood Heel Attacher Name Role Phone Ayla García MD Primary Care Provider Unavaila ble Reason for Visit * Reason Onset Date Comments APPOINTMENT 09/16/2021 Encounter Details Date Type Department Care Team Description 09/16/2021 Telephone Vascular Surgery - [place] [address] [place] [phone] Angelita Lomas PA-C [address] [address] APPOINTMENT Social History Tobacco Use [...] on filedocumented in this encounter Care Teams Wood Heel Attacher Relationship Specialty Start Date End Date Ayla García MD PCP - General Internal Medicine 08/17/21 documented as of this encounter
--- OUTSIDE RECORDS SUMMARY | 2024-12-24 09:56 | XMS_ITS | Encounter Summary ---
Author Organization [facility] Address [address] [place] [address] Care Team Providers Care Supply Chain Design Manager Name Role Phone Cande Morgan DO Primary Care Pro vider Unavailable Ayla García MD Primary Care Provider Unavaila ble Reason for Visit * Reason Onset Date Comments medication problems 11/21/2014 Encounter Details Date Type Department Care Team Description 11/21/2014 Telephone Adult Medicine [address] [address] Cande Morgan DO medication problems Social History [...] KAYLA Pharmacist Name: N/A Pharmacy Phone # [phone] Name of the medication Imitrex 50 mg [...] on filedocumented in this encounter Care Teams Supply Chain Design Manager Relationship Specialty Start Date End Date Cande Morgan DO PCP - General Internal Medicine 07/09/14 08/16/21 Ayla García MD PCP - General Internal Medicine 08/17/21 documented as of this encounter
--- OUTSIDE RECORDS SUMMARY | 2024-12-24 09:56 | XMS_ITS | Encounter Summary ---
Author Organization [facility] Address [address] [place] [address] Care Team Providers Care Balloon Design Printer Name Role Phone Cande Morgan DO Primary Care Pro vider Unavailable Ayla García MD Primary Care Provider Unavaila ble Reason for Visit * Reason Onset Date Comments APPOINTMENT 08/21/2020 Encounter Details Date Type Department Care Team Description 08/21/2020 Telephone Adult [address] [address] Cande Morgan DO APPOINTMENT Social History Tobacco [...] on filedocumented in this encounter Care Teams Balloon Design Printer Relationship Specialty Start Date End Date Cande Morgan DO PCP - General Internal Medicine 07/09/14 08/16/21 Ayla García MD PCP - General Internal Medicine 08/17/21 documented as of this encounter
--- OUTSIDE RECORDS SUMMARY | 2024-12-24 09:56 | XMS_ITS | Clinical Summary ---
Author Organization [facility] [address] [facility] Address [address] [place], [place] Phone Care Team Providers Care Structural Test Engineer Name Role Phone Ayla García MD Primary Care Provider Encounters Date Type Department Care Team Description 10/09/2024 Telephone Orthopedics - [address] [phone] Master Jones MD 09/26/2024 10:44 AM EST - 09/26/2024 11:59 PM EST Hospital Encounter Radiology Department - [address] [phone] Abnormal mammogram Discharge Disposition: Home or Self Care from Last 3 Months Surgical History Surgery Date Site/Laterality Comments TONSILLECTOMY PROCEDURE: HISTORICAL TONSILLECTOMY OVARIAN CYST REMOVAL PROCEDURE: [place] OVARIAN CYSTECTOMY UNI/BI; COMMENT: 15 yrs ago, ruptured ovarian cyst OTHER SURGICAL HISTORY 05/07/2009 Bilateral PROCEDURE: ---- OTHER ----; COMMENT: endovenous laser ablation legs COLPOSCOPY 08/20/2011 PROCEDURE: NM COLPOSCOPY ENTIRE VAGINA W/CERVIX IF PRESENT COLONOSCOPY 09/04/2012 PROCEDURE: HISTORICAL COLONOSCOPY OTHER SURGICAL HISTORY 06/09/2013 PROCEDURE: MAMMOGRAM OTHER SURGICAL HISTORY 08/12/2016 Right PROCEDURE: NM OSTEOT W/WO LNGTH SHRT/CORRJ METAR XCP 1ST [...] 10:55 AM EDT Appointment Radiology Department - [address] [address] Health Maintenance Due Date Last Done Comments [...] Signed Date: 09/26/2024 11:07 ET Workstation ID: [id number] Transcribed By: Self Edit Transcribed Date: 09/26/2024 [...] Signed Date: 09/26/2024 11:07 ET Workstation ID: [id number] Transcribed By: Self Edit Transcribed Date: 09/26/2024 [...] recommended for the Right Breast. Mammo Location: [facility], [address] [place] [address], [address], . -------- FINAL REPORT -------- Dictated By: Gladis Queen Dictated Date: 08/09/2024 08:51 ET Assigned Physician: Gladis Queen Reviewed and Electronically Signed By: Gladis Queen Signed Date: 08/09/2024 08:56 ET Workstation ID: [id number] Transcribed By: Self Edit Transcribed Date: 08/09/2024 [...] recommended for the Right Breast. Mammo Location: [facility], [address] [place] [address], [address], . -------- FINAL REPORT -------- Dictated By: Gladis Queen Dictated Date: 08/09/2024 08:51 ET Assigned Physician: Gladis Queen Reviewed and Electronically Signed By: Gladis Queen Signed Date: 08/09/2024 08:56 ET Workstation ID: [id number] Transcribed By: Self Edit Transcribed Date: 08/09/2024 08:51 ET us Ayla García MD IMG BI PROCEDURES Final Result * Pap smear (02/15/2019) 02/15/2019 Narrative HISTORICAL TESTING LAB RESULTING AGENCY - 02/21/2019 9:00 AM EDT [id number] THINPREP PAP, IMAGED: NEGATIVE FOR SQUAMOUS INTRAEPITHELIAL [...] Most Recently Relevant to Health Maintenance Insurance [facility] Care Teams Structural Test Engineer Relationship Specialty Start Date End Date Ayla García MD [address] [place] [address] PCP - General Internal Medicine 09/19/12
--- OUTSIDE RECORDS SUMMARY | 2024-12-24 09:56 | XMS_ITS | Encounter Summary ---
Author Organization [employer] [facility] Address [address] [place] [address] Care Team Providers Care Internet Marketing Analyst Name Role Phone Cande Morgan DO Primary Care Pro vider Unavailable Ayla García MD Primary Care Provider Unavaila ble Encounter Details Date Type Department Care Team Description 02/23/2019 Orders Only Medical Records [address] [place] [address] Abstract, Provider Pelvic pain Social History Tobacco [...] pain documented in this encounter Care Teams Internet Marketing Analyst Relationship Specialty Start Date End Date Cande Morgan DO PCP - General Internal Medicine 07/09/14 08/16/21 Ayla García MD PCP - General Internal Medicine 08/17/21 documented as of this encounter
--- OUTSIDE RECORDS SUMMARY | 2024-12-24 09:56 | XMS_ITS | Encounter Summary ---
Author Organization [facility] Address [address] [place] [address] Care Team Providers Care Tobacco Packing Machine Operator Name Role Phone Cande Morgan DO Primary Care Pro vider Unavailable Ayla García MD Primary Care Provider Unavaila ble Encounter Details Date Type Department Care Team Description 11/24/2015 Orders Only Adult Medicine [address] [address] Cande Morgan DO Pyuria (Primary Dx) Social [...] AM EDT 12/29/2015 9:55 AM EDT [facility]ative [facility] - 12/31/2015 7:37 AM EDT 10,000 - 49,000 CFU/mL NORMAL SKIN/UROGENITAL CHRISTINE PRESENT. Cande Lawson DO LAB [facility] documented in this encounter Visit Diagnoses Diagnosis Pyuria- Primary Other nonspecific finding on examination of urine documented in this encounter Care Teams Tobacco Packing Machine Operator Relationship Specialty Start Date End Date Cande Morgan DO PCP - General Internal Medicine 07/09/14 08/16/21 Ayla García MD PCP - General Internal Medicine 08/17/21 documented as of this encounter
--- OUTSIDE RECORDS SUMMARY | 2024-12-24 09:56 | XMS_ITS | Encounter Summary ---
Author Organization [facility] Address [address] [place] [address] Care Team Providers Care Regional Ehs Manager Name Role Phone Cande Morgan DO Primary Care Pro vider Unavailable Ayla García MD Primary Care Provider Unavaila ble Reason for Visit * Reason Onset Date Comments Error 05/23/2020 Encounter Details Date Type Department Care Team Description 05/23/2020 Telephone Vascular Surgery - [address] [phone] Stephen Mullgian MD [address] [phone] Error Social History Tobacco Use [...] on filedocumented in this encounter Care Teams Regional Ehs Manager Relationship Specialty Start Date End Date Cande Morgan DO PCP - General Internal Medicine 07/09/14 08/16/21 Ayla García MD PCP - General Internal Medicine 08/17/21 documented as of this encounter
--- OUTSIDE RECORDS SUMMARY | 2024-12-24 09:56 | XMS_ITS | Encounter Summary ---
Author Organization [facility] Address [address] [place] [address] Care Team Providers Care Flux Tube Attendant Name Role Phone Cande Morgan DO Primary Care Pro vider Unavailable Ayla García MD Primary Care Provider Unavaila ble Encounter Details Date Type Department Care Team Description 08/18/2016 Orders Only Medical Records [address] [place] [address] Shanon Nina DPM Social History Tobacco Use [...] on filedocumented in this encounter Care Teams Flux Tube Attendant Relationship Specialty Start Date End Date Cande Morgan DO PCP - General Internal Medicine 07/09/14 08/16/21 Ayla García MD PCP - General Internal Medicine 08/17/21 documented as of this encounter
--- OUTSIDE RECORDS SUMMARY | 2024-12-24 09:56 | XMS_ITS | Encounter Summary ---
Author Organization [facility] Address [address] [place] [address] Care Team Providers Care Harvest Supervisor Name Role Phone Cande Morgan DO Primary Care Pro vider Unavailable Ayla García MD Primary Care Provider Unavaila ble Encounter Details Date Type Department Care Team Description 07/28/2016 [facility] Medical Records [address] [place] [address] Abstract, Provider Social History Tobacco Use Types [...] on filedocumented in this encounter Care Teams Harvest Supervisor Relationship Specialty Start Date End Date Cande Morgan DO PCP - General Internal Medicine 07/09/14 08/16/21 Ayla García MD PCP - General Internal Medicine 08/17/21 documented as of this encounter
--- OUTSIDE RECORDS SUMMARY | 2024-12-24 09:56 | XMS_ITS | Clinical Summary ---
Author Organization [facility] Address [address] [place] [address] Care Team Providers Care Orthopaedic Nurse Name Role Phone Ayla García MD Primary [...] HEPATITIS C SCREENING Completed 10/01/2014 Care Teams Orthopaedic Nurse Relationship Specialty Start Date End Date Ayla García MD PCP - General Internal Medicine 08/17/21
--- OUTSIDE RECORDS SUMMARY | 2024-12-24 09:56 | XMS_ITS | Encounter Summary ---
Author Organization [facility] Address [address] [place] [address] Care Team Providers Care Laminator Preforms Name Role Phone Cande Morgan DO Primary Care Pro vider Unavailable Ayla García MD Primary Care Provider Unavaila ble Reason for Visit * Reason Onset Date Comments Testing 07/11/2019 sono abdomen com plete Encounter Details Date Type Department Care Team Description 07/11/2019 Telephone Adult Medicine [address] [address] Rosio Vicente PA-C Testing (sono abdomen complete) [...] on filedocumented in this encounter Care Teams Laminator Preforms Relationship Specialty Start Date End Date Cande Morgan DO PCP - General Internal Medicine 07/09/14 08/16/21 Ayla García MD PCP - General Internal Medicine 08/17/21 documented as of this encounter
--- OUTSIDE RECORDS SUMMARY | 2024-12-24 09:56 | XMS_ITS | Encounter Summary ---
Author Organization [facility] Address [address] [place] [address] Care Team Providers Care Cylinder Press Operator Name Role Phone Cande Morgan DO Primary Care Pro vider Unavailable Ayla García MD Primary Care Provider Unavaila ble Encounter Details Date Type Department Care Team Description 08/12/2016 [facility] Medical Records [address] [place] [address] Shanon Nina DPM Social History Tobacco Use [...] on filedocumented in this encounter Care Teams Cylinder Press Operator Relationship Specialty Start Date End Date Cande Morgan DO PCP - General Internal Medicine 07/09/14 08/16/21 Ayla García MD PCP - General Internal Medicine 08/17/21 documented as of this encounter
--- OUTSIDE RECORDS SUMMARY | 2024-12-24 09:56 | XMS_ITS | Encounter Summary ---
Author Organization [facility] Address [address] [place] [address] Care Team Providers Care Refurbish Technician Name Role Phone Cande Morgan DO Primary Care Pro vider Unavailable Ayla García MD Primary Care Provider Unavaila ble Encounter Details Date Type Department Care Team Description 06/03/2020 Orders Only Medical Records [address] [place] [address] Stephen Mulligan MD FACS [address] [place] [address] Social History Tobacco Use Types [...] on filedocumented in this encounter Care Teams Refurbish Technician Relationship Specialty Start Date End Date Cande Morgan DO PCP - General Internal Medicine 07/09/14 08/16/21 Ayla García MD PCP - General Internal Medicine 08/17/21 documented as of this encounter
== END 2024-12-24 10:57 | disposition home or self-care (01) ==
LOC: HO.HID 09:37
PROVIDERS: PCP Internal Medicine; Visit Provider Internal Medicine
DX: M00.9 Pyogenic arthritis, unspecified (principal)
CPT/HCPCS: 99213

== ENCOUNTER 2024-12-25 12:50 | Outpatient (REF) | payer BC, SELFPAY ==
--- NOTE | ~2024-12-25 | US_ITS ---
CLINICAL HISTORY: N83.202 - Unspecified ovarian cyst, left side US pelvis transabdominal and transvaginal with color Doppler Comparison: None Findings: Transabdominal scanning performed for overall anatomy. Transvaginal scanning performed for additional detail. LMP: Postmenopausal Anteverted uterus, normal size and echotexture, measuring 6.9 x 2.7 x 4.4 cm. Lower uterine segment fundal fibroid versus complex nabothian cyst at 0.8 x 0.6 x 0.7 cm. Well defined endometrium, measuring 1.6 mm in thickness. Minimal simple fluid within the endometrial cavity. The right ovary measures, 2.3 x 1.0 x 2.0 cm. Normal sonographic appearance right ovary. The left ovary measures, 3.7 x 2.6 x 3.0 cm. Cyst with minimal internal echoes measuring 3.4 x 2.5 x 3.2 cm. Mild prominence of the periuterine vessels consider pelvic venous congestion syndrome in the appropriate clinical setting. No free fluid. Impression: 1. Postmenopausal uterine atrophy. 2. Cyst with internal echoes left ovary can be followed up in 6 or 12 weeks time. 3. Normal right ovary/adnexa. 4. Equivocal pelvic venous congestion should be correlate clinically 5. Lower uterine segment fibroid versus complex nabothian cyst. This document has been electronically signed by: James Richmond MD on 12/28/2024 10:10:24
--- OUTSIDE RECORDS SUMMARY | 2024-12-25 13:55 | XMS_ITS | Clinical Summary ---
Author Organization [facility] [address] [facility] Address [address] [place], [place] Phone Care Team Providers Care Financial Institution President Name Role Phone Ayla García MD Primary Care Provider [phone] Encounters Date Type Department Care Team Description 10/09/2024 Telephone Orthopedics - [facility] [address] [place], [place] [phone] Master Jones MD from Last 3 Months Surgical History Surgery [...] 03/26/2025 10:55 AM EDT Appointment Radiology Department [address] [address] Health Maintenance Due Date Last Done Comments [...] recommended for the Right Breast. Mammo Location: [facility], [address] [place] [address], [address], . -------- FINAL REPORT -------- Dictated By: Gladis Queen Dictated Date: 08/09/2024 08:51 ET Assigned Physician: Gladis Queen Reviewed and Electronically Signed By: Gladis Queen Signed Date: 08/09/2024 08:56 ET Workstation ID: [id number] Transcribed By: Self Edit Transcribed Date: 08/09/2024 [...] recommended for the Right Breast. Mammo Location: [facility], [address] [place] [address], [address], . -------- FINAL REPORT -------- Dictated By: Gladis Queen Dictated Date: 08/09/2024 08:51 ET Assigned Physician: Gladis Queen Reviewed and Electronically Signed By: Gladis Queen Signed Date: 08/09/2024 08:56 ET Workstation ID: [id number] Transcribed By: Self Edit Transcribed Date: 08/09/2024 08:51 ET Ayla García MD IM BI PROCEDURES Final Result * Pap smear (02/15/2019) 02/15/2019 Narrative HISTORICAL TESTING LAB RESULTING AGENCY - 02/21/2019 9:00 AM EDT [id number] THINPREP PAP, IMAGED: NEGATIVE FOR SQUAMOUS INTRAEPITHELIAL [...] Most Recently Relevant to Health Maintenance Insurance [employer] [address] [place] [address] [facility] Care Teams Financial Institution President Relationship Specialty Start Date End Date Ayla García MD [address] [place] [address] PCP - General Internal Medicine 09/19/12
== END 2024-12-25 12:51 | disposition home or self-care (01) ==
LOC: HO.HMGCX 12:50
PROVIDERS: PCP Internal Medicine; Visit Provider Internal Medicine
DX: N83.202 Unspecified ovarian cyst, left side (principal)
CPT/HCPCS: 76830; 76856

== ENCOUNTER → 2024-12-25 12:52 | Outpatient (BNV) | payer BC, SELFPAY | PROVIDERS: PCP Internal Medicine; Visit Provider Radiology Diagnostic Radiology | DX: N83.02 Follicular cyst of left ovary (principal); N95.2 Postmenopausal atrophic vaginitis | CPT/HCPCS: 76830; 76856 ==

== ENCOUNTER 2024-12-26 01:40 | Inpatient (IN) | payer BC, SELFPAY ==
[2024-12-26] VITALS (12 sets, daily range): BP systolic 126–154; BP diastolic 67–84; PULSE 61–91; RESP 13–18; TEMP 36.3–36.7; O2SAT 94–98; BMI 24.2; BMI 24.4
--- OUTSIDE RECORDS SUMMARY | 2024-12-26 01:56 | XMS_ITS | Encounter Summary ---
Author Organization [facility] Address [address] [place] [address] Care Team Providers Care Director International Name Role Phone Cande oMrgan DO Primary Care Pro vider Unavailable Ayla García MD Primary Care Provider Unavaila ble Encounter Details Date Type Department Care Team Description 04/22/2020 Orders Only Adult Medicine [address] [address] Cande Morgan DO Elevated LFTs (Primary Dx) [...] chemistry documented in this encounter Care Teams Director International Relationship Specialty Start Date End Date Cande Morgan DO PCP - General Internal Medicine 07/09/14 08/16/21 Ayla García MD PCP - General Internal Medicine 08/17/21 documented as of this encounter
--- OUTSIDE RECORDS SUMMARY | 2024-12-26 01:56 | XMS_ITS | Encounter Summary ---
Author Organization [facility] Address [address] [place] [address] Care Team Providers Care Yeast Maker Name Role Phone Cande Morgan DO Primary Care Pro vider Unavailable Ayla García MD Primary Care Provider Unavaila ble Encounter Details Date Type Department Care Team Description 08/18/2016 Orders Only Medical Records [address] [place] [address] Shanon Nina DPM Social History Tobacco Use [...] on filedocumented in this encounter Care Teams Yeast Maker Relationship Specialty Start Date End Date Cande Morgan DO PCP - General Internal Medicine 07/09/14 08/16/21 Ayla García MD PCP - General Internal Medicine 08/17/21 documented as of this encounter
--- OUTSIDE RECORDS SUMMARY | 2024-12-26 01:56 | XMS_ITS | Encounter Summary ---
Author Organization [facility] Address [address] [place] [address] Care Team Providers Care Privacy Director Name Role Phone Cande Morgan DO Primary Care Pro vider Unavailable Ayla García MD Primary Care Provider Unavaila ble Reason for Visit * Reason Onset Date Comments medication problems 11/21/2014 Encounter Details Date Type Department Care Team Description 11/21/2014 Telephone Adult Medicine [address] [address] Cande Morgan DO medication problems Social History [...] KAYLA Pharmacist Name: N/A Pharmacy Phone # [phone] Name of the medication Imitrex 50 mg [...] on filedocumented in this encounter Care Teams Privacy Director Relationship Specialty Start Date End Date Cande Morgan DO PCP - General Internal Medicine 07/09/14 08/16/21 Ayla García MD PCP - General Internal Medicine 08/17/21 documented as of this encounter
--- OUTSIDE RECORDS SUMMARY | 2024-12-26 01:56 | XMS_ITS | Encounter Summary ---
Author Organization [facility] Address [address] [place] [address] Care Team Providers Care Cheese Blender Name Role Phone Cande Morgan DO Primary Care Pro vider Unavailable Ayla García MD Primary Care Provider Unavaila ble Encounter Details Date Type Department Care Team Description 08/27/2016 Business Risk Consultant Report Medical Records [address] [place] [address] Genet Chan Social History Tobacco Use Types [...] on filedocumented in this encounter Care Teams Cheese Blender Relationship Specialty Start Date End Date Cande Morgan DO PCP - General Internal Medicine 07/09/14 08/16/21 Ayla García MD PCP - General Internal Medicine 08/17/21 documented as of this encounter
--- OUTSIDE RECORDS SUMMARY | 2024-12-26 01:56 | XMS_ITS | Encounter Summary ---
Author Organization [facility] Address [address] [place] [address] Care Team Providers Care Rd Project Manager Name Role Phone Cande Morgan DO Primary Care Pro vider Unavailable Ayla García MD Primary Care Provider Unavaila ble Encounter Details Date Type Department Care Team Description 02/23/2019 Orders Only Medical Records [address] [place] [address] Abstract, Provider Pelvic pain Social History Tobacco [...] pain documented in this encounter Care Teams Rd Project Manager Relationship Specialty Start Date End Date Cande Morgan DO PCP - General Internal Medicine 07/09/14 08/16/21 Ayla García MD PCP - General Internal Medicine 08/17/21 documented as of this encounter
--- OUTSIDE RECORDS SUMMARY | 2024-12-26 01:56 | XMS_ITS | Clinical Summary ---
Author Organization [facility] [address] [facility] Address [address] [place], [place] Phone Care Team Providers Care In Service Educator Name Role Phone Ayla García MD Primary Care Provider [phone] Encounters Date Type Department Care Team Description 10/09/2024 Telephone Orthopedics - [facility] [address] [place], [place] [phone] Master Jones MD from Last 3 Months Surgical History Surgery Date Site/Laterality Comments TONSILLECTOMY PROCEDURE: HISTORICAL TONSILLECTOMY OVARIAN CYST REMOVAL PROCEDURE: ID OVARIAN CYSTECTOMY UNI/BI; COMMENT: 15 yrs ago, ruptured ovarian cyst OTHER SURGICAL HISTORY 05/07/2009 Bilateral PROCEDURE: ---- OTHER ----; COMMENT: endovenous laser ablation legs COLPOSCOPY 08/20/2011 PROCEDURE: ID COLPOSCOPY ENTIRE VAGINA W/CERVIX IF PRESENT COLONOSCOPY 09/04/2012 PROCEDURE: HISTORICAL COLONOSCOPY OTHER SURGICAL HISTORY 06/09/2013 PROCEDURE: MAMMOGRAM OTHER SURGICAL HISTORY 08/12/2016 Right PROCEDURE: ID OSTEOT W/WO LNGTH SHRT/CORRJ METAR XCP 1ST [...] 03/26/2025 10:55 AM EDT Appointment Radiology Department [address] [address] Health Maintenance Due Date Last Done Comments [...] recommended for the Right Breast. Mammo Location: [facility], [address] [place] [address], [address], . -------- FINAL REPORT -------- Dictated By: Gladis Queen Dictated Date: 08/09/2024 08:51 ET Assigned Physician: Gladis Queen Reviewed and Electronically Signed By: Gladis Qeuen Signed Date: 08/09/2024 08:56 ET Workstation ID: [id number] Transcribed By: Self Edit Transcribed Date: 08/09/2024 [...] recommended for the Right Breast. Mammo Location: [facility], [address] [place] [address], [address], . -------- FINAL REPORT -------- Dictated By: Gladis Queen Dictated Date: 08/09/2024 08:51 ET Assigned Physician: Gladis Queen Reviewed and Electronically Signed By: Gladis Queen Signed Date: 08/09/2024 08:56 ET Workstation ID: [id number] Transcribed By: Self Edit Transcribed Date: 08/09/2024 08:51 ET Ayla García MD IM BI PROCEDURES Final Result * Pap smear (02/15/2019) 02/15/2019 Narrative HISTORICAL TESTING LAB RESULTING AGENCY - 02/21/2019 9:00 AM EDT [id number] THINPREP PAP, IMAGED: NEGATIVE FOR SQUAMOUS INTRAEPITHELIAL [...] Insurance [employer] [address] [place] [address] [facility] Care Teams In Service Educator Relationship Specialty Start Date End Date Ayla García MD [address] [place] [address] PCP - General Internal Medicine 09/19/12
--- OUTSIDE RECORDS SUMMARY | 2024-12-26 01:56 | XMS_ITS | Encounter Summary ---
Author Organization [facility] Address [address] [place] [address] Care Team Providers Care Real Estate Photographer Name Role Phone Cande Morgan DO Primary Care Pro vider Unavailable Ayla García MD Primary Care Provider Unavaila ble Encounter Details Date Type Department Care Team Description 08/21/2015 Transfer Records Medical Records [address] [place] [phone] Abstract, Provider Social History Tobacco Use Types [...] on filedocumented in this encounter Care Teams Real Estate Photographer Relationship Specialty Start Date End Date Cande Morgan DO PCP - General Internal Medicine 07/09/14 08/16/21 Ayla García MD PCP - General Internal Medicine 08/17/21 documented as of this encounter
--- OUTSIDE RECORDS SUMMARY | 2024-12-26 01:56 | XMS_ITS | Encounter Summary ---
Author Organization [facility] Address [address] [place] [address] Care Team Providers Care Glassware Finisher Name Role Phone Cande Morgan DO Primary Care Pro vider Unavailable Ayla García MD Primary Care Provider Unavaila ble Reason for Visit * Reason Onset Date Comments medication problems 04/26/2017 sumatriptan (IMITREX) 50 MG tablet Encounter Details Date Type Department Care Team Description 04/26/2017 Telephone Adult Medicine [address] [address] Cande Morgan DO medication problems (sumatriptan (IMITREX) [...] on filedocumented in this encounter Care Teams Glassware Finisher Relationship Specialty Start Date End Date Cande Morgan DO PCP - General Internal Medicine 07/09/14 08/16/21 Ayla García MD PCP - General Internal Medicine 08/17/21 documented as of this encounter
--- OUTSIDE RECORDS SUMMARY | 2024-12-26 01:56 | XMS_ITS | Encounter Summary ---
Author Organization [facility] Address [address] [place] [address] Care Team Providers Care Client Support Associate Name Role Phone Cande Morgan DO Primary Care Pro vider Unavailable Ayla García MD Primary Care Provider Unavaila ble Encounter Details Date Type Department Care Team Description 06/03/2020 Orders Only Medical Records [address] [place] [address] Stephen Mulligan MD FACS [address] [place] [address] Social History Tobacco Use Types [...] on filedocumented in this encounter Care Teams Client Support Associate Relationship Specialty Start Date End Date Cande Morgan DO PCP - General Internal Medicine 07/09/14 08/16/21 Ayla García MD PCP - General Internal Medicine 08/17/21 documented as of this encounter
--- OUTSIDE RECORDS SUMMARY | 2024-12-26 01:56 | XMS_ITS | Encounter Summary ---
Author Organization [facility] Address [address] [place] [address] Care Team Providers Care Senior Designer/Art Director Name Role Phone Cande Morgan DO Primary Care Pro vider Unavailable Ayla García MD Primary Care Provider Unavaila ble Encounter Details Date Type Department Care Team Description 11/21/2014 Orders Only Adult Medicine [address] [address] Cande Morgan DO Social History Tobacco Use Types Packs/Day Years Used Date Smoking Tobacco: Never Sex Assigned at Date Recorded Not on file Job Start Date Occupation Industry Not on file Not on file Not on file documented as of this encounter Plan of Treatment Not on file documented as of this encounter Visit Diagnoses Not on filedocumented in this encounter Care Teams Senior Designer/Art Director Relationship Specialty Start Date End Date Cande Morgan DO PCP - General Internal Medicine 07/09/14 08/16/21 Ayla García MD PCP - General Internal Medicine 08/17/21 documented as of this encounter
--- OUTSIDE RECORDS SUMMARY | 2024-12-26 01:56 | XMS_ITS | Encounter Summary ---
Author Organization [facility] Address [address] [place] [address] Care Team Providers Care Instructor Adjunct Pharmacy Technician Name Role Phone Cande Morgan DO Primary Care Pro vider Unavailable Ayla García MD Primary Care Provider Unavaila ble Encounter Details Date Type Department Care Team Description 08/12/2016 [facility] Medical Records [address] [place] [address] Shanon Nina DPM Social History Tobacco Use [...] on filedocumented in this encounter Care Teams Instructor Adjunct Pharmacy Technician Relationship Specialty Start Date End Date Cande Morgan DO PCP - General Internal Medicine 07/09/14 08/16/21 Ayla García MD PCP - General Internal Medicine 08/17/21 documented as of this encounter
--- OUTSIDE RECORDS SUMMARY | 2024-12-26 01:56 | XMS_ITS | Encounter Summary ---
Author Organization [facility] Address [address] [place] [address] Care Team Providers Care Sales And Leasing Agent Name Role Phone Cande Morgan DO Primary Care Pro vider Unavailable Ayla García MD Primary Care Provider Unavaila ble Reason for Visit * Reason Onset Date Comments Pelvic Pain 01/30/2019 Encounter Details Date Type Department Care Team Description 01/30/2019 Telephone OBGYN - [address] [address] Kimberly Simpson MD [address] [place] [phone] Pelvic Pain Social History Tobacco Use Types [...] pt verbalized understanding. Pt also requests an educational sign language interpreter for exam, advised pt note will be made and one can be requested by telephone. * Telephone Encounter - [facility] - 01/30/2019 11:45 AM EDT Chief Complaint/problem: Pt states pelvic pain 6/7 on a scale of 10 per pt. Welsh speaking, but speaks Uzbek well enough to understand. How long has the patient had this problem? Pt???s [facility] provider: Kimberly Simpson M.D. Last menstrual period (LMP) or EDC (due date): N/A documented in this encounter Plan of Treatment Not on file documented as of this encounter Visit Diagnoses Not on filedocumented in this encounter Care Teams Sales And Leasing Agent Relationship Specialty Start Date End Date Cande Morgan DO PCP - General Internal Medicine 07/09/14 08/16/21 Ayla García MD PCP - General Internal Medicine 08/17/21 documented as of this encounter
--- NOTE | 2024-12-26 02:14 | ED_ITS ---
HPI - Extremity Problem General Chief complaint: Extremity Injury, Upper Stated complaint: RT SHOULDER REDNESS Time Seen by Provider: 12/26/24 02:14 History of Present Illness ED Provider: Marlene CASTILLO Narrative: The patient is a 63-year-old woman who had right rotator cuff surgery on 12/14/2023, proximally 1 year ago, at this hospital with Dr. Patterson. She had repeat surgery on 02/01/2024 because of dehiscence an infection. She again had surgery on March 14 2024 because of a ongoing problems with infection. She then had another surgery on August 29, 2024 for what was felt to be a right shoulder chronic subacromial bursal infection. About 3 weeks ago she started to experience erythema to the right shoulder again. She had a culture taken at that time that grew staph aureus. The patient was prescribed levofloxacin. She has been taking levofloxacin for about 9 days without significant improvement. Two days ago on December [address] Marshall of Infectious Disease. Her recommendation was to switch from levofloxacin to linezolid. She prescribed oral linezolid. The patient was unable to get the prescription filled because it required prior authorization. Yesterday she went to the emergency room at [facility] in [place]. At that hospital she was afebrile and had a white count of 7.7. A drainage procedure of the skin of the right shoulder was made for culture. A CT of the right shoulder was done that showed ?there are increased screws noted within the right humeral head with surrounding lucency. There are heterogeneous areas of decreased attenuation surrounding the humeral head and extending into the deltoid muscle superiorly. Concerning for infection/septic arthritis with a intramuscular abscess formation. There are lucencies and irregularity involving the right AC joint as well. Osteomyelitis/septic arthritis is a concern. ? She received 1 g of IV vancomycin at 22:38. Related Data Home Medications ?Medication ?Instructions ?Recorded ?Confirmed cholecalciferol (vitamin D3) 125 50 mcg PO DAILY 04/29/22 09/06/24 mcg (5,000 unit) capsule Previous Rx's ?Medication ?Instructions ?Recorded clobetasol 0.05 % topical ointment 1 appl topical BID #30 grams 08/19/23 levofloxacin 500 mg tablet 500 mg PO DAILY 30 days #30 tabs 12/17/24 linezolid 600 mg tablet 600 mg PO BID 14 days #28 tabs 12/24/24 Allergies Allergy/AdvReac Type Severity Reaction Status Date / Time Penicillins Allergy Severe trouble Verified 12/26/24 02:02 breathing latex Allergy rash Verified 12/26/24 02:02 Review of Systems 2 Review of Systems: Yes all other systems are reviewed and are negative [facility] Past Medical History Medical History Septic joint of right shoulder region Normal colonoscopy Mammogram normal Normal Pap smear Annual physical exam Varicose veins of both lower extremities Surgical History Status post left rotator cuff repair (12/14/23) Status post cervical polyp removal S/P foot surgery, right History of carpal tunnel surgery of right wrist History of carpal tunnel surgery of left wrist Family History Family History Father Heart problem Mother Hypertension Stroke Social History Social History Housing: House Patient Tobacco Use Status: Never used Tobacco e-Cigarette/Vaping Use: Never Used Advance Directives: No Do you have a plan to hurt others: No Plan service: No Current occupational status: employed 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 She does not appear acutely toxic. HEENT: Other: Face is symmetrical. Mucous membranes moist. Eyes: General: appearance normal, both eyes and all related structures Neck: Neck: Yes normal visual inspection and Yes full ROM Resp: Effort & Inspection: normal respiratory effort Auscultation: clear to auscultation bilaterally Cardio: Rate: regular rate Rhythm: regular rhythm Heart sounds: S1 normal heart sound present and S2 normal heart sound present GI: Other: Abdomen is soft and nontender Skin: Other: There is an area of erythema to the anterior shoulder. There is a dressing covering a small piece of gauze were I believe a needle aspiration was made of the swelling at [facility]. Other than the erythema at the anterior shoulder the patient's skin is unremarkable and dry. Neuro: Other: The patient is awake and alert with a normal mental status. Cranial nerves are grossly intact. She has intact strength and sensation in the extremities. Extrem: Other: The patient has an area of redness on the anterior aspect of the right shoulder. There is some generalized tenderness to this region. The patient is able to put the shoulder through a reasonably good range of motion. Medical Decision Making Medical Decision Making MDM Narrative: The patient is a 63-year-old female who has been having problems with recurrent infections in the region of the right shoulder since rotator cuff surgery 1 year ago. Her last surgery was in August of this year, after which she did well for a few months but starting a few weeks ago she developed redness of the right shoulder. She had a culture taken on December 13 that grew MSSA. She was prescribed levofloxacin. The MSSA was sensitive to levofloxacin. Unfortunately the patient did not seem to improve on the levofloxacin and she was seen by Dr. Marshall of Infectious Disease 2 days ago and prescribed linezolid instead. She was unable to fill the linezolid because it requires prior authorization. She was ultimately advised to go to an emergency room and she went to the [facility] Emergency room. At the [facility] Emergency room she had a white count of 7.7. A CT scan of the shoulder suggested possible osteomyelitis. The patient was sent to this hospitalist since all of her previous care has been here. She received a dose of 1 gm vancomycin IV at approximately 22:30 on 12/26/2024 prior to transfer. The patient seems clinically stable and will be admitted for further care as well as consultation by Orthopedics and Infectious Disease. Lab Data Labs: Lab Results 12/26/24 Range/Units 02:38 Urine Color Yellow Urine Appearance Clear Urine pH 6.0 (5.0-9.0) Ur Specific [place] >= 1.030 H (1.005-1.025) Urine Protein Negative (Neg-Trace) mg/dL Urine Glucose (UA) Negative (Negative) mg/dL Urine Ketones Negative (Negative) mg/dL Urine Blood Negative (Negative) Urine Nitrite Negative (Negative) Ur Leukocyte Esterase Trace H (Negative) Urine RBC 0-2 (0-2) /HPF Urine WBC 0-5 (0-5) /HPF Ur Squamous Epith Cells 0-2 (0-2) /HPF Urine Bacteria None Seen (None Seen) Hyaline Casts 0-2 (0-2) /LPF Discharge Plan Discharge Clinical Impression: Cellulitis of right shoulder Patient Disposition: Admitted As Inpatient
--- NOTE | 2024-12-26 02:25 | PC.NURSE ---
Addendum entered by Joel Kaur RN 12/26/24 03:25: confirmed with MD Nicole holding off on labs. records from in paper chart Original Note: to determine if labs need to be redrawn or transmitted from
[2024-12-26 02:47] LABS: Appearance Urine Clear; Color Urine Yellow; Glucose Urine UA Negative (Negative); Leukocyte Esterase Urine Trace (Negative); Nitrite Urine Negative (Negative); Specific Gravity - Urine >= 1.030 (1.005-1.025); UMIC TRIGGER UACC YES; Urine Blood Negative (Negative); Urine Ketones Negative (Negative); Urine Protein Negative (Neg-Trace)
[2024-12-26 02:55] LABS: Bacteria Urine None Seen (None Seen); Hyaline Casts Urine 0-2 /LPF (0-2); RBC Urine 0-2 /HPF (0-2); Squamous Epithelial Cell Urine 0-2 /HPF (0-2); WBC Urine 0-5 /HPF (0-5)
--- NOTE | 2024-12-26 05:57 | P.HPHOSP_ITS ---
History of Present Illness Date of Service: 12/26/24 Attending physician on admission: Loreto Crowder Chief Complaint: Right shoulder infection Patient is a 63-year-old female with a past medical history significant for multiple complications after a right rotator cuff repair on 12/14/2023 including dehiscence with arthroscopic debridement of right shoulder on of 01/30/24 and right shoulder /acromioplasty 03/14/2024, more recently s/p right shoulder debridement secondary to chronic subacromial bursal infection with Dr. Patterson. On 12/13/2024 she was seen again due to erythema of the right shoulder and is s/p aspiration with fluid collection, which came back positive for MSSA. She reported that she hit her shoulder on a machine at work on 12/12/23. She was prescribed levaquin and did not have any improvement after 9 days, and saw Dr Marshall who prescired linazolid. she was unable to get this due to insurance issues, and was advised to go to the ED for IV abx due to delay in tx. she went to [facility], who transferred her here due to findings on her CT with possible osteomyelitis, septic arthritis and intramuscular abscess formation. The patient denies any fever, chills, nausea or vomiting. She reports over the past 2 days her range of motion has improved. She is able to flex the shoulder however does have decreased range of motion with abduction past 90 degrees. Review of Systems 2 Constitutional: Constitutional: Denies chills, Denies fatigue, Denies fever(s) and Denies headache(s) Eyes: Eyes: Denies change in vision and Denies photophobia ENT: Denies headache(s), Denies nasal congestion, Denies nasal discharge and Denies sore throat Cardiovascular: Cardiovascular: Denies chest pain, Denies rapid heart rate, Denies leg edema, Denies lightheadedness and Denies dyspnea Respiratory: Respiratory: Denies chest congestion, Denies cough, Denies dyspnea and Denies wheezing Gastrointestinal: Gastrointestinal: Denies abdominal pain, Denies diarrhea, Denies nausea and Denies vomiting Genitourinary: Genitourinary: Denies difficulty voiding, Denies dysuria and Denies urinary urgency Musculoskeletal: Musculoskeletal: Reports as per HPI Integumentary/Breasts: Skin/Breast: Reports as per HPI and Reports rash Neurologic: Denies confusion and Denies headache(s) Psychiatric: Psychiatric: Denies confusion Endocrine: Endocrine: Denies fatigue Hematologic/Lymphatic: Hematologic/Lymphatic: Denies easy bleeding and Denies easy bruising Allergic/Immunologic: Allergic/Immunologic: Denies wheezing [facility] Medical History Septic joint of right shoulder region Normal colonoscopy Mammogram normal Normal Pap smear Annual physical exam Varicose veins of both lower extremities Functional capacity: independent ambulation Family History Father Heart problem Mother Hypertension Stroke Surgical History Status post left rotator cuff repair (12/14/23) Status post cervical polyp removal S/P foot surgery, right History of carpal tunnel surgery of right wrist History of carpal tunnel surgery of left wrist Social History Housing: House Patient Tobacco Use Status: Never used Tobacco Smoked in Last 30 Days: No e-Cigarette/Vaping Use: Never Used Use of substances other than those prescribed or required for medical reasons: No Advance Directives: No Do you have a plan to hurt others: No Plan Patient : No service: No Current occupational status: employed 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 Cognitive needs: No Hearing needs: No Vision needs: Yes Narrative: no smoking or etoh Meds Allergies Allergy/AdvReac Type Severity Reaction Status Date / Time Penicillins Allergy Severe trouble Verified 12/26/24 02:02 breathing latex Allergy rash Verified 12/26/24 02:02 Home Medications ?Medication ?Instructions ?Recorded ?Confirmed ?Last Taken ?Type cholecalciferol (vitamin D3) 125 50 mcg PO DAILY 04/29/22 09/06/24 Unknown History mcg (5,000 unit) capsule Physical Exam 2 Vital Signs and Narrative: Vital Signs: Last Vital Signs Temp 98.1 F 12/26/24 02:35 Pulse 77 12/26/24 02:35 Resp 18 12/26/24 02:35 BP 133/75 12/26/24 02:35 Pulse Ox 95 12/26/24 02:35 O2 Del Method Room Air 12/26/24 02:35 BMI result Body Mass Index 24.2 General: AOx3, no acute distress Resp: CTA bilaterally CVS: S1, S2, RRR GI: +BS, NT, no distention Skin: Warm, dry. erythema and mild warmth right shoulder. bandage on from recent I+D Neuro: Cranial nerves II-XII grossly intact bilaterally. Motor grossly intact bilaterally Extremities: No LE edema. decreased ROM with right shoulder abduction and flexion. Psych: Appropriate affect Const: General: No confusion Orientation/consciousness: No confusion Eyes: Direct Ophthalmoscopy: No photophobia Neuro: General: No confusion Results Labs 12/26/24 05:42 12/26/24 05:42 Labs: Laboratory Results - last 24 hr 12/26/24 02:38 Urine Color Yellow Urine Appearance Clear Urine pH 6.0 Ur Specific [place] >= 1.030 H Urine Protein Negative Urine Glucose (UA) Negative Urine Ketones Negative Urine Blood Negative Urine Nitrite Negative Ur Leukocyte Esterase Trace H Urine RBC 0-2 Urine WBC 0-5 Ur Squamous Epith Cells 0-2 Urine Bacteria None Seen Hyaline Casts 0-2 Assessment and Plan (1) Osteomyelitis of right shoulder: Status: Acute (2) Septic joint of right shoulder region: Status: Acute (3) Cellulitis of right shoulder: Status: Acute Plan Patient is a 63-year-old female with a past medical history significant for multiple complications after a right rotator cuff repair on 12/14/2023 including dehiscence with arthroscopic debridement of right shoulder on of 01/30/24 and right shoulder /acromioplasty 03/14/2024, more recently s/p right shoulder debridement secondary to chronic subacromial bursal infection with Dr. Patterson. On 12/13/2024 she was seen again due to erythema of the right shoulder and is s/p aspiration with fluid collection, which came back positive for MSSA. She was treated with Levaquin without improvement after 9 days and switch to linezolid but was unable to obtain this due to insurance issues. She was recommended to reports of the ED for IV antibiotics due to delay in treatment, patient went to [facility] and was transferred here. Osteomyelitis/septic arthritis/cellulitis right shoulder - labs from [facility] yesterday: WBC 7.7, lactic acid normal - today's labs here: WBC 5.5, lactic acid normal - CT R shoulder with increased screws noted within the right humeral head with surrounding lucency. There are heterogeneous areas of decreased attenuation surrounding the humeral head and extending into the deltoid muscles superiorly. Concerning for infection/septic arthritis with intramuscular abscess formation. There are lucencies and irregularity involving the right AC joint as well. Osteomyelitis/septic arthritis is a concern. - chest CT with mild interstitial prominence and dependent ground-glass density. No consolidations. Correlate clinically for mild pulmonary vascular congestion. Small bilateral axillary lymphadenopathy. - given 1 g vancomycin at 22:38 at [facility] - continue vancomycin, add flagyl and levaquin - check CBC, CMP, lactic - ortho and ID consults - NPO - follow CBC and BMP Full code VTE prophylaxis: Pneumoboots pending ortho consultation Patient with possible osteomyelitis/septic arthritis cellulitis right shoulder, requiring admission for at least 2 midnights stay for IV antibiotics and further evaluation by orthopedics and Infectious Disease. Quality Stroke Does the patient have a stroke diagnosis?: No VTE Prior VTE?: No VTE Risk Level:: Medical - moderate - high VTE Device Contraindication: N/A - Device Ordered VTE Drug Contraindication: Treatment Not Indicated
[2024-12-26 06:00] LABS: MANUAL DIFF FLAG NO
[2024-12-26 06:06] LABS: Basophils Absolute Auto 0.1 X10*3/uL (0.0-0.2); Basophils Percent Auto 1.3 % (0-2); Eosinophils Absolute Auto 0.3 X10*3/uL (0.0-0.4); Eosinophils Percent Auto 5.2 % (0-4); Hematocrit 36.5 % (37.0-47.0); Imm Gran Abs Auto 0.01 X10*3/uL (0.00-0.03); Imm Gran Pct Auto 0.2 % (0.0-0.4); Lymphocytes Absolute Auto 1.9 X10*3/uL (1.2-4.9); Lymphocytes Percent Auto 34.3 % (20-40); Mean Corpuscular HGB Conc 32.9 g/dl (31.0-35.0); Mean Corpuscular Hemoglobin 27.5 pg (27.0-33.0); Mean Corpuscular Volume 83.7 fL (80.0-98.0); Mean Platelet Volume 10.1 fL (9.4-12.3); Monocytes Absolute Auto 0.5 X10*3/uL (0.1-1.2); Monocytes Percent Auto 9.4 % (2-11); Neutrophils Absolute Auto 2.8 x10*3/uL (2.0-8.3); Neutrophils Percent Auto 49.6 % (45-73); Platelet Count 356 X10*3/uL (160-400); Red Blood Count 4.36 X10*6/uL (4.20-5.50); Red Cell Distribution Width 13.2 % (11.0-16.0); White Blood Count 5.5 X10*3/uL (4.8-10.8)
[2024-12-26 06:16] LABS: Lactic Acid 0.6 mmol/L (0.5-2.0)
[2024-12-26 06:20] LABS: Alanine Aminotransferase 16 U/L (0-31); Albumin Level 3.6 g/dL (3.5-5.0); Alkaline Phosphatase 90 U/L (39-117); Anion Gap 10 (12-20); Aspartate Amino Transferase 22 U/L (5-31); Bilirubin Total 0.3 mg/dL (0.0-1.0); Blood Urea Nitrogen 9 mg/dL (9-16); Calcium 9.1 mg/dL (8.4-10.2); Carbon Dioxide 23 mmol/L (22-29); Chloride 112 mmol/L (96-108); Creatinine Clr Calc Pharmacy 84.8; Estimated Glomerular Filt Rate > 60; Glucose Random 92 mg/dL (60-115); Potassium 3.6 mmol/L (3.3-5.1); Sodium 141 mmol/L (135-145); Total Protein 6.9 g/dL (6.5-8.0)
[2024-12-26] MEDS: levoFLOXacin/D5W 750 MG/150 ML PIGGYBACK 100 MG IV (06:50)
[2024-12-26] MEDS: metroNIDAZOLE/NS 500 MG/100 ML PIGGYBACK 100 MG IV ×3 (06:58→23:30)
[2024-12-26] MEDS: vancomycin HCL 750 MG in 0.9 % Sodium Chloride 250 ML 265 MG IV (08:35)
--- NOTE | 2024-12-26 09:02 | PM.EVENT ---
Event Note Date of Service: 12/26/24 Event Note: Pt seen/examined, labs, med vitals reviewd. Admitted this morning. Patient is a 63-year-old female with a past medical history significant for multiple complications following right rotator cuff repair on 12/14/2023, including wound dehiscence requiring arthroscopic debridement on 01/30/2024 and right shoulder acromioplasty on 03/14/2024. More recently, she underwent right shoulder debridement for chronic subacromial bursal infection with Dr. Patterson. On 12/13/2024, she was evaluated for erythema of the right shoulder and underwent aspiration of a fluid collection, which tested positive for MSSA. She was initially treated with Levaquin without improvement after 9 days and then prescribed linezolid, which she was unable to obtain due to insurance issues. She was advised to present to the ED for IV antibiotics due to treatment delay. She went to [facility] and was transferred here. Osteomyelitis/septic arthritis/cellulitis of right shoulder Labs from [facility]: WBC 7.7, lactic acid normal Today's labs: WBC 5.5, lactic acid normal CT right shoulder showed increased screws within the right humeral head with surrounding lucency. There are heterogeneous areas of decreased attenuation surrounding the humeral head and extending into the superior deltoid muscles, concerning for infection or septic arthritis with possible intramuscular abscess. Lucencies and irregularity also noted at the right AC joint. Findings suggest osteomyelitis and septic arthritis. Chest CT showed mild interstitial prominence and dependent ground-glass density, no consolidations. Findings may correlate with mild pulmonary vascular congestion. Small bilateral axillary lymphadenopathy noted. Received 1 g vancomycin at 22:38 at [facility] Continue vancomycin, add Flagyl and Levaquin Check CBC, CMP, and lactate Ortho and ID consulted, scheduled for OR today Monitor CBC and BMP Full code VTE prophylaxis: Pneumoboots pending orthopedic evaluation Patient with suspected osteomyelitis, septic arthritis, and cellulitis of the right shoulder requiring admission for at least a two-midnight stay for IV antibiotics and further evaluation by Orthopedics and Infectious Disease. Full code VTE prophylaxis: Pneumoboots pending ortho consultation Patient with possible osteomyelitis/septic arthritis cellulitis right shoulder, requiring admission for at least 2 midnights stay for IV antibiotics and further evaluation by orthopedics and Infectious Disease. Time Spent With Patient Time: Total time managing care of this patient today ____ minutes.
--- NOTE | 2024-12-26 09:18 | PHA.PROG ---
Admission Date/Time: December 26, 2024 02:46 Indication: BONE AND JOINT Weight in k.1 kg Adjusted body weight in Kg: [place] body weight in Kg: Obesity Dosing Indication % IBW: Serum Creatinine - Last 168 Hours 12/26/24 05:42 Creatinine 0.66 Estimated CrCl and GFR - Last 168 Hours 12/26/24 05:42 Estim Creat Clear Calc 84.8 Estimated GFR > 60 Vancomycin Loading Dose: 1750 MG Current Vancomycin Dosing Regimen: 1000 MG Q12H Vancomycin Monitoring using AUC goal of 400 - 600 range with trough as surrogate marker: [id number] TROUGH=16.3 Date and Time for next Vancomycin Level to be drawn: 12/27/24@1800 Pharmacist Comments on Vancomycin Plan: Vancomycin dosing will take advantage of Smartsheet as a clinical decision support tool that uses Bayesian modeling to calculate individual patient's pharmacokinetic parameters and forecast the patient's drug concentration time course with the target goal AUC 24 range of 400 - 600 mg/L/hr.
--- NOTE | 2024-12-26 10:50 | PHA.MEDREC ---
Addendum entered by Malinda Jasso RP 12/26/24 10:59: Reviewed by [facility] Original Note: Pharmacy Consult ? Medication Reconciliation Pharmacy has completed the medication reconciliation. Spoke with patient to confirm. She was taking levofloxacin, started last Tuesday, last taken yesterday at 4PM. She did get a new prescription for Linezolid, Steve confirmed, but she has not picked it up yet.
--- NOTE | 2024-12-26 12:02 | PM.CNOR ---
History of Present Illness HPI Consult date: 12/26/24 Chief complaint: shoulder infection Narrative: This is a 63-year-old woman who underwent a right rotator cuff repair approximately. Her postoperative course was complicated by an infection that led to 3 subsequent surgeries. The last surgery her glenohumeral joint appeared pristine and her bursa was cleaned up aggressively and she was placed on IV antibiotics and p.o. antibiotics and did very well. She was off p.o. antibiotics and doing well until she presented to my clinic a few weeks ago with some increasing redness. She was aspirated placed on p.o. antibiotics but was not improving and was seen by infectious disease and attempts at IV antibiotics were started and ultimately she was sent to the emergency department. A CT scan was done which showed some residual metal anchors in the humeral head and a question of possible osteomyelitis. She presented to the ED in no acute distress. No evidence of sepsis or disseminated infection. She had a CT scan of her chest which was unremarkable. [facility] Past Medical History Medical History Septic joint of right shoulder region Normal colonoscopy Mammogram normal Normal Pap smear Annual physical exam Varicose veins of both lower extremities Family History Family History Father Heart problem Mother Hypertension Stroke Surgical History Surgical History Status post left rotator cuff repair (12/14/23) Status post cervical polyp removal S/P foot surgery, right History of carpal tunnel surgery of right wrist History of carpal tunnel surgery of left wrist Social History Social History Housing: House Patient Tobacco Use Status: Never used Tobacco Smoked in Last 30 Days: No e-Cigarette/Vaping Use: Never Used Use of substances other than those prescribed or required for medical reasons: No Advance Directives: No Do you have a plan to hurt others: No Plan Patient : No service: No Current occupational status: employed 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 Cognitive needs: No Hearing needs: No Vision needs: Yes Meds Allergies Allergy/AdvReac Type Severity Reaction Status Date / Time Penicillins Allergy Severe trouble Verified 12/26/24 02:02 breathing latex Allergy rash Verified 12/26/24 02:02 Active Medications: Current Medications Acetaminophen (Acetaminophen 325 Mg Tablet) 975 mg PO Q6H PRN PRN Reason: Pain, Mild 1-3,fever,headache Calcium Carbonate (Calcium Carbonate 750 Mg Tab.Chew) 750 mg PO Q4H PRN PRN Reason: Heartburn Levofloxacin (Levaquin) 750 mg in 150 mls @ 100 mls/hr IV Q24H [facility] Last Infusion: 12/26/24 08:24 Dose: Infused Metronidazole (Flagyl) 500 mg in 100 mls @ 100 mls/hr IV Q8H [facility] Last Infusion: 12/26/24 08:01 Dose: Infused Vancomycin HCl 1,000 mg/ (Sodium Chloride) 270 mls @ 270 mls/hr IV Q12H [facility] Magnesium Hydroxide (Milk Of Magnesia 30 Ml Oral.Susp) 30 ml PO DAILY PRN PRN Reason: Constipation Melatonin (Melatonin 3 Mg Tablet) 6 mg PO BEDTIME PRN PRN Reason: Insomnia Morphine Sulfate (Morphine Sulfate 4 Mg/Ml Cartridge) 2 mg IVPUSH Q4H PRN; Protocol PRN Reason: Pain, Severe (Pain Scale 7-10) Ondansetron HCl (Ondansetron Hcl 4 Mg/2 Ml Vial) 4 mg IVPUSH Q8H PRN PRN Reason: Nausea and Vomiting Oxycodone HCl (Oxycodone Hcl Immed Release 5 Mg Tablet) 5 mg PO Q6H PRN PRN Reason: Pain, Moderate(Pain Scale 4-6) Pharmacy Consult (Consult Rx Vancomycin Dosing) 1 each MISCELLANE DAILY PRN PRN Reason: Consult order Sodium Chloride (0.9 % Sodium Chloride Flush 3 Ml Syringe) 3 ml IVFLUSH QSHIFT [facility] Last Admin: 12/26/24 07:33 Dose: Not Given Home Medications ?Medication ?Instructions ?Recorded ?Confirmed ?Last Taken ?Type cholecalciferol (vitamin D3) 25 25 mcg PO DAILY 12/26/24 12/26/24 12/25/24 History mcg (1,000 unit) tablet (Vitamin D3) clobetasol 0.05 % topical ointment 1 appl topical BID PRN eczema 12/26/24 12/26/24 Unknown History ibuprofen 800 mg tablet 800 mg PO TID PRN pain 12/26/24 12/26/24 Unknown History sumatriptan succinate 50 mg tablet 50 mg PO Q2H PRN migraine 12/26/24 12/26/24 Unknown History Physical Exam Vital Signs: Vital Signs: Last Vital Signs Temp 97.6 F 12/26/24 06:16 Pulse 61 12/26/24 06:16 Resp 16 12/26/24 06:16 BP 126/73 12/26/24 06:16 Pulse Ox 96 12/26/24 06:16 O2 Del Method Room Air 12/26/24 06:16 BMI result Body Mass Index 24.2 Extrem: Other: Continued area of erythema over the anterior right shoulder. There is no pain with shoulder range of motion. Mild fluctuance on palpation. She is neurovascularly intact with a 2+ radial pulse. Results Labs 12/26/24 05:42 12/26/24 05:42 Labs: Abnormal lab results 12/26/24 12/26/24 Range/Units 02:38 05:42 Hct 36.5 L (37.0-47.0) % Eos % (Auto) 5.2 H (0-4) % Chloride 112 H (96-108) mmol/L Anion Gap 10 L (12-20) Ur Specific [place] >= 1.030 H (1.005-1.025) Ur Leukocyte Esterase Trace H (Negative) H & H 12/26/24 Range/Units 05:42 Hgb 12.0 (12.0-16.0) g/dl Hct 36.5 L (37.0-47.0) % All other labs normal. Assessment and Plan (1) Cellulitis of right shoulder: Status: Acute Plan Ongoing infection of the bursa with a question of shoulder joint involvement but this has been an ongoing issue and has been debrided several times each time there has been improvements both clinically and a benign appearance of the joint with negative cultures but most recently her bursa became infected again and that continues to be a question of deep involvement. There are metal anchors imbedded deep in the bone from the initial surgery. I will attempt to get these out today with repeat surgery. I discussed this with her. I explained the rationale for the additional surgery and we will continue her on IV antibiotics postoperatively. She expressed understanding. Today she will be consented for shoulder right arthroscopy with debridement. debridement. Total time managing care of this patient today: 30 minutes. Procedures Date of Service Date of Service: 12/26/24
--- NOTE | 2024-12-26 12:52 | P.CONAN_ITS ---
[facility] Active Problems Active Problems: All Active Problems Osteomyelitis of right shoulder (Acute) Cellulitis of right shoulder (Acute) Iron overload (Acute) Anemia (Acute) Left ovarian cyst (Acute) Seroma of skin or subcutaneous tissue after non-dermatologic procedure (Acute) Status post right rotator cuff repair (Acute) Varicose veins of right lower extremity with inflammation (Acute) Varicose veins of left lower extremity with inflammation (Acute) Tear of supraspinatus tendon (Acute) Chronic cough (Acute) Shoulder pain, right (Acute) Bacteriuria (Acute) Vitamin D deficiency (Acute) Septic joint of right shoulder region (Acute) Status post left rotator cuff repair (Acute 12/14/23) Normal colonoscopy (Acute) Mammogram normal (Acute) Normal Pap smear (Acute) Annual physical exam (Acute) Varicose veins of both lower extremities (Acute) Past Medical History Medical History (Updated 12/26/24 @ 06:09 by Shanon Pineda PA-C) Septic joint of right shoulder region Normal colonoscopy Mammogram normal Normal Pap smear Annual physical exam Varicose veins of both lower extremities Functional capacity: independent ambulation Family History Family History Father Heart problem Mother Hypertension Stroke Family history of problems with anesthesia: No Surgical History Surgical History (Updated 12/26/24 @ 12:25 by Shani Velez RN) H/O repair of right rotator cuff Status post cervical polyp removal S/P foot surgery, right History of carpal tunnel surgery of right wrist History of carpal tunnel surgery of left wrist History of Problems with Anesthesia: No Social History Social History Housing: House Are you a primary care transport nurse to a significant other at home: No Do you presently have visiting nurse or other home services: No Patient Tobacco Use Status: Former Tobacco user Tobacco use type: Cigarette Years Smoked: 10 Smoked in Last 30 Days: No e-Cigarette/Vaping Use: Never Used Use of substances other than those prescribed or required for medical reasons: No Have you been hit, kicked, punched, or otherwise hurt by someone within the past year? 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 Cognitive needs: No Hearing needs: No Vision needs: Yes Meds Allergies Allergy/AdvReac Type Severity Reaction Status Date / Time Penicillins Allergy Severe trouble Verified 12/26/24 12:22 breathing latex Allergy Intermediate rash Verified 12/26/24 12:22 Active Medications: Current Medications Acetaminophen (Acetaminophen 325 Mg Tablet) 975 mg PO Q6H PRN PRN Reason: Pain, Mild 1-3,fever,headache Calcium Carbonate (Calcium Carbonate 750 Mg Tab.Chew) 750 mg PO Q4H PRN PRN Reason: Heartburn Levofloxacin (Levaquin) 750 mg in 150 mls @ 100 mls/hr IV Q24H [facility] Last Infusion: 12/26/24 08:24 Dose: Infused Metronidazole (Flagyl) 500 mg in 100 mls @ 100 mls/hr IV Q8H [facility] Last Infusion: 12/26/24 08:01 Dose: Infused Vancomycin HCl 1,000 mg/ (Sodium Chloride) 270 mls @ 270 mls/hr IV Q12H [facility] Magnesium Hydroxide (Milk Of Magnesia 30 Ml Oral.Susp) 30 ml PO DAILY PRN PRN Reason: Constipation Melatonin (Melatonin 3 Mg Tablet) 6 mg PO BEDTIME PRN PRN Reason: Insomnia Morphine Sulfate (Morphine Sulfate 4 Mg/Ml Cartridge) 2 mg IVPUSH Q4H PRN; Protocol PRN Reason: Pain, Severe (Pain Scale 7-10) Ondansetron HCl (Ondansetron Hcl 4 Mg/2 Ml Vial) 4 mg IVPUSH Q8H PRN PRN Reason: Nausea and Vomiting Oxycodone HCl (Oxycodone Hcl Immed Release 5 Mg Tablet) 5 mg PO Q6H PRN PRN Reason: Pain, Moderate(Pain Scale 4-6) Pharmacy Consult (Consult Rx Vancomycin Dosing) 1 each MISCELLANE DAILY PRN PRN Reason: Consult order Sodium Chloride (0.9 % Sodium Chloride Flush 3 Ml Syringe) 3 ml IVFLUSH QSHIFT [facility] Last Admin: 12/26/24 07:33 Dose: Not Given Home Medications ?Medication ?Instructions ?Recorded ?Confirmed ?Last Taken ?Type cholecalciferol (vitamin D3) 25 25 mcg PO DAILY 12/26/24 12/26/24 12/25/24 History mcg (1,000 unit) tablet (Vitamin D3) clobetasol 0.05 % topical ointment 1 appl topical BID PRN eczema 12/26/24 12/26/24 Unknown History ibuprofen 800 mg tablet 800 mg PO TID PRN pain 12/26/24 12/26/24 12/12/24 History sumatriptan succinate 50 mg tablet 50 mg PO Q2H PRN migraine 12/26/24 12/26/24 Unknown History Exam Height,Weight and Vital Signs: Height 5 ft 7 in Weight 70.1 kg Last Vital Signs Temp 97.3 F 12/26/24 12:26 Pulse 68 12/26/24 12:26 Resp 16 12/26/24 12:26 BP 135/73 12/26/24 12:26 Pulse Ox 97 12/26/24 12:26 O2 Del Method Room Air 12/26/24 12:26 Pertinent Lab Results Pertinent Lab Results: Laboratory Tests 12/26/24 12/26/24 02:38 05:42 WBC 5.5 RBC 4.36 Hgb 12.0 Hct 36.5 L MCV 83.7 MCH 27.5 MCHC 32.9 RDW 13.2 Plt Count 356 D MPV 10.1 Immature Gran % (Auto) 0.2 Neut % (Auto) 49.6 Lymph % (Auto) 34.3 [place] % (Auto) 9.4 Eos % (Auto) 5.2 H Baso % (Auto) 1.3 Lymph # (Auto) 1.9 [place] # (Auto) 0.5 Eos # (Auto) 0.3 Baso # (Auto) 0.1 Abs Immat Gran (auto) 0.01 Absolute Neuts (auto) 2.8 Absolute Nucleated RBC 0.000 Nucleated RBC % (auto) 0.0 Sodium 141 Potassium 3.6 Chloride 112 H Carbon Dioxide 23 Anion Gap 10 L BUN 9 Creatinine 0.66 Estim Creat Clear Calc 84.8 Estimated GFR > 60 Random Glucose 92 Lactic Acid 0.6 Calcium 9.1 Total Bilirubin 0.3 AST 22 ALT 16 Alkaline Phosphatase 90 Total Protein 6.9 Albumin 3.6 Urine Color Yellow Urine Appearance Clear Urine pH 6.0 Ur Specific [place] >= 1.030 H Urine Protein Negative Urine Glucose (UA) Negative Urine Ketones Negative Urine Blood Negative Urine Nitrite Negative Ur Leukocyte Esterase Trace H Urine RBC 0-2 Urine WBC 0-5 Ur Squamous Epith Cells 0-2 Urine Bacteria None Seen Hyaline Casts 0-2 Airway Mallampati Class: II TM Dist: >3cm Neck ROM: Full Heart: rrr Lungs: cta Assessment and Plan Assessment Anesthesia Assessment: Anesthesia Plan Discussed and Chart Reviewed Final Anesthetic Review Family History of Problems with Anesthesia: No History of Problems with Anesthesia: No NPO: Yes ASA Class: II Final Preanesthetic Review: No Changes in Pt Med Stat, Meds/Allgs Chart Reviewed and Consent Obtained/Reviewed Patient Risk: Low Procedure Risk: Intermediate Anesthetic Plan Anesthetic Plan: GA Disposition: Standard PACU
--- NOTE | 2024-12-26 13:56 | MHC.CM.PN ---
PT LIVES ALONE HAS OWN RIDE HOME IS INDEPEDENT DC PLAN HOME N/S
--- NOTE | 2024-12-26 14:40 | PC.NURSE ---
Patient arrived to preop with PRN angio, #20 right wrist. IV removed (per anesthesia Dr. Coombs) due to it being present on infected extremity.
--- NOTE | 2024-12-26 18:24 | PM.OP ---
Brief Operative Note Date of Service: 12/26/24 Pre-op diagnosis: Right shoulder infection Post-op diagnosis: same Procedure: Arthroscopic debridement and removal of foreign material Implants: none Surgeon: Emanuel Patterson MD Anesthesia: GETA Was an Industrial Health And Safety Professor used for this Procedure?: Yes Industrial Health And Safety Professor: Lucia Brown Estimated blood loss (mL): 50 IV fluids (mL): 2,000 Pathology: other Condition: stable Disposition: PACU
[2024-12-26] MEDS: vancomycin HCL 1,000 MG in 0.9 % Sodium Chloride 250 ML 270 MG IV (22:04)
[2024-12-27] MEDS: ondansetron HCL 4 MG/2 ML VIAL IVPUSH (00:19)
[2024-12-27 00:45] VITALS: BP 134/78; BP 146/85
[2024-12-27] MEDS: 0.9 % Sodium Chloride Flush 3 ML SYRINGE IVFLUSH ×4 (00:47→19:35)
[2024-12-27 03:13] VITALS: BP 124/68; PULSE 87; RESP 18; TEMP 36.6; O2SAT 97
--- NOTE | 2024-12-27 04:51 | PC.NURSE ---
Patient arrived to s3 from PACU just after 19:00 s/p right shoulder surgery. Pt c/o dizziness in the evening with nausea and vomiting x1 (water) overnight. Orthostatics were negative. VSS. was notified. Zofran was given with +effect. Patient denies further dizziness or nausea this morning. Pt also retaining urine overnight, void volumes less than post-void residual bladder scans x2 despite assistance with ambulation to the bathroom. Patient declined straight cath x2, requested to have more time to wake up and go on her own. Patient denies pelvic pain/pressure/discomfort/dysuria. Covering Dr. Crowder notified. BARBARA remains in immobilizer sling. +radial pulses, +cms. Plan of care initiated.
[2024-12-27 06:17] LABS: MANUAL DIFF FLAG NO
[2024-12-27 06:25] LABS: Basophils Percent Auto 0.3 % (0-2); Eosinophils Percent Auto 0.2 % (0-4); Hematocrit 32.5 % (37.0-47.0); Hemoglobin 10.8 g/dl (12.0-16.0); Imm Gran Abs Auto 0.05 X10*3/uL (0.00-0.03); Imm Gran Pct Auto 0.5 % (0.0-0.4); Lymphocytes Absolute Auto 1.2 X10*3/uL (1.2-4.9); Mean Corpuscular HGB Conc 33.2 g/dl (31.0-35.0); Mean Corpuscular Hemoglobin 27.6 pg (27.0-33.0); Mean Corpuscular Volume 82.9 fL (80.0-98.0); Mean Platelet Volume 10.1 fL (9.4-12.3); Monocytes Absolute Auto 0.9 X10*3/uL (0.1-1.2); Monocytes Percent Auto 8.7 % (2-11); Neutrophils Absolute Auto 7.8 x10*3/uL (2.0-8.3); Neutrophils Percent Auto 78.3 % (45-73); Platelet Count 303 X10*3/uL (160-400); Red Blood Count 3.92 X10*6/uL (4.20-5.50); Red Cell Distribution Width 13.2 % (11.0-16.0); White Blood Count 9.9 X10*3/uL (4.8-10.8)
[2024-12-27] MEDS: levoFLOXacin/D5W 750 MG/150 ML PIGGYBACK 100 MG IV (06:25)
[2024-12-27 06:40] LABS: Anion Gap 11 (12-20); Blood Urea Nitrogen 9 mg/dL (9-16); Calcium 8.6 mg/dL (8.4-10.2); Carbon Dioxide 25 mmol/L (22-29); Chloride 107 mmol/L (96-108); Creatinine Clr Calc Pharmacy 101.7; Estimated Glomerular Filt Rate > 60; Glucose Random 130 mg/dL (60-115); Potassium 4.6 mmol/L (3.3-5.1); Sodium 138 mmol/L (135-145)
[2024-12-27 06:52] VITALS: BP 114/65; PULSE 75; RESP 16; TEMP 36.6; O2SAT 96
--- NOTE | 2024-12-27 08:25 | PM.PNORT ---
Subjective Subjective Date of Service: 12/27/24 Principal diagnosis: right shoulder infection Interval history: POD#1 s/p right shoulder I&D. Doing well. Minimal pain. Dressing changed this AM. Physical Exam Vital Signs: Vital Signs: Last Vital Signs Temp 97.9 F 12/27/24 06:52 Pulse 75 12/27/24 06:52 Resp 16 12/27/24 06:52 BP 114/65 12/27/24 06:52 Pulse Ox 96 12/27/24 06:52 O2 Del Method Room Air 12/27/24 06:52 O2 Flow Rate 2 12/26/24 18:43 BMI result Body Mass Index 24.4 Extrem: Other: Dressing c/d/i Hand WWP with SILT SILT lateral deltoid Sling in place Procedures Date of Service Date of Service: 12/27/24 Progress Note: A&P Assessment and plan (1) Seroma of skin or subcutaneous tissue after non-dermatologic procedure: Status: Acute Assessment and Plan: POD#1 s/p Removal of deep metallic anchors as chronic infection not resolving. As always the articular surfaces and the GH joint appears unharmed and the infection seems confined to the bursa. CT suggested possible osteo around metallic anchors although were deep to cortex and covered in bone so hard to be certain. These were removed from deep bone and bone curretted. IV abx course as per ID. Dispo pending PICC and infusion center. Time Spent With Patient Time: Total time managing care of this patient today ____ minutes. Quality Stroke Does the patient have a stroke diagnosis?: No VTE Prior VTE?: No VTE Risk Level:: Medical - moderate - high VTE Device Contraindication: N/A - Device Ordered VTE Drug Contraindication: Treatment Not Indicated
[2024-12-27] MEDS: vancomycin HCL 1,000 MG in 0.9 % Sodium Chloride 250 ML 270 MG IV ×2 (08:41→19:31)
[2024-12-27] MEDS: Cholecalciferol (Vitamin D3) 25 MCG TABLET PO (08:42)
--- NOTE | 2024-12-27 08:50 | HO.POSTANES ---
Post Anesthesia Evaluation Post Anesthesia Evaluation Date of Service: 12/27/24 Vital Signs: Vital Signs Temp Pulse Resp BP Pulse Ox O2 Del Method 12/27/24 06:52 97.9 F 75 16 114/65 96 Room Air 12/27/24 03:13 98 F 87 18 124/68 97 Room Air 12/27/24 00:45 134/78 12/27/24 00:45 146/85 H 12/26/24 22:01 97.6 F 78 18 140/83 H 95 Room Air Anesthesia: General Endotracheal-GETA Mental Status: Awake Pain Control: Satisfactory Nausea/Vomiting: None Hydration: Adequate Anesthesia-Related Issues: No Anes. Related Issues
[2024-12-27] MEDS: Acetaminophen 325 MG TABLET 975 MG PO (09:21)
--- NOTE | 2024-12-27 09:35 | HO.PM.IMPN ---
Subjective Subjective Date of Service: 12/27/24 Interval History: f/u on septic joint of shoulder s/p I&D yesterday, doing fine with pain Physical Exam Vital Signs: Vital Signs: Last Vital Signs Temp 97.9 F 12/27/24 06:52 Pulse 75 12/27/24 06:52 Resp 16 12/27/24 06:52 BP 114/65 12/27/24 06:52 Pulse Ox 96 12/27/24 06:52 O2 Del Method Room Air 12/27/24 06:52 O2 Flow Rate 2 12/26/24 18:43 BMI result Body Mass Index 24.4 Const: Other: before surgery Objective Data Active Medications Acetaminophen (Acetaminophen 325 Mg Tablet) 975 mg PO Q6H PRN PRN Reason: Pain, Mild 1-3,fever,headache Last Admin: 12/27/24 09:21 Dose: 975 mg Documented By: CHRIS Betamethasone Dipropion Augmented (Betamethasone Dip Aug 0.05% Cr 15 Gm Tube) 1 appl TOPICAL BID PRN PRN Reason: eczema Calcium Carbonate (Calcium Carbonate 750 Mg Tab.Chew) 750 mg PO Q4H PRN PRN Reason: Heartburn Levofloxacin (Levaquin) 750 mg in 150 mls @ 100 mls/hr IV Q24H [facility] Last Infusion: 12/27/24 07:55 Dose: Infused Documented By: CHRIS Vancomycin HCl 1,000 mg/ (Sodium Chloride) 270 mls @ 270 mls/hr IV Q12H [facility] Last Admin: 12/27/24 08:41 Dose: 270 mls/hr Documented By: GABE Metronidazole (Flagyl) 500 mg in 100 mls @ 100 mls/hr IV Q8H [facility] Magnesium Hydroxide (Milk Of Magnesia 30 Ml Oral.Susp) 30 ml PO DAILY PRN PRN Reason: Constipation Melatonin (Melatonin 3 Mg Tablet) 6 mg PO BEDTIME PRN PRN Reason: Insomnia Morphine Sulfate (Morphine Sulfate 4 Mg/Ml Cartridge) 2 mg IVPUSH Q4H PRN; Protocol PRN Reason: Pain, Severe (Pain Scale 7-10) Ondansetron HCl (Ondansetron Hcl 4 Mg/2 Ml Vial) 4 mg IVPUSH Q8H PRN PRN Reason: Nausea and Vomiting Last Admin: 12/27/24 00:19 Dose: 4 mg Documented By: MAHIN Ondansetron HCl (Ondansetron Hcl 4 Mg/2 Ml Vial) 4 mg IVPUSH ONCE PRN PRN Reason: Nausea and Vomiting Oxycodone HCl (Oxycodone Hcl Immed Release 5 Mg Tablet) 5 mg PO Q6H PRN PRN Reason: Pain, Moderate(Pain Scale 4-6) Pharmacy Consult (Consult Rx Vancomycin Dosing) 1 each MISCELLANE DAILY PRN PRN Reason: Consult order Sodium Chloride (0.9 % Sodium Chloride Flush 3 Ml Syringe) 3 ml IVFLUSH QSHIFT [facility] Last Admin: 12/27/24 08:44 Dose: 3 ml Documented By: GABE Sumatriptan Succinate (Sumatriptan Succinate 50 Mg Tablet) 50 mg PO Q2H PRN PRN Reason: migraine Vitamin D (Cholecalciferol (Vitamin D3) 25 Mcg Tablet) 25 mcg PO DAILY [facility] Last Admin: 12/27/24 08:42 Dose: 25 mcg Documented By: GABE Labs 12/27/24 05:57 12/27/24 05:57 Labs: Laboratory Results - last 24 hr 12/27/24 05:57 MCV 82.9 MCH 27.6 MCHC 33.2 RDW 13.2 Plt Count 303 MPV 10.1 Immature Gran % (Auto) 0.5 H Neut % (Auto) 78.3 H Lymph % (Auto) 12.0 L [place] % (Auto) 8.7 Eos % (Auto) 0.2 Baso % (Auto) 0.3 Lymph # (Auto) 1.2 [place] # (Auto) 0.9 Eos # (Auto) 0.0 Baso # (Auto) 0.0 Abs Immat Gran (auto) 0.05 H Absolute Neuts (auto) 7.8 Absolute Nucleated RBC 0.000 Nucleated RBC % (auto) 0.0 Anion Gap 11 L Estim Creat Clear Calc 101.7 Estimated GFR > 60 Random Glucose 130 H Calcium 8.6 Microbiology Microbiology Results: Microbiology 12/26/24 15:54 Gram Stain - Final Shoulder Right Routine Culture - Preliminary No growth to date. Anaerobic Culture - Preliminary Culture in progress. 12/26/24 15:54 Gram Stain - Final Shoulder Right Routine Culture - Preliminary Culture in progress. Anaerobic Culture - Preliminary Culture in progress. Assessment and Plan (1) Septic joint of right shoulder region: Status: Acute Plan Patient is a 63-year-old female with a past medical history significant for multiple complications following right rotator cuff repair on 12/14/2023, including wound dehiscence requiring arthroscopic debridement on 01/30/2024 and right shoulder acromioplasty on 03/14/2024. More recently, she underwent right shoulder debridement for chronic subacromial bursal infection with Dr. Patterson. On 12/13/2024, she was evaluated for erythema of the right shoulder and underwent aspiration of a fluid collection, which tested positive for MSSA. She was initially treated with Levaquin without improvement after 9 days and then prescribed linezolid, which she was unable to obtain due to insurance issues. She was advised to present to the ED for IV antibiotics due to treatment delay. She went to [facility] and was transferred here. Osteomyelitis/septic arthritis/cellulitis of right shoulder Labs from [facility]: WBC 7.7, lactic acid normal Today's labs: WBC 5.5, lactic acid normal CT right shoulder showed increased screws within the right humeral head with surrounding lucency. There are heterogeneous areas of decreased attenuation surrounding the humeral head and extending into the superior deltoid muscles, concerning for infection or septic arthritis with possible intramuscular abscess. Lucencies and irregularity also noted at the right AC joint. Findings suggest osteomyelitis and septic arthritis. Chest CT showed mild interstitial prominence and dependent ground-glass density, no consolidations. Findings may correlate with mild pulmonary vascular congestion. Small bilateral axillary lymphadenopathy noted. Received 1 g vancomycin at 22:38 at [facility] Continue vancomycin, add Flagyl and Levaquin Check CBC, CMP, and lactate Ortho and ID consulted, s/p I&D and removal foreign material yesterday Monitor CBC and BMP Ortho recommending IV Abx, awaiting ID consult PICC line today Full code VTE prophylaxis: Pneumoboots pending orthopedic evaluation Patient with suspected osteomyelitis, septic arthritis, and cellulitis of the right shoulder requiring admission for at least a two-midnight stay for IV antibiotics and further evaluation by Orthopedics and Infectious Disease. Full code VTE prophylaxis: Pneumoboots pending ortho consultation Quality Stroke Does the patient have a stroke diagnosis?: No VTE Prior VTE?: No VTE Risk Level:: Medical - moderate - high VTE Device Contraindication: N/A - Device Ordered VTE Drug Contraindication: Treatment Not Indicated
[2024-12-27] MEDS: metroNIDAZOLE/NS 500 MG/100 ML PIGGYBACK 100 MG IV ×2 (09:58→17:11)
--- NOTE | 2024-12-27 13:40 | PC.NURSE ---
Patient alert and oriented x4, PVR > void, pt. refusing straight cath, education provided, patient stated that she understood. aware.
[2024-12-27 14:56] VITALS: BP 97/53; PULSE 85; RESP 18; O2SAT 97
--- NOTE | 2024-12-27 15:59 | MHC.CM.PN ---
Addendum entered by Brenda Kaplan RN 12/27/24 16:03: PER RN, PATIENT NOW STATING SHE PREFERS TO COME [place] [facility] FOR AB[place]. PATIENT OFF UNIT FOR PICC PLACEMENT. WILL RE-ADDRESS TOMORROW. Original Note: PATIENT WILL NEED IV ABX ON DC. DISCUSSED W/ PATIENT WHO REPORTS SHE HAS DONE ABX AT HOME IN THE PAST W/ ASSISTANCE FROM . AWAITING ID EVAL FOR ABX SELECTION. PER [facility] - COVERED 100%. [facility] WILL ARRANGE TEACH W/ . PER [facility] - NO HOME CARE COVERAGE W/ PATIENT'S INSURANCE. WILL NEED SN THROUGH [facility]. CM WILL CONTINUE TO FOLLOW.
--- NOTE | 2024-12-27 16:33 | P.PICC_ITS ---
PICC Line Insertion NPICC Insertion Diagnosis: S/P Right Shoulder I&D Indication: Conveyor Maintenance Mechanic Antibx Pertinent Labs: Reviewed Technique: Following informed consent including risks, benefits and alternatives and using sterile technique including cap and mask, sterile gown, glove and drape, the Left arm was prepped and draped in the usual sterile fashion of full barrier technique with CHG. Following completion of Carroll Protocol the skin and soft tissues were anesthetized with 1% Lidocaine plain. Using ultrasound guidance, Left Brachial vein access was obtained. Over an 0.018 wire through peel-away sheath, a 4Fr Single Lumen PowerPICC line was positioned. Catheter length is 44cm internal length, 0CM external length, for a total trimmed length of 44cm. The procedure was performed in rm 272. Tip verification was performed by Aashish Abdi with Sherlock 3CG. Tip located in SVC. Ultrasound was used to document vein patency and for needle entry. A formal ultrasound picture and cardiac rhythm strip was recorded. Vascular Environmental Educator has released the line for use and it is currently dressed with a StatLock, Tegaderm, and CHG disc. Verification has been performed for blood return and line patency. Arm Circumference: 31cm Equipment: Xeros POWERPICC SOLO CATHETER WITH SHERLOCK 3CG Catheter Type: 4Fr SINGLE LUMEN POWERPICC Lot #: [id number]
--- NOTE | 2024-12-27 17:36 | W.PM.IDCN ---
History of Present Illness Data of Consult Service Date: 12/27/24 [facility] Primary Care Provider: Ayla García MD HPI She presents to hospital with right shoulder pain and redness. She had originally rotator cuff repair on 12/2023 and then dehiscence of wound on 01/2024. She had right shoulder acromioplasty on 03/14/2024. She had pain over winter and received po linezolid for two weeks August 2024. She has had redness right arm with fluid pocket bursal shouder and then 5/8 aspiration fluid per Orthopedics ,MSSA and received po Levaquin for nine days and didnt improve. I saw her in office and recommended ER if worse if po linezolid not improved which it wasnt. She was admitted and is now POD1 deep metallic anchor removal and bone culture Review of Systems Review of Systems: Yes all other systems are reviewed and are negative PMFSH Past Medical History Medical History Septic joint of right shoulder region Normal colonoscopy Mammogram normal Normal Pap smear Annual physical exam Varicose veins of both lower extremities Family History Family History Father Heart problem Mother Hypertension Stroke Family history: reviewed and not pertinent Surgical History Surgical History H/O repair of right rotator cuff Status post cervical polyp removal S/P foot surgery, right History of carpal tunnel surgery of right wrist History of carpal tunnel surgery of left wrist Social History Social History Household Members: Spouse Housing: Apartment Are you a primary critical care unit nurse to a significant other at home: No Do you presently have visiting nurse or other home services: No Patient Tobacco Use Status: Former Tobacco user Tobacco use type: Cigarette Years Smoked: 10 e-Cigarette/Vaping Use: Never Used service: No Current occupational status: employed 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 Cognitive needs: No Hearing needs: No Vision needs: Yes Meds Allergies Allergy/AdvReac Type Severity Reaction Status Date / Time Penicillins Allergy Severe trouble Verified 12/26/24 12:22 breathing latex Allergy Intermediate rash Verified 12/26/24 12:22 Active Medications: Current Medications Acetaminophen (Acetaminophen 325 Mg Tablet) 975 mg PO Q6H PRN PRN Reason: Pain, Mild 1-3,fever,headache Last Admin: 12/27/24 09:21 Dose: 975 mg Betamethasone Dipropion Augmented (Betamethasone Dip Aug 0.05% Cr 15 Gm Tube) 1 appl TOPICAL BID PRN PRN Reason: eczema Calcium Carbonate (Calcium Carbonate 750 Mg Tab.Chew) 750 mg PO Q4H PRN PRN Reason: Heartburn Levofloxacin (Levaquin) 750 mg in 150 mls @ 100 mls/hr IV Q24H [facility] Last Infusion: 12/27/24 07:55 Dose: Infused Vancomycin HCl 1,000 mg/ (Sodium Chloride) 270 mls @ 270 mls/hr IV Q12H [facility] Last Infusion: 12/27/24 09:41 Dose: Infused Metronidazole (Flagyl) 500 mg in 100 mls @ 100 mls/hr IV Q8H [facility] Last Admin: 12/27/24 17:11 Dose: 100 mls/hr Magnesium Hydroxide (Milk Of Magnesia 30 Ml Oral.Susp) 30 ml PO DAILY PRN PRN Reason: Constipation Melatonin (Melatonin 3 Mg Tablet) 6 mg PO BEDTIME PRN PRN Reason: Insomnia Morphine Sulfate (Morphine Sulfate 4 Mg/Ml Cartridge) 2 mg IVPUSH Q4H PRN; Protocol PRN Reason: Pain, Severe (Pain Scale 7-10) Ondansetron HCl (Ondansetron Hcl 4 Mg/2 Ml Vial) 4 mg IVPUSH Q8H PRN PRN Reason: Nausea and Vomiting Last Admin: 12/27/24 00:19 Dose: 4 mg Ondansetron HCl (Ondansetron Hcl 4 Mg/2 Ml Vial) 4 mg IVPUSH ONCE PRN PRN Reason: Nausea and Vomiting Oxycodone HCl (Oxycodone Hcl Immed Release 5 Mg Tablet) 5 mg PO Q6H PRN PRN Reason: Pain, Moderate(Pain Scale 4-6) Pharmacy Consult (Consult Rx Vancomycin Dosing) 1 each MISCELLANE DAILY PRN PRN Reason: Consult order Sodium Chloride (0.9 % Sodium Chloride Flush 3 Ml Syringe) 3 ml IVFLUSH QSHIFT [facility] Last Admin: 12/27/24 17:23 Dose: 3 ml Sumatriptan Succinate (Sumatriptan Succinate 50 Mg Tablet) 50 mg PO Q2H PRN PRN Reason: migraine Vitamin D (Cholecalciferol (Vitamin D3) 25 Mcg Tablet) 25 mcg PO DAILY [facility] Last Admin: 12/27/24 08:42 Dose: 25 mcg Home Medications ?Medication ?Instructions ?Recorded ?Confirmed ?Last Taken ?Type cholecalciferol (vitamin D3) 25 25 mcg PO DAILY 12/26/24 12/26/24 12/25/24 History mcg (1,000 unit) tablet (Vitamin D3) clobetasol 0.05 % topical ointment 1 appl topical BID PRN eczema 12/26/24 12/26/24 Unknown History ibuprofen 800 mg tablet 800 mg PO TID PRN pain 12/26/24 12/26/24 12/12/24 History sumatriptan succinate 50 mg tablet 50 mg PO Q2H PRN migraine 12/26/24 12/26/24 Unknown History Physical Exam Vital Signs: Vital Signs: Last Vital Signs Temp 97.9 F 12/27/24 06:52 Pulse 85 12/27/24 14:56 Resp 18 12/27/24 14:56 BP 97/53 L 12/27/24 14:56 Pulse Ox 97 12/27/24 14:56 O2 Del Method Room Air 12/27/24 14:56 O2 Flow Rate 2 12/26/24 18:43 BMI result Body Mass Index 24.4 Const: General: cooperative HEENT: Head: Yes normal to inspection Face and sinus: Yes normal facial exam Mouth: Normal oral and palatal mucosa present Teeth and gingiva: dentition normal Eyes: General: appearance normal, both eyes and all related structures Pupils: Equal, round and reactive pupils present Resp: Effort & Inspection: normal respiratory effort Cardio: Rate: regular rate Rhythm: regular rhythm GI: Palpation (GI): Soft to palpation and nontender : General: Yes no CVA tenderness Back/Spine/Pelvis: Back: no CVA tenderness Skin: General skin exam: no rashes or lesions noted Neuro: General: moves all extremities Cranial nerves: Yes Equal, round and reactive pupils present Extrem: Other: reddened right shoulder,wrapped Psych: Appearance: grossly normal Results Labs 12/27/24 05:57 12/27/24 05:57 Labs: Short CBC 12/27/24 Range/Units 05:57 WBC 9.9 (4.8-10.8) X10*3/uL Hgb 10.8 L (12.0-16.0) g/dl Hct 32.5 L (37.0-47.0) % Plt Count 303 (160-400) X10*3/uL BMP 12/27/24 05:57 Sodium 138 Potassium 4.6 D Chloride 107 Carbon Dioxide 25 BUN 9 Creatinine 0.55 Calcium 8.6 Microbiology Microbiology Results: Microbiology 12/26/24 15:54 Shoulder Right Gram Stain - Final 12/26/24 15:54 Shoulder Right Routine Culture - Preliminary No growth to date. 12/26/24 15:54 Shoulder Right Anaerobic Culture - Preliminary Culture in progress. 12/26/24 15:54 Shoulder Right Gram Stain - Final 12/26/24 15:54 Shoulder Right Routine Culture - Preliminary Culture in progress. 12/26/24 15:54 Shoulder Right Anaerobic Culture - Preliminary Culture in progress. Assessment and Plan (1) Osteomyelitis of right shoulder: Status: Acute (2) Cellulitis of right shoulder: Status: Acute Plan Will check blood culture and bone culture. Possibly some degree of OM. 6-8 weeks IV Vancomycin or Daptomycin If Vancomycin weekly creatinine and Vancomycin trough and ESR. If Daptomycin weekly CK and creatinine and ESR. Stop Levaquin and Flagyl. Follow Orthopedics. No working at this time
[2024-12-27 18:41] LABS: Vancomycin Random 9.9 mcg/mL (15-20)
--- NOTE | 2024-12-27 18:53 | HE.PHANOTE ---
Re Bautista Pt's renal function is improving. Torugh returned at 9.9. Dose increased to 1,000mg q8h with predicted AUC 559 and predicted trough 16.7. Next trough 12/28 @ 1800.
[2024-12-27 19:38] VITALS: BP 125/61; PULSE 83; RESP 18; TEMP 37.3; O2SAT 97
[2024-12-27] MEDS: Heparin Sodium,Porcine Flush 50 UNITS/5 ML SYRINGE IVFLUSH (23:16)
[2024-12-28 03:32] VITALS: BP 116/62; PULSE 79; RESP 18; TEMP 37.2; O2SAT 95
[2024-12-28] MEDS: vancomycin HCL 1,000 MG in 0.9 % Sodium Chloride 250 ML 270 MG IV (05:11)
[2024-12-28] MEDS: levoFLOXacin/D5W 750 MG/150 ML PIGGYBACK 100 MG IV (06:26)
[2024-12-28 06:30] LABS: MANUAL DIFF FLAG NO
[2024-12-28 06:33] LABS: Basophils Absolute Auto 0.1 X10*3/uL (0.0-0.2); Basophils Percent Auto 0.8 % (0-2); Eosinophils Absolute Auto 0.4 X10*3/uL (0.0-0.4); Eosinophils Percent Auto 5.4 % (0-4); Hematocrit 31.8 % (37.0-47.0); Hemoglobin 10.3 g/dl (12.0-16.0); Imm Gran Abs Auto 0.02 X10*3/uL (0.00-0.03); Imm Gran Pct Auto 0.3 % (0.0-0.4); Lymphocytes Absolute Auto 1.9 X10*3/uL (1.2-4.9); Lymphocytes Percent Auto 28.6 % (20-40); Mean Corpuscular HGB Conc 32.4 g/dl (31.0-35.0); Mean Corpuscular Hemoglobin 27.4 pg (27.0-33.0); Mean Corpuscular Volume 84.6 fL (80.0-98.0); Mean Platelet Volume 10.4 fL (9.4-12.3); Monocytes Absolute Auto 0.6 X10*3/uL (0.1-1.2); Monocytes Percent Auto 9.4 % (2-11); Neutrophils Absolute Auto 3.6 x10*3/uL (2.0-8.3); Neutrophils Percent Auto 55.5 % (45-73); Platelet Count 283 X10*3/uL (160-400); Red Blood Count 3.76 X10*6/uL (4.20-5.50); Red Cell Distribution Width 13.4 % (11.0-16.0); White Blood Count 6.5 X10*3/uL (4.8-10.8)
[2024-12-28 06:47] LABS: Anion Gap 10 (12-20); Blood Urea Nitrogen 7 mg/dL (9-16); Calcium 8.3 mg/dL (8.4-10.2); Carbon Dioxide 23 mmol/L (22-29); Chloride 113 mmol/L (96-108); Creatinine Clr Calc Pharmacy 98.2; Estimated Glomerular Filt Rate > 60; Glucose Random 91 mg/dL (60-115); Potassium 3.7 mmol/L (3.3-5.1); Sodium 142 mmol/L (135-145)
[2024-12-28] MEDS: 0.9 % Sodium Chloride Flush 3 ML SYRINGE IVFLUSH (08:08)
[2024-12-28 08:10] VITALS: BP 147/69; PULSE 76; RESP 18; TEMP 36.2; O2SAT 97
[2024-12-28] MEDS: Heparin Sodium,Porcine Flush 50 UNITS/5 ML SYRINGE IVFLUSH (08:11)
[2024-12-28] MEDS: Cholecalciferol (Vitamin D3) 25 MCG TABLET PO (08:11)
--- NOTE | 2024-12-28 08:12 | PM.PNORT ---
Subjective Subjective Date of Service: 12/28/24 Principal diagnosis: right shoulder infection Interval history: POD#1 s/p right shoulder I&D. Doing well. Minimal pain. Dressing changed this AM. Physical Exam Vital Signs: Vital Signs: Last Vital Signs Temp 97.1 F 12/28/24 08:10 Pulse 76 12/28/24 08:10 Resp 18 12/28/24 08:10 BP 147/69 H 12/28/24 08:10 Pulse Ox 97 12/28/24 08:10 O2 Del Method Room Air 12/28/24 08:10 O2 Flow Rate 2 12/26/24 18:43 BMI result Body Mass Index 24.4 Const: General: cooperative, healthy appearing and no acute distress Resp: Effort & Inspection: normal respiratory effort and able to speak in complete sentences Cardio: Rate: regular rate Peripheral pulses: Peripheral pulses 2+ throughout GI: Palpation (GI): Soft to palpation Skin: General skin exam: no rashes or lesions noted Extrem: Other: Incision c/d/i No active drainage Deltoid sensation intact elbow and wrist rom intact pulses present Procedures Date of Service Date of Service: 12/28/24 Progress Note: A&P Assessment and plan (1) Status post right rotator cuff repair: Status: Acute (2) Seroma of skin or subcutaneous tissue after non-dermatologic procedure: Status: Acute Assessment and Plan: POD#1 s/p Removal of deep metallic anchors as chronic infection not resolving. As always the articular surfaces and the GH joint appears unharmed and the infection seems confined to the bursa. CT suggested possible osteo around metallic anchors although were deep to cortex and covered in bone so hard to be certain. These were removed from deep bone and bone curretted. IV abx course as per ID. Dispo pending PICC and infusion center. (3) Cellulitis of right shoulder: Status: Acute Plan Continue daily dry dressing changes pendulums elbow and wrist rom ID recs: Plan Will check blood culture and bone culture. Possibly some degree of OM. 6-8 weeks IV Vancomycin or Daptomycin If Vancomycin weekly creatinine and Vancomycin trough and ESR. If Daptomycin weekly CK and creatinine and ESR. Stop Levaquin and Flagyl. Time Spent With Patient Time: Total time managing care of this patient today ____ minutes. Quality Stroke Does the patient have a stroke diagnosis?: No VTE Prior VTE?: No VTE Risk Level:: Medical - moderate - high VTE Device Contraindication: N/A - Device Ordered VTE Drug Contraindication: Treatment Not Indicated
--- NOTE | 2024-12-28 09:43 | HE.PHANOTE ---
LEVOFLOXACIN 750MG IV TO PO CONVERSION PATIENT MEETS PROTOCOL FOR IV TO PO SWITCH. 750MG IV CHANGED TO PO. NEXT DOSE 12/29 @ 0800
--- NOTE | 2024-12-28 10:01 | P.DS_ITS ---
DS: Providers Provider Date of Service: 12/28/24 Date of admission: 12/26/24 02:46 Date of discharge: 12/28/24 Primary care physician: Ayla García MD Consults: 12/26/24 06:14 Consult to Infectious Diseases Routine Consulting Provider: [facility] Reason for consultation: ?ostemyelitis, septic arthritis Has provider been notified: No Consult to Orthopedics Routine Consulting Provider: Emanuel Patterson Reason for consultation: ?osetomyelitis, septic arthritis Has provider been notified: No 12/28/24 09:57 Consult to Neurology Routine Consulting Provider: [facility] Reason for consultation: acute tingling of right left arm after PICC line DS: Diagnosis Discharge Diagnosis (1) Status post right rotator cuff repair: Status: Acute (2) Seroma of skin or subcutaneous tissue after non-dermatologic procedure: Status: Acute (3) Cellulitis of right shoulder: Status: Acute DS: Summary Hospital Course Hospital Course: admission hpi Chief Complaint: Right shoulder infection Patient is a 63-year-old female with a past medical history significant for multiple complications after a right rotator cuff repair on 12/14/2023 including dehiscence with arthroscopic debridement of right shoulder on of 01/30/24 and right shoulder /acromioplasty 03/14/2024, more recently s/p right shoulder debridement secondary to chronic subacromial bursal infection with Dr. Patterson. On 12/13/2024 she was seen again due to erythema of the right shoulder and is s/p aspiration with fluid collection, which came back positive for MSSA. She reported that she hit her shoulder on a machine at work on 12/12/23. She was prescribed levaquin and did not have any improvement after 9 days, and saw Dr Marshall who prescired linazolid. she was unable to get this due to insurance issues, and was advised to go to the ED for IV abx due to delay in tx. she went to [facility], who transferred her here due to findings on her CT with possible osteomyelitis, septic arthritis and intramuscular abscess formation. The patient denies any fever, chills, nausea or vomiting. She reports over the past 2 days her range of motion has improved. She is able to flex the shoulder however does have decreased range of motion with abduction past 90 degrees. hospital coure: Patient was admitted for recurrent right shoulder infection post rotator cuff repair, wound culture growing staph valorieues, she underwent Arthroscopic debridement and removal of foreign material on 12/26/24. ID recommends 6 to 8 weeks of IV daptomycin, check weekly cpk, creatine and ESR. A Picc line was inserted on 12/27 for home infusion therapy for IV daptomycin for 6 week. To follow up with ID and Ortho Time Attestation Discharge Coordination Time (in mins): 45 Quality: Safe Use of Opioids Does Pt have an Active Cancer Diagnosis on the Problem List?: No Quality: Stroke Does the patient have a stroke diagnosis?: No Physical Exam Vital Signs: Vital Signs: Last Vital Signs Temp 97.1 F 12/28/24 08:10 Pulse 76 12/28/24 08:10 Resp 18 12/28/24 08:10 BP 147/69 H 12/28/24 08:10 Pulse Ox 97 12/28/24 08:10 O2 Del Method Room Air 12/28/24 08:10 O2 Flow Rate 2 12/26/24 18:43 BMI result Body Mass Index 24.4 DS: Data Data Completed and Pending Labs on day of discharge: Laboratory Results - last 24 hr 12/27/24 12/28/24 18:19 05:58 WBC 6.5 RBC 3.76 L Hgb 10.3 L Hct 31.8 L MCV 84.6 MCH 27.4 MCHC 32.4 RDW 13.4 Plt Count 283 MPV 10.4 Immature Gran % (Auto) 0.3 Neut % (Auto) 55.5 Lymph % (Auto) 28.6 Carlton % (Auto) 9.4 Eos % (Auto) 5.4 H Baso % (Auto) 0.8 Lymph # (Auto) 1.9 Carlton # (Auto) 0.6 Eos # (Auto) 0.4 Baso # (Auto) 0.1 Abs Immat Gran (auto) 0.02 Absolute Neuts (auto) 3.6 Absolute Nucleated RBC 0.000 Nucleated RBC % (auto) 0.0 Sodium 142 Potassium 3.7 Chloride 113 H Carbon Dioxide 23 Anion Gap 10 L BUN 7 L Creatinine 0.57 Estim Creat Clear Calc 98.2 Estimated GFR > 60 Random Glucose 91 Calcium 8.3 L Random Vancomycin 9.9 L Preliminary micro results at discharge 12/26/24 15:54 Routine Culture - Preliminary Shoulder Right Staphylococcus aureus Anaerobic Culture - Preliminary Culture in progress. 12/26/24 15:54 Routine Culture - Preliminary Shoulder Right Staphylococcus aureus Anaerobic Culture - Preliminary Culture in progress. Discharge Plan Discharge Anticipated Discharge Date/Time: 12/28/24 14:03 Patient Disposition: Home Health Service Discharge Diagnosis: Septic joint of right shoulder Referrals: [facility] [Other] - 1 Week (Home infusion for PICC dressing, IV supplies/medication) Ayla García MD [Primary Care Provider] - 1 Week Emanuel Patterson MD [Physician] - 01/03/25 8:30 am (01/03/25 08:30 [facility] Emanuel Patterson MD) Discharge Medications: New daptomycin 350 mg Recon Soln 565 mg IV Q24H Qty: 42 0RF Continued ibuprofen 800 mg tablet 800 mg PO TID PRN (Reason: pain) sumatriptan succinate 50 mg tablet 50 mg PO Q2H PRN (Reason: migraine) cholecalciferol (vitamin D3) [Vitamin D3] 25 mcg (1,000 unit) Tablet 25 mcg PO DAILY clobetasol 0.05 % ointment 1 appl topical BID PRN (Reason: eczema) Discontinued levofloxacin 500 mg tablet 500 mg PO DAILY 30 Days Qty: 30 0RF Discharge Orders: Discharge Order (Routine); Ordered 12/28/24 Ordered By: Albert Fuentes Diet: Advance to usual diet Activity on Discharge: As tolerated Stand Alone Forms: Patient Portal Discharge page Print Language: Beninese Activity Restrictions/Additional Instructions: Keep dressing clean dry and intact Perform daily dry dressing changes : Apply 4 x 4 gauzes on each incision layered with ABD pads and reinforced with tape. F/u with orthopedics 01/03/25 8:30am Care Plan Goals: recovery from right shoulder joint infection Health Concerns: right shoulder joint infection Plan of Treatment: daptomycin iv daily for 42 days weekly cpk, creatine and ESR follow up with ID, PCP and othro Assessment: see above Discharge Date/Time: 12/28/24 15:17
[2024-12-28] MEDS: SODIUM CHLORIDE 0.9% IV (10:58)
[2024-12-28] MEDS: DAPTOMYCIN IV (10:58)
--- NOTE | 2024-12-28 11:51 | PM.NEUROCN ---
History of Present Illness Data of Consult Service Date: 12/28/24 Primary Care Provider: Ayla García MD [facility] Reason for consult: Arm numbness 63 years old woman who had an IV line placed at elbow area of left arm and after that she started complaining of weakness and tingling in her left hand prompting this consultation. When I saw her she said that strength was already resolved and she was able to move her hand but some tingling was still there and most of the tingling was in the thumb area. Though all fingers were involved. Review of Systems Review of Systems: Recent IV line placement on ventral surface of left elbow. [facility] Past Medical History Medical History Septic joint of right shoulder region Normal colonoscopy Mammogram normal Normal Pap smear Annual physical exam Varicose veins of both lower extremities Family History Family History Father Heart problem Mother Hypertension Stroke Family history: reviewed and not pertinent Surgical History Surgical History H/O repair of right rotator cuff Status post cervical polyp removal S/P foot surgery, right History of carpal tunnel surgery of right wrist History of carpal tunnel surgery of left wrist Social History Social History Household Members: Spouse Housing: Apartment Are you a primary child care lead teacher to a significant other at home: No Do you presently have visiting nurse or other home services: No Patient Tobacco Use Status: Former Tobacco user Tobacco use type: Cigarette Years Smoked: 10 e-Cigarette/Vaping Use: Never Used service: No Current occupational status: employed 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 Cognitive needs: No Hearing needs: No Vision needs: Yes Meds Allergies Allergy/AdvReac Type Severity Reaction Status Date / Time Penicillins Allergy Severe trouble Verified 12/26/24 12:22 breathing latex Allergy Intermediate rash Verified 12/26/24 12:22 Active Medications: Current Medications Acetaminophen (Acetaminophen 325 Mg Tablet) 975 mg PO Q6H PRN PRN Reason: Pain, Mild 1-3,fever,headache Last Admin: 12/27/24 09:21 Dose: 975 mg Betamethasone Dipropion Augmented (Betamethasone Dip Aug 0.05% Cr 15 Gm Tube) 1 appl TOPICAL BID PRN PRN Reason: eczema Calcium Carbonate (Calcium Carbonate 750 Mg Tab.Chew) 750 mg PO Q4H PRN PRN Reason: Heartburn Heparin Sodium (Porcine) (Heparin Sodium,Porcine Flush 50 Units/5 Ml Syringe) 50 units IVFLUSH [facility] Last Admin: 12/28/24 08:11 Dose: 50 units Daptomycin 565 mg/ Sodium (Chloride) 61.3 mls @ 99.991 mls/hr IV Q24H [facility] Last Admin: 12/28/24 10:58 Dose: 99.99 mls/hr Magnesium Hydroxide (Milk Of Magnesia 30 Ml Oral.Susp) 30 ml PO DAILY PRN PRN Reason: Constipation Melatonin (Melatonin 3 Mg Tablet) 6 mg PO BEDTIME PRN PRN Reason: Insomnia Morphine Sulfate (Morphine Sulfate 4 Mg/Ml Cartridge) 2 mg IVPUSH Q4H PRN; Protocol PRN Reason: Pain, Severe (Pain Scale 7-10) Ondansetron HCl (Ondansetron Hcl 4 Mg/2 Ml Vial) 4 mg IVPUSH Q8H PRN PRN Reason: Nausea and Vomiting Last Admin: 12/27/24 00:19 Dose: 4 mg Ondansetron HCl (Ondansetron Hcl 4 Mg/2 Ml Vial) 4 mg IVPUSH ONCE PRN PRN Reason: Nausea and Vomiting Oxycodone HCl (Oxycodone Hcl Immed Release 5 Mg Tablet) 5 mg PO Q6H PRN PRN Reason: Pain, Moderate(Pain Scale 4-6) Sodium Chloride (0.9 % Sodium Chloride Flush 3 Ml Syringe) 3 ml IVFLUSH [facility] Last Admin: 12/28/24 08:08 Dose: 3 ml Sumatriptan Succinate (Sumatriptan Succinate 50 Mg Tablet) 50 mg PO Q2H PRN PRN Reason: migraine Vitamin D (Cholecalciferol (Vitamin D3) 25 Mcg Tablet) 25 mcg PO DAILY [facility] Last Admin: 12/28/24 08:11 Dose: 25 mcg Home Medications ?Medication ?Instructions ?Recorded ?Confirmed ?Last Taken ?Type cholecalciferol (vitamin D3) 25 25 mcg PO DAILY 12/26/24 12/26/24 12/25/24 History mcg (1,000 unit) tablet (Vitamin D3) clobetasol 0.05 % topical ointment 1 appl topical BID PRN eczema 12/26/24 12/26/24 Unknown History ibuprofen 800 mg tablet 800 mg PO TID PRN pain 12/26/24 12/26/24 12/12/24 History sumatriptan succinate 50 mg tablet 50 mg PO Q2H PRN migraine 12/26/24 12/26/24 Unknown History Physical Exam Vital Signs: Vital Signs: Last Vital Signs Temp 97.1 F 12/28/24 08:10 Pulse 76 12/28/24 08:10 Resp 18 12/28/24 08:10 BP 147/69 H 12/28/24 08:10 Pulse Ox 97 12/28/24 08:10 O2 Del Method Room Air 12/28/24 08:10 O2 Flow Rate 2 12/26/24 18:43 BMI result Body Mass Index 24.4 Neuro: Other: IV line was noted on ventral surface of left elbow and I also noted couple of trials of IV line and infiltration on the medial side a ventral surface of elbow. She was able to move her hand and arm without difficulty and hand strength was full. There was no skin discoloration or abnormality in hand or arm other than what was noted around the IV line. Results Labs 12/28/24 05:58 12/28/24 05:58 Labs: Short CBC 12/28/24 Range/Units 05:58 WBC 6.5 (4.8-10.8) X10*3/uL Hgb 10.3 L (12.0-16.0) g/dl Hct 31.8 L (37.0-47.0) % Plt Count 283 (160-400) X10*3/uL BMP 12/28/24 05:58 Sodium 142 Potassium 3.7 Chloride 113 H Carbon Dioxide 23 BUN 7 L Creatinine 0.57 Calcium 8.3 L Microbiology Microbiology Results: Microbiology 12/26/24 15:54 Shoulder Right Gram Stain - Final 12/26/24 15:54 Shoulder Right Routine Culture - Preliminary Staphylococcus aureus 12/26/24 15:54 Shoulder Right Anaerobic Culture - Preliminary Culture in progress. 12/26/24 15:54 Shoulder Right Gram Stain - Final 12/26/24 15:54 Shoulder Right Routine Culture - Preliminary Staphylococcus aureus 12/26/24 15:54 Shoulder Right Anaerobic Culture - Preliminary Culture in progress. Assessment and Plan (1) Neurapraxia: Status: Acute Probably neurapraxia of left median nerve around elbow due to infiltration. She was already feeling better though some tingling was still there. I would expect this to get better as infiltrated fluid would get absorbed. This could happened and 2-3 days. If symptoms would persist, an EMG nerve conduction study can be considered in few weeks time. Procedures Date of Service Date of Service: 12/28/24
--- NOTE | 2024-12-28 14:18 | MHC.CM.PN ---
DP: [facility] LIA[facility] IN TO DO TEACH WITH PT, OK TO DC HOME. [facility] WILL MANAGE PICC DRESSING. PT HAS OWN RIDE HOME
[2024-12-28 15:12] VITALS: BP 140/86; PULSE 79; RESP 18; TEMP 36.3; O2SAT 98
--- NOTE | 2025-01-15 13:26 | P.OP_ITS ---
Operative Note Operative Note Date of Service: 12/26/24 Narrative: Date of Service: 12/26/24 Pre-op diagnosis: Right shoulder infection Post-op diagnosis: same Procedure: Arthroscopic debridement and removal of foreign material Implants: none Surgeon: Emanuel Patterson MD Anesthesia: GETA Was an Pathology Assistant used for this Procedure?: Yes Pathology Assistant: Lucia Brown Estimated blood loss (mL): 50 IV fluids (mL): 2,000 Pathology: other Condition: stable Disposition: PACU Procedure detail: Patient operating placed in the beach chair position. [place] is well padded and she was prepped draped in standard sterile fashion. Time-out was called to identify proper separate procedure surgeon and antibiotics were held until cultures were taken. I began by making incision through the prior arthroscopic portal posteriorly. A blunt trocar was placed into the glenohumeral joint and insufflated and with saline and my camera was inserted. A direct anterior portal was then made under direct visualization. The glenohumeral joint appeared normal. The cartilage surfaces appeared normal. There was no evidence of undersurface tearing of the rotator cuff. There was no necrotic or atypical tissue. I examined the subscapularis. Any excess suture material had been removed at prior arthroscopy but I debrided the area over where the bone anchor had been. This was slow work and I reverse my camera portal so that I was able to visualize directly down the hole previously made by the bone anchor. After meticulous bony debridement I was able to visualize the small subcentimeter metallic portion of the previously removed bone anchor. A 2nd adjacent portal was made anteriorly and through this I was able to place a grasper and after extensive trial and error was finally able to grasp and remove this deeply buried piece of metal. The subscapularis remained largely intact with some superior fraying own. I irrigated copiously. There was no evidence of infection. I then turned my attention to the subacromial space. My posterior portal was re directed into the subacromial space and a lateral portal was made under direct visualization. Again here this was surprisingly normal in appearance at least the rotator cuff. As I descended laterally into the deltoid bursa there was some irregular tissue and a few loose areas of necrotic tissues that may have represented necrotic foci for infection. The previous suture had been removed as had the majority of the suture anchors but the location of the lateral tunnels was still evident night debrided these tunnels down until I was able to visualize the bone anchors. There were 2 anchors and the anterior 1 was removed and appeared normal. The posterior anchor was also removed but this did appear to have some irregular appearing tissue and a small piece of suture and remnant of the anchor. This was removed and then debrided extensively down to healthy-appearing tissue. Once this was all done I examined the rotator cuff.
== END 2024-12-28 15:17 | disposition home health service (06) | DRG 793 ==
LOC: HO.ED 02:49 → HO.EDOVER 02:52 → HO.S3 13:48
PROVIDERS: Orthopaedic Surgery; Physician Assistant; Admitting Provider Student in an Organized Health Care Education/Training Program; Emergency Provider Emergency Medicine; PCP Internal Medicine; Visit Provider Internal Medicine
PROC: 0PB Upper Bones, Excision (ICD-10-PCS; CPT 29805; principal; 2024-12-26 14:20)
DX: M96.89 Other intraoperative and postprocedural complications and disorders of the musculoskeletal system (principal); B95.61 Methicillin susceptible Staphylococcus aureus infection as the cause of diseases classified elsewhere; Y83.8 Other surgical procedures as the cause of abnormal reaction of the patient, or of later complication, without mention of misadventure at the time of the procedure; M71.111 Other infective bursitis, right shoulder
CPT/HCPCS: 36415; 36573; 80048; 80053; 80202; 81001; 83605; 85025; 87040; 87070; 87073; 87077; 87186; 87205; 99285; C1751; J0171; J0878; J1100; J1171; J1642; J1836; J1885; J1956; J2003; J2250; J2405; J2704; J2795; J3010; J3370

== ENCOUNTER → 2024-12-26 02:46 | Outpatient (BNV) | payer BC, SELFPAY | PROVIDERS: Admitting Provider Student in an Organized Health Care Education/Training Program; Emergency Provider Emergency Medicine; PCP Internal Medicine; Visit Provider Physician Assistant | DX: L76.34 Postprocedural seroma of skin and subcutaneous tissue following other procedure (principal); L03.113 Cellulitis of right upper limb; Z98.890 Other specified postprocedural states | CPT/HCPCS: 99223; 99232; 99239; 99499 ==

== ENCOUNTER → 2024-12-26 02:46 | Outpatient (BNV) | payer BC, SELFPAY | PROVIDERS: Admitting Provider Student in an Organized Health Care Education/Training Program; Emergency Provider Emergency Medicine; PCP Internal Medicine; Visit Provider Orthopaedic Surgery | DX: S40.251A Superficial foreign body of right shoulder, initial encounter (principal); L03.113 Cellulitis of right upper limb | CPT/HCPCS: 29819; 99024; 99254 ==

== ENCOUNTER → 2024-12-26 02:46 | Outpatient (BNV) | payer BC, SELFPAY | PROVIDERS: Admitting Provider Student in an Organized Health Care Education/Training Program; Emergency Provider Emergency Medicine; PCP Internal Medicine; Visit Provider Internal Medicine | DX: M86.9 Osteomyelitis, unspecified (principal); L03.113 Cellulitis of right upper limb | CPT/HCPCS: 99254 ==

== ENCOUNTER → 2024-12-26 02:46 | Outpatient (BNV) | payer BC, SELFPAY | PROVIDERS: Admitting Provider Student in an Organized Health Care Education/Training Program; Emergency Provider Emergency Medicine; PCP Internal Medicine; Visit Provider Psychiatry & Neurology Neurology | DX: G56.12 Other lesions of median nerve, left upper limb (principal) | CPT/HCPCS: 99252 ==

== ENCOUNTER 2025-01-02 17:14 | Emergency (ER) | payer BC, SELFPAY ==
--- NOTE | ~2025-01-02 | XR_ITS ---
CLINICAL HISTORY: PICC assessment 1 view chest x-ray Comparison: DX/SR - XR CHEST 1V - 03/22/24 13:51 EDT Findings: Bilateral atelectasis, more so in the left lung base. No significant pleural effusion or pneumothorax. Prominent cardiac silhouette. Left-sided PICC tip projects over the distal SVC. No acute fracture. IMPRESSION: 1. Left-sided PICC tip projects over the distal SVC. 2. Bilateral atelectasis, more so in the left lung base. This document has been electronically signed by: Rommel Cabral MD on 01/02/2025 19:26:18
[2025-01-02 17:34] VITALS: BP 155/84; PULSE 72; RESP 16; TEMP 36.5; O2SAT 98; BMI 22.8
[2025-01-02 18:26] LABS: MANUAL DIFF FLAG NO
--- NOTE | 2025-01-02 18:29 | ED.SKABFB ---
HPI - Skin/Abscess/Foreign Bdy General Chief complaint: Skin/Abscess/Foreign Body Stated complaint: PICC line dislocated Time Seen by Provider: 01/02/25 18:29 History of Present Illness ED Provider: Germain Joe MD HPI narrative: Patient had a PICC line placed December 27 complaining of numbness in the left arm since that time. The [facility] came to change the dressing pulled out the PICC 2 in patient has a rash to the abdomen back and a PICC line insertion. Recently in the hospital on linezolid as an outpatient after a course of Levaquin/Flagyl. There was an intramuscular abscess and possible septic arthritis/osteomyelitis of the right shoulder postop. MSSA growth in the cultures. Infectious Disease was consulted on December 27. Discharge summary record reports recommendation of 6-8 weeks of IV daptomycin. Presumably she has been on daptomycin. Related Data Home Medications ?Medication ?Instructions ?Recorded ?Confirmed cholecalciferol (vitamin D3) 25 25 mcg PO DAILY 12/26/24 01/03/25 mcg (1,000 unit) tablet (Vitamin D3) ibuprofen 800 mg tablet 800 mg PO TID PRN pain 12/26/24 01/03/25 sumatriptan succinate 50 mg tablet 50 mg PO Q2H PRN migraine 12/26/24 01/03/25 Previous Rx's ?Medication ?Instructions ?Recorded prednisone 20 mg tablet 60 mg (3 x 20 mg) PO DAILY 2 days 01/02/25 #6 tabs clobetasol 0.05 % topical ointment 1 appl topical BID PRN eczema #15 01/03/25 grams clotrimazole-betamethasone 1 1 appl topical BID #45 grams 01/03/25 %-0.05 % topical cream Allergies Allergy/AdvReac Type Severity Reaction Status Date / Time Penicillins Allergy Severe trouble Verified 01/03/25 14:38 breathing latex Allergy Intermediate rash Verified 01/03/25 14:38 daptomycin Allergy hives all Verified 01/03/25 14:38 over chest, abdomen PMFSH Past Medical History Medical History (Updated 01/03/25 @ 16:59 by Ayla García MD) Osteomyelitis of right shoulder Septic joint of right shoulder region Normal colonoscopy Mammogram normal Normal Pap smear Annual physical exam Varicose veins of both lower extremities Surgical History (Updated 01/03/25 @ 16:46 by Ayla García MD) Status post left rotator cuff repair (12/14/23) H/O repair of right rotator cuff Status post cervical polyp removal S/P foot surgery, right History of carpal tunnel surgery of right wrist History of carpal tunnel surgery of left wrist Family History Family History Father Heart problem Mother Hypertension Stroke Social History Social History Household Members: Spouse Housing: Apartment Are you a primary palliative care physician to a significant other at home: No Do you presently have visiting nurse or other home services: No Patient Tobacco Use Status: Former Tobacco user Tobacco use type: Cigarette Years Smoked: 10 e-Cigarette/Vaping Use: Never Used service: No Current occupational status: employed 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 Head: Atraumatic Eyes: Anicteric, Normal conjunctiva. ENT: Moist mucosa, no pallor. ? Neck: Supple. Skin: Diffuse macular papular rash with blanching. Pruritic. Underlying the dressing of the left PICC line there is mild uniform induration Vital signs: See flowsheet Medications Administered Discontinued Medications Generic Name Dose Route Start Last Admin Trade Name Freq PRN Reason Stop Dose Admin Diphenhydramine HCl 25 mg 01/02/25 18:47 01/02/25 19:09 Diphenhydramine Hcl 50 Mg/Ml Vial IVPUSH 01/02/25 18:48 25 mg ONCE ONE Administration Famotidine 20 mg 01/02/25 18:47 01/02/25 19:08 Famotidine/Pf 20 Mg/2 Ml Vial IVPUSH 01/02/25 18:48 20 mg ONCE ONE Administration Methylprednisolone Sodium Succinate 60 mg 01/02/25 18:47 01/02/25 19:08 Methylprednisolone Sod Succ 125 Mg Vial IVPUSH 01/02/25 18:48 60 mg ONCE ONE Administration Medical Decision Making Medical Decision Making [facility] Narrative: 64-year-old female with osteomyelitis/intramuscular abscess/septic arthritis recently sent home from our hospital with ID recommendation of 6-8 weeks of daptomycin through a PICC line. She was administered the daptomycin before 16:00 today. Visiting nurse came to change the dressing in the left PICC line and appear to pull the line out about 5 cm inadvertently. Patient has no oropharyngeal swelling or mucosal involvement she does have diffuse maculopapular rash with some convergence positive blanching see the pictures more suggestive of drug eruption she was recently on levofloxacin and/or Flagyl/linezolid but she has been for 1 week only on daptomycin making this more likely to be a reaction to this. We will get an x-ray to evaluate the location of the PICC line tip although if it flushes it is likely safety use Lab Data [facility] Lab Attestation statement: I reviewed the patient's lab results. 01/02/25 18:20 01/02/25 18:20 Labs: Lab Results 01/02/25 Range/Units 18:20 WBC 7.0 (4.8-10.8) X10*3/uL RBC 4.20 (4.20-5.50) X10*6/uL Hgb 11.5 L (12.0-16.0) g/dl Hct 35.2 L (37.0-47.0) % MCV 83.8 (80.0-98.0) fL MCH 27.4 (27.0-33.0) pg MCHC 32.7 (31.0-35.0) g/dl RDW 13.8 (11.0-16.0) % Plt Count 325 (160-400) X10*3/uL MPV 10.5 (9.4-12.3) fL Immature Gran % (Auto) 0.4 (0.0-0.4) % Neut % (Auto) 67.3 (45-73) % Lymph % (Auto) 18.5 L (20-40) % [place] % (Auto) 8.0 (2-11) % Eos % (Auto) 5.4 H (0-4) % Baso % (Auto) 0.4 (0-2) % Lymph # (Auto) 1.3 (1.2-4.9) X10*3/uL [place] # (Auto) 0.6 (0.1-1.2) X10*3/uL Eos # (Auto) 0.4 (0.0-0.4) X10*3/uL Baso # (Auto) 0.0 (0.0-0.2) X10*3/uL Abs Immat Gran (auto) 0.03 (0.00-0.03) X10*3/uL Absolute Neuts (auto) 4.7 (2.0-8.3) x10*3/uL Absolute Nucleated RBC 0.000 (0.0-0.012) X10*3/uL Nucleated RBC % (auto) 0.0 (0.0-0.2) /100WBC Sodium 140 (135-145) mmol/L Potassium 3.7 (3.3-5.1) mmol/L Chloride 107 (96-108) mmol/L Carbon Dioxide 24 (22-29) mmol/L Anion Gap 13 (12-20) BUN 11 (9-16) mg/dL Creatinine 0.62 (0.5-1.4) mg/dL Estim Creat Clear Calc 89.1 Estimated GFR > 60 Random Glucose 89 (60-115) mg/dL Calcium 9.3 D (8.4-10.2) mg/dL Magnesium 2.1 (1.6-2.6) mg/dL Total Bilirubin 0.5 (0.0-1.0) mg/dL AST 27 (5-31) U/L ALT 19 (0-31) U/L Alkaline Phosphatase 93 (39-117) U/L Total Protein 7.4 (6.5-8.0) g/dL Albumin 4.0 (3.5-5.0) g/dL Random Vancomycin < 2.0 L (15-20) mcg/mL Independent Historian Clinical information obtained from an independent historian. History obtained from or confirmed by: Other (Son who speaks Djiboutian who is at the bedside) Discharge Plan Discharge Clinical Impression: Allergic reaction Patient Disposition: Home, Self-Care Instructions: Antibiotic Medication Allergy (DC) Additional Instructions: DISCHARGE DIAGNOSES: Rash likely secondary to an allergic reaction to daptomycin HISTORY OF PRESENTATION: ?Rash to the trunk. Rash underlying the dressing of the PICC line in the left arm. EMERGENCY DEPARTMENT COURSE,TESTS, TREATMENTS: While in the ED today we got an x-ray of your chest which shows the PICC line in adequate position DISCHARGE MEDICATIONS: ?Prednisone is prescribed and and over the counter cetirizine daily. We discussed your case with the infectious disease specialist. She has asked us to withhold any antibiotics. Do not give the daptomycin or any other antibiotics through the IV until advised further when you call her office on Tuesday. Phone number below FOLLOW-UP: ?Call your primary or general physician soon as possible to discuss your symptoms, your ED visit and to discuss follow up plans Call Dr. Mary office tuesday INSTRUCTIONS ?& RETURN PRECAUTIONS: If any symptoms change first call your primary physician, if it is after-hours your primary doctors office should have a provider oncology account specialist you can speak with. If the symptoms are severe or very concerning to you then call 911 or return to the ED. Germain Joe MD Emergency Physician [facility] Prescriptions: New prednisone 20 mg tablet 60 mg PO DAILY 2 Days Qty: 6 0RF No Action ibuprofen 800 mg tablet 800 mg PO TID PRN (Reason: pain) sumatriptan succinate 50 mg tablet 50 mg PO Q2H PRN (Reason: migraine) cholecalciferol (vitamin D3) [Vitamin D3] 25 mcg (1,000 unit) Tablet 25 mcg PO DAILY clobetasol 0.05 % ointment 1 appl topical BID PRN (Reason: eczema) Qty: 15 0RF clotrimazole-betamethasone 1-0.05 % cream 1 appl topical BID Qty: 45 1RF Referrals: Chelly Marshall MD [Physician] - (Call the office Tuesday morning 09:30 to ask the doctor about what antibiotics will be initiated next) Interventions: ED Discharge Assessment Last Done: 01/02/25 20:09 Discharge Date/Time: 01/02/25 20:09 Print Language: [place]ib[place]ian
[2025-01-02 18:40] LABS: Vancomycin Random < 2.0 mcg/mL (15-20)
[2025-01-02 18:41] LABS: Alanine Aminotransferase 19 U/L (0-31); Alkaline Phosphatase 93 U/L (39-117); Anion Gap 13 (12-20); Aspartate Amino Transferase 27 U/L (5-31); Bilirubin Total 0.5 mg/dL (0.0-1.0); Blood Urea Nitrogen 11 mg/dL (9-16); Calcium 9.3 mg/dL (8.4-10.2); Carbon Dioxide 24 mmol/L (22-29); Chloride 107 mmol/L (96-108); Creatinine Clr Calc Pharmacy 89.1; Estimated Glomerular Filt Rate > 60; Glucose Random 89 mg/dL (60-115); Magnesium 2.1 mg/dL (1.6-2.6); Potassium 3.7 mmol/L (3.3-5.1); Sodium 140 mmol/L (135-145); Total Protein 7.4 g/dL (6.5-8.0)
[2025-01-02 18:43] VITALS: BP 172/103; PULSE 86; RESP 16; TEMP 36.8; O2SAT 99
[2025-01-02 19:06] LABS: Basophils Percent Auto 0.4 % (0-2); Eosinophils Absolute Auto 0.4 X10*3/uL (0.0-0.4); Eosinophils Percent Auto 5.4 % (0-4); Hematocrit 35.2 % (37.0-47.0); Hemoglobin 11.5 g/dl (12.0-16.0); Imm Gran Abs Auto 0.03 X10*3/uL (0.00-0.03); Imm Gran Pct Auto 0.4 % (0.0-0.4); Lymphocytes Absolute Auto 1.3 X10*3/uL (1.2-4.9); Lymphocytes Percent Auto 18.5 % (20-40); Mean Corpuscular HGB Conc 32.7 g/dl (31.0-35.0); Mean Corpuscular Hemoglobin 27.4 pg (27.0-33.0); Mean Corpuscular Volume 83.8 fL (80.0-98.0); Mean Platelet Volume 10.5 fL (9.4-12.3); Monocytes Absolute Auto 0.6 X10*3/uL (0.1-1.2); Neutrophils Absolute Auto 4.7 x10*3/uL (2.0-8.3); Neutrophils Percent Auto 67.3 % (45-73); Platelet Count 325 X10*3/uL (160-400); Red Cell Distribution Width 13.8 % (11.0-16.0)
[2025-01-02] MEDS: Famotidine/PF 20 MG/2 ML VIAL IVPUSH (19:08)
[2025-01-02] MEDS: diphenhydrAMINE HCL 50 MG/ML VIAL 25 MG IVPUSH (19:09)
[2025-01-02 20:09] VITALS: BP 172/103; PULSE 86; RESP 16; TEMP 36.8; O2SAT 99
== END 2025-01-02 20:09 | disposition home or self-care (01) ==
PROVIDERS: Physician Assistant Medical; Emergency Provider Emergency Medicine; PCP Internal Medicine
DX: L23.3 Allergic contact dermatitis due to drugs in contact with skin (principal); T36.8X5A Adverse effect of other systemic antibiotics, initial encounter; Y92.9 Unspecified place or not applicable
CPT/HCPCS: 36415; 71045; 80053; 80202; 83735; 85025; 96374; 96375; 99283; 99284; J1200; J1308; J2919

== ENCOUNTER → 2025-01-02 18:30 | Outpatient (BNV) | payer BC, SELFPAY | PROVIDERS: Emergency Provider Emergency Medicine; PCP Internal Medicine; Visit Provider Radiology Diagnostic Radiology | DX: J98.11 Atelectasis (principal) | CPT/HCPCS: 71045 ==

== ENCOUNTER 2025-01-03 08:19 | Outpatient (AMB) | payer BC, SELFPAY ==
--- NOTE | 2025-01-03 08:21 | A.OFFVIS_ITS ---
Intake Visit Reasons: OV-2 WK F/U Left Shoulder - Aspiration Intake Note: Alexandrea is a 63 year old right hand dominant female who presents today for a follow up of her right shoulder infection s/p Right Shoulder Arthroscopic Debridement 08/27/24. At her last visit she was given Rx for Levofloxacin and referred to inf ectious disease. She was seen with ID on 12/24/24 who recommended that patient be seen at ED to rule out infection spread to chest wall and lymph nodes. Patient went to [facility] and was tranferred to [facility] on 12/26/24, where she was admitted and underwent surgery with Dr. Vieyra to remove anchors in shoulder. She then presented at [facility] on 01/02/25 with a wide spread rash on her back and abdomen - which was believed to be a reaction to the daptomycin. She was given prednisone, instructed to contact infectious disease on Tuesday. Her most anterior incision continues to drain blood, they have been completing daily dressing changes. Director Student Union Required: Yes Director Student Union Name: Ritchie Duran Allergies Penicillins Allergy (Severe, Verified 01/03/25 14:38) trouble breathing latex Allergy (Intermediate, Verified 01/03/25 14:38) rash daptomycin Allergy (Verified 01/03/25 14:38) hives all over chest, abdomen HPI HPI OV-2 WK F/U Left Shoulder - Aspiration: Details: Two weeks status post arthroscopic surgery right shoulder and which remaining suture anchors were removed. She was started on IV daptomycin but presented to the ED with a wide spread rash on her back and abdomen - which was believed to be a reaction to the daptomycin. She was given prednisone, instructed to contact infectious disease on Tuesday. Her most anterior incision continues to drain bl ood, they have been completing daily dressing changes. She states infectious Disease is aware and they are getting back to her about what antibiotics to switch to. She states her shoulder feels well. There is some mild dark bloody drainage from the anterior portal. ON LICENSE OF [facility] Medical History (Updated 01/03/25 @ 16:59 by Ayla García MD) Osteomyelitis of right shoulder Septic joint of right shoulder region Normal colonoscopy Mammogram normal Normal Pap smear Annual physical exam Varicose veins of both lower extremities Surgical History (Updated 01/03/25 @ 16:46 by Ayla García MD) Status post left rotator cuff repair (12/14/23) H/O repair of right rotator cuff Status post cervical polyp removal S/P foot surgery, right History of carpal tunnel surgery of right wrist History of carpal tunnel surgery of left wrist Family History Father Heart problem Mother Hypertension Stroke Social History Household Members: Spouse Housing: Apartment Are you a primary family member caretaker to a significant other at home: No Do you presently have visiting nurse or other home services: No Patient Tobacco Use Status: Former Tobacco user Tobacco use type: Cigarette Years Smoked: 10 e-Cigarette/Vaping Use: Never Used service: No Current occupational status: employed 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 She has intact sensation and minimal pain with range of motion. There is redness around the left antecubital fossa PICC line. Assessment & Plan Assessment & Plan (1) Seroma of skin or subcutaneous tissue after non-dermatologic procedure: Code(s): L76.34 - Postprocedural seroma of skin and subcutaneous tissue following other procedure Category: Medical Plan: Chronic infection of the right shoulder that we have been aggressively treating but it has been resistant to antibiotics and surgery. There are some deep anchors that I took out deep within the bone that may be contributing to ongoing infection. I did an aggressive debridement of everything in her shoulder and there is no foreign material left. Hopefully this will lead to fully recovering and eradicating the infection. I would recommend the suture stand for another week. We will see her back next week. She is following up with ID and with the infusion services to take care of her PICC line Orders: Orders IR IVC filter placement 01/03/25 L76.34 - Postprocedural seroma of skin and subcutaneous tissue following other procedure Coding Level of Care Code Global (17704) Diagnoses Seroma of skin or subcutaneous tissue after non-dermatologic procedure L76.34
--- OUTSIDE RECORDS SUMMARY | 2025-01-03 08:27 | XMS_ITS | Encounter Summary ---
Author Organization [facility] Address [address] [place] [address] Care Team Providers Care Sales Operations Specialist Name Role Phone Ayla García MD Primary Care Provider [phone] Encounter Details Date Type Department Care Team (Latest Contact Info) Description 01/02/2025 Lab Requisition [facility] - Main Lab [address] [facility] [place] [address] Chelly Marshall PA [address] [facility] [address] [place], [place] [id number] Infection and 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, initial encounter ([facility] V24); Postprocedural seroma of skin and subcutaneous tissue following other procedure; Other specified postprocedural states Social History Tobacco Use Types Packs/Day Years Used Date Smoking Tobacco: Never Smokeless Tobacco: Never Alcohol Use Standard Drinks/Week Comments No 0 (1 standard drink = 0.6 oz pur e alcohol) Comments Unknown Sex and Gender Information Value Date Recorded Sex Assigned at Not on file Legal Sex Female 8:26 PM EST Gender Identity Not on file Sexual Orientation Not on file documented as of this encounter Plan of Treatment Upcoming Encounters Date Type Department Care Team (Late st Contact Info) Description 03/26/2025 10:55 AM EDT Appointment Radiology Department - [address] [phone] documented as of this encounter Procedures Procedure Name Priority Date/Time Associated Diagnosis Comments CBC WITH AUTO DIFFERENTIAL Routine 01/02/2025 6:30 PM EDT Infection and 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, initial encounter ([facility] V24) Postprocedural seroma of skin and subcutaneous tissue following other procedure Other specified postprocedural states SEDIMENTATION RATE Routine 01/02/2025 6: 30 PM EDT Infection and 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, initial encounter ([facility] V24) Postprocedural seroma of skin and subcutaneous tissue following other procedure Other specified postprocedural states CBC AND DIFFERENTIAL Routine 01/02/2025 6:30 PM EDT Infection and 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, initial encounter ([facility] V24) Postprocedural seroma of skin and subcutaneous tissue following other procedure Other specified postprocedural states CREATINE KINASE Routine 01/02/2025 6:30 PM EDT Infection and 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, initial encounter ([facility] V24) Postprocedural seroma of skin and subcutaneous tissue following other procedure Other specified postprocedural states documented in this encounter Results * (ABNORMAL) CBC auto differential (01/02/2025 6:30 PM EDT) [facility] WBC 8.0 4.8 - 10.8 K/mcL LAB [facility] RBC 4.10 3.80 - 4.80 M/[facility] LAB HEMETOLOGY METHOD 01/02/2025 9:[address] [facility] Hemoglobin 11.3(L) 11.5 - 16.0 g/dL LAB HEMETOLOGY METHOD 01/02/2025 9:[address] [facility] Hematocrit 36.1 35.0 - 47.0 % LAB HEMETOLOGY METHOD 01/02/2025 9:[address] [facility] MCV 87.2 79.0 - 98.0 FL LAB HEMETOLOGY METHOD [facility] MCH 27.3 27.0 - 32.0 pcg LAB HEMETOLOGY METHOD 01/02/2025 9:[address] [facility] MCHC 31.3(L) 32.0 - 37.0 g/dL LAB HEMETOLOGY METHOD 01/02/2025 9:[address] [facility] RDW 13.9 11.0 - 15.0 % LAB HEMETOLOGY METHOD 01/02/2025 9:[address] [facility] Platelets 350 130 - 400 K/mcL LAB HEMETOLOGY METHOD 01/02/2025 9:[address] [facility] MPV 11.0 7.0 - 11.0 FL LAB HEMETOLOGY METHOD 01/02/2025 9:[address] [facility] NRBC 0.0 <1.0 % LAB HEMETOLOGY METHOD 01/02/2025 9:[address] [facility] NRBC Absolute 0.00 <0.10 K/mcL LAB HEMETOLOGY METHOD 01/02/2025 9:[address] [facility] Neutrophils Relative 61.8 % LAB HEMETOLOGY METHOD 01/02/2025 9:[address] [facility] Lymphocytes Relative 22.8 % LAB HEMETOLOGY METHOD 01/02/2025 9:[address] [facility] Monocytes Relative 9.2 % LAB HEMETOLOGY METHOD 01/02/2025 9:[address] [facility] Eosinophils Relative 5.4 % LAB HEMETOLOGY METHOD 01/02/2025 9:[address] [facility] Basophils Relative 0.4 % LAB HEMETOLOGY METHOD 01/02/2025 9:[address] [facility] Immature Granulocytes Relative 0.4 % LAB HEMETOLOGY METHOD 01/02/2025 9:08 PM EDT [facility] Neutrophils Absolute 4.95 1.50 - 7.00 K/mcL LAB HEMETOLOGY METHOD 01/02/2025 9:08 PM EDT [facility] Lymphocytes Absolute 1.83 1.00 - 5.00 K/mcL LAB HEMETOLOGY METHOD 01/02/2025 9:08 PM EDT [facility] Monocytes Absolute 0.74 0.20 - 1.00 K/mcL LAB HEMETOLOGY METHOD 01/02/2025 9:08 PM EDT [facility] Eosinophils Absolute 0.43 0.00 - 0.50 K/[facility] LAB HEMETOLOGY METHOD 01/02/2025 9:08 PM EDT [facility] Basophils Absolute 0.03 0.00 - 0.20 K/mcL LAB HEMETOLOGY METHOD 01/02/2025 9:08 PM EDT [facility] Immature Granulocytes Absolute 0.03 0.00 - 0.03 K/[facility] LAB HEMETOLOGY METHOD 01/02/2025 9:08 PM EDT [facility] Blood Venous blood specimen / Unknown 01/02/2025 6:30 PM EDT 01/02/2025 8:58 PM EDT Chelly GANN LAB BLOOD ORDERABLES Final Result [facility] [address] [place] [address], * (ABNORMAL) Sedimentation rate (01/02/2025 6:30 PM EDT) Sed Rate 39(H) 0 - 30 mm/hr LAB HEMETOLOGY METHOD 01/02/2025 9:14 PM EDT [facility] Blood Venous blood specimen / Unknown 01/02/2025 6:30 PM EDT 01/02/2025 8:58 PM EDT Chelly GANN LAB BLOOD ORDERABLES Final Result Performing Organization Address [facility]/ZIP Co de Phone Number [facility] [address] [place] [address], [place] [phone] * Creatine kinase (01/02/2025 6:30 PM EDT) Total CK 114 22 - 269 unit/L LAB CHEMISTRY METHOD 01/02/2025 10:18 PM EDT [facility] Blood Venous blood specimen / Unknown 01/02/2025 6:30 PM EDT 01/02/2025 8:58 PM EDT Chelly GANN LAB BLOOD ORDERABLES Final Result Performing Organization Address [facility] de Phone Number [facility] [address] [place] [address], [place] [phone] documented in this encounter Visit Diagnoses Diagnosis Infection and 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, initial encounter ([facility] V24) Postprocedural seroma of skin and subcutaneous tissue following other procedure Other specified postprocedural states documented in this encounter Care Teams Sales Operations Specialist Relationship Specialty Start Date End Date Ayla García MD [address] [place] [address] PCP - General Internal Medicine 09/19/12 documented as of this encounter
== END 2025-01-03 09:44 | disposition home or self-care (01) ==
LOC: HO.HOS 08:19
PROVIDERS: PCP Internal Medicine; Visit Provider Orthopaedic Surgery
DX: L76.34 Postprocedural seroma of skin and subcutaneous tissue following other procedure (principal)
CPT/HCPCS: 99024

== ENCOUNTER → 2025-01-03 08:19 | Outpatient (BNVA) | payer BC, SELFPAY | PROVIDERS: PCP Internal Medicine; Visit Provider Orthopaedic Surgery ==

== ENCOUNTER 2025-01-03 09:51 | Outpatient (REF) | payer BC, SELFPAY | END 2025-01-03 09:52 | disposition home or self-care (01) | LOC: HO.RADIR 09:51 | PROVIDERS: Visit Provider Physician Assistant | DX: Z13.89 Encounter for screening for other disorder (principal) ==

== ENCOUNTER 2025-01-03 13:36 | Outpatient (AMB) | payer BC, SELFPAY ==
[2025-01-03 14:23] VITALS: BP 126/74; PULSE 100; RESP 20; TEMP 36.9; O2SAT 95; BMI 22.9
--- NOTE | 2025-01-03 14:23 | MHC.PC.OV ---
Vital Signs 01/03/25 14:23 Height 5 ft 7 in Weight 146 lb BMI 22.9 BP 126/74 Blood Pressure Location Lt radial Position Sitting Respiration 20 Pulse 100 Pulse Source Pulse Oximeter Temp 98.4 F Temp Source Oral Pulse Oximetry (%) 95 Oxygen Delivery Method Room Air Intake Visit Reasons: TCM Intake Note: Pt is here today for TCM. Allergies Penicillins Allergy (Severe, Verified 01/03/25 14:38) trouble breathing latex Allergy (Intermediate, Verified 01/03/25 14:38) rash daptomycin Allergy (Verified 01/03/25 14:38) hives all over chest, abdomen Medication List - Last Reconciled 01/03/25 by Ayla García MD cholecalciferol (vitamin D3) (Vitamin D3) 25 mcg PO DAILY clobetasol 0.05% 1 appl topical BID PRN ibuprofen 800 mg PO TID PRN prednisone 60 mg (3 x 20 mg) PO DAILY 2 days sumatriptan succinate 50 mg PO Q2H PRN Tobacco use date assessed: 01/03/25 Fall risk assessment: No Falls in past year Last assessed Fall Risk: 01/03/25 Dental Screening Dental Screen Date: 09/06/24 HPI TCM HPI Details Patient presents for the follow-up of hospitalization for for septic right shoulder joint and staph aureus bursitis status post joint debridement on December [address] Patterson. Patient was started on daptomycin by PICC line and discharged on December 28. She developed allergic reaction, extensive rash, to daptomycin and went to [facility] ER. Patient was started on prednisone the rash improved significantly. Patient is established with infectious disease and has been started IV on Linezolid. TCM TCM Information Date of Discharge 12/28/24 Discharged From [facility] Interactive Contact Date (Reference documentation from this date) 01/01/25 FORMERLY [facility], [facility] Medical History (Updated 01/03/25 @ 16:59 by Ayla García MD) Osteomyelitis of right shoulder Septic joint of right shoulder region Normal colonoscopy Mammogram normal Normal Pap smear Annual physical exam Varicose veins of both lower extremities Surgical History (Updated 01/03/25 @ 16:46 by Ayla García MD) Status post left rotator cuff repair (12/14/23) H/O repair of right rotator cuff Status post cervical polyp removal S/P foot surgery, right History of carpal tunnel surgery of right wrist History of carpal tunnel surgery of left wrist Family History Father Heart problem Mother Hypertension Stroke Social History Household Members: Spouse Housing: Apartment Are you a primary healthcare science specialist to a significant other at home: No Do you presently have visiting nurse or other home services: No Patient Tobacco Use Status: Former Tobacco user Tobacco use type: Cigarette Years Smoked: 10 e-Cigarette/Vaping Use: Never Used service: No Current occupational status: employed 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 2. Feeling down, depressed, or hopeless: nearly every day Source: Developed by Drs. Valdemar Cagle, Yanira Lewis, Dav Graham and colleagues, with an educational celina from [employer]. Thrive Questionnaire Date Thrive assessed: 09/06/24 I am a: Patient What is your living situation today?: I have a steady place to live Within the past 12 months, did the food you bought not last and you didn't have the money to get more?: Never true Within the past 12 months, did you worry whether your food would run out before you got money to buy more?: Never true Do you have trouble paying for medicines?: No Do you have trouble getting transportation to medical appointments?: No Do you have trouble paying your heating and electricity bill?: No Do you have trouble taking care of your child, family member or friend?: No Do you have trouble with day-to-day activities such as bathing, preparing meals, shopping, managing finances, etc.?: No Are you currently unemployed and looking for a job?: No Are you interested in more education?: Yes Please select the resources that you would like help with: Education Currently or been in a relationship where the following occur: No concerns reported THRIVE Score: 0 HINA-7 AMB Questionnaire HINA-7 Date HINA - 7 assessed: 09/06/24 Source: Developed by Yanira Fang Kurt Kroenke and colleagues, with an educational celina from [employer]. Review of Systems Const All systems reviewed & are unremarkable except as noted in HPI and below Eyes Reports no additional complaints ENT Reports no additional complaints Card Reports no additional complaints Resp Reports no additional complaints GI Reports no additional complaints Reports no additional complaints Physical exam (Primary Care) Vital Signs: Last Vital Signs Temp 98.4 F 01/03/25 14:23 Pulse 100 01/03/25 14:23 Resp 20 01/03/25 14:23 BP 126/74 01/03/25 14:23 Pulse Ox 95 01/03/25 14:23 Oxygen Delivery Method Room Air 01/03/25 14:23 BMI result Body Mass Index 22.9 Tobacco/Smoking Status: Tobacco use Status Tobacco use date assessed 01/03/25 01/03/25 14:40 Patient Tobacco Use Status Former Tobacco user 01/03/25 14:23 Tobacco use type Cigarette 01/03/25 14:23 e-Cigarette/Vaping Use Never Used 01/03/25 14:23 Thrive Assessment: Date of Thrive Assessment Date Thrive assessed 09/06/24 01/03/25 14:23 Currently or been in a relationship where the following occur: No concerns reported Const General: no acute distress HENMT Head: Yes normal to inspection Resp Effort & Inspection: normal respiratory effort Auscultation: clear to auscultation bilaterally Cardio Rhythm: regular rhythm Heart sounds: S1 normal heart sound present and S2 normal heart sound present Extrem Other: Right shoulder dressing in place Coding Level of Care Code TCM Mod MDM <= 7 Days Diagnoses Osteomyelitis of right shoulder M86.9 Left ovarian cyst N83.202 Assessment & Plan Assessment & Plan (1) Osteomyelitis of right shoulder: Comment: Established with Dr. Patterson Code(s): M86.9 - Osteomyelitis, unspecified Category: Medical Plan: Follow-up with ortho and Infectious Disease (2) Left ovarian cyst: Comment: on US 05/2024, repeat 6 months, US 12/2024 3.4x2.5x3.2 cm ,repeat 6 weeks Code(s): N83.202 - Unspecified ovarian cyst, left side Category: Medical Plan: Scheduled repeat pelvic ultrasound to monitor left ovarian cyst Orders: Orders US pelvic and transvaginal 6 Weeks N83.201 - Unspecified ovarian cyst, right side Medications: New clobetasol 0.05% 1 appl topical BID PRN 15 grams 0RF eczema clotrimazole-betamethasone 1-0.05 % 1 appl topical BID 45 grams 1RF
== END 2025-01-03 16:41 | disposition home or self-care (01) ==
LOC: HO.HMCC 13:37
PROVIDERS: PCP Internal Medicine; Visit Provider Internal Medicine
DX: M86.9 Osteomyelitis, unspecified (principal); N83.202 Unspecified ovarian cyst, left side

== ENCOUNTER 2025-01-07 10:07 | Outpatient (AMB) | payer BC, SELFPAY ==
--- NOTE | 2025-01-07 10:11 | MHC.OFFVIS ---
Vital Signs 01/07/25 10:15 Height 5 ft 7 in Pulse 102 H Pulse Source Pulse Oximeter Intake Visit Reasons: 2 weeks F/U Allergies Penicillins Allergy (Severe, Verified 01/07/25 10:15) trouble breathing latex Allergy (Intermediate, Verified 01/07/25 10:15) rash daptomycin Allergy (Verified 01/07/25 10:15) hives all over chest, abdomen HPI HPI 2 weeks F/U: Details: She was hospitalized for septic shoulder 12/26-12/28. She was started on Daptomycin on 12/28 and continued until 01/02 here at [facility]. She went to [facility] before transfer to [facility] and received IV Vancomycin at [facility] on 12/25 at 2238. She did not have reaction to Vancomycin. However she had rash after several days of Daptomycin and presents to ER. Daptomycin was stopped three days ago and rash has resolved. [facility] Medical History Osteomyelitis of right shoulder Septic joint of right shoulder region Normal colonoscopy Mammogram normal Normal Pap smear Annual physical exam Varicose veins of both lower extremities Surgical History Status post left rotator cuff repair (12/14/23) H/O repair of right rotator cuff Status post cervical polyp removal S/P foot surgery, right History of carpal tunnel surgery of right wrist History of carpal tunnel surgery of left wrist Family History Father Heart problem Mother Hypertension Stroke Social History Household Members: Spouse Housing: Apartment Are you a primary career development coordinator to a significant other at home: No Do you presently have visiting nurse or other home services: No Patient Tobacco Use Status: Former Tobacco user Tobacco use type: Cigarette Years Smoked: 10 e-Cigarette/Vaping Use: Never Used service: No Current occupational status: employed 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 Cognitive needs: No Hearing needs: No Vision needs: Yes Review of Systems Const All systems reviewed & are unremarkable except as noted in HPI and below Physical Exam Vital Signs: Last Vital Signs Pulse 102 H 01/07/25 10:15 Const Other: General: cooperative HEENT Head: Yes normal to inspection Face and sinus: Yes normal facial exam Mouth: Normal oral and palatal mucosa present Teeth and gingiva: dentition normal Eyes General: appearance normal, both eyes and all related structures Pupils: Equal, round and reactive pupils present Resp Effort & Inspection: normal respiratory effort Cardio Rate: regular rate Rhythm: regular rhythm GI Palpation (GI): Soft to palpation and nontender General: Yes no CVA tenderness Back/Spine/Pelvis Back: no CVA tenderness Skin General skin exam: no rashes or lesions noted Neuro General: moves all extremities Cranial nerves: Yes Equal, round and reactive pupils present Extrem General: Yes normal to inspection Psych Appearance: grossly normal Assessment & Plan Assessment & Plan (1) Osteomyelitis of right shoulder: Comment: She has rash to Daptomycin She has tolerated Vancomycin Code(s): M86.9 - Osteomyelitis, unspecified Category: Medical Plan: Would give Vancomycin, five weeks with Vancomycin trough and creatinine. See in one month Possibly po Minocycline after IV done. Orders: Orders Vancomycin Random 1 Week M86.9 - Osteomyelitis, unspecified Vancomycin Trough 2 Weeks M86.9 - Osteomyelitis, unspecified Creatinine 3 Weeks M86.9 - Osteomyelitis, unspecified Vancomycin Trough 4 Weeks M86.9 - Osteomyelitis, unspecified Creatinine 4 Weeks M86.9 - Osteomyelitis, unspecified Vancomycin Trough 5 Weeks M86.9 - Osteomyelitis, unspecified Creatinine 1 Week M86.9 - Osteomyelitis, unspecified Creatinine 2 Weeks M86.9 - Osteomyelitis, unspecified Vancomycin Trough 3 Weeks M86.9 - Osteomyelitis, unspecified Creatinine 5 Weeks M86.9 - Osteomyelitis, unspecified Medications: New vancomycin one gram intravenously 2 times a day; 35 ea 0RF 35 days Coding Level of Care Code Est Pt Level 3 (02155) Diagnoses Osteomyelitis of right shoulder M86.9
[2025-01-07 10:15] VITALS: PULSE 102
--- OUTSIDE RECORDS SUMMARY | 2025-01-07 11:00 | XMS_ITS | Encounter Summary ---
Author Organization [facility] Address [address] [place] [address] Care Team Providers Care Bending Roll Hand Name Role Phone Ayla García MD Primary Care Provider Encounter Details Date Type Department Care Team (Latest Contact Info) Description 01/02/2025 Lab Requisition [facility] - Main Lab [address] [facility] [place] [address] Chelly Marshall PA [address] [facility] [address] [place], [place] [id number] Infection and 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, initial encounter ([facility] V24); Postprocedural seroma of skin and subcutaneous [...] 10:55 AM EDT Appointment Radiology Department - [address] [id number] documented as of this encounter Procedures Procedure Name Priority Date/Time Associated Diagnosis Comments CBC WITH AUTO DIFFERENTIAL Routine 01/02/2025 6:30 PM EDT Infection and 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, initial encounter ([facility] V24) Postprocedural seroma of skin and subcutaneous tissue following other procedure Other specified postprocedural states SEDIMENTATION RATE Routine 01/02/2025 6: 30 PM EDT Infection and 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, initial encounter ([facility] V24) Postprocedural seroma of skin and subcutaneous tissue following other procedure Other specified postprocedural states CBC AND DIFFERENTIAL Routine 01/02/2025 6:30 PM EDT Infection and 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, initial encounter ([facility] V24) Postprocedural seroma of skin and subcutaneous tissue following other procedure Other specified postprocedural states CREATINE KINASE Routine 01/02/2025 6:30 PM EDT Infection and 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, initial encounter ([facility] V24) Postprocedural seroma of skin and subcutaneous tissue following other procedure Other specified postprocedural states documented in this encounter Results * (ABNORMAL) CBC auto differential (01/02/2025 6:30 PM EDT) [facility] WBC 8.0 4.8 - 10.8 K/mcL LAB HEMETOLOG[facility] RBC 4.10 3.80 - 4.80 M/[facility] LAB HEMETOLOGY METHOD 01/02/2025 9:08 PM [facility] LAB Hemoglobin 11.3(L) 11.5 - 16.0 g/dL LAB HEMETOLOGY METHOD 01/02/2025 9:08 PM [facility] LAB Hematocrit 36.1 35.0 - 47.0 % LAB HEMETOLOGY METHOD 01/02/2025 9:08 PM [facility] LAB MCV 87.2 79.0 - 98.0 FL LAB HEMETOLOGY METHOD 01/02/2025 9:08 [facility] MCH 27.3 27.0 - 32.0 pcg LAB HEMETOLOGY METHOD 01/02/2025 9:08 PM [facility] LAB MCHC 31.3(L) 32.0 - 37.0 g/dL LAB HEMETOLOGY METHOD 01/02/2025 9:08 PM [facility] RDW 13.9 11.0 - 15.0 % LAB HEMETOLOGY METHOD 01/02/2025 9:08 PM [facility] LAB Platelets 350 130 - 400 K/mcL LAB HEMETOLOGY METHOD 01/02/2025 9:08 PM [facility] LAB MPV 11.0 7.0 - 11.0 FL LAB HEMETOLOGY METHOD 01/02/2025 9:08 PM [facility] LAB NRBC 0.0 <1.0 % LAB HEMETOLOGY METHOD 01/02/2025 9:08 PM [facility] LAB NRBC Absolute 0.00 <0.10 K/mcL LAB HEMETOLOGY METHOD 01/02/2025 9:08 PM [facility] LAB Neutrophils Relative 61.8 % LAB HEMETOLOGY METHOD 01/02/2025 9:08 PM [facility] LAB Lymphocytes Relative 22.8 % LAB HEMETOLOGY METHOD 01/02/2025 9:08 PM [facility] LAB Monocytes Relative 9.2 % LAB HEMETOLOGY METHOD 01/02/2025 9:08 PM [facility] Eosinophils Relative 5.4 % LAB HEMETOLOGY METHOD 01/02/2025 9:08 PM [facility] Basophils Relative 0.4 % LAB HEMETOLOGY METHOD 01/02/2025 9:08 PM [facility] LAB Immature Granulocytes Relative 0.4 % LAB HEMETOLOGY METHOD 01/02/2025 9:08 PM EDT [facility] LAB Neutrophils Absolute 4.95 1.50 - 7.00 K/mcL LAB HEMETOLOGY METHOD 01/02/2025 9:08 PM EDT [facility] Lymphocytes Absolute 1.83 1.00 - 5.00 K/mcL LAB HEMETOLOGY METHOD 01/02/2025 9:08 PM EDT [facility] Monocytes Absolute 0.74 0.20 - 1.00 K/mcL LAB HEMETOLOGY METHOD 01/02/2025 9:08 PM EDT [facility] Eosinophils Absolute 0.43 0.00 - 0.50 K/[facility] LAB HEMETOLOGY METHOD 01/02/2025 9:08 PM EDT [facility] Basophils Absolute 0.03 0.00 - 0.20 K/mcL LAB HEMETOLOGY METHOD 01/02/2025 9:08 PM EDT [facility] Immature Granulocytes Absolute 0.03 0.00 - 0.03 K/[facility] LAB HEMETOLOGY METHOD 01/02/2025 9:08 PM EDT [facility] Blood Venous blood specimen / Unknown 01/02/2025 6:30 PM EDT 01/02/2025 8:58 PM EDT Chelly GANN LAB BLOOD ORDERABLES Final Result [facility] [address] [place] [address], * (ABNORMAL) Sedimentation rate (01/02/2025 6:30 PM EDT) Sed Rate 39(H) 0 - 30 mm/hr LAB HEMETOLOGY METHOD 01/02/2025 9:14 PM EDT [facility] Blood Venous blood specimen / Unknown 01/02/2025 6:30 PM EDT 01/02/2025 8:58 PM EDT Chelly GANN LAB BLOOD ORDERABLES Final Result Performing Organization Address [facility]/ZIP Co de Phone Number [facility] [address] [place] [address], [place] [phone] * Creatine kinase (01/02/2025 6:30 PM EDT) Total CK 114 22 - 269 unit/L LAB CHEMISTRY METHOD 01/02/2025 10:18 PM EDT [facility] Blood Venous blood specimen / Unknown 01/02/2025 6:30 PM EDT 01/02/2025 8:58 PM EDT Chelly GANN LAB BLOOD ORDERABLES Final Result Performing Organization Address [facility] de Phone Number [facility] [address] [place] [address], [place] [phone] documented in this encounter Visit Diagnoses Diagnosis Infection and 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, initial encounter ([facility] V24) Postprocedural seroma of skin and subcutaneous tissue following other procedure Other specified postprocedural states documented in this encounter Care Teams Bending Roll Hand Relationship Specialty Start Date End Date Ayla García MD [address] [place] [address] PCP - General Internal Medicine 09/19/12 documented as of this encounter
== END 2025-01-07 11:24 | disposition home or self-care (01) ==
LOC: HO.HID 10:07
PROVIDERS: PCP Internal Medicine; Visit Provider Internal Medicine
DX: M86.9 Osteomyelitis, unspecified (principal)
CPT/HCPCS: 99213

== ENCOUNTER → 2025-01-07 10:07 | Outpatient (BNVA) | payer BC, SELFPAY | PROVIDERS: PCP Internal Medicine; Visit Provider Internal Medicine ==

== ENCOUNTER 2025-01-10 09:15 | Outpatient (AMB) | payer BC, SELFPAY ==
--- NOTE | 2025-01-10 09:17 | MHC.OFFVIS ---
Vital Signs 01/10/25 09:18 Height 5 ft 7 in Weight 146 lb BMI 22.9 Intake Visit Reasons: PO right shoulder I&D 12/26/24 NE Intake Note: Alexandrea is a 63 year old right hand dominant female who presents today for a follow up of her right shoulder infection s/p Right Shoulder Arthroscopic Debridement 08/27/24. At her last visit she was given Rx for Levofloxacin and referred to infectious disease. She was seen with ID on 12/24/24 who recommended that patient be seen at ED to rule out infection spread to chest wall and lymph nodes. Patient went to [facility] and was transferred to [facility] on 12/26/24, where she was admitted and underwent surgery with Dr. Vieyra to remove anchors in shoulder. She then presented at [facility] on 01/02/25 with a wide spread rash on her back and abdomen - which was believed to be a reaction to the daptomycin. Patient reports that she is having some continued limited range of motion and mild soreness of the right shoulder. The anterior Insicion has stopped draining, but she continues to complete dressing changes on her own and vna. Seen on 01/07 with Infectious Disease: was ordered Vanco IV for 5 weeks possible minocycline after IV complete. Allergies Penicillins Allergy (Severe, Verified 01/07/25 10:15) trouble breathing latex Allergy (Intermediate, Verified 01/07/25 10:15) rash daptomycin Allergy (Verified 01/07/25 10:15) hives all over chest, abdomen HPI HPI PO right shoulder I&D 12/26/24 NE: Details: Alexandrea is a 63 year old right hand dominant female who presents today for a follow up of her right shoulder infection s/p Right Shoulder Arthroscopic Debridement 08/27/24. At her last visit she was given Rx for Levofloxacin and referred to infectious disease. She was seen with ID on 12/24/24 who recommended that patient be seen at ED to rule out infection spread to chest wall and lymph nodes. Patient went to [facility] and was transferred to [facility] on 12/26/24, where she was admitted and underwent surgery with Dr. Vieyra to remove anchors in shoulder. She then presented at [facility] on 01/02/25 with a wide spread rash on her back and abdomen - which was believed to be a reaction to the daptomycin. Patient reports that she is having some continued limited range of motion and mild soreness of the right shoulder. The anterior Insicion has stopped draining, but she continues to complete dressing changes on her own and vna. Seen on 01/07 with Infectious Disease: was ordered Vanco IV for 5 weeks possible minocycline after IV complete. [facility] Medical History Osteomyelitis of right shoulder Septic joint of right shoulder region Normal colonoscopy Mammogram normal Normal Pap smear Annual physical exam Varicose veins of both lower extremities Surgical History Status post left rotator cuff repair (12/14/23) H/O repair of right rotator cuff Status post cervical polyp removal S/P foot surgery, right History of carpal tunnel surgery of right wrist History of carpal tunnel surgery of left wrist Family History Father Heart problem Mother Hypertension Stroke Social History Household Members: Spouse Housing: Apartment Are you a primary rn homecare to a significant other at home: No Do you presently have visiting nurse or other home services: No Patient Tobacco Use Status: Former Tobacco user Tobacco use type: Cigarette Years Smoked: 10 e-Cigarette/Vaping Use: Never Used service: No Current occupational status: employed 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 No erythema or discharge. Assessment & Plan Assessment & Plan (1) Status post right rotator cuff repair: Comment: 12/2023 complicated with MSSA joint infection Code(s): Z98.890 - Other specified postprocedural states Category: Surgical Plan: Doing well. Continue ID. Follow up 2-3 weeks Coding Level of Care Code Global (91817) Diagnoses Status post right rotator cuff repair Z98.890
[2025-01-10 09:18] VITALS: BMI 22.9
--- OUTSIDE RECORDS SUMMARY | 2025-01-10 10:01 | XMS_ITS | Encounter Summary ---
Author Organization [facility] Address [address] [place] [address] Care Team Providers Care Online Program Coordinator Name Role Phone Ayla García MD Primary Care Provider [phone] Encounter Details Date Type Department Care Team (Latest Contact Info) Description 01/02/2025 Lab Requisition [facility] - Main Lab [address] [facility] [place] [address] Chelly Marshall PA 40 [facility] [address] [place], [place] [id number] Infection and 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, initial encounter (CMS/[facility] V24); Postprocedural seroma of skin and subcutaneous [...] 10:55 AM EDT Appointment Radiology Department - [address] [phone] documented as of this encounter Procedures Procedure Name Priority Date/Time Associated Diagnosis Comments CBC WITH AUTO DIFFERENTIAL Routine 01/02/2025 6:30 PM EDT Infection and 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, initial encounter ([facility] V24) Postprocedural seroma of skin and subcutaneous tissue following other procedure Other specified postprocedural states SEDIMENTATION RATE Routine 01/02/2025 6: 30 PM EDT Infection and 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, initial encounter ([facility] V24) Postprocedural seroma of skin and subcutaneous tissue following other procedure Other specified postprocedural states CBC AND DIFFERENTIAL Routine 01/02/2025 6:30 PM EDT Infection and 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, initial encounter ([facility] V24) Postprocedural seroma of skin and subcutaneous tissue following other procedure Other specified postprocedural states CREATINE KINASE Routine 01/02/2025 6:30 PM EDT Infection and 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, initial encounter ([facility] V24) Postprocedural seroma of skin and subcutaneous tissue following other procedure Other specified postprocedural states documented in this encounter Results * (ABNORMAL) CBC auto differential (01/02/2025 6:30 PM EDT) [facility] WBC 8.0 4.8 - 10.8 K/mcL LAB [facility] RBC 4.10 3.80 - 4.80 M/[facility] LAB HEMETOLOGY METHOD 01/02/2025 9:08 PM [facility] Hemoglobin 11.3(L) 11.5 - 16.0 g/dL LAB HEMETOLOGY METHOD 01/02/2025 9:08 PM [facility] LAB Hematocrit 36.1 35.0 - 47.0 % LAB HEMETOLOGY METHOD 01/02/2025 9:08 PM [facility] MCV 87.2 79.0 - 98.0 FL LAB HEMETOLOGY METHOD [facility]25 [facility] MCH 27.3 27.0 - 32.0 pcg LAB HEMETOLOGY METHOD 01/02/2025 9:08 PM [facility] LAB MCHC 31.3(L) 32.0 - 37.0 g/dL LAB HEMETOLOGY METHOD 01/02/2025 9:08 PM [facility] RDW 13.9 11.0 - 15.0 % LAB HEMETOLOGY METHOD 01/02/2025 9:08 PM [facility] Platelets 350 130 - 400 K/mcL LAB HEMETOLOGY METHOD 01/02/2025 9:08 PM [facility] MPV 11.0 7.0 - 11.0 FL LAB HEMETOLOGY METHOD 01/02/2025 9:08 PM [facility] NRBC 0.0 <1.0 % LAB HEMETOLOGY METHOD 01/02/2025 9:08 PM [facility] NRBC Absolute 0.00 <0.10 K/mcL LAB HEMETOLOGY METHOD 01/02/2025 9:08 PM [facility] Neutrophils Relative 61.8 % LAB HEMETOLOGY METHOD 01/02/2025 9:08 PM [facility] Lymphocytes Relative 22.8 % LAB HEMETOLOGY METHOD 01/02/2025 9:08 PM [facility] Monocytes Relative 9.2 % LAB HEMETOLOGY METHOD 01/02/2025 9:08 PM [facility] Eosinophils Relative 5.4 % LAB HEMETOLOGY METHOD 01/02/2025 9:08 PM [facility] Basophils Relative 0.4 % LAB HEMETOLOGY METHOD 01/02/2025 9:08 PM [facility] Immature Granulocytes Relative 0.4 % LAB HEMETOLOGY METHOD 01/02/2025 9:08 PM EDT [facility] Neutrophils Absolute 4.95 1.50 - 7.00 K/mcL LAB HEMETOLOGY METHOD 01/02/2025 9:08 PM EDT [facility] Lymphocytes Absolute 1.83 1.00 - 5.00 K/mcL LAB HEMETOLOGY METHOD 01/02/2025 9:08 PM EDT [facility] Monocytes Absolute 0.74 0.20 - 1.00 K/mcL LAB HEMETOLOGY METHOD 01/02/2025 9:08 PM EDT [facility] Eosinophils Absolute 0.43 0.00 - 0.50 K/[facility] LAB HEMETOLOGY METHOD 01/02/2025 9:08 PM EDT [facility] Basophils Absolute 0.03 0.00 - 0.20 K/mcL LAB HEMETOLOGY METHOD 01/02/2025 9:08 PM EDT [facility] Immature Granulocytes Absolute 0.03 0.00 - 0.03 K/[facility] LAB HEMETOLOGY METHOD 01/02/2025 9:08 PM EDT [facility] Blood Venous blood specimen / Unknown 01/02/2025 6:30 PM EDT 01/02/2025 8:58 PM EDT Chelly GANN LAB BLOOD ORDERABLES Final Result [facility] [address] [place] [address], * (ABNORMAL) Sedimentation rate (01/02/2025 6:30 PM EDT) Sed Rate 39(H) 0 - 30 mm/hr LAB HEMETOLOGY METHOD 01/02/2025 9:14 PM EDT [facility] Blood Venous blood specimen / Unknown 01/02/2025 6:30 PM EDT 01/02/2025 8:58 PM EDT Chelly GANN LAB BLOOD ORDERABLES Final Result Performing Organization Address [facility]/ZIP Co de Phone Number [facility] [address] [place] [address], [place] [phone] * Creatine kinase (01/02/2025 6:30 PM EDT) Total CK 114 22 - 269 unit/L LAB CHEMISTRY METHOD 01/02/2025 10:18 PM EDT [facility] Blood Venous blood specimen / Unknown 01/02/2025 6:30 PM EDT 01/02/2025 8:58 PM EDT Chelly GANN LAB BLOOD ORDERABLES Final Result Performing Organization Address [facility] de Phone Number [facility] [address] [place] [address], [place] [phone] documented in this encounter Visit Diagnoses Diagnosis Infection and 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, initial encounter (CMS/[facility], [facility] V24) Postprocedural seroma of skin and subcutaneous tissue following other procedure Other specified postprocedural states documented in this encounter Care Teams Online Program Coordinator Relationship Specialty Start Date End Date Ayla García MD [address] [place] [address] PCP - General Internal Medicine 09/19/12 documented as of this encounter
== END 2025-01-10 09:57 | disposition home or self-care (01) ==
LOC: HO.HOS 09:16
PROVIDERS: PCP Internal Medicine; Visit Provider Orthopaedic Surgery
DX: Z98.890 Other specified postprocedural states (principal)
CPT/HCPCS: 99024

== ENCOUNTER → 2025-01-10 09:15 | Outpatient (BNVA) | payer BC, SELFPAY | PROVIDERS: PCP Internal Medicine; Visit Provider Orthopaedic Surgery ==

== ENCOUNTER 2025-01-21 09:58 | Outpatient (AMB) | payer BC, SELFPAY ==
--- OUTSIDE RECORDS SUMMARY | 2025-01-21 11:02 | XMS_ITS | Encounter Summary ---
Author Organization [facility] Address [address] [place] [address] Care Team Providers Care Vp [employer] Name Role Phone Ayla García MD Primary Care Provider [phone] Encounter Details Date Type Department Care Team (Latest Contact Info) Description 01/02/2025 Lab Requisition [facility] - Main Lab [address] [facility] [place] [address] Chelly Marshall PA 40 [facility] [address] [place], [place] [id number] Infection and 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, initial encounter (CMS/[facility] V24); Postprocedural seroma of skin and subcutaneous [...] 10:55 AM EDT Appointment Radiology Department - [address] [phone] documented as of this encounter Procedures Procedure Name Priority Date/Time Associated Diagnosis Comments CBC WITH AUTO DIFFERENTIAL Routine 01/02/2025 6:30 PM EDT Infection and 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, initial encounter ([facility] V24) Postprocedural seroma of skin and subcutaneous tissue following other procedure Other specified postprocedural states SEDIMENTATION RATE Routine 01/02/2025 6: 30 PM EDT Infection and 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, initial encounter ([facility] V24) Postprocedural seroma of skin and subcutaneous tissue following other procedure Other specified postprocedural states CBC AND DIFFERENTIAL Routine 01/02/2025 6:30 PM EDT Infection and 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, initial encounter ([facility] V24) Postprocedural seroma of skin and subcutaneous tissue following other procedure Other specified postprocedural states CREATINE KINASE Routine 01/02/2025 6:30 PM EDT Infection and 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, initial encounter ([facility] V24) Postprocedural seroma of skin and subcutaneous tissue following other procedure Other specified postprocedural states documented in this encounter Results * (ABNORMAL) CBC auto differential (01/02/2025 6:30 PM EDT) [facility] WBC 8.0 4.8 - 10.8 K/mcL LAB H[facility] RBC 4.10 3.80 - 4.80 M[facility] LAB HEMETOLOGY METHOD 01/02/2025 9:08 PM [facility] Hemoglobin 11.3(L) 11.5 - 16.0 g/dL LAB HEMETOLOGY METHOD 01/02/2025 9:08 PM [facility] LAB Hematocrit 36.1 35.0 - 47.0 % LAB HEMETOLOGY METHOD 01/02/2025 9:08 PM [facility] LAB MCV 87.2 79.0 - 98.0 FL LAB HEMETOLOGY METHOD 01/02/2025 9:[facility] PM [facility] MCH 27.3 27.0 - 32.0 pcg LAB HEMETOLOGY METHOD 01/02/2025 9:08 PM [facility] LAB MCHC 31.3(L) 32.0 - 37.0 g/dL LAB HEMETOLOGY METHOD 01/02/2025 9:08 PM [facility] LAB RDW 13.9 11.0 - 15.0 % LAB HEMETOLOGY METHOD 01/02/2025 9:08 PM [facility] LAB Platelets 350 130 - 400 K/mcL LAB HEMETOLOGY METHOD 01/02/2025 9:08 PM [facility] LAB MPV 11.0 7.0 - 11.0 FL LAB HEMETOLOGY METHOD 01/02/2025 9:08 PM [facility] NRBC 0.0 <1.0 % LAB HEMETOLOGY METHOD 01/02/2025 9:08 PM [facility] NRBC Absolute 0.00 <0.10 K/mcL LAB HEMETOLOGY METHOD 01/02/2025 9:08 PM [facility] Neutrophils Relative 61.8 % LAB HEMETOLOGY METHOD 01/02/2025 9:08 PM [facility] Lymphocytes Relative 22.8 % LAB HEMETOLOGY METHOD 01/02/2025 9:08 PM [facility] Monocytes Relative 9.2 % LAB HEMETOLOGY METHOD 01/02/2025 9:08 PM [facility] Eosinophils Relative 5.4 % LAB HEMETOLOGY METHOD 01/02/2025 9:08 PM [facility] Basophils Relative 0.4 % LAB HEMETOLOGY METHOD 01/02/2025 9:08 PM [facility] Immature Granulocytes Relative 0.4 % LAB HEMETOLOGY METHOD 01/02/2025 9:08 PM EDT [facility] Neutrophils Absolute 4.95 1.50 - 7.00 K/mcL LAB HEMETOLOGY METHOD 01/02/2025 9:08 PM EDT [facility] Lymphocytes Absolute 1.83 1.00 - 5.00 K/mcL LAB HEMETOLOGY METHOD 01/02/2025 9:08 PM EDT [facility] Monocytes Absolute 0.74 0.20 - 1.00 K/mcL LAB HEMETOLOGY METHOD 01/02/2025 9:08 PM EDT [facility] Eosinophils Absolute 0.43 0.00 - 0.50 K/Health system LAB HEMETOLOGY METHOD 01/02/2025 9:08 PM EDT [facility] Basophils Absolute 0.03 0.00 - 0.20 K/mcL LAB HEMETOLOGY METHOD 01/02/2025 9:08 PM EDT [facility] Immature Granulocytes Absolute 0.03 0.00 - 0.03 K/Health system LAB HEMETOLOGY METHOD 01/02/2025 9:08 PM EDT [facility] Blood Venous blood specimen / Unknown 01/02/2025 6:30 PM EDT 01/02/2025 8:58 PM EDT Chelly GANN LAB BLOOD ORDERABLES Final Result [facility] [address] [place] [address], * (ABNORMAL) Sedimentation rate (01/02/2025 6:30 PM EDT) Sed Rate 39(H) 0 - 30 mm/hr LAB HEMETOLOGY METHOD 01/02/2025 9:14 PM EDT [facility] Blood Venous blood specimen / Unknown 01/02/2025 6:30 PM EDT 01/02/2025 8:58 PM EDT Chelly GANN LAB BLOOD ORDERABLES Final Result Performing Organization Address [facility]/ZIP Co de Phone Number [facility] [address] [place] [address], [place] [phone] * Creatine kinase (01/02/2025 6:30 PM EDT) Total CK 114 22 - 269 unit/L LAB CHEMISTRY METHOD 01/02/2025 10:18 PM EDT [facility] Blood Venous blood specimen / Unknown 01/02/2025 6:30 PM EDT 01/02/2025 8:58 PM EDT Chelly GANN LAB BLOOD ORDERABLES Final Result Performing Organization Address [facility] de Phone Number [facility] [address] [place] [address], [place] [phone] documented in this encounter Visit Diagnoses Diagnosis Infection and 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, initial encounter (CMS/[facility] V24) Postprocedural seroma of skin and subcutaneous tissue following other procedure Other specified postprocedural states documented in this encounter Care Teams Vp [employer] Relationship Specialty Start Date End Date Ayla García MD [address] [place] [address] PCP - General Internal Medicine 09/19/12 documented as of this encounter
--- NOTE | 2025-01-21 11:28 | A.OFFVIS_ITS ---
Intake Visit Reasons: 2 weeks F/U Allergies Penicillins Allergy (Severe, Verified 01/07/25 10:15) trouble breathing latex Allergy (Intermediate, Verified 01/07/25 10:15) rash daptomycin Allergy (Verified 01/07/25 10:15) hives all over chest, abdomen HPI HPI 2 weeks F/U: Details: She is week 2/ Vancomycin for MSSA wound infection. She has had labs drawn ,but I didnt get labs. She believes its option care and nurse is Oc. She has said area looks improved but has discomfort left first finger and thumb and occurred after PICC line placed but doesnt want to get PICC changed.She has no trouble using her arm [facility] Medical History Osteomyelitis of right shoulder Septic joint of right shoulder region Normal colonoscopy Mammogram normal Normal Pap smear Annual physical exam Varicose veins of both lower extremities Surgical History Status post left rotator cuff repair (12/14/23) H/O repair of right rotator cuff Status post cervical polyp removal S/P foot surgery, right History of carpal tunnel surgery of right wrist History of carpal tunnel surgery of left wrist Family History Father Heart problem Mother Hypertension Stroke Social History Household Members: Spouse Housing: Apartment Are you a primary medicare sales representative to a significant other at home: No Do you presently have visiting nurse or other home services: No Patient Tobacco Use Status: Former Tobacco user Tobacco use type: Cigarette Years Smoked: 10 e-Cigarette/Vaping Use: Never Used service: No Current occupational status: employed 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 Cognitive needs: No Hearing needs: No Vision needs: Yes Review of Systems Const All systems reviewed & are unremarkable except as noted in HPI and below Physical Exam Const Other: General: cooperative Orientation/consciousness: patient oriented x3 HEENT Head: Yes normal to inspection Mouth: Normal oral and palatal mucosa present Eyes General: appearance normal, both eyes and all related structures Pupils: Equal, round and reactive pupils present Resp Effort & Inspection: normal respiratory effort Cardio Rate: regular rate Rhythm: regular rhythm GI Palpation (GI): Soft to palpation and nontender General: Yes no CVA tenderness Back/Spine/Pelvis Back: no CVA tenderness Skin General skin exam: no rashes or lesions noted Neuro General: patient oriented x3 Cranial nerves: Yes CN's II-XII intact bilaterally and Yes Equal, round and reactive pupils present Extrem General: Yes normal to inspection Psych Appearance: grossly normal Assessment & Plan Assessment & Plan (1) Osteomyelitis of right shoulder: Comment: She has rash to Daptomycin She has tolerated Vancomycin Code(s): M86.9 - Osteomyelitis, unspecified Category: Medical Plan: Finish IV Vancomycin on 02/11 and pull PICC. Obtain labs, Vancomycin trough and creatinine, didnt get recent labs. See on 02/11 and decide on whether to give oral antibiotics. ER if hand numb or worsening pain hand. Seen with resident surgeon [id number], Angie Hurst. Orders: Orders 2 IR cvc remove any age Today M86.9 - Osteomyelitis, unspecified Coding Level of Care Code Est Pt Level 3 (83668) Diagnoses Osteomyelitis of right shoulder M86.9
== END 2025-01-21 11:23 | disposition home or self-care (01) ==
LOC: HO.HID 09:59
PROVIDERS: PCP Internal Medicine; Visit Provider Internal Medicine
DX: M86.9 Osteomyelitis, unspecified (principal)
CPT/HCPCS: 99213

== ENCOUNTER → 2025-01-21 09:58 | Outpatient (BNVA) | payer BC, SELFPAY | PROVIDERS: PCP Internal Medicine; Visit Provider Internal Medicine ==

== ENCOUNTER 2025-02-11 10:53 | Outpatient (AMB) | payer BC, SELFPAY ==
[2025-02-11 11:10] VITALS: PULSE 97; O2SAT 96; BMI 24.3
--- NOTE | 2025-02-11 11:10 | A.OFFVIS_ITS ---
Vital Signs 3 02/11/25 11:10 Height 5 ft 7 in Weight 155 lb BMI 24.3 Pulse 97 Pulse Source Pulse Oximeter Pulse Oximetry (%) 96 Oxygen Delivery Method Room Air Intake Visit Reasons: 3 week follow up Allergies Penicillins Allergy (Severe, Verified 02/11/25 11:10) trouble breathing latex Allergy (Intermediate, Verified 02/11/25 11:10) rash daptomycin Allergy (Verified 02/11/25 11:10) hives all over chest, abdomen HPI Comments Details: She is doing well and can lift right arm. She is seeing Dr Patterson of Orthopedics and PT. She still has some left second finger numbness . She has no drainage from shoulder. She is week 6 of Vancomycin with levels 01/31 trough 11.6 and creatinine normal. She is being seen with inspector material disposition [facility] History Osteomyelitis of right shoulder Septic joint of right shoulder region Normal colonoscopy Mammogram normal Normal Pap smear Annual physical exam Varicose veins of both lower extremities Surgical History Status post left rotator cuff repair (12/14/23) H/O repair of right rotator cuff Status post cervical polyp removal S/P foot surgery, right History of carpal tunnel surgery of right wrist History of carpal tunnel surgery of left wrist Family History Father Heart problem Mother Hypertension Stroke Social History Household Members: Spouse Housing: Apartment Are you a primary adult care manager to a significant other at home: No Do you presently have visiting nurse or other home services: No Patient Tobacco Use Status: Former Tobacco user Tobacco use type: Cigarette Years Smoked: 10 e-Cigarette/Vaping Use: Never Used service: No Current occupational status: employed 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 Cognitive needs: No Hearing needs: No Vision needs: Yes Review of Systems Const All systems reviewed & are unremarkable except as noted in HPI and below Physical Exam Vital Signs: Last Vital Signs Pulse 97 02/11/25 11:10 Pulse Ox 96 02/11/25 11:10 Oxygen Delivery Method Room Air 02/11/25 11:10 BMI result Body Mass Index 24.3 Const General: cooperative Orientation/consciousness: patient oriented x3 HEENT Head: Yes normal to inspection Mouth: Normal oral and palatal mucosa present Eyes General: appearance normal, both eyes and all related structures Pupils: Equal, round and reactive pupils present Cardio Rate: regular rate Rhythm: regular rhythm GI Palpation (GI): Soft to palpation and nontender General: Yes no CVA tenderness Back/Spine/Pelvis Back: no CVA tenderness Skin General skin exam: no rashes or lesions noted Neuro General: patient oriented x3 Cranial nerves: Yes CN's II-XII intact bilaterally and Yes Equal, round and reactive pupils present Extrem General: Yes normal to inspection Psych Appearance: grossly normal Assessment & Plan Assessment & Plan (1) Osteomyelitis of right shoulder: Comment: She is finishing Vancomycin today. No further antibiotics at this time. Follow with Orthopedics. ER if signs of recurrence. Code(s): M86.9 - Osteomyelitis, unspecified Category: Medical Plan: na Orders: Orders 2 IR cvc remove any age Today M86.9 - Osteomyelitis, unspecified Coding Level of Care Code Est Pt Level 3 (39364) Diagnoses Osteomyelitis of right shoulder M86.9
--- OUTSIDE RECORDS SUMMARY | 2025-02-11 11:48 | XMS_ITS | Encounter Summary ---
Author Organization [facility] Address [address] [place] [address] Care Team Providers Care Population Geneticist Name Role Phone Ayla García MD Primary Care Provider [phone] Encounter Details Date Type Department Care Team (Latest Contact Info) Description 01/02/2025 Lab Requisition [facility] - Main Lab 299 [facility] [place] [address] Chelly Marshall MD [address] [phone] Infection and 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, initial encounter (CMS/[facility] V24); Postprocedural seroma of skin and [...] 10:55 AM EDT Appointment Radiology Department - [address] [phone] documented as of this encounter Procedures Procedure Name Priority Date/Time Associated Diagnosis Comments CBC WITH AUTO DIFFERENTIAL Routine 01/02/2025 6:30 PM EDT Infection and 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, initial encounter ([facility] V24) Postprocedural seroma of skin and subcutaneous tissue following other procedure Other specified postprocedural states SEDIMENTATION RATE Routine 01/02/2025 6: 30 PM EDT Infection and 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, initial encounter ([facility] V24) Postprocedural seroma of skin and subcutaneous tissue following other procedure Other specified postprocedural states CBC AND DIFFERENTIAL Routine 01/02/2025 6:30 PM EDT Infection and 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, initial encounter ([facility] V24) Postprocedural seroma of skin and subcutaneous tissue following other procedure Other specified postprocedural states CREATINE KINASE Routine 01/02/2025 6:30 PM EDT Infection and 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, initial encounter ([facility] V24) Postprocedural seroma of skin and subcutaneous tissue following other procedure Other specified postprocedural states documented in this encounter Results * (ABNORMAL) CBC auto differential (01/02/2025 6:30 PM EDT) [facility] WBC 8.0 4.8 - 10.8 K/mcL LAB [facility] RBC 4.10 3.80 - 4.80 M/[facility] LAB HEMETOLOGY METHOD 01/02/2025 9:08 PM [facility] Hemoglobin 11.3(L) 11.5 - 16.0 g/dL LAB HEMETOLOGY METHOD 01/02/2025 9:08 PM [facility] LAB Hematocrit 36.1 35.0 - 47.0 % LAB HEMETOLOGY METHOD 01/02/2025 9:08 PM [facility] LAB MCV 87.2 79.0 - 98.0 FL LAB HEMETOLOGY METHOD [facility]/02/2025 9:[facility] MCH 27.3 27.0 - 32.0 pcg LAB HEMETOLOGY METHOD 01/02/2025 9:08 PM [facility] LAB MCHC 31.3(L) 32.0 - 37.0 g/dL LAB HEMETOLOGY METHOD 01/02/2025 9:08 PM [facility] LAB RDW 13.9 11.0 - 15.0 % LAB HEMETOLOGY METHOD 01/02/2025 9:08 PM [facility] LAB Platelets 350 130 - 400 K/mcL LAB HEMETOLOGY METHOD 01/02/2025 9:08 PM [facility] LAB MPV 11.0 7.0 - 11.0 FL LAB HEMETOLOGY METHOD 01/02/2025 9:08 PM [facility] LAB NRBC 0.0 <1.0 % LAB HEMETOLOGY METHOD 01/02/2025 9:08 PM [facility] LAB NRBC Absolute 0.00 <0.10 K/mcL LAB HEMETOLOGY METHOD 01/02/2025 9:08 PM [facility] Neutrophils Relative 61.8 % LAB HEMETOLOGY METHOD 01/02/2025 9:08 PM [facility] Lymphocytes Relative 22.8 % LAB HEMETOLOGY METHOD 01/02/2025 9:08 PM [facility] Monocytes Relative 9.2 % LAB HEMETOLOGY METHOD 01/02/2025 9:08 PM [facility] Eosinophils Relative 5.4 % LAB HEMETOLOGY METHOD 01/02/2025 9:08 PM [facility] Basophils Relative 0.4 % LAB HEMETOLOGY METHOD 01/02/2025 9:08 PM [facility] LAB Immature Granulocytes Relative 0.4 % LAB HEMETOLOGY METHOD 01/02/2025 9:08 PM EDT [facility] LAB Neutrophils Absolute 4.95 1.50 - 7.00 K/mcL LAB HEMETOLOGY METHOD 01/02/2025 9:08 PM EDT [facility] LAB Lymphocytes Absolute 1.83 1.00 - 5.00 K/mcL LAB HEMETOLOGY METHOD 01/02/2025 9:08 PM EDT [facility] LAB Monocytes Absolute 0.74 0.20 - 1.00 K/mcL LAB HEMETOLOGY METHOD 01/02/2025 9:08 PM EDT [facility] LAB Eosinophils Absolute 0.43 0.00 - 0.50 K/[facility] LAB HEMETOLOGY METHOD 01/02/2025 9:08 PM EDT [facility] Basophils Absolute 0.03 0.00 - 0.20 K/mcL LAB HEMETOLOGY METHOD 01/02/2025 9:08 PM EDT [facility] LAB Immature Granulocytes Absolute 0.03 0.00 - 0.03 K/[facility] LAB HEMETOLOGY METHOD 01/02/2025 9:08 PM EDT [facility] LAB Blood Venous blood specimen / Unknown 01/02/2025 6:30 PM EDT 01/02/2025 8:58 PM EDT Chelly Marshall MD LAB BLOOD ORDERABLES Final Result [facility] LAB [address] [place] [address], * (ABNORMAL) Sedimentation rate (01/02/2025 6:30 PM EDT) Sed Rate 39(H) 0 - 30 mm/hr LAB HEMETOLOGY METHOD 01/02/2025 9:14 PM EDT [facility] LAB Blood Venous blood specimen / Unknown 01/02/2025 6:30 PM EDT 01/02/2025 8:58 PM EDT us Chelly Marshall MD LAB BLOOD ORDERABLES Final Result Performing Organization Address [facility]/ZIP Co de Phone Number [facility] LAB [address] [place] [address], [place] [phone] * Creatine kinase (01/02/2025 6:30 PM EDT) Total CK 114 22 - 269 unit/L LAB CHEMISTRY METHOD 01/02/2025 10:18 PM EDT [facility] Blood Venous blood specimen / Unknown 01/02/2025 6:30 PM EDT 01/02/2025 8:58 PM EDT us Chelly Marshall MD LAB BLOOD ORDERABLES Final Result Performing Organization Address [facility] de Phone Number [facility] LAB [address] [place] [address], [place] [phone] documented in this encounter Visit Diagnoses Diagnosis Infection and 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, initial encounter ([facility] V24) Postprocedural seroma of skin and subcutaneous tissue following other procedure Other specified postprocedural states documented in this encounter Care Teams Population Geneticist Relationship Specialty Start Date End Date Ayla García MD [address] [place] [address] PCP - General Internal Medicine 09/19/12 documented as of this encounter
== END 2025-02-11 11:58 | disposition home or self-care (01) ==
LOC: HO.HID 10:53
PROVIDERS: PCP Internal Medicine; Visit Provider Internal Medicine
DX: M86.9 Osteomyelitis, unspecified (principal)
CPT/HCPCS: 99213

== ENCOUNTER 2025-02-21 08:46 | Outpatient (AMB) | payer BC, SELFPAY ==
--- OUTSIDE RECORDS SUMMARY | 2025-02-21 08:58 | XMS_ITS | Encounter Summary ---
Author Organization [facility] Address [address] [place] [address] Care Team Providers Care Senior Systems Programmer Name Role Phone Ayla García MD Primary Care Provider [phone] Encounter Details Date Type Department Care Team (Latest Contact Info) Description 01/02/2025 Lab Requisition [facility] - Main Lab 299 [facility] [place] [address] Chelly Marshall MD [address] [phone] Infection and 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, initial encounter ([facility] V24); Postprocedural seroma of skin and subcutaneous [...] 10:55 AM EDT Appointment Radiology Department - [address] [phone] documented as of this encounter Procedures Procedure Name Priority Date/Time Associated Diagnosis Comments CBC WITH AUTO DIFFERENTIAL Routine 01/02/2025 6:30 PM EDT Infection and 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, initial encounter ([facility] V24) Postprocedural seroma of skin and subcutaneous tissue following other procedure Other specified postprocedural states SEDIMENTATION RATE Routine 01/02/2025 6: 30 PM EDT Infection and 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, initial encounter ([facility] V24) Postprocedural seroma of skin and subcutaneous tissue following other procedure Other specified postprocedural states CBC AND DIFFERENTIAL Routine 01/02/2025 6:30 PM EDT Infection and 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, initial encounter ([facility] V24) Postprocedural seroma of skin and subcutaneous tissue following other procedure Other specified postprocedural states CREATINE KINASE Routine 01/02/2025 6:30 PM EDT Infection and 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, initial encounter ([facility] V24) Postprocedural seroma of skin and subcutaneous tissue following other procedure Other specified postprocedural states documented in this encounter Results * (ABNORMAL) CBC auto differential (01/02/2025 6:30 PM EDT) [facility] WBC 8.0 4.8 - 10.8 K/mcL LAB HEMETOLOGY METHOD [facility]/02[facility]2025 9[facility] RBC 4.10 3.80 - 4.80 M/[facility] LAB HEMETOLOGY METHOD 01/02/2025 9:08 PM [facility] LAB Hemoglobin 11.3(L) 11.5 - 16.0 g/dL LAB HEMETOLOGY METHOD 01/02/2025 9:08 PM [facility] LAB Hematocrit 36.1 35.0 - 47.0 % LAB HEMETOLOGY METHOD 01/02/2025 9:08 PM [facility] LAB MCV 87.2 79.0 - 98.0 FL LAB HEMETOLOGY METHOD 01/02/2025 9:[facility] MCH 27.3 27.0 - 32.0 [...] LAB HEMETOLOGY METHOD 01/02/2025 9:08 PM EDT [facility] Neutrophils Absolute 4.95 1.50 - 7.00 K/mcL LAB HEMETOLOGY METHOD 01/02/2025 9:08 PM EDT [facility] Lymphocytes Absolute 1.83 1.00 - 5.00 K/mcL LAB HEMETOLOGY METHOD 01/02/2025 9:08 PM EDT [facility] Monocytes Absolute 0.74 0.20 - 1.00 K/mcL LAB HEMETOLOGY METHOD 01/02/2025 9:08 PM EDT [facility] Eosinophils Absolute 0.43 0.00 - 0.50 K/[facility] LAB HEMETOLOGY METHOD 01/02/2025 9:08 PM EDT [facility] Basophils Absolute 0.03 0.00 - 0.20 K/mcL LAB HEMETOLOGY METHOD 01/02/2025 9:08 PM EDT [facility] Immature Granulocytes Absolute 0.03 0.00 - 0.03 K/[facility] LAB HEMETOLOGY METHOD 01/02/2025 9:08 PM EDT [facility] Blood Venous blood specimen / Unknown 01/02/2025 6:30 PM EDT 01/02/2025 8:58 PM EDT Chelly Marshall MD LAB BLOOD ORDERABLES Final Result [facility] [address] [place] [address], * (ABNORMAL) Sedimentation rate (01/02/2025 6:30 PM EDT) Sed Rate 39(H) 0 - 30 mm/hr LAB HEMETOLOGY METHOD 01/02/2025 9:14 PM EDT [facility] Blood Venous blood specimen / Unknown 01/02/2025 6:30 PM EDT 01/02/2025 8:58 PM EDT us Chelly Marshall MD LAB BLOOD ORDERABLES Final Result Performing Organization Address [facility]/ZIP Co de Phone Number [facility] [address] [place] [address], [place] [phone] * Creatine kinase (01/02/2025 6:30 PM EDT) Total CK 114 22 - 269 unit/L LAB CHEMISTRY METHOD 01/02/2025 10:18 PM EDT [facility] Blood Venous blood specimen / Unknown 01/02/2025 6:30 PM EDT 01/02/2025 8:58 PM EDT us Chelly Marshall MD LAB BLOOD ORDERABLES Final Result Performing Organization Address [facility] de Phone Number [facility] [address] [place] [address], [place] [phone] documented in this encounter Visit Diagnoses Diagnosis Infection and 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, initial encounter (CMS/[facility] V24) Postprocedural seroma of skin and subcutaneous tissue following other procedure Other specified postprocedural states documented in this encounter Care Teams Senior Systems Programmer Relationship Specialty Start Date End Date Ayla García MD [address] [place] [address] PCP - General Internal Medicine 09/19/12 documented as of this encounter
--- NOTE | 2025-02-21 09:10 | MHC.OFFVIS ---
Intake Visit Reasons: PO right shoulder I&D 12/26/24 NE Intake Note: Alexandrea is a 63 year old right hand dominant female who presents today for Post operative follow up about 2 months s/p Right Shoulder Arthroscopic Debridement and Removal of foreign material 12/26/24. She continues to see Infectious Disease for management of the infection, she was placed on IV Vancomycin which was set to finish on 02/11 and have PICC removed. Seen in ID on 02/11 where it was determined that no futher Abx were needed. Allergies Penicillins Allergy (Severe, Verified 02/21/25 09:19) trouble breathing latex Allergy (Intermediate, Verified 02/21/25 09:19) rash daptomycin Allergy (Verified 02/21/25 09:19) hives all over chest, abdomen HPI HPI PO right shoulder I&D 12/26/24 NE: Details: Right shoulder status post I and D and she has completed her antibiotics and feels well. Her shoulder looks better according to her and she is not having pain. She does have some mild discomfort with overhead activity. [facility] Medical History Osteomyelitis of right shoulder Septic joint of right shoulder region Normal colonoscopy Mammogram normal Normal Pap smear Annual physical exam Varicose veins of both lower extremities Surgical History Status post left rotator cuff repair (12/14/23) H/O repair of right rotator cuff Status post cervical polyp removal S/P foot surgery, right History of carpal tunnel surgery of right wrist History of carpal tunnel surgery of left wrist Family History Father Heart problem Mother Hypertension Stroke Social History Household Members: Spouse Housing: Apartment Are you a primary intensive care unit registered nurse to a significant other at home: No Do you presently have visiting nurse or other home services: No Patient Tobacco Use Status: Former Tobacco user Tobacco use type: Cigarette Years Smoked: 10 e-Cigarette/Vaping Use: Never Used service: No Current occupational status: employed 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 45/90/130/L5 Assessment & Plan Assessment & Plan (1) Septic joint of right shoulder region: Comment: Apparently infection limited to bursa per Orthopedics There is concern over spread to skin and lymph nodes Code(s): M00.9 - Pyogenic arthritis, unspecified Category: Medical Plan: Alexandrea is doing well and there appears to be no evidence of infection. Unfortunately this has been a difficult problem to eradicate but does appear that were headed in the right direction. Do not think she is ready to go back to work and I have signed the appropriate paperwork. I will see her back 3 months' time. Coding Level of Care Code Global (86551) Diagnoses Septic joint of right shoulder region M00.9
== END 2025-02-21 09:30 | disposition home or self-care (01) ==
LOC: HO.HOS 08:47
PROVIDERS: PCP Internal Medicine; Visit Provider Orthopaedic Surgery
DX: M00.9 Pyogenic arthritis, unspecified (principal)
CPT/HCPCS: 99024

== ENCOUNTER 2025-04-09 12:42 | Outpatient (AMB) | payer BC, SELFPAY ==
[2025-04-09 13:12] VITALS: BP 110/78; PULSE 86; RESP 18; TEMP 36.6; O2SAT 96; BMI 24.1
--- NOTE | 2025-04-09 13:12 | MHC.PC.OV ---
Vital Signs 04/09/25 13:12 Height 5 ft 7 in Weight 154 lb BMI 24.1 BP 110/78 Blood Pressure Location Lt brachial Position Sitting Respiration 18 Pulse 86 Pulse Source Pulse Oximeter Temp 97.9 F Temp Source Oral Pulse Oximetry (%) 96 Oxygen Delivery Method Room Air Intake Visit Reasons: follow up Intake Note: Pt is here today for a follow up visit. Pt states that she has been having pain in her kidneys and pain in her joints especially her knees she is not sure if its from the antibiotics she was on. Allergies Penicillins Allergy (Severe, Verified 04/09/25 13:12) trouble breathing latex Allergy (Intermediate, Verified 04/09/25 13:12) rash daptomycin Allergy (Verified 04/09/25 13:12) hives all over chest, abdomen Medication List - Last Reconciled 04/09/25 by Ayla García MD calcium acetate 1 tab daily cholecalciferol (vitamin D3) (Vitamin D3) 25 mcg PO DAILY clobetasol 0.05% 1 appl topical BID PRN clotrimazole-betamethasone 1-0.05 % 1 appl topical BID pyridoxine (vitamin B6) PO sumatriptan succinate 50 mg PO Q2H PRN Tobacco use date assessed: 04/09/25 Fall risk assessment: No Falls in past year Last assessed Fall Risk: 04/09/25 Dental Screening Dental Screen Date: 04/09/25 Did you have a dental visit in the last 12 months?: Yes Did you have a dental problem in the last 6 months where you did not have access to dental care?: No Was dental information given to patient?: Patient has dentist HPI follow up HPI Details Pt presents for f/u R shoulder joinf inf after repair surgery. She completed antibiotics and feels better.Migraines are stable on Imitrex. Pt c/o olvin knee stiffness and pain and general arthralgia for a few months. She denies injury, joint swelling, warmth PFSH Medical History Osteomyelitis of right shoulder Septic joint of right shoulder region Normal colonoscopy Mammogram normal Normal Pap smear Annual physical exam Varicose veins of both lower extremities Surgical History Status post left rotator cuff repair (12/14/23) H/O repair of right rotator cuff Status post cervical polyp removal S/P foot surgery, right History of carpal tunnel surgery of right wrist History of carpal tunnel surgery of left wrist Family History Father Heart problem Mother Hypertension Stroke Social History Household Members: Spouse Housing: Apartment Are you a primary home health care social worker to a significant other at home: No Do you presently have visiting nurse or other home services: No Patient Tobacco Use Status: Former Tobacco user Tobacco use type: Cigarette Years Smoked: 10 e-Cigarette/Vaping Use: Never Used service: No Current occupational status: employed 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 Cognitive needs: No Hearing needs: No Vision needs: Yes Questionnaire Thrive Questionnaire Date Thrive assessed: 04/09/25 I am a: Patient What is your living situation today?: I have a steady place to live Within the past 12 months, did the food you bought not last and you didn't have the money to get more?: Never true Within the past 12 months, did you worry whether your food would run out before you got money to buy more?: Never true Do you have trouble paying for medicines?: No Do you have trouble getting transportation to medical appointments?: No Do you have trouble paying your heating and electricity bill?: No Do you have trouble taking care of your child, family member or friend?: No Do you have trouble with day-to-day activities such as bathing, preparing meals, shopping, managing finances, etc.?: No Are you currently unemployed and looking for a job?: No Are you interested in more education?: Yes Please select the resources that you would like help with: Education Currently or been in a relationship where the following occur: No concerns reported THRIVE Score: 0 AUDIT C Alcohol Use Questionnaire (AUDIT-C) 1. How often do you have a drink containing alcohol?: Never 3. How often do you have six or more drinks on one occasion?: Never Total Score: 0 HINA-7 AMB Questionnaire HINA-7 Date HINA - 7 assessed: 09/06/24 Source: Developed by Drs. Valdemar Cagle, YaniraDav Ochoa and colleagues, with an educational celina from [employer]. Review of Systems Const All systems reviewed & are unremarkable except as noted in HPI and below ENT Reports no additional complaints Card Reports no additional complaints Resp Reports no additional complaints GI Reports no additional complaints Reports no additional complaints Physical exam (Primary Care) Vital Signs: Last Vital Signs Temp 97.9 F 04/09/25 13:12 Pulse 86 04/09/25 13:12 Resp 18 04/09/25 13:12 BP 110/78 04/09/25 13:12 Pulse Ox 96 04/09/25 13:12 Oxygen Delivery Method Room Air 04/09/25 13:12 BMI result Body Mass Index 24.1 Tobacco/Smoking Status: Tobacco use Status Tobacco use date assessed 04/09/25 04/09/25 13:14 Patient Tobacco Use Status Former Tobacco user 04/09/25 13:14 Tobacco use type Cigarette 04/09/25 13:14 e-Cigarette/Vaping Use Never Used 04/09/25 13:14 Thrive Assessment: Date of Thrive Assessment Date Thrive assessed 04/09/25 04/09/25 13:14 Currently or been in a relationship where the following occur: No concerns reported Const General: no acute distress HENMT Head: Yes normal to inspection Throat: Yes posterior oropharynx normal Eyes General: appearance normal, both eyes and all related structures Neck Neck: Yes supple Resp Effort & Inspection: normal respiratory effort Auscultation: clear to auscultation bilaterally Cardio Rhythm: regular rhythm Heart sounds: S1 normal heart sound present and S2 normal heart sound present GI Inspection: Yes normal to inspection Palpation (GI): Soft to palpation Percussion: Yes normal to percussion Auscultation: normal bowel sounds Extrem Other: DROM of both knees and crepitus, no joint swelling General: Yes no clubbing, cyanosis or edema Coding Level of Care Code Est Pt Level 4 (39544) Diagnoses Knee pain, bilateral M25.561; M25.562 Arthralgia M25.50 Vitamin D deficiency E55.9 Postmenopausal Z78.0 Assessment & Plan Assessment & Plan (1) Knee pain, bilateral: Code(s): M25.561 - Pain in right knee; M25.562 - Pain in left knee Category: Medical Plan: check XR (2) Arthralgia: Code(s): M25.50 - Pain in unspecified joint Category: Medical Plan: check arhragia panel (3) Vitamin D deficiency: Code(s): E55.9 - Vitamin D deficiency, unspecified Category: Medical Plan: check the level (4) Postmenopausal: Code(s): Z78.0 - Asymptomatic menopausal state Category: Medical Plan: check DEXA Orders: Orders Complete Blood Count Auto Diff Today M25.50 - Pain in unspecified joint, M25.561 - Pain in right knee, M25.562 - Pain in left knee Comprehensive Met. Panel Today M25.50 - Pain in unspecified joint, M25.561 - Pain in right knee, M25.562 - Pain in left knee Rheumatoid Factor Today M25.50 - Pain in unspecified joint, M25.561 - Pain in right knee, M25.562 - Pain in left knee Cyclic Citrullinated Peptide Today M25.50 - Pain in unspecified joint, M25.561 - Pain in right knee, M25.562 - Pain in left knee C Reactive Protein Today M25.50 - Pain in unspecified joint, M25.561 - Pain in right knee, M25.562 - Pain in left knee WOL[place]ANG Reflex Titer and Pattern Today M25.50 - Pain in unspecified joint, M25.561 - Pain in right knee, M25.562 - Pain in left knee Lyme IgG/IgM w/reflex to WB Today M25.50 - Pain in unspecified joint, M25.561 - Pain in right knee, M25.562 - Pain in left knee Lipid Panel Today M25.50 - Pain in unspecified joint, M25.561 - Pain in right knee, M25.562 - Pain in left knee XR knee standing BI Today M25.50 - Pain in unspecified joint, M25.561 - Pain in right knee, M25.562 - Pain in left knee Vitamin D 25-OH Total Today E55.9 - Vitamin D deficiency, unspecified XR DEXA axial skeleton Today Z78.0 - Asymptomatic menopausal state Medications: New meloxicam 15 mg PO DAILY 14 tabs 0RF
--- OUTSIDE RECORDS SUMMARY | 2025-04-09 13:55 | XMS_ITS | Encounter Summary ---
Author Organization [facility] Address [address] [place] [address] Care Team Providers Care Music Department Chair Name Role Phone Ayla García MD Primary Care Provider Unavaila ble Reason for Visit * Reason Onset Date Comments APPOINTMENT 09/16/2021 Encounter Details Date Type Department Care Team Description 09/16/2021 Telephone Vascular Surgery - [place] [address] [place] [phone] Angelita Lomas PA-C [address] [phone] APPOINTMENT Social History Tobacco Use [...] on filedocumented in this encounter Care Teams Music Department Chair Relationship Specialty Start Date End Date Ayla García MD PCP - General Internal Medicine 08/17/21 documented as of this encounter
--- OUTSIDE RECORDS SUMMARY | 2025-04-09 13:55 | XMS_ITS | Encounter Summary ---
Author Organization [facility] Address [address] [place] [address] Care Team Providers Care Mobile Sales Assistant Name Role Phone Cande Morgan DO Primary Care Pro vider Unavailable Ayla García MD Primary Care Provider Unavaila ble Encounter Details Date Type Department Care Team Description 04/22/2020 Orders Only Adult Medicine [address] [address] Cande Morgan DO Elevated LFTs (Primary Dx) [...] chemistry documented in this encounter Care Teams Mobile Sales Assistant Relationship Specialty Start Date End Date Cande Morgan DO PCP - General Internal Medicine 07/09/14 08/16/21 Ayla García MD PCP - General Internal Medicine 08/17/21 documented as of this encounter
--- OUTSIDE RECORDS SUMMARY | 2025-04-09 13:55 | XMS_ITS | Encounter Summary ---
Author Organization [facility] Address [address] [place] [address] Care Team Providers Care Global Implementation Manager Name Role Phone Cande Morgan DO Primary Care Pro vider Unavailable Ayla García MD Primary Care Provider Unavaila ble Encounter Details Date Type Department Care Team Description 02/23/2019 Orders Only Medical Records [address] [place] [address] Abstract, Provider Pelvic pain Social History Tobacco [...] pain documented in this encounter Care Teams Global Implementation Manager Relationship Specialty Start Date End Date Cande Morgan DO PCP - General Internal Medicine 07/09/14 08/16/21 Ayla García MD PCP - General Internal Medicine 08/17/21 documented as of this encounter
--- OUTSIDE RECORDS SUMMARY | 2025-04-09 13:55 | XMS_ITS | Encounter Summary ---
Author Organization [facility] Address [address] [place] [address] Care Team Providers Care Assistant Restaurant General Manager Name Role Phone Cande Morgan DO Primary Care Pro vider Unavailable Ayla García MD Primary Care Provider Unavaila ble Reason for Visit * Reason Onset Date Comments medication problems 04/26/2017 sumatriptan (IMITREX) 50 MG tablet Encounter Details Date Type Department Care Team Description 04/26/2017 Telephone Adult Medicine [address] [address] Cande Morgan DO medication problems (sumatriptan (IMITREX) [...] on filedocumented in this encounter Care Teams Assistant Restaurant General Manager Relationship Specialty Start Date End Date Cande Morgan DO PCP - General Internal Medicine 07/09/14 08/16/21 Ayla García MD PCP - General Internal Medicine 08/17/21 documented as of this encounter
--- OUTSIDE RECORDS SUMMARY | 2025-04-09 13:55 | XMS_ITS | Encounter Summary ---
Author Organization [facility] Address [address] [place] [address] Care Team Providers Care Boom Stick Man Name Role Phone Cande Morgan DO Primary Care Pro vider Unavailable Ayla García MD Primary Care Provider Unavaila ble Reason for Visit * Reason Onset Date Comments APPOINTMENT 08/21/2020 Encounter Details Date Type Department Care Team Description 08/21/2020 Telephone Adult [address] [address] Cande Morgan DO APPOINTMENT Social History Tobacco [...] on filedocumented in this encounter Care Teams Boom Stick Man Relationship Specialty Start Date End Date Cande Morgan DO PCP - General Internal Medicine 07/09/14 08/16/21 Ayla García MD PCP - General Internal Medicine 08/17/21 documented as of this encounter
--- OUTSIDE RECORDS SUMMARY | 2025-04-09 13:55 | XMS_ITS | Encounter Summary ---
Author Organization [facility] Address [address] [place] [address] Care Team Providers Care Course Developer Name Role Phone Cande Morgan DO Primary Care Pro vider Unavailable Ayla García MD Primary Care Provider Unavaila ble Encounter Details Date Type Department Care Team Description 07/28/2016 [facility] Medical Records [address] [place] [address] Abstract, Provider Social History Tobacco Use Types [...] on filedocumented in this encounter Care Teams Course Developer Relationship Specialty Start Date End Date Cande Morgan DO PCP - General Internal Medicine 07/09/14 08/16/21 Ayla García MD PCP - General Internal Medicine 08/17/21 documented as of this encounter
--- OUTSIDE RECORDS SUMMARY | 2025-04-09 13:55 | XMS_ITS | Encounter Summary ---
Author Organization [facility] Address [address] [place] [address] Care Team Providers Care Financial Solutions Advisor Name Role Phone Cande Morgan DO Primary Care Pro vider Unavailable Ayla García MD Primary Care Provider Unavaila ble Encounter Details Date Type Department Care Team Description 08/27/2016 Reducing Machine Operator Report Medical Records [address] [place] [address] Genet Chan Social History Tobacco Use Types [...] on filedocumented in this encounter Care Teams Financial Solutions Advisor Relationship Specialty Start Date End Date Cande Morgan DO PCP - General Internal Medicine 07/09/14 08/16/21 Ayla García MD PCP - General Internal Medicine 08/17/21 documented as of this encounter
--- OUTSIDE RECORDS SUMMARY | 2025-04-09 13:55 | XMS_ITS | Encounter Summary ---
Author Organization [facility] Address [address] [place] [address] Care Team Providers Care Orchestra Leader Name Role Phone Cande Morgan DO Primary Care Pro vider Unavailable Ayla García MD Primary Care Provider Unavaila ble Reason for Visit * Reason Onset Date Comments Testing 07/11/2019 sono abdomen com plete Encounter Details Date Type Department Care Team Description 07/11/2019 Telephone Adult Medicine [address] [address] Rosio Vicente PA-C Testing (sono abdomen complete) [...] on filedocumented in this encounter Care Teams Orchestra Leader Relationship Specialty Start Date End Date Cande Morgan DO PCP - General Internal Medicine 07/09/14 08/16/21 Ayla García MD PCP - General Internal Medicine 08/17/21 documented as of this encounter
--- OUTSIDE RECORDS SUMMARY | 2025-04-09 13:55 | XMS_ITS | Encounter Summary ---
Author Organization [facility] Address [address] [place] [address] Care Team Providers Care Street Contractor Name Role Phone Cande Morgan DO Primary Care Pro vider Unavailable Ayla García MD Primary Care Provider Unavaila ble Encounter Details Date Type Department Care Team Description 08/12/2016 [facility] Medical Records [address] [place] [address] Shanon Nina DPM Social History Tobacco Use [...] on filedocumented in this encounter Care Teams Street Contractor Relationship Specialty Start Date End Date Cande Morgan DO PCP - General Internal Medicine 07/09/14 08/16/21 Ayla García MD PCP - General Internal Medicine 08/17/21 documented as of this encounter
--- OUTSIDE RECORDS SUMMARY | 2025-04-09 13:55 | XMS_ITS | Encounter Summary ---
Author Organization [facility] Address [address] [place] [address] Care Team Providers Care Peer Tutor Name Role Phone Cande Morgan DO Primary Care Pro vider Unavailable Ayla García MD Primary Care Provider Unavaila ble Encounter Details Date Type Department Care Team Description 06/03/2020 Orders Only Medical Records [address] [place] [address] Stephen Mulligan MD FACS [address] [place] [address] Social History Tobacco Use Types [...] on filedocumented in this encounter Care Teams Peer Tutor Relationship Specialty Start Date End Date Cande Morgan DO PCP - General Internal Medicine 07/09/14 08/16/21 Ayla García MD PCP - General Internal Medicine 08/17/21 documented as of this encounter
--- OUTSIDE RECORDS SUMMARY | 2025-04-09 13:55 | XMS_ITS | Encounter Summary ---
Author Organization [facility] Address [address] [place] [address] Care Team Providers Care Juice Packaging Machines Setter Name Role Phone Ayla García MD Primary Care Provider [phone] Encounter Details Date Type Department Care Team (Latest Contact Info) Description 01/02/[address] [facility] - Main Lab [address] [facility] [place] [address] Chelly Marshall MD [address] [id number] Infection and 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, initial encounter ([facility] V24); Postprocedural seroma of skin and subcutaneous [...] Care Team (Late st Contact Info) Description 08/05/2025 8:20 AM EST Appointment Radiology Department - [address] [phone] documented as of this encounter Procedures Procedure Name Priority Date/Time Associated Diagnosis Comments CBC WITH AUTO DIFFERENTIAL Routine 01/02/2025 6:30 PM EDT Infection and 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, initial encounter ([facility] V24) Postprocedural seroma of skin and subcutaneous tissue following other procedure Other specified postprocedural states SEDIMENTATION RATE Routine 01/02/2025 6: 30 PM EDT Infection and 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, initial encounter ([facility] V24) Postprocedural seroma of skin and subcutaneous tissue following other procedure Other specified postprocedural states CBC AND DIFFERENTIAL Routine 01/02/2025 6:30 PM EDT Infection and 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, initial encounter ([facility] V24) Postprocedural seroma of skin and subcutaneous tissue following other procedure Other specified postprocedural states CREATINE KINASE Routine 01/02/2025 6:30 PM EDT Infection and 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, initial encounter ([facility] V24) Postprocedural seroma of skin and subcutaneous tissue following other procedure Other specified postprocedural states documented in this encounter Results * (ABNORMAL) CBC auto differential (01/02/2025 6:30 PM EDT) [facility] WBC 8.0 4.8 - 10.8 K/mcL LAB [facility] RBC 4.10 3.80 - 4.80 M/[facility] LAB HEMETOLOGY METHOD 01/02/2025 9:[address] [facility] Hemoglobin 11.3(L) 11.5 - 16.0 g/dL LAB HEMETOLOGY METHOD 01/02/2025 9:[address] [facility] Hematocrit 36.1 35.0 - 47.0 % LAB HEMETOLOGY METHOD 01/02/2025 9:[address] [facility] MCV 87.2 79.0 - 98.0 FL LAB HEMETOLOGY METHOD [facility]25 [facility] MCH 27.3 27.0 - 32.0 pcg LAB HEMETOLOGY METHOD 01/02/2025 9:[address] [facility] MCHC 31.3(L) 32.0 - 37.0 g/dL LAB HEMETOLOGY METHOD 01/02/2025 9:[address] [facility] RDW 13.9 11.0 - 15.0 % LAB HEMETOLOGY METHOD 01/02/2025 9:[address] [facility] Platelets 350 130 - 400 K/mcL LAB HEMETOLOGY METHOD 01/02/2025 9:[address] [facility] MPV 11.0 7.0 - 11.0 FL LAB HEMETOLOGY METHOD 01/02/2025 9:[address] [facility] NRBC 0.0 <1.0 % LAB HEMETOLOGY METHOD 01/02/2025 9:[address] [facility] NRBC Absolute 0.00 <0.10 K/mcL LAB HEMETOLOGY METHOD 01/02/2025 9:[address] [facility] Neutrophils Relative 61.8 % LAB HEMETOLOGY METHOD 01/02/2025 9:[address] [facility] Lymphocytes Relative 22.8 % LAB HEMETOLOGY METHOD 01/02/2025 9:[address] [facility] Monocytes Relative 9.2 % LAB HEMETOLOGY METHOD 01/02/2025 9:[address] [facility] Eosinophils Relative 5.4 % LAB HEMETOLOGY METHOD 01/02/2025 9:[address] [facility] Basophils Relative 0.4 % LAB HEMETOLOGY METHOD 01/02/2025 9:[address] [facility] Immature Granulocytes Relative 0.4 % LAB HEMETOLOGY METHOD 01/02/2025 9:08 PM EDT [facility] Neutrophils Absolute 4.95 1.50 - 7.00 K/mcL LAB HEMETOLOGY METHOD 01/02/2025 9:08 PM EDT [facility] Lymphocytes Absolute 1.83 1.00 - 5.00 K/mcL LAB HEMETOLOGY METHOD 01/02/2025 9:08 PM EDT [facility] Monocytes Absolute 0.74 0.20 - 1.00 K/mcL LAB HEMETOLOGY METHOD 01/02/2025 9:08 PM EDT [facility] Eosinophils Absolute 0.43 0.00 - 0.50 K/[facility] LAB HEMETOLOGY METHOD 01/02/2025 9:08 PM EDT [facility] Basophils Absolute 0.03 0.00 - 0.20 K/mcL LAB HEMETOLOGY METHOD 01/02/2025 9:08 PM EDT [facility] Immature Granulocytes Absolute 0.03 0.00 - 0.03 K/[facility] LAB HEMETOLOGY METHOD 01/02/2025 9:08 PM EDT [facility] Blood Venous blood specimen / Unknown 01/02/2025 6:30 PM EDT 01/02/2025 8:58 PM EDT Chelly Marshall MD LAB BLOOD ORDERABLES Final Result [facility] [address] [place] [address], * (ABNORMAL) Sedimentation rate (01/02/2025 6:30 PM EDT) Sed Rate 39(H) 0 - 30 mm/hr LAB HEMETOLOGY METHOD 01/02/2025 9:14 PM EDT [facility] Blood Venous blood specimen / Unknown 01/02/2025 6:30 PM EDT 01/02/2025 8:58 PM EDT us Chelly Marshall MD LAB BLOOD ORDERABLES Final Result Performing Organization Address [facility]/ZIP Co de Phone Number [facility] [address] [place] [address], [place] [phone] * Creatine kinase (01/02/2025 6:30 PM EDT) Total CK 114 22 - 269 unit/L LAB CHEMISTRY METHOD 01/02/2025 10:18 PM EDT [facility] Blood Venous blood specimen / Unknown 01/02/2025 6:30 PM EDT 01/02/2025 8:58 PM EDT us Chelly Marshall MD LAB BLOOD ORDERABLES Final Result Performing Organization Address [facility] de Phone Number [facility] [address] [place] [address], [place] [phone] documented in this encounter Visit Diagnoses Diagnosis Infection and 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, initial encounter ([facility] V24) Postprocedural seroma of skin and subcutaneous tissue following other procedure Other specified postprocedural states documented in this encounter Care Teams Juice Packaging Machines Setter Relationship Specialty Start Date End Date Ayla García MD [address] [place] [address] PCP - General Internal Medicine 09/19/12 documented as of this encounter
--- OUTSIDE RECORDS SUMMARY | 2025-04-09 13:55 | XMS_ITS ---
Author Name [facility] Organization Unknown Care Team Organization Name Specialty Phone Email Start Date End Da te [facility] Termed, PROVIDER Primary Care 06/15/202203/08
--- OUTSIDE RECORDS SUMMARY | 2025-04-09 13:55 | XMS_ITS | Encounter Summary ---
Author Organization [facility] Address [address] [place] [address] Care Team Providers Care Graphic Design Assistant Name Role Phone Ayla García MD Primary Care Provider Lucia gilmore Encounter Details Date Type Department Care Team Description 10/21/2021 Release of Information Medical Records [address] [place] [id number] [place] [address] Social History Tobacco Use Types Packs/Day Years [...] on filedocumented in this encounter Care Teams Graphic Design Assistant Relationship Specialty Start Date End Date Ayla García MD PCP - General Internal Medicine 08/17/21 documented as of this encounter
--- OUTSIDE RECORDS SUMMARY | 2025-04-09 13:55 | XMS_ITS | Encounter Summary ---
Author Organization [facility] Address [address] [place] [address] Care Team Providers Care A R Specialist Name Role Phone Cande Morgan DO Primary Care Pro vider Unavailable Ayla García MD Primary Care Provider Unavaila ble Reason for Visit * Reason Onset Date Comments Error 05/23/2020 Encounter Details Date Type Department Care Team Description 05/23/2020 Telephone Vascular Surgery - [address] [address] Stephen Mulligan MD [address] [address] Error Social History Tobacco Use [...] on filedocumented in this encounter Care Teams A R Specialist Relationship Specialty Start Date End Date Cande Morgan DO PCP - General Internal Medicine 07/09/14 08/16/21 Ayla García MD PCP - General Internal Medicine 08/17/21 documented as of this encounter
--- OUTSIDE RECORDS SUMMARY | 2025-04-09 13:56 | XMS_ITS | Encounter Summary ---
Author Organization [facility] Address [address] [place] [address] Care Team Providers Care Inpatient Pharmacist Name Role Phone Cande Morgan DO Primary Care Pro vider Unavailable Ayla García MD Primary Care Provider Unavaila ble Encounter Details Date Type Department Care Team Description 11/21/2014 Orders Only Adult Medicine [address] [address] Cande Morgan DO Social History Tobacco Use Types Packs/Day Years Used Date Smoking Tobacco: Never Sex Assigned at Date Recorded Not on file Job Start Date Occupation Industry Not on file Not on file Not on file documented as of this encounter Plan of Treatment Not on file documented as of this encounter Visit Diagnoses Not on filedocumented in this encounter Care Teams Inpatient Pharmacist Relationship Specialty Start Date End Date Cande Morgan DO PCP - General Internal Medicine 07/09/14 08/16/21 Ayla García MD PCP - General Internal Medicine 08/17/21 documented as of this encounter
--- OUTSIDE RECORDS SUMMARY | 2025-04-09 13:56 | XMS_ITS | Encounter Summary ---
Author Organization [facility] Address [address] [place] [address] Care Team Providers Care Container Washer Name Role Phone Cande Morgan DO Primary Care Pro vider Unavailable Ayla García MD Primary Care Provider Unavaila ble Encounter Details Date Type Department Care Team Description 08/21/2015 Transfer Records Medical Records [address] [place] [address] Abstract, Provider Social History Tobacco Use Types [...] on filedocumented in this encounter Care Teams Container Washer Relationship Specialty Start Date End Date Cande Morgan DO PCP - General Internal Medicine 07/09/14 08/16/21 Ayla García MD PCP - General Internal Medicine 08/17/21 documented as of this encounter
--- OUTSIDE RECORDS SUMMARY | 2025-04-09 13:56 | XMS_ITS | Encounter Summary ---
Author Organization [facility] Address [address] [place] [address] Care Team Providers Care Surveyor'S Assistant Name Role Phone Cande Morgan DO Primary Care Pro vider Unavailable Ayla García MD Primary Care Provider Unavaila ble Encounter Details Date Type Department Care Team Description 11/24/2015 Orders Only Adult Medicine [address] [address] Cande Morgan DO Pyuria (Primary Dx) Social [...] AM EDT 12/29/2015 9:55 AM EDT [facility]ative [facility] - 12/31/2015 7:37 AM EDT 10,000 - 49,000 CFU/mL NORMAL SKIN/UROGENITAL CHRISTINE PRESENT. Cande Lawson DO LAB [facility] documented in this encounter Visit Diagnoses Diagnosis Pyuria- Primary Other nonspecific finding on examination of urine documented in this encounter Care Teams Surveyor'S Assistant Relationship Specialty Start Date End Date Cande Morgan DO PCP - General Internal Medicine 07/09/14 08/16/21 yAla García MD PCP - General Internal Medicine 08/17/21 documented as of this encounter
--- OUTSIDE RECORDS SUMMARY | 2025-04-09 13:56 | XMS_ITS | Clinical Summary ---
Author Organization [facility] [address] [place] [address] Address [address] [place] [address] Phone Care Team Providers Care Electrical Estimator Name Role Phone Ayla García MD Primary Care Provider [phone] Encounters Date Type Department Care Team Description 03/26/2025 10:44 AM EDT - 03/26/2025 11:59 PM EDT Hospital Encounter Radiology Department - [address] [phone] Abnormal mammogram Discharge Disposition: Home or Self Care from Last 3 Months Surgical History Surgery Date Site/Laterality Comments TONSILLECTOMY PROCEDURE: HISTORICAL TONSILLECTOMY OVARIAN CYST REMOVAL PROCEDURE: VT OVARIAN CYSTECTOMY UNI/BI; COMMENT: 15 yrs ago, ruptured ovarian cyst OTHER SURGICAL HISTORY 05/07/2009 Bilateral PROCEDURE: ---- OTHER ----; COMMENT: endovenous laser ablation legs COLPOSCOPY 08/20/2011 PROCEDURE: VT COLPOSCOPY ENTIRE VAGINA W/CERVIX IF PRESENT COLONOSCOPY 09/04/2012 PROCEDURE: HISTORICAL COLONOSCOPY OTHER SURGICAL HISTORY 06/09/2013 PROCEDURE: MAMMOGRAM OTHER SURGICAL HISTORY 08/12/2016 Right PROCEDURE: VT OSTEOT W/WO LNGTH SHRT/CORRJ METAR XCP 1ST [...] 08/05/2025 8:20 AM EST Appointment Radiology Department [address] [phone] Health Maintenance Due Date Last Done Comments Pneumococcal Vaccine: 50+ Years (2 of 2 - PCV) 05/03/2021 05/03/2020 Cervical Cancer Screening: Pap Smear 02/15/2022 02/15/2019 Colorectal Cancer Screening: Colonoscopy 07/17/2022 HIV Screening 07/17/2022 Hepatitis C Screening 07/17/2022 Social Influencers of Health Screening 07/17/2022 Depression Screening 08/08/2024 Influenza Vaccine (#1) 2025 4, 06/08/2023, 04/29/2022, Additional history exists DTaP,Tdap,and Td Vaccines (2 - Td or Tdap) 07/12/2026 07/12/2016 Breast Cancer Screening 08/07/2026 08/07/20 24, 03/24/2023, 03/19/2022, Additional history exists RSV Immunization Adult Patients (1 - 1-dose 75+ series) 12/31/2035 Zoster Vaccines Completed 12/15/2020, 05/03/2020 COVID-19 Vaccine Completed 04/28/2024, , 05/15/2022, Additional history exists HIB Vaccines Aged Out [...] Comments US AXILLA (BREAST) LIMITED RIGHT Routine 03/26/2025 10:58 AM EDT Abnormal mammogram MG MAMMO DIGITAL SCREENING W MITUL BILAT Routine 08/07/2024 11:14 AM EST Encounter for screening mammogram for breast cancer PAP SMEAR Routine 02/15/2019 from Last 3 Months or Most Recently Relevant to Health Maintenance Results * US Axilla (Breast) Limited Right (03/26/2025 10:58 AM EDT) Anatomical Region Laterality Modality Breast Right Ultrasound 03/26/2025 10:5 9 AM EDT Narrative 03/26/2025 11:16 AM EDT Targeted ultrasound of the right axilla. History follow-up on right axillary lymph nodes. According to the patient she had infection at this site of the right shoulder surgery with multiple surgical procedures and treatment with antibiotics. She finished antibacterial treatment in February of this year. Comparison with previous study from 09/26/2024. There is no significant interval change in the morphologically normal lymph node measuring 1.4 x 0.6 x 1.4 cm, previously 1.4 x 0.6 x 1.2 cm. 2nd lymph node was visualized measuring 2.5 x 0.9 x 0.6 cm, previously 2.2 x 0.7 x 1.5 cm. Difference in measurements appears to be technical. This lymph node revealed a large fatty center and no cortical thickening. CONCLUSIONS: Morphologically normal right axillary lymph nodes. No follow-up appears to be necessary. Bilateral mammogram at the time of her annual screening. Findings were explained to the patient. BIRADS 2, benign findings. -------- FINAL REPORT -------- Dictated By: Alexandrea Denise Dictated Date: 03/26/2025 10:59 ET Assigned Physician: Alexandrea Denise Reviewed and Electronically Signed By: Alexandrea Denise Signed Date: 03/26/2025 11:16 ET Workstation ID: [id number] Transcribed By: Self Edit Transcribed Date: 03/26/2025 10:59 ET us Ayla García MD IMG US PROCEDURES Final Resul t * (ABNORMAL) MG Mammo Digital Screening w Mitul bilat (08/07/2024 11:14 AM EST) Anatomical Region Laterality Modality Breast Bilateral Mammography 08/09/2024 8:51 AM EST Impressions 08/09/2024 8:56 AM EST Enlarging right axillary lymph nodes. Further evaluation with ultrasound is suggested. The patient will be contacted by the radiology department to arrange for the additional imaging. BI-RADS CATEGORY: 0 - INCOMPLETE - NEED ADDITIONAL IMAGING EVALUATION RECOMMENDATION: Ultrasound is recommended for the Right Breast. Mammo Location: [facility], [address] [place] [address], [address], . -------- FINAL REPORT -------- Dictated By: Gladis Queen Dictated Date: 08/09/2024 08:51 ET Assigned Physician: Gladis Queen Reviewed and Electronically Signed By: Gladis Queen Signed Date: 08/09/2024 08:56 ET Workstation ID: [id number] Transcribed By: Self Edit Transcribed Date: 08/09/2024 08:51 ET Narrative 08/09/2024 8:56 AM EST CLINICAL: 63 years old, Female, routine annual exam. COMPARISON: Mammograms dating back to 03/10/2020 with most recent of 03/24/2023. TECHNIQUE: Bilateral MLO and CC views were obtained digitally with 3-D mammogram (digital breast tomosynthesis). Computer-aided detection was utilized in evaluation of this exam (CAD). FINDINGS: There is no evidence of suspicious mass or architectural distortion. There are benign microcystic calcifications scattered in both breasts, unchanged. No worrisome calcifications are evident. There are prominent right axillary lymph nodes, and [...] recommended for the Right Breast. Mammo Location: [facility], [address] [place] [address], [id number], . -------- FINAL REPORT -------- Dictated By: Gladis Queen Dictated Date: 08/09/2024 08:51 ET Assigned Physician: Gladis Queen Reviewed and Electronically Signed By: Gladis Queen Signed Date: 08/09/2024 08:56 ET Workstation ID: [id number] Transcribed By: Self Edit Transcribed Date: 08/09/2024 08:51 ET us Ayla García MD IMG BI PROCEDURES Final Resul t * Pap smear (02/15/2019) 02/15/2019 Narrative HISTORICAL TESTING LAB RESULTING AGENCY - 02/21/2019 9:00 AM EDT [id number] THINPREP PAP, IMAGED: NEGATIVE FOR SQUAMOUS INTRAEPITHELIAL LESION AND MALIGNANCY . ATROPHY. DINA NELSON(ASCP) (CASE ELECTRONICALLY SIGNED 02 19 2019) RESULT OF APTIMA HIGH RISK HPV ASSAY: HIGH RISK HPV: NEGATIVE (SEROTYPES 16,18,31,33,35,39,45,51,52,56,58,59,66,68) COMPLETED ON 2019-02-19 ADEQUACY: SATISFACTORY ENDOCERVICAL/TRANSFORMATION ZONE COMPONENT PRESENT. SOURCE: THINPREP PAP HPV ANY DX: REFLEX 16 AND 18, CERVICAL, IMAGED CLINICAL INFORMATION: HPV ANY DIAGNOSIS. MENOPAUSE, PAP HX NEG, LP 01/04/14 NEG [Z12.4, Z01.419] us Alanis Mata DO LAB CYTOLOGY ORDERABLES Fin al Result HISTORICAL TESTING LAB RESULTING AGENCY from Last 3 Months or Most Recently Relevant to Health Maintenance Insurance [facility] Care Teams Electrical Estimator Relationship Specialty Start Date End Date Ayla aGrcía MD [address] [facility] [place] [address] PCP - General Internal Medicine 09/19/12
== END 2025-04-09 16:54 | disposition home or self-care (01) ==
PROVIDERS: PCP Internal Medicine; Visit Provider Internal Medicine
DX: M25.561 Pain in right knee (principal); M25.562 Pain in left knee; M25.50 Pain in unspecified joint; E55.9 Vitamin D deficiency, unspecified; Z78.0 Asymptomatic menopausal state

== ENCOUNTER 2025-04-10 09:05 | Outpatient (REF) | payer BC, SELFPAY ==
--- NOTE | ~2025-04-10 | XR_ITS ---
EXAMINATION: XR KNEE AP STANDING CLINICAL INFORMATION: M25.561 - Pain in right knee COMPARISON: None available. TECHNIQUE: AP bilateral standing and lateral views of the bilateral knees were obtained. FINDINGS: Right knee: There is mild narrowing of the medial greater than lateral joint space. There is a small amount of joint fluid. Minute osteophytes are present in the 3 compartments. There is no soft tissue calcification. Left knee: There is mild narrowing of the medial greater than lateral joint space. There is trace visible joint fluid. Minute osteophytes are present in the 3 compartments. There is no soft tissue calcification. XR/XR knee standing BI IMPRESSION: Right knee demonstrates very mild changes of osteoarthritis and a small joint effusion. Left knee demonstrates very mild changes of osteoarthritis. Electronically signed by: Jeff Dowell MD 04/10/2025 10:22 AM EDT
--- OUTSIDE RECORDS SUMMARY | 2025-04-10 09:46 | XMS_ITS | Clinical Summary ---
Author Organization [facility] [address] [place] [address] Address [address] [place] [address] Phone Care Team Providers Care Call Circuit Worker Name Role Phone Ayla García MD Primary Care Provider [phone] Encounters Date Type Department Care Team Description 03/26/2025 10:44 AM EDT - 03/26/2025 11:59 PM EDT Hospital Encounter Radiology Department - [address] [phone] Abnormal mammogram Discharge Disposition: Home or Self Care from Last 3 Months Surgical History Surgery Date Site/Laterality Comments TONSILLECTOMY PROCEDURE: HISTORICAL TONSILLECTOMY OVARIAN CYST REMOVAL PROCEDURE: DC OVARIAN CYSTECTOMY UNI/BI; COMMENT: 15 yrs ago, ruptured ovarian cyst OTHER SURGICAL HISTORY 05/07/2009 Bilateral PROCEDURE: ---- OTHER ----; COMMENT: endovenous laser ablation legs COLPOSCOPY 08/20/2011 PROCEDURE: DC COLPOSCOPY ENTIRE VAGINA W/CERVIX IF PRESENT COLONOSCOPY 09/04/2012 PROCEDURE: HISTORICAL COLONOSCOPY OTHER SURGICAL HISTORY 06/09/2013 PROCEDURE: MAMMOGRAM OTHER SURGICAL HISTORY 08/12/2016 Right PROCEDURE: DC OSTEOT W/WO LNGTH SHRT/CORRJ METAR XCP 1ST [...] 08/05/2025 8:20 AM EST Appointment Radiology Department [address] [phone] Health Maintenance Due Date Last Done Comments [...] Signed Date: 03/26/2025 11:16 ET Workstation ID: [id number] Transcribed By: Self Edit Transcribed Date: 03/26/2025 [...] recommended for the Right Breast. Mammo Location: [facility], [address] [place] [address], [address], . -------- FINAL REPORT -------- Dictated By: Gladis Queen Dictated Date: 08/09/2024 08:51 ET Assigned Physician: Gladis Queen Reviewed and Electronically Signed By: Gladis Queen Signed Date: 08/09/2024 08:56 ET Workstation ID: [id number] Transcribed By: Self Edit Transcribed Date: 08/09/2024 [...] recommended for the Right Breast. Mammo Location: [facility], [address] [place] [address], [address], . -------- FINAL REPORT -------- Dictated By: Gladis Queen Dictated Date: 08/09/2024 08:51 ET Assigned Physician: Gladis Queen Reviewed and Electronically Signed By: Gladis Queen Signed Date: 08/09/2024 08:56 ET Workstation ID: [id number] Transcribed By: Self Edit Transcribed Date: 08/09/2024 08:51 ET us Ayla García MD IMG BI PROCEDURES Final Resul t * Pap smear (02/15/2019) 02/15/2019 Narrative HISTORICAL TESTING LAB RESULTING AGENCY - 02/21/2019 9:00 AM EDT [id number] THINPREP PAP, IMAGED: NEGATIVE FOR SQUAMOUS INTRAEPITHELIAL [...] Most Recently Relevant to Health Maintenance Insurance [facility] [[email or web address]] Care Teams Call Circuit Worker Relationship Specialty Start Date End Date Ayla García MD [address] [place] [address] PCP - General Internal Medicine 09/19/12
--- OUTSIDE RECORDS SUMMARY | 2025-04-10 09:46 | XMS_ITS | Encounter Summary ---
Author Organization [facility] Address [address] [place] [address] Care Team Providers Care Change Of Address Clerk Name Role Phone Ayla García MD Primary Care Provider [phone] Encounter Details Date Type Department Care Team (Latest Contact Info) Description 01/02/2025 Lab Requisition [facility] - Main Lab [address] [facility] [place] [address] Chelly Marshall MD [address] [phone] Infection and 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, initial encounter ([facility] V24); Postprocedural seroma of skin and subcutaneous [...] 8:20 AM EST Appointment Radiology Department - [address] [phone] documented as of this encounter Procedures Procedure Name Priority Date/Time Associated Diagnosis Comments CBC WITH AUTO DIFFERENTIAL Routine 01/02/2025 6:30 PM EDT Infection and 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, initial encounter ([facility] V24) Postprocedural seroma of skin and subcutaneous tissue following other procedure Other specified postprocedural states SEDIMENTATION RATE Routine 01/02/2025 6: 30 PM EDT Infection and 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, initial encounter ([facility] V24) Postprocedural seroma of skin and subcutaneous tissue following other procedure Other specified postprocedural states CBC AND DIFFERENTIAL Routine 01/02/2025 6:30 PM EDT Infection and 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, initial encounter ([facility] V24) Postprocedural seroma of skin and subcutaneous tissue following other procedure Other specified postprocedural states CREATINE KINASE Routine 01/02/2025 6:30 PM EDT Infection and 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, initial encounter ([facility] V24) Postprocedural seroma of skin and subcutaneous tissue following other procedure Other specified postprocedural states documented in this encounter Results * (ABNORMAL) CBC auto differential (01/02/2025 6:30 PM EDT) [facility] WBC 8.0 4.8 - 10.8 K/mcL LAB [facility]EM[facility]OLOG[facility] RBC 4.10 3.80 - 4.80 M/[facility] LAB HEMETOLOGY METHOD 01/02/2025 9:08 PM [facility] Hemoglobin 11.3(L) 11.5 - 16.0 g/dL LAB HEMETOLOGY METHOD 01/02/2025 9:08 PM [facility] Hematocrit 36.1 35.0 - 47.0 % LAB HEMETOLOGY METHOD 01/02/2025 9:08 PM [facility] MCV 87.2 79.0 - 98.0 FL LAB HEMETOLOGY METHOD [facility] MCH 27.3 27.0 - 32.0 pcg LAB HEMETOLOGY METHOD 01/02/2025 9:08 PM [facility] MCHC 31.3(L) 32.0 - 37.0 g/dL LAB HEMETOLOGY METHOD 01/02/2025 9:08 PM [facility] RDW 13.9 11.0 - 15.0 % LAB HEMETOLOGY METHOD 01/02/2025 9:08 PM [facility] Platelets 350 130 - 400 K/mcL LAB HEMETOLOGY METHOD 01/02/2025 9:08 PM [facility] MPV 11.0 7.0 - 11.0 FL LAB HEMETOLOGY METHOD 01/02/2025 9:08 PM [facility] NRBC 0.0 <1.0 % LAB HEMETOLOGY METHOD 01/02/2025 9:08 PM [facility] NRBC Absolute 0.00 <0.10 K/mcL LAB HEMETOLOGY METHOD 01/02/2025 9:08 PM [facility] Neutrophils Relative 61.8 % LAB HEMETOLOGY METHOD 01/02/2025 9:08 PM [facility] Lymphocytes Relative 22.8 % LAB HEMETOLOGY METHOD 01/02/2025 9:08 PM [facility] Monocytes Relative 9.2 % LAB HEMETOLOGY METHOD 01/02/2025 9:08 PM [facility] Eosinophils Relative 5.4 % LAB HEMETOLOGY METHOD 01/02/2025 9:08 PM [facility] Basophils Relative 0.4 % LAB HEMETOLOGY METHOD 01/02/2025 9:08 PM [facility] Immature Granulocytes Relative 0.4 % [...] LAB Eosinophils Absolute 0.43 0.00 - 0.50 K/[facility] LAB HEMETOLOGY METHOD 01/02/2025 9:08 PM EDT [facility] Basophils Absolute 0.03 0.00 - 0.20 K/mcL LAB HEMETOLOGY METHOD 01/02/2025 9:08 PM EDT [facility] Immature Granulocytes Absolute 0.03 0.00 - 0.03 K/[facility] LAB HEMETOLOGY METHOD 01/02/2025 9:08 PM EDT [facility] Blood Venous blood specimen / Unknown 01/02/2025 6:30 PM EDT 01/02/2025 8:58 PM EDT Chelly Marshall MD LAB BLOOD ORDERABLES Final Result [facility] [address] [place] [address], * (ABNORMAL) Sedimentation rate (01/02/2025 6:30 PM EDT) Sed Rate 39(H) 0 - 30 mm/hr LAB HEMETOLOGY METHOD 01/02/2025 9:14 PM EDT [facility] Blood Venous blood specimen / Unknown 01/02/2025 6:30 PM EDT 01/02/2025 8:58 PM EDT us Chelly Marshall MD LAB BLOOD ORDERABLES Final Result Performing Organization Address [facility]/ZIP Co de Phone Number [facility] [address] [place] [address], [place] [phone] * Creatine kinase (01/02/2025 6:30 PM EDT) Total CK 114 22 - 269 unit/L LAB CHEMISTRY METHOD 01/02/2025 10:18 PM EDT [facility] Blood Venous blood specimen / Unknown 01/02/2025 6:30 PM EDT 01/02/2025 8:58 PM EDT us Chelly Marshall MD LAB BLOOD ORDERABLES Final Result Performing Organization Address [facility] de Phone Number [facility] [address] [place] [address], [place] [phone] documented in this encounter Visit Diagnoses Diagnosis Infection and 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, initial encounter ([facility] V24) Postprocedural seroma of skin and subcutaneous tissue following other procedure Other specified postprocedural states documented in this encounter Care Teams Change Of Address Clerk Relationship Specialty Start Date End Date Ayla García MD [address] [place] [address] PCP - General Internal Medicine 09/19/12 documented as of this encounter
[2025-04-10 10:09] LABS: MANUAL DIFF FLAG NO
[2025-04-10 10:14] LABS: Hematocrit 42.6 % (37.0-47.0); Hemoglobin 13.9 g/dl (12.0-16.0); Imm Gran Abs Auto 0.01 X10*3/uL (0.00-0.03); Imm Gran Pct Auto 0.2 % (0.0-0.4); Lymphocytes Absolute Auto 1.3 X10*3/uL (1.2-4.9); Mean Corpuscular HGB Conc 32.6 g/dl (31.0-35.0); Mean Corpuscular Hemoglobin 28.4 pg (27.0-33.0); Mean Corpuscular Volume 86.9 fL (80.0-98.0); NRBC Abs Auto 0.000 X10*3/uL (0.0-0.012); NRBC Pct Auto 0.0 /100WBC (0.0-0.2); Platelet Count 249 X10*3/uL (160-400); Red Blood Count 4.90 X10*6/uL (4.20-5.50); White Blood Count 4.5 X10*3/uL (4.8-10.8)
[2025-04-10 10:45] LABS: Alanine Aminotransferase 29 U/L (0-31); Albumin Level 4.3 g/dL (3.5-5.0); Alkaline Phosphatase 74 U/L (39-117); Anion Gap 10 (12-20); Aspartate Amino Transferase 34 U/L (5-31); Blood Urea Nitrogen 16 mg/dL (9-16); Calcium 8.9 mg/dL (8.4-10.2); Carbon Dioxide 26 mmol/L (22-29); Chloride 108 mmol/L (96-108); Cholesterol 200 mg/dL (<200); Estimated Glomerular Filt Rate > 60; HDL Cholesterol 56 mg/dL (>40); Potassium 4.1 mmol/L (3.3-5.1); Sodium 140 mmol/L (135-145); Total Protein 6.9 g/dL (6.5-8.0); Triglycerides 107 mg/dL (<150)
[2025-04-11 17:44] LABS: Lyme Abs Screen <0.90 index
[2025-04-12 15:24] LABS: Anti Nuclear Antibody Screen NEGATIVE (NEGATIVE)
== END 2025-04-10 09:06 | disposition home or self-care (01) ==
LOC: HO.HMGCX 09:05
PROVIDERS: PCP Internal Medicine; Visit Provider Internal Medicine
DX: Z01.84 Encounter for antibody response examination (principal); M25.561 Pain in right knee; M25.562 Pain in left knee; E55.9 Vitamin D deficiency, unspecified; Z13.6 Encounter for screening for cardiovascular disorders
CPT/HCPCS: 36415; 73565; 80053; 80061; 82306; 85025; 86038; 86140; 86200; 86431; 86617; 86618

== ENCOUNTER → 2025-04-10 09:24 | Outpatient (BNV) | payer BC, SELFPAY | PROVIDERS: PCP Internal Medicine; Visit Provider Radiology Diagnostic Radiology | DX: M17.0 Bilateral primary osteoarthritis of knee (principal) | CPT/HCPCS: 73565 ==

== ENCOUNTER 2025-05-06 10:53 | Outpatient (REF) | payer BC, SELFPAY ==
--- NOTE | ~2025-05-06 | MM_ITS ---
EXAMINATION: DXA BONE DENSITY AXIAL HISTORY: Z78.0 - Asymptomatic menopausal state TECHNIQUE: Rip van Wafels Dual energy absorptiometry (DEXA) of the lumbar spine, total left hip, and femoral neck was performed. COMPARISON: There are no prior studies for comparison. FINDINGS: The bone mineral density of the lumbar spine is 0.883 g/cm2, corresponding to a T-score of -2.4, and a Z-score of -1.0. This is indicative of osteopenia. The bone mineral density of the left total hip is 1.060 g/cm2, corresponding to a T-score of 0.4, and a Z-score of 1.4. This is indicative of normal bone mineral density. The bone mineral density of the left femoral neck is 0.923 g/cm2, corresponding to a T-score of -0.8, and a Z-score of 0.5. This is indicative of normal bone mineral density. FRACTURE RISK: The FRAX index suggests a risk of major osteoporotic fracture of 7.7%, and of hip fracture 0.5%. MM/XR DEXA axial skeleton IMPRESSION: Based on bone mineral density, and according to World Health Organization (WHO) criteria, the diagnosis is consistent with osteopenia. Statistically, 68% of repeat scans fall within 1 SD (+/- 0.010 g/cm2 for AP spine L1-L4) and 1 SD (+/- 0.012 g/cm2 for femur total) FRAX is a trademark of the [employer] Met[employer], a World Health Organization (WHO) Collaborating Center. Electronically signed by: Valdemar Chao MD 05/06/2025 11:25 AM EDT
--- OUTSIDE RECORDS SUMMARY | 2025-05-06 12:24 | XMS_ITS | Encounter Summary ---
Author Organization [facility] Address [address] [place] [address] Care Team Providers Care Inspector Wire Rope Name Role Phone Ayla García MD Primary Care Provider [phone] Encounter Details Date Type Department Care Team (Latest Contact Info) Description 01/02/2025 Lab Requisition [facility] - Main Lab [address] [facility] [place] [address] Chelly Marshall MD [address] [phone] Infection and 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, initial encounter ([facility] V24); Postprocedural seroma of skin [...] 8:20 AM EST Appointment Radiology Department - [address] [phone] documented as of this encounter Procedures Procedure Name Priority Date/Time Associated Diagnosis Comments CBC WITH AUTO DIFFERENTIAL Routine 01/02/2025 6:30 PM EDT Infection and 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, initial encounter ([facility] V24) Postprocedural seroma of skin and subcutaneous tissue following other procedure Other specified postprocedural states SEDIMENTATION RATE Routine 01/02/2025 6: 30 PM EDT Infection and 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, initial encounter ([facility] V24) Postprocedural seroma of skin and subcutaneous tissue following other procedure Other specified postprocedural states CBC AND DIFFERENTIAL Routine 01/02/2025 6:30 PM EDT Infection and 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, initial encounter ([facility] V24) Postprocedural seroma of skin and subcutaneous tissue following other procedure Other specified postprocedural states CREATINE KINASE Routine 01/02/2025 6:30 PM EDT Infection and 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, initial encounter ([facility] V24) Postprocedural seroma of skin and subcutaneous tissue following other procedure Other specified postprocedural states documented in this encounter Results * (ABNORMAL) CBC auto differential (01/02/2025 6:30 PM EDT) [facility] WBC 8.0 4.8 - 10.8 K/mcL LAB HEMETOLOGY METHOD [facility]/02[facility]25 [facility] RBC 4.10 3.80 - 4.80 M/[facility] LAB HEMETOLOGY METHOD 01/02/2025 9:08 PM [facility] LAB Hemoglobin 11.3(L) 11.5 - 16.0 g/dL LAB HEMETOLOGY METHOD 01/02/2025 9:08 PM [facility] LAB Hematocrit 36.1 35.0 - 47.0 % LAB HEMETOLOGY METHOD 01/02/2025 9:08 PM [facility] LAB MCV 87.2 79.0 - 98.0 FL LAB HEMETOLOGY METHOD 01/02/2025 9:08 PM [facility] MCH 27.3 27.0 - 32.0 pcg LAB HEMETOLOGY METHOD 01/02/2025 9:08 PM [facility] LAB MCHC 31.3(L) 32.0 - 37.0 g/dL LAB HEMETOLOGY METHOD 01/02/2025 9:08 PM [facility] LAB RDW 13.9 11.0 - 15.0 % LAB HEMETOLOGY METHOD 01/02/2025 9:08 PM [facility] LAB Platelets 350 130 - 400 K/mcL LAB HEMETOLOGY METHOD 01/02/2025 9:08 PM [facility] LAB MPV 11.0 7.0 - 11.0 FL LAB HEMETOLOGY METHOD 01/02/2025 9:08 PM [facility] LAB NRBC 0.0 <1.0 % LAB HEMETOLOGY METHOD 01/02/2025 9:08 PM [facility] LAB NRBC Absolute 0.00 <0.10 K/mcL LAB HEMETOLOGY METHOD 01/02/2025 9:08 PM [facility] LAB Neutrophils Relative 61.8 % LAB HEMETOLOGY METHOD 01/02/2025 9:08 PM [facility] LAB Lymphocytes Relative 22.8 % LAB HEMETOLOGY METHOD 01/02/2025 9:08 PM [facility] LAB Monocytes Relative 9.2 % LAB HEMETOLOGY METHOD 01/02/2025 9:08 PM [facility] LAB Eosinophils Relative 5.4 % LAB HEMETOLOGY METHOD 01/02/2025 9:08 PM [facility] LAB Basophils Relative 0.4 % LAB HEMETOLOGY METHOD 01/02/2025 9:08 PM [facility] LAB Immature Granulocytes Relative 0.4 % LAB HEMETOLOGY METHOD 01/02/2025 9:08 PM EDT [facility] Neutrophils Absolute 4.95 1.50 - 7.00 K/mcL LAB HEMETOLOGY METHOD 01/02/2025 9:08 PM EDT [facility] Lymphocytes Absolute 1.83 1.00 - 5.00 K/mcL LAB HEMETOLOGY METHOD 01/02/2025 9:08 PM EDT [facility] Monocytes Absolute 0.74 0.20 - 1.00 K/mcL LAB HEMETOLOGY METHOD 01/02/2025 9:08 PM EDT [facility] LAB Eosinophils Absolute 0.43 0.00 - 0.50 K/[facility] LAB HEMETOLOGY METHOD 01/02/2025 9:08 PM EDT [facility] Basophils Absolute 0.03 0.00 - 0.20 K/mcL LAB HEMETOLOGY METHOD 01/02/2025 9:08 PM EDT [facility] LAB Immature Granulocytes Absolute 0.03 0.00 - 0.03 K/[facility] LAB HEMETOLOGY METHOD 01/02/2025 9:08 PM EDT [facility] Blood Venous blood specimen / Unknown 01/02/2025 6:30 PM EDT 01/02/2025 8:58 PM EDT Chelly Marshall MD LAB BLOOD ORDERABLES Final Result [facility] LAB [address] [place] [address], * (ABNORMAL) Sedimentation rate (01/02/2025 6:30 PM EDT) Sed Rate 39(H) 0 - 30 mm/hr LAB HEMETOLOGY METHOD 01/02/2025 9:14 PM EDT [facility] Blood Venous blood specimen / Unknown 01/02/2025 6:30 PM EDT 01/02/2025 8:58 PM EDT us Chelly Marshall MD LAB BLOOD ORDERABLES Final Result Performing Organization Address [facility]/ZIP Co de Phone Number [facility] LAB [address] [place] [address], [place] [phone] * Creatine kinase (01/02/2025 6:30 PM EDT) Total CK 114 22 - 269 unit/L LAB CHEMISTRY METHOD 01/02/2025 10:18 PM EDT [facility] Blood Venous blood specimen / Unknown 01/02/2025 6:30 PM EDT 01/02/2025 8:58 PM EDT us Chelly Marshall MD LAB BLOOD ORDERABLES Final Result Performing Organization Address [facility] de Phone Number [facility] [address] [place] [address], [place] [phone] documented in this encounter Visit Diagnoses Diagnosis Infection and 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, initial encounter ([facility] V24) Postprocedural seroma of skin and subcutaneous tissue following other procedure Other specified postprocedural states documented in this encounter Care Teams Inspector Wire Rope Relationship Specialty Start Date End Date Ayla García MD [address] [place] [address] PCP - General Internal Medicine 09/19/12 documented as of this encounter
--- OUTSIDE RECORDS SUMMARY | 2025-05-06 12:24 | XMS_ITS | Clinical Summary ---
Author Organization [facility] [address] [place] [address] Address [address] [place] [address] Phone Care Team Providers Care Validation Technician Name Role Phone Ayla García MD Primary Care Provider [phone] Encounters Date Type Department Care Team Description 03/26/2025 10:44 AM EDT - 03/26/2025 11:59 PM EDT Hospital Encounter Radiology Department - [address] [phone] Abnormal mammogram Discharge Disposition: Home or Self Care from Last 3 Months Surgical History Surgery Date Site/Laterality Comments TONSILLECTOMY PROCEDURE: HISTORICAL TONSILLECTOMY OVARIAN CYST REMOVAL PROCEDURE: LA OVARIAN CYSTECTOMY UNI/BI; COMMENT: 15 yrs ago, ruptured ovarian cyst OTHER SURGICAL HISTORY 05/07/2009 Bilateral PROCEDURE: ---- OTHER ----; COMMENT: endovenous laser ablation legs COLPOSCOPY 08/20/2011 PROCEDURE: LA COLPOSCOPY ENTIRE VAGINA W/CERVIX IF PRESENT COLONOSCOPY 09/04/2012 PROCEDURE: HISTORICAL COLONOSCOPY OTHER SURGICAL HISTORY 06/09/2013 PROCEDURE: MAMMOGRAM OTHER SURGICAL HISTORY 08/12/2016 Right PROCEDURE: LA OSTEOT W/WO LNGTH SHRT/CORRJ METAR XCP 1ST [...] 08/05/2025 8:20 AM EST Appointment Radiology Department [address] [phone] Health Maintenance Due Date Last Done Comments [...] Signed Date: 03/26/2025 11:16 ET Workstation ID: [id number] Transcribed By: Self Edit Transcribed Date: 03/26/2025 [...] recommended for the Right Breast. Mammo Location: [facility], [address] [place] [address], [address], . -------- FINAL REPORT -------- Dictated By: Gladis Queen Dictated Date: 08/09/2024 08:51 ET Assigned Physician: Gladis Queen Reviewed and Electronically Signed By: Gladis Queen Signed Date: 08/09/2024 08:56 ET Workstation ID: [id number] Transcribed By: Self Edit Transcribed Date: 08/09/2024 [...] recommended for the Right Breast. Mammo Location: [facility], [address] [place] [address], [address], . -------- FINAL REPORT -------- Dictated By: Gladis Queen Dictated Date: 08/09/2024 08:51 ET Assigned Physician: Gladis Queen Reviewed and Electronically Signed By: Gladis Queen Signed Date: 08/09/2024 08:56 ET Workstation ID: [id number] Transcribed By: Self Edit Transcribed Date: 08/09/2024 08:51 ET us Ayla García MD IMG BI PROCEDURES Final Resul t * Pap smear (02/15/2019) 02/15/2019 Narrative HISTORICAL TESTING LAB RESULTING AGENCY - 02/21/2019 9:00 AM EDT [id number] THINPREP PAP, IMAGED: NEGATIVE FOR SQUAMOUS INTRAEPITHELIAL [...] Maintenance Insurance [facility] Care Teams Validation Technician Relationship Specialty Start Date End Date Ayla García MD [address] [facility] [place] [address] PCP - General Internal Medicine 09/19/12
== END 2025-05-06 10:54 | disposition home or self-care (01) ==
LOC: HO.MAMMO 10:53
PROVIDERS: PCP Internal Medicine; Visit Provider Internal Medicine
DX: Z13.820 Encounter for screening for osteoporosis (principal); Z78.0 Asymptomatic menopausal state
CPT/HCPCS: 77080

== ENCOUNTER → 2025-05-06 11:00 | Outpatient (BNV) | payer BC, SELFPAY | PROVIDERS: PCP Internal Medicine; Visit Provider Radiology Diagnostic Radiology | DX: E28.39 Other primary ovarian failure (principal) | CPT/HCPCS: 77080 ==

== ENCOUNTER 2025-05-21 13:01 | Outpatient (REF) | payer BC, SELFPAY ==
--- NOTE | ~2025-05-21 | US_ITS ---
CLINICAL HISTORY: N83.201 - Unspecified ovarian cyst, right side US pelvis transvaginal Comparison: None provided Findings: Transvaginal scanning performed. Anteverted uterus is 6.3 x 2.3 x 5 cm length. Moreover, lower uterine segment ventral heterogeneous hypoechoic lesion, 0.7 x 0.5 x 0.7 cm; leiomyoma. No endometrial lesion, 13 mm thickness. Right ovary 2 x 1.2 x 1.3 cm. Left ovary 4.2 x 2.8 x 3.7 cm. Moreover, anechoic focus with posterior acoustic enhancement with some internal echoes, 3.4 x 2.3 x 3.4 cm; complex cyst. Normal color Doppler of both ovaries. Trace free fluid. IMPRESSION: 1. Lower uterine segment ventral subcentimeter leiomyoma. 2. Left ovarian complex cyst, 3.4 x 2.3 x 3.4 cm. This document has been electronically signed by: Jl Mora MD on 05/22/2025 19:11:47
--- OUTSIDE RECORDS SUMMARY | 2025-05-21 15:42 | XMS_ITS | Clinical Summary ---
Author Organization [facility] [address] [place] [address] Address [address] [place] [address] Phone Care Team Providers Care Length Control Tester Name Role Phone Ayla García MD Primary Care Provider [phone] Encounters Date Type Department Care Team Description 03/26/2025 10:44 AM EDT - 03/26/2025 11:59 PM EDT Hospital Encounter Radiology Department - [address] [phone] Abnormal mammogram Discharge Disposition: Home or Self [...] Labor Labor/2nd/3rd Weight Sex Type Anes PTL Chrisitne A1 A5 Name Clin Term Term Last [...] 08/05/2025 8:20 AM EST Appointment Radiology Department [address] [phone] Health Maintenance Due Date Last Done Comments Colorectal Cancer Screening: Colonoscopy 1960 Pneumococcal Vaccine: 50+ Years (2 of 2 - PCV) 05/03/2021 05/03/2020 Cervical Cancer Screening: Pap Smear 02/15/2022 02/15/2019 HIV Screening 07/17/2022 Hepatitis C Screening 07/17/2022 Social Influencers of Health Screening 07/17/2022 Depression Screening 08/08/2024 Influenza Vaccine (#1) 2025 , 06/08/2023, 04/29/2022, Additional history exists DTaP,Tdap,and Td [...] Signed Date: 03/26/2025 11:16 ET Workstation ID: [id number] Transcribed By: Self Edit Transcribed Date: 03/26/2025 [...] recommended for the Right Breast. Mammo Location: [facility], [address] [place] [address], [address], . -------- FINAL REPORT -------- Dictated By: Gladis Queen Dictated Date: 08/09/2024 08:51 ET Assigned Physician: Gladis Queen Reviewed and Electronically Signed By: Gladis Queen Signed Date: 08/09/2024 08:56 ET Workstation ID: [id number] Transcribed By: Self Edit Transcribed Date: 08/09/2024 [...] recommended for the Right Breast. Mammo Location: [facility], [address] [place] [address], [address], . -------- FINAL REPORT -------- Dictated By: Gladis Queen Dictated Date: 08/09/2024 08:51 ET Assigned Physician: Gladis Queen Reviewed and Electronically Signed By: Gladis Queen Signed Date: 08/09/2024 08:56 ET Workstation ID: [id number] Transcribed By: Self Edit Transcribed Date: 08/09/2024 08:51 ET us Ayla García MD IMG BI PROCEDURES Final Resul t * Pap smear (02/15/2019) 02/15/2019 Narrative HISTORICAL TESTING LAB RESULTING AGENCY - 02/21/2019 9:00 AM EDT [id number] THINPREP PAP, IMAGED: NEGATIVE FOR SQUAMOUS INTRAEPITHELIAL [...] Recently Relevant to Health Maintenance Insurance [facility] Care Teams Length Control Tester Relationship Specialty Start Date End Date Ayla García MD [address] [place] [address] PCP - General Internal Medicine 09/19/12
--- OUTSIDE RECORDS SUMMARY | 2025-05-21 15:42 | XMS_ITS | Encounter Summary ---
Author Organization [facility] Address [address] [place] [address] Care Team Providers Care Test Hole Driller Name Role Phone Ayla García MD Primary Care Provider Encounter Details Date Type Department Care Team (Latest Contact Info) Description 01/02/2025 Lab Requisition [facility] - Main Lab [address] [facility] [place] [address] Chelly Marshall MD [address] [phone] Infection and inflammatory reaction due to other [...] 8:20 AM EST Appointment Radiology Department - [address] [phone] documented as of this encounter Procedures Procedure Name Priority Date/Time Associated Diagnosis Comments CBC WITH AUTO DIFFERENTIAL Routine 01/02/2025 6:30 PM EDT Infection and 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, initial encounter ([facility] V24) Postprocedural seroma of skin and subcutaneous tissue following other procedure Other specified postprocedural states SEDIMENTATION RATE Routine 01/02/2025 6: 30 PM EDT Infection and 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, initial encounter ([facility] V24) Postprocedural seroma of skin and subcutaneous tissue following other procedure Other specified postprocedural states CBC AND DIFFERENTIAL Routine 01/02/2025 6:30 PM EDT Infection and 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, initial encounter ([facility] V24) Postprocedural seroma of skin and subcutaneous tissue following other procedure Other specified postprocedural states CREATINE KINASE Routine 01/02/2025 6:30 PM EDT Infection and 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, initial encounter ([facility] V24) Postprocedural seroma of skin and subcutaneous tissue following other procedure Other specified postprocedural states documented in this encounter Results * (ABNORMAL) CBC auto differential (01/02/2025 6:30 PM EDT) [facility] WBC 8.0 4.8 - 10.8 K/mcL LAB HEMETOLOGY [facility]25 [facility] RBC 4.10 3.80 - 4.80 M/[facility] LAB HEMETOLOGY METHOD 01/02/2025 9:08 PM [place] [...] HEMETOLOGY METHOD 01/02/2025 9:08 PM EDT [facility] LAB Neutrophils Absolute 4.95 1.50 - 7.00 K/mcL LAB HEMETOLOGY METHOD 01/02/2025 9:08 PM EDT [facility] LAB Lymphocytes Absolute 1.83 1.00 - 5.00 K/mcL LAB HEMETOLOGY METHOD 01/02/2025 9:08 PM EDT [facility] LAB Monocytes Absolute 0.74 0.20 - 1.00 K/mcL LAB HEMETOLOGY METHOD 01/02/2025 9:08 PM EDT [facility] LAB Eosinophils Absolute 0.43 0.00 - 0.50 K/[facility] LAB HEMETOLOGY METHOD 01/02/2025 9:08 PM EDT [facility] LAB Basophils Absolute 0.03 0.00 - 0.20 K/mcL LAB HEMETOLOGY METHOD 01/02/2025 9:08 PM EDT [facility] LAB Immature Granulocytes Absolute 0.03 0.00 - 0.03 K/[facility] LAB HEMETOLOGY METHOD 01/02/2025 9:08 PM EDT [facility] LAB Blood Venous blood specimen / Unknown 01/02/2025 6:30 PM EDT 01/02/2025 8:58 PM EDT Chelly Marshall MD LAB BLOOD ORDERABLES Final Result [facility] [address] [place] [address], * (ABNORMAL) Sedimentation rate (01/02/2025 6:30 PM EDT) Sed Rate 39(H) 0 - 30 mm/hr LAB HEMETOLOGY METHOD 01/02/2025 9:14 PM EDT [facility] Blood Venous blood specimen / Unknown 01/02/2025 6:30 PM EDT 01/02/2025 8:58 PM EDT us Chelly Marshall MD LAB BLOOD ORDERABLES Final Result Performing Organization Address [facility]/ZIP Co de Phone Number [facility] [address] [place] [address], [place] [phone] * Creatine kinase (01/02/2025 6:30 PM EDT) Total CK 114 22 - 269 unit/L LAB CHEMISTRY METHOD 01/02/2025 10:18 PM EDT [facility] Blood Venous blood specimen / Unknown 01/02/2025 6:30 PM EDT 01/02/2025 8:58 PM EDT us Chelly Marshall MD LAB BLOOD ORDERABLES Final Result Performing Organization Address [facility] de Phone Number [facility] [address] [place] [address], [place] [phone] documented in this encounter Visit Diagnoses Diagnosis Infection and 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, initial encounter ([facility] V24) Postprocedural seroma of skin and subcutaneous tissue following other procedure Other specified postprocedural states documented in this encounter Care Teams Test Hole Driller Relationship Specialty Start Date End Date Ayla García MD [address] [place] [address] PCP - General Internal Medicine 09/19/12 documented as of this encounter
== END 2025-05-21 13:02 | disposition home or self-care (01) ==
LOC: HO.HMGCX 13:01
PROVIDERS: PCP Internal Medicine; Visit Provider Internal Medicine
DX: N83.201 Unspecified ovarian cyst, right side (principal)
CPT/HCPCS: 76830; 76856

== ENCOUNTER → 2025-05-21 13:05 | Outpatient (BNV) | payer BC, SELFPAY | PROVIDERS: PCP Internal Medicine; Visit Provider Radiology Diagnostic Radiology | DX: D25.2 Subserosal leiomyoma of uterus (principal); N83.292 Other ovarian cyst, left side | CPT/HCPCS: 76830; 76856 ==

== ENCOUNTER 2025-05-27 08:26 | Outpatient (AMB) | payer BC, SELFPAY ==
--- NOTE | 2025-05-27 08:42 | A.OFFVIS_ITS ---
Intake Visit Reasons: OV-right shoulder I&D 12/26/24 NE-3 month F/U Intake Note: Alexandrea is a 63 year old right hand dominant female who is [place] islander speaking, presents today for Post operative follow up about 5 months s/p Right Shoulder Arthroscopic Debridement and Removal of foreign material 12/26/24. She continues to have pain with certain movements however states she would like to discuss returning back to work full duty. States she has little pain with certain movements but is better over all. Biochemistry Technologist Name: [id number] Allergies Penicillins Allergy (Severe, Verified 05/27/25 08:49) trouble breathing latex Allergy (Intermediate, Verified 05/27/25 08:49) rash daptomycin Allergy (Verified 05/27/25 08:49) hives all over chest, abdomen HPI HPI OV-right shoulder I&D 12/26/24 NE-3 month F/U: Details: Alexandrea is a 63 year old right hand dominant female who is [place] islander speaking, presents today for Post operative follow up about 5 months s/p Right Shoulder Arthroscopic Debridement and Removal of foreign material 12/26/24. She continues to have pain with certain movements however states she would like to discuss returning back to work full duty. States she has little pain with certain movements but is better over all. [facility] Medical History (Updated 05/23/25 @ 08:22 by Ayla García MD) Left ovarian cyst Osteomyelitis of right shoulder Septic joint of right shoulder region Normal colonoscopy Mammogram normal Normal Pap smear Annual physical exam Varicose veins of both lower extremities Surgical History Status post left rotator cuff repair (12/14/23) H/O repair of right rotator cuff Status post cervical polyp removal S/P foot surgery, right History of carpal tunnel surgery of right wrist History of carpal tunnel surgery of left wrist Family History Father Heart problem Mother Hypertension Stroke Social History Household Members: Spouse Housing: Apartment Are you a primary manager respiratory care to a significant other at home: No Do you presently have visiting nurse or other home services: No Patient Tobacco Use Status: Former Tobacco user Tobacco use type: Cigarette Years Smoked: 10 e-Cigarette/Vaping Use: Never Used service: No Current occupational status: employed 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 Incision is clean dry and intact. 4+/5 isolated empty can Assessment & Plan Assessment & Plan (1) Tear of supraspinatus tendon: Comment: MR 04/30, f/u [facility] [place] [place] Patterson Code(s): M75.100 - Unspecified rotator cuff tear or rupture of unspecified shoulder, not specified as traumatic Category: Medical Qualifiers: Laterality: right Qualified Code(s): M75.101 - Unspecified rotator cuff tear or rupture of right shoulder, not specified as traumatic Plan: Haylie is finally improved after extensive removal of foreign material from her shoulder. She does have some weakness in abduction but overall is doing very well. I recommend return to work no greater than 6 hours a day starting 06/13/2025 continuing to 08/07/2025. In the new year she would be work more than 6 hours a day. In addition I recommend no overhead work and no lifting over 10 lb. A note was written. She can see me any time. Coding Level of Care Code Est Pt Level 3 (61211) Diagnoses Tear of right supraspinatus tendon M75.101 Laterality: right
== END 2025-05-27 09:07 | disposition home or self-care (01) ==
LOC: HO.HOS 08:27
PROVIDERS: PCP Internal Medicine; Visit Provider Orthopaedic Surgery
DX: M75.101 Unspecified rotator cuff tear or rupture of right shoulder, not specified as traumatic (principal)
CPT/HCPCS: 99213